=== PATIENT | female | born 1940 | race Caucasian/White ===

== ENCOUNTER 2024-05-15 13:16 | Emergency (ER) | payer MEDICARE, BC, SELFPAY ==
[2024-05-15 13:18] VITALS: BP 149/60
[2024-05-15 13:27] VITALS: BP 136/57
--- NOTE | 2024-05-15 13:52 | ED.GENMED ---
History of Present Illness
General
Chief Complaint: Facial Problem
Time Seen by Provider: 05/15/24 13:25
History of Present Illness
History of Present Illness:
84-year-old female presents the emergency department for evaluation of facial and head trauma. States she awoke today with mild blurriness of the right eye and made an appoint with her eye doctor. She went to the eye doctor where her eye exam was
normal but they noted that she had severe ecchymosis to the right forehead and maxillary face. She was then sent to the ED for further evaluation. She has no recollection of falling. She does admit to nightly alcohol use, has been drinking for
many years every night however more recently this is increased due to several life stressors. She does endorse feeling depressed as her is currently in a detention and she visits him on a daily basis. She denies SI or HI. She does not
wish to speak with [facility] or cares at this time
Past History
Past History
ED Past Medical History: HTN and Valvular disease
ED Past Surgical History: Cardiac (Aortic valve replacement), Cholecystectomy, Gynecological and Orthopedic (Knee replacement)
Social History
Tobacco: Non-smoker
Alcohol: Occasional
Drug: None
Personal:
Living: with family
Employment: Retired
Family History
Family History: Other (Noncontributory)
Review of Systems
Review of Systems
Allergies reviewed?: Yes
All Other Systems: ROS reviewed and negative except as documented in HPI and ROS
Phy Exam
Physical Exam
Physical Exam:
GEN: Well appearing, NAD, WDWN
HEENT: Marked ecchymosis and swelling of the right supraorbital forehead and maxillary face, no palpable crepitus. Normal extraocular motions in all rossi, no hyphema or subconjunctival hemorrhage; oral mucosa moist, no scleral icterus, no nasal
congestion
Cardiac: Regular rate
Lung: No respiratory distress, no tachypnea
MSK: No gross deformity or injuries
Skin: Good color, no pallor or jaundice, no rashes
Neuro: AO x3; CN II-XII grossly intact. BUE strength 5/5 in all rossi, sensation intact and symmetric. BLE strength 5/5 in all rossi, sensation intact and symmetric
Psych: Calm, cooperative
Course
Orders/Labs/Results
Orders:
Orders
05/15/24 13:[address] Facial Bones W/o Iv Contras Urgent
Comment:
Reason For Exam: fall
CT Head W/o Iv Contrast Urgent
Comment:
Reason For Exam: fall
05/15/24 13:31
Electrocardiogram (*1) Urgent
Reason for Study: Syncope
EKG- Treatment ONCE
05/15/24 14:14
Complete Blood Count/No Diff Urgent
Comprehensive Metabolic Panel Urgent
Abnormal Lab Results
05/15/24
14:14
RBC 3.52 L 10^6/uL
(4.20-5.40)
Hct 35.8 L %
(37.0-47.0)
MCV 101.7 H fL
(81.0-99.0)
MCH 34.4 H pg
(27.0-31.0)
BUN 18 H mg/dl
(7-17)
Glucose 105 H mg/dl
(70-99)
05/15/24 14:14
05/15/24 14:14
Vital Signs
Initial and Last Documented VS:
Initial Vital Signs
Temp Pulse Resp BP Pulse Ox
98.7 F 89 18 149/60 97
05/15/24 13:18 05/15/24 13:18 05/15/24 13:18 05/15/24 13:18 05/15/24 13:18
Last Documented Vital Signs
Temp Pulse Resp BP Pulse Ox
98.7 F 89 18 149/60 97
05/15/24 13:18 05/15/24 13:18 05/15/24 13:18 05/15/24 13:18 05/15/24 13:18
MDM/Problems Addressed
MDM/Problems Addressed:
Imaging unremarkable, labs reassuring. Pt offered [facility] or crisis and declined. Advised to decrease ETOH Use. Lives alone, feels safe returning
*Critical Care Note
Total Time (30-74mins, 75-104mins- exclusive of procedures): Not Applicable
Update Note
Update Note:
See scanned documentation from patient's eye visit prior to arrival
ED Attending Note
-
Portions of this chart may have been created with voice recognition software.� Occasional wrong word or��sound alike� substitutions may have occurred due to the inherent limitations of voice recognition software.
Discharge Plan
Departure
Patient Disposition: Home (Routine Discharge)
Date of Disposition: 05/15/24
Time of Disposition: 14:43
Patient with high blood pressure during this ER visit?: No
Discharge Problem:
Fall, Contusion of face
Instructions: Concussion, Adult (DC)
Prescriptions:
No Action
aspirin 81 MG tablet,delayed release (DR/EC)
81 mg PO DAILY
levothyroxine 100 MCG tablet
100 mcg PO DAILY AT 0700
benzonatate 100 MG capsule
100 mg PO TIDPRN PRN (Reason: cough)
metoprolol succinate 25 MG tablet extended release 24 hr
12.5 mg PO BID
acetaminophen 325 MG tablet
650 mg PO Q4HPRN PRN (Reason: mild pain)
cyanocobalamin (vitamin B-12) 1,000 MCG tablet
1,000 mcg PO DAILY
coenzyme A84-esdoyju E 1 CAP capsule
1 cap PO DAILY
cholecalciferol (vitamin D3) 1,000 UNITS tablet
1,000 units PO DAILY
fish,bora,flax oils-om3,6,9no1 [Hamel 3-6-9] 1,200 MG capsule
1,280 mg PO DAILY
azithromycin 250 MG tablet
250 mg PO DAILY 3 Days Qty: 3 0RF
amoxicillin-pot clavulanate 1 TABLET tablet
1 tab PO Q12 5 Days Qty: 10 0RF
guaifenesin [Mucus Relief ER] 600 MG tablet extended release 12hr
600 mg PO Q12 Qty: 14 0RF
Referrals:
Collin Mary DO [Family Provider] -
Interventions
Interventions:
*Risk Screen - Suicide Last Done: 05/15/24 13:18
*General Assessment Last Done: 05/15/24 13:18
*Neglect/Abuse Screening Last Done: 05/15/24 13:18
Discharge Date and Time
Print Language: LITHUANIAN
[2024-05-15 14:02] VITALS: BP 124/55
[2024-05-15 14:24] LABS: Hematocrit 35.8 % (37.0-47.0); Hemoglobin 12.1 g/dL (12.0-16.0); Mean Corp Hgb Conc. 33.8 g/dL (33.0-37.0); Mean Corpuscular Hgb 34.4 pg (27.0-31.0); Mean Corpuscular Volume 101.7 fL (81.0-99.0); Mean Platelet Volume 9.3 fL (7.4-10.4); Platelet Count 236 10^3/uL (130-400); Red Blood Cell Count 3.52 10^6/uL (4.20-5.40); Red Cell Dist. Width 12.6 % (11.5-14.5); White Blood Cell Count 7.6 10^3/uL (4.8-10.8)
[2024-05-15 14:37] LABS: ALT (SGPT) 22 U/L (0-35); AST (SGOT) 29 U/L (14-36); Albumin 3.8 g/dl (3.5-5.0); Alkaline Phosphatase 64 U/L (38-126); Blood Urea Nitrogen 18 mg/dl (7-17); Calcium 9.3 mg/dl (8.4-10.2); Carbon Dioxide 28 mmol/L (22-30); Chloride 103 mmol/L (98-107); Glucose 105 mg/dl (70-99); Potassium 3.8 mmol/L (3.5-5.1); Sodium 138 mmol/L (135-145); Total Protein 6.6 g/dl (6.3-8.2); eGFR > 60.00
== END 2024-05-15 15:01 | disposition home or self-care (01) ==
LOC: EMR 13:16
PROVIDERS: Physician Assistant; EMERGENCY PHYSICIAN Emergency Medicine; FAMILY PHYSICIAN Family Medicine
DX: S00.83XA Contusion of other part of head, initial encounter (principal); W19.XXXA Unspecified fall, initial encounter; R45.89 Other symptoms and signs involving emotional state; I10 Essential (primary) hypertension; Z95.2 Presence of prosthetic heart valve
CPT/HCPCS: 99284; 70450; 70486; 80053; 85027; 93005

== ENCOUNTER 2024-05-30 22:54 | Inpatient (IN) | payer MEDICARE, BC, SELFPAY ==
[2024-05-30] VITALS (9 sets, daily range): BP systolic 117–164; BP diastolic 66–109; BMI 29.0
[2024-05-30 19:51] LABS: % Basophils 1.1 % (0-2); % Eosinophils 0.4 % (0-6); % Immature Granulocytes 0.3 % (0-0.5); % Lymphocytes 24.6 % (20.5-51.1); % Monocytes 9.3 % (1.7-9.3); % Neutrophils 64.3 % (42.2-75.2); Absolute Basophils 0.1 10^3/uL (0-0.2); Absolute Lymphocytes 1.8 10^3/uL (1.2-3.4); Absolute Monocytes 0.7 10^3/uL (0.1-0.6); Absolute Neutrophils 4.7 10^3/uL (1.4-6.5); Hematocrit 32.8 % (37.0-47.0); Hemoglobin 11.4 g/dL (12.0-16.0); Mean Corp Hgb Conc. 34.8 g/dL (33.0-37.0); Mean Corpuscular Hgb 34.3 pg (27.0-31.0); Mean Corpuscular Volume 98.8 fL (81.0-99.0); Mean Platelet Volume 9.9 fL (7.4-10.4); Nucleated Red Blood Cells % 0 %; Platelet Count 248 10^3/uL (130-400); Red Blood Cell Count 3.32 10^6/uL (4.20-5.40); Red Cell Dist. Width 12.7 % (11.5-14.5); White Blood Cell Count 7.3 10^3/uL (4.8-10.8)
--- NOTE | 2024-05-30 19:53 | ED.GENMED ---
History of Present Illness
<Gayathri Aguilar PA-C - Last Filed: 05/31/24 01:08>
General
Chief Complaint: Heart Rate Problem
Source: patient
Exam Limitations: none
Time Seen by Provider: 05/30/24 19:33
Nursing documentation reviewed up to this point in time: agreed with
History of Present Illness
History of Present Illness:
84 y/o F with h/o CAD, AVR, HTN, HLD
on metoprolol 12.5 mg bid
sent by for afib
say sshe has been intermittenty having episodes of palpitations/racing HR, sob, ches tpain that feels like heaviness
the dyspnea has been for about 2.5 weeks
she has been under a great deal of stress recently; her is in NH because he has parkinsons and more recently has had progression of dementia
pt says she tries to visit him and he doesn't want her to leave so she is spending long days and feels wiped out
noticed that in the past 2 weeks when she takes her BP her HR is also eleavtaed above 100 which is unusual
the past 3-4 days she has had a heaviness in her chest whih is new
she has not had pleuritic pain, fever, cough/cold ysmptoms, nausea, vomting abdomianl pain
p has no h/o of afib
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
no AC
Past History
<Gayathri Aguilar PA-C - Last Filed: 05/31/24 01:08>
Past History
ED Past Medical History: HTN and Valvular disease
ED Past Surgical History: Cardiac (Aortic valve replacement), Cholecystectomy, Gynecological and Orthopedic (Knee replacement)
Social History
Tobacco: Non-smoker
Alcohol: Occasional
Drug: None
Personal:
Living: with family
Employment: Retired
Family History
Family History: Other (Noncontributory)
Review of Systems
<Gayathri Aguilar PA-C - Last Filed: 05/31/24 01:08>
Review of Systems
Allergies reviewed?: Yes
All Other Systems: Not applicable
Phy Exam
<Gayathri Aguilar PA-C - Last Filed: 05/31/24 01:08>
Physical Exam
Physical Exam:
GENERAL: Alert , in no apparent distress
EYE: pupils equal and reactive
NECK: Supple
ENT: o/p clr, mmm.
CARDIAC: irregularly irregular, tachycaridc
some mild edema in both legs, nonpittting
LUNGS: Clear breath sounds bilaterally, no acute respiratory distress, no wheezes/rales/rhonchi
ABDOMEN: Soft, without focal tenderness, no r/g, no cvat, normal bowel sounds
NEUROLOGICAL: Alert and oriented, no focal neuro deficits
SKIN: Warm and dry, skin intact.
MUSCULOSKELETAL: No edema, well perfused. neg alberto's sign
PSYCH: Normal and appropriate interaction.
Scores
<Gayathri Aguilar PA-C - Last Filed: 05/31/24 01:08>
[id number] Score for Afib Stroke Risk
Age in Years (65=0, 65-74=1, >/=75=2): > or = 75
Sex (Female=+1): Female
Congestive Heart Failure History (Yes=+1): No
Hypertension History (Yes=+1): Yes
Stroke/TIA/Thromboembolism History (Yes=+2): No
Vascular Disease History (Yes=+1): No
Diabetes Mellitus (Yes=+1): No
Score: 4
Anticoagulation Recommendations: Recommend anticoagulation (as validated in nonvalvular fib)
<Teresa Rebolledo MD - Last Filed: 05/30/24 21:14>
[id number] Score for Afib Stroke Risk
Score: 4
Anticoagulation Recommendations: Recommend anticoagulation (as validated in nonvalvular fib)
Course
<Gayathri Aguilar PA-C - Last Filed: 05/31/24 01:08>
Orders/Labs/Results
Orders:
Orders
05/30/24 Breakfast
Cholesterol Lowering
At Your Request: Full Participation
Does patient need a safe tray?: No
Fluid Restriction: 1000 mL/day (33 oz)
Cholesterol Lowering: Sodium, 2 Gram
05/30/24 19:32
Electrocardiogram (*1) Urgent
Reason for Study: Chest Pain
EKG- Treatment ONCE
05/30/24 19:36
Complete Blood Count/With Diff Urgent
Comprehensive Metabolic Panel Urgent
NT-proBNP Urgent
Comment: ADD ON
TSH Urgent
Comment: ADD ON
Troponin I Urgent
05/30/24 19:47
Add On- LAB Urgent
Comments:: BNP
Tests Added?: BNP
05/30/24 19:50
Metoprolol [Lopressor] 2.5 mg IV NOW STA
05/30/24 19:52
CT Chest PE Study Urgent
Comment:
Reason For Exam: sob, new onset afib
05/30/24 20:07
Add On- LAB Urgent
Tests Added?: tsh
05/30/24 20:14
COVID-19 Antigen Urgent
Source: Nasal Swab
Influenza A+B Rapid Molecular Urgent
TIGIST Source: Nasal Swab
Specimen Description:
05/30/24 20:50
Metoprolol [Lopressor] 2.5 mg IV NOW STA
05/30/24 21:35
Apixaban [Eliquis] 2.5 mg PO NOW STA
05/30/24 21:47
Furosemide [Lasix] 20 mg IV NOW STA
05/30/24 22:15
Furosemide [Lasix] 20 mg IV NOW STA
05/30/24 22:25
Admit/Transfer Patient As Directed
Co-Sign Provider:
Level of Care: Inpatient admission
Assign to:: Telemetry
Physician / Group: indu
Diagnosis: atrial fib with RVR
Reason for Telemetry: Arrhythmia
Date to Stop Telemetry: 06/02/24
Time to Stop Telemetry: 11:00
Reason for Hospitalization: atrial fib with RVR
new onset CHF
Expected length of stay greater than two midnights?: Yes
ELOS- Estimated Length of Stay in days: 3
I certify the patient meets the requirements for IP care: Yes
PRN Pain Medication Management As Directed
May give lesser potent ordered pain med per pt: Yes
preference::
Protocol:: Medication orders for pain may be administered in a
manner that supports deferring to patient preference
when the pt is:
- Requesting an ordered lesser potent pain medication.
Least to most potent pain medications are defined
as: acetaminophen < NSAID < tramadol < opioids
(morphine, oxycodone, hydromorphone).
- Requesting a lesser dose of the same medication IF
ORDERED.
- Requesting a less intrusive route of administration
if both routes are prescribed by the provider (PO <
IV).
05/30/24 22:26
Code Status As Directed
Resuscitation Status: Do not resuscitate
Reached after discussion with pt or family/Healthcare POA: Yes
DNR Bracelet Application ONCE
05/30/24 23:48
Echo 2D MMode Color/Doppler Routine
Reason for Study: heart failure
CARDIOLOGY CONSULT Routine
Consulting Provider: Manjinder Funk
Was physician already notified: No
Reason for consult: new onset atrial fib, new onset CHF
Consult Notification Routine
Specialty to Notify: Cardiology
HF DIETARY CONSULT Routine
HF EDUCATOR CONSULT Routine
Comment:
Activity As Directed
Activity Level: As Tolerated
Intake/ Output As Directed
Frequency: Per unit guidelines
Patient Education As Directed
Type: CHF folder
Comment: give on admission. Document in Interdisciplinary Education record
Sleep Apnea Assessment by RN As Directed
Comment:
Physician Instructions:
Vital Signs As Directed
Frequency: Other
Additional Instructions:: Q12 or per unit guidelines if more frequent.
Weight As Directed
Frequency: Daily
Type of Scale: Standing Scale
Comment: Daily morning weight. If unable to stand, use balanced bed scale.
Weight As Directed
Frequency: Once
Type of Scale: Standing Scale
Comment: Upon Admission. If unable to stand, use balanced bed scale.
Pulse Ox/cont/shift [RESP] Routine
Quantity: 1
Special Instructions: Daily pulse oximetry at rest. If greater than 92% at rest also obtain pulse oximetry
while ambulating as tolerated.
Ot Eval And Treat Routine
Pt Eval And Treat Routine
Activity Level: As Tolerated
05/31/24 01:30
Troponin I Q6H
Comment: at admission & every 6 hours x 2 (3 total), ECG to be done with each level
05/31/24 06:00
Cardiovascular Evaluation IN AM
Magnesium IN AM
TSH Reflex To Free T4 IN AM
05/31/24 07:00
Levothyroxine [Synthroid] 100 mcg PO DAILY AT 0700
05/31/24 07:30
Troponin I Q6H
Comment: at admission & every 6 hours x 2 (3 total), ECG to be done with each level
05/31/24 08:00
Apixaban [Eliquis] 5 mg PO BID
Cholecalciferol (Vitamin D3) [VITAMIN D3 (cholecalciferol)] 25 mcg PO DAILY
Cyanocobalamin [Vitamin B-12] 1,000 mcg PO DAILY
Furosemide [Lasix] 40 mg IV DAILY
Lisinopril [Zestril] 40 mg PO DAILY
Metoprolol Xl [Toprol Xl] 25 mg PO BID
Sertraline HCl [Zoloft] 75 mg PO DAILY
Vit C/Vit E/Lutein/Min/Minter-3 [Ocuvite Softgel] 1 cap PO BID
06/01/24 06:00
Basic Metabolic Panel IN AM
06/02/24 06:00
Basic Metabolic Panel IN AM
06/02/24 11:00
DC Protocol for Telemetry ONCE
Abnormal Lab Results
05/30/24
19:36
RBC 3.32 L 10^6/uL
(4.20-5.40)
Hgb 11.4 L g/dL
(12.0-16.0)
Hct 32.8 L %
(37.0-47.0)
MCH 34.3 H pg
(27.0-31.0)
Absolute Monos (auto) 0.7 H 10^3/uL
(0.1-0.6)
Sodium 134 L mmol/L
(135-145)
BUN 19 H mg/dl
(7-17)
AST 107 H U/L
(14-36)
ALT 122 H U/L
(0-35)
05/30/24 19:36
05/30/24 19:36
Vital Signs
Initial and Last Documented VS:
Initial Vital Signs
Temp Pulse Resp BP Pulse Ox
36.8 C 116 26 150/109 96
05/30/24 19:38 05/30/24 19:38 05/30/24 19:38 05/30/24 19:38 05/30/24 19:38
Last Documented Vital Signs
Temp Pulse Resp BP Pulse Ox
36.9 C 93 18 149/96 95
05/31/24 00:05 05/31/24 00:05 05/31/24 00:05 05/31/24 00:05 05/31/24 00:05
<Teresa Rebolledo MD - Last Filed: 05/30/24 21:14>
Orders/Labs/Results
Orders:
Orders
05/30/24 Breakfast
Cholesterol Lowering
At Your Request: Full Participation
Does patient need a safe tray?: No
Fluid Restriction: 1000 mL/day (33 oz)
Cholesterol Lowering: Sodium, 2 Gram
05/30/24 19:32
Electrocardiogram (*1) Urgent
Reason for Study: Chest Pain
EKG- Treatment ONCE
05/30/24 19:36
Complete Blood Count/With Diff Urgent
Comprehensive Metabolic Panel Urgent
NT-proBNP Urgent
Comment: ADD ON
TSH Urgent
Comment: ADD ON
Troponin I Urgent
05/30/24 19:47
Add On- LAB Urgent
Comments:: BNP
Tests Added?: BNP
05/30/24 19:50
Metoprolol [Lopressor] 2.5 mg IV NOW STA
05/30/24 19:52
CT Chest PE Study Urgent
Comment:
Reason For Exam: sob, new onset afib
05/30/24 20:07
Add On- LAB Urgent
Tests Added?: tsh
05/30/24 20:14
COVID-19 Antigen Urgent
Source: Nasal Swab
Influenza A+B Rapid Molecular Urgent
TIGIST Source: Nasal Swab
Specimen Description:
05/30/24 20:50
Metoprolol [Lopressor] 2.5 mg IV NOW STA
05/30/24 21:35
Apixaban [Eliquis] 2.5 mg PO NOW STA
05/30/24 21:47
Furosemide [Lasix] 20 mg IV NOW STA
05/30/24 22:15
Furosemide [Lasix] 20 mg IV NOW STA
05/30/24 22:25
Admit/Transfer Patient As Directed
Co-Sign Provider:
Level of Care: Inpatient admission
Assign to:: Telemetry
Physician / Group: indu
Diagnosis: atrial fib with RVR
Reason for Telemetry: Arrhythmia
Date to Stop Telemetry: 06/02/24
Time to Stop Telemetry: 11:00
Reason for Hospitalization: atrial fib with RVR
new onset CHF
Expected length of stay greater than two midnights?: Yes
ELOS- Estimated Length of Stay in days: 3
I certify the patient meets the requirements for IP care: Yes
PRN Pain Medication Management As Directed
May give lesser potent ordered pain med per pt: Yes
preference::
Protocol:: Medication orders for pain may be administered in a
manner that supports deferring to patient preference
when the pt is:
- Requesting an ordered lesser potent pain medication.
Least to most potent pain medications are defined
as: acetaminophen < NSAID < tramadol < opioids
(morphine, oxycodone, hydromorphone).
- Requesting a lesser dose of the same medication IF
ORDERED.
- Requesting a less intrusive route of administration
if both routes are prescribed by the provider (PO <
IV).
05/30/24 22:26
Code Status As Directed
Resuscitation Status: Do not resuscitate
Reached after discussion with pt or family/Healthcare POA: Yes
DNR Bracelet Application ONCE
05/30/24 23:48
Echo 2D MMode Color/Doppler Routine
Reason for Study: heart failure
CARDIOLOGY CONSULT Routine
Consulting Provider: Manjinder Funk
Was physician already notified: No
Reason for consult: new onset atrial fib, new onset CHF
Consult Notification Routine
Specialty to Notify: Cardiology
HF DIETARY CONSULT Routine
HF EDUCATOR CONSULT Routine
Comment:
Activity As Directed
Activity Level: As Tolerated
Intake/ Output As Directed
Frequency: Per unit guidelines
Patient Education As Directed
Type: CHF folder
Comment: give on admission. Document in Interdisciplinary Education record
Sleep Apnea Assessment by RN As Directed
Comment:
Physician Instructions:
Vital Signs As Directed
Frequency: Other
Additional Instructions:: Q12 or per unit guidelines if more frequent.
Weight As Directed
Frequency: Daily
Type of Scale: Standing Scale
Comment: Daily morning weight. If unable to stand, use balanced bed scale.
Weight As Directed
Frequency: Once
Type of Scale: Standing Scale
Comment: Upon Admission. If unable to stand, use balanced bed scale.
Pulse Ox/cont/shift [RESP] Routine
Quantity: 1
Special Instructions: Daily pulse oximetry at rest. If greater than 92% at rest also obtain pulse oximetry
while ambulating as tolerated.
Ot Eval And Treat Routine
Pt Eval And Treat Routine
Activity Level: As Tolerated
05/31/24 01:30
Troponin I Q6H
Comment: at admission & every 6 hours x 2 (3 total), ECG to be done with each level
05/31/24 06:00
Cardiovascular Evaluation IN AM
Magnesium IN AM
TSH Reflex To Free T4 IN AM
05/31/24 07:00
Levothyroxine [Synthroid] 100 mcg PO DAILY AT 0700
05/31/24 07:30
Troponin I Q6H
Comment: at admission & every 6 hours x 2 (3 total), ECG to be done with each level
05/31/24 08:00
Apixaban [Eliquis] 5 mg PO BID
Cholecalciferol (Vitamin D3) [VITAMIN D3 (cholecalciferol)] 25 mcg PO DAILY
Cyanocobalamin [Vitamin B-12] 1,000 mcg PO DAILY
Furosemide [Lasix] 40 mg IV DAILY
Lisinopril [Zestril] 40 mg PO DAILY
Metoprolol Xl [Toprol Xl] 25 mg PO BID
Sertraline HCl [Zoloft] 75 mg PO DAILY
Vit C/Vit E/Lutein/Min/Minter-3 [Ocuvite Softgel] 1 cap PO BID
06/01/24 06:00
Basic Metabolic Panel IN AM
06/02/24 06:00
Basic Metabolic Panel IN AM
06/02/24 11:00
DC Protocol for Telemetry ONCE
Abnormal Lab Results
05/30/24
19:36
RBC 3.32 L 10^6/uL
(4.20-5.40)
Hgb 11.4 L g/dL
(12.0-16.0)
Hct 32.8 L %
(37.0-47.0)
MCH 34.3 H pg
(27.0-31.0)
Absolute Monos (auto) 0.7 H 10^3/uL
(0.1-0.6)
Sodium 134 L mmol/L
(135-145)
BUN 19 H mg/dl
(7-17)
AST 107 H U/L
(14-36)
ALT 122 H U/L
(0-35)
05/30/24 19:36
05/30/24 19:36
Vital Signs
Initial and Last Documented VS:
Initial Vital Signs
Temp Pulse Resp BP Pulse Ox
36.8 C 116 26 150/109 96
05/30/24 19:38 05/30/24 19:38 05/30/24 19:38 05/30/24 19:38 05/30/24 19:38
Last Documented Vital Signs
Temp Pulse Resp BP Pulse Ox
36.9 C 93 18 149/96 95
05/31/24 00:05 05/31/24 00:05 05/31/24 00:05 05/31/24 00:05 05/31/24 00:05
<Gayathri Aguilar PA-C - Last Filed: 05/31/24 01:08>
MDM/Problems Addressed
Differential Diagnosis Includes:
afib with RVR, pe, pulm edema
MDM/Problems Addressed:
84 y/o F
new onset afib with RVR, mild pulm edema, no o2 requirement
no PE on ct
sxs palpitations x 2 weeks with dyspnea;
chest pressure x 3-4 days, trop 0.031
lasix, metoprolol IV
rate controlled 80s;
will requir admission
AC intiited
[id number] score is 4
<Gayathri Aguilar PA-C - Last Filed: 05/31/24 01:08>
*Critical Care Note
Total Time (30-74mins, 75-104mins- exclusive of procedures): Not Applicable
ED Attending Note
<Gayathri Aguilar PA-C - Last Filed: 05/31/24 01:08>
-
Portions of this chart may have been created with voice recognition software.� Occasional wrong word or��sound alike� substitutions may have occurred due to the inherent limitations of voice recognition software.
<Teresa Rebolledo MD - Last Filed: 05/30/24 21:14>
ED Attending Note
Patient seen and examined by attending physician: Yes
I performed the substantive portion of visit, reviewed & personally made and approve the management plan that is documented in note by myself or WALKER.: Yes
ED Attending Note:
84-year-old female who reports gradual onset of variety of symptoms for the last few months. She has been very stressed and anxious given her her 's Parkinson disease has gotten much worse recently. She describes progressive shortness of
breath with activity for the last few months. She also notes for the past few days/week her heart rate has been elevated. She attributed this to anxiety until her daughter convinced her to seek medical attention today. Patient is not
anticoagulated. She does have a history of aortic valve replacement. She does state that 2 weeks ago she was home and just noticed that she could not see out of her right eye, looked in the mirror and had a large periorbital hematoma. She did see
ophthalmology at that time, and got a CAT scan of her head and facial bones which were unremarkable. She denies preceding symptoms to this event and does not remember anything about the actual event. On exam, patient has resolving hematoma at the
right infraorbital area. Lungs are CTA. Heart irregularly irregular, slightly tachycardic. Patient with new onset A-fib, recent questionable syncopal event, progressive dyspnea on exertion. At this time she is a candidate for anticoagulation but
careful consideration going forward given her recent fall. Admission, echo, cards consult.
Discharge Plan
Departure
Patient Disposition: Admit
Date of Disposition: 05/30/24
Time of Disposition: 21:38
Admit to: Telemetry
Presentation/result/management discussed w/ accepting MD/DO: Hospitalist
Condition: Fair
Covid-19: Not Applicable
Discharge Problem:
Atrial fibrillation, new onset, Atrial fibrillation with rapid ventricular response
Interventions
Interventions:
*Risk Screen - Suicide Last Done: 05/30/24 23:49
*General Assessment Last Done: 05/30/24 20:08
*Neglect/Abuse Screening Last Done: 05/30/24 20:08
*ED- Fall Risk Assessment Last Done: 05/30/24 20:07
*ED COVID-19 Vaccine History Last Done: 05/30/24 23:49
*Nursing Disposition Last Done: 05/30/24 23:33
ED- Cardiac Assessment Last Done: 05/30/24 20:09
ED- Pulmonary Assessment Last Done: 05/30/24 20:09
Discharge Date and Time
Discharge Date/Time: 05/30/24 23:33
[2024-05-30 20:05] LABS: ALT (SGPT) 122 U/L (0-35); AST (SGOT) 107 U/L (14-36); Albumin 4.4 g/dl (3.5-5.0); Alkaline Phosphatase 122 U/L (38-126); Blood Urea Nitrogen 19 mg/dl (7-17); Calcium 9.2 mg/dl (8.4-10.2); Carbon Dioxide 25 mmol/L (22-30); Chloride 99 mmol/L (98-107); Estimated Creatinine Clearance 57 ml/min; Glucose 99 mg/dl (70-99); Potassium 3.9 mmol/L (3.5-5.1); Sodium 134 mmol/L (135-145); Total Protein 6.8 g/dl (6.3-8.2); eGFR > 60.00
[2024-05-30 20:17] LABS: NT-proBNP 6430 pg/ml; Troponin I 0.031 ng/ml
[2024-05-30] MEDS: LOPRESSOR 2.5 MG IV ×2 (20:17→21:22)
[2024-05-30 20:37] LABS: COVID-19 Antigen Negative (Negative)
[2024-05-30 20:57] LABS: TSH 1.93 uIU/ml (0.47-4.68)
--- NOTE | 2024-05-30 22:04 | HPS.HSE ---
Family Physician
-
Family Physician: Collin Mary
Chief Complaint
-
palpitation
sob
chest pain
History of Present Illness
84 y/o F with h/o CAD, AVR, HTN, HLD presented to us palpitation, chest heaviness, felt like her heart was racing since Monday. her heart rate was somewhere between 100-140. she was sob, UNDERWOOD. denied orthopnea. patient stated dizzy, lightheaded and
she had fall two weeks ago. she fell face down. denied fever, chills. she is complaining of headache. denied abdominal pain,n,v,d. denied dysuria and hematuria.
she has been under a great deal of stress recently; her is in NH because he has Parkinson and more recently has had progression of dementia. she spends time with him at [place] and been tired.
upon arrival, she was in atrial frib with RVR, chest x ray with CHF. patient received Lasix, metoprolol and eliquis in ER. admitting for further management.
Medical History
Past Medical History
Past Medical History: Reports Other
Additional Past Medical History:
HTN
hypothyroidism
squamous cell carcinoma
insomnia
HTN
HLD
aortic valve stenosis
depression
CAD
Past Surgical History: Reports Other
Additional Past Surgical History:
aortic valve replacement
right cataract extraction
cholecystectomy
hysterectomy
left TKR
CABG
Social History
Tobacco: Non-smoker
Alcohol: Daily
Drug: None
Personal:
Living: Alone
Family History
Family History: Not pertinent
Allergies / Home Medications
Allergies reflects when Allergies were last updated in [employer].
Home Medications with original date entered in [employer]
Allergy/Medication List:
Allergies
Allergy/AdvReac Type Severity Reaction Status Date / Time
No Known Allergies Allergy Verified 05/30/24 20:10
Home Medications
cholecalciferol (vitamin D3) 25 mcg (1,000 unit) tablet 1,000 units PO DAILY Supplement 07/15/21
cyanocobalamin (vitamin B-12) 1,000 mcg tablet 1,000 mcg PO DAILY Supplement 07/15/21
levothyroxine 100 mcg tablet 100 mcg PO DAILY AT 0700 Thyroid 07/15/21
metoprolol succinate 25 mg tablet,extended release 24 hr 12.5 mg PO BID Blood pressure 07/15/21
ascorbate calcium (vitamin C) 500 mg tablet 500 mg PO DAILY 05/30/24
evolocumab 140 mg/mL subcutaneous syringe (Repatha Syringe) 140 mg SC Q2W 05/30/24
hydrochlorothiazide 25 mg tablet 25 mg PO DAILY 05/30/24
lisinopril 40 mg tablet 40 mg PO DAILY 05/30/24
sertraline 50 mg tablet 75 mg PO DAILY 05/30/24
vit C 250 mg-vit E 90 mg-zinc 40 mg-copper 1 [id number]-yjxyud capsule (PreserVision AREDS-2) 1 tab PO BID 05/30/24
Review of Systems
-
Constitutional: Reports No Symptoms
EENT: Reports No Symptoms
Respiratory: Reports Trouble Breathing
Cardiac: Reports Chest Pain and Palpitations
Abdomen/GI: Reports No Symptoms
: Reports No Symptoms
Musculoskeletal: Reports No Symptoms
Skin: Reports No Symptoms
Neurological: Reports No Symptoms
Endocrine: Reports No Symptoms
Hematologic/Lymphatic: Reports No Symptoms
Psych: Reports No Symptoms
Physical Exam
Vital Signs
Vital Signs
Temp Pulse Resp BP Pulse Ox
98.2 F 112 22 155/85 94
05/30/24 19:38 05/30/24 21:22 05/30/24 21:22 05/30/24 21:22 05/30/24 21:22
Physical Exam
General: Well Developed, Well Nourished and No Apparent Distress
HEENT: NormoCephalic, Moist mucous membranes and Atraumatic
Respiratory: Clear
Cardiac: Irregular Rhythm and Tachycardia; No Murmur or Rub
GI: Soft, Non Tender, Non Distended and Normal Bowel Sounds; No Organomegaly
Rectal: Deferred by Provider
Musculoskeletal: No Clubbing, No Cyanosis and Other (b/l Le edema)
Skin: No Rash
Neuro: AO x 3 and Nonfocal/grossly intact
Psych: Calm
Laboratory Results
-
05/30/24 19:36
05/30/24 19:36
Laboratory Results
Total Bilirubin 1.0 mg/dl (0.2-1.3) 05/30/24 19:36
AST 107 U/L (14-36) H 05/30/24 19:36
ALT 122 U/L (0-35) H 05/30/24 19:36
Alkaline Phosphatase 122 U/L (38-126) 05/30/24 19:36
Troponin I 0.031 ng/ml 05/30/24 19:36
Data Reviewed
-
Diagnostic Radiology: Report Reviewed by me
Lab Data: Labs Reviewed by me
Impression/Plan
-
#new onset atrial fib with RVR
-eliquis and Lopressor in ER
-continue eliquis
-metoprolol increased to 25mg bid
#new onset CHF
-patient received a dose of Lasix in ER
-strict I &O
-daily weight
-fluid restriction
-obtain ECHO
-iv diuretics continued
-cardiology consulted
-chest CT with the impression of Examination negative for pulmonary embolism.Small right pleural effusion. Patchy groundglass opacity throughout both lungs with Choco B lines, findings highly suggestive of pulmonary edema, most likely on the basis
of congestive heart failure.Oblique band of increased density within the anterior and inferior aspect of the right upper lobe of the lung, a new finding since CT examination in 2019. Morphologic appearance suggests that this is a focal area of
scarring and/or atelectasis. Neoplasia is felt to be unlikely but not completely excluded. A follow-up CT of the chest is recommended, initial timeframe of 3 months.
#hepatic congestion
-ast 107,ALT 122
-denied abdominal pain
-trend LFTs
#Essential Hypertension
-Hold HCTZ
-lisinopril and metoprolol continued with hold parameter
#Hypothyroid
- Continue levothyroxine
#anxiety
-sertraline continued
#CAD s/p CABG
#Bioprosthetic Aortic Valve Replacement
#DVT prophylaxis: eliquis
Code status:DNR
[2024-05-30] MEDS: LASIX 20 MG IV ×2 (22:09→22:27)
[2024-05-30] MEDS: ELIQUIS 2.5 MG PO (22:18)
--- NOTE | 2024-05-30 22:19 | W.PN.UPDATE ---
Update Note
Progress Note Update
This is an addendum to the H&P written by she was 05/30/2024. Patient seen and examined independently with DIRECTOR OF DIGITAL TECHNOLOGY.
84-year-old female past medical history of hypertension, hypothyroidism, CAD, aortic valve replacement, hyperlipidemia, presenting with palpitations, shortness of breath and chest heaviness intermittently for past 2 weeks. Passed out 2 weeks ago
due to dizziness with right facial bruising. Under a lot of stress due to with Parkinson's and dementia requiring a lot of care.
Patient arrived in new onset atrial fibrillation heart rate of 117.
Labs show transaminitis. Cardiac BNP of 6400. Troponin of 0.31. COVID and influenza negative.
CT chest shows small right pleural effusion, patchy groundglass opacity throughout both lungs with curly B-lines suggestive of pulmonary edema.
Patient with new onset atrial fibrillation as well as tachycardia induced CHF exacerbation.
20 IV Lasix given in ER. 40 IV Lasix daily. Trend troponins. Check echocardiogram. Check TSH. Increase metoprolol to succinate from 12.5 mg twice daily to 25 mg twice daily. Eliquis started. Cardiology consulted.
[2024-05-31] VITALS (9 sets, daily range): BP systolic 100–157; BP diastolic 58–96; BMI 27.1
[2024-05-31 02:04] LABS: Troponin I 0.036 ng/ml
[2024-05-31] MEDS: SYNTHROID 100 MCG PO (06:10)
--- NOTE | 2024-05-31 06:28 | PTCARENOTE ---
Pt received on [facility] at 23:30 on 05/30. Pt stood and walked from stretcher to bed. Pt is AAOx3, no c/o pain, VSS. Pt placed on bed alarm d/t hx of recent falls. Pt oriented to room, call leon within reach and pt rings appropriately.
[2024-05-31] MEDS: ZOLOFT 75 MG PO (07:58)
[2024-05-31] MEDS: ELIQUIS 5 MG PO ×2 (07:59→19:50)
[2024-05-31] MEDS: VITAMIN D3 (cholecalciferol) 25 MCG PO (07:59)
[2024-05-31] MEDS: OCUVITE SOFTGEL 1 CAP PO ×2 (08:00→19:50)
[2024-05-31] MEDS: VITAMIN B-12 1000 MCG PO (08:00)
[2024-05-31 08:01] LABS: Troponin I 0.037 ng/ml
[2024-05-31] MEDS: ZESTRIL 40 MG PO (08:01)
[2024-05-31] MEDS: LASIX 40 MG IV ×2 (08:01→17:23)
[2024-05-31] MEDS: TOPROL XL 25 MG PO (08:01)
[2024-05-31 08:38] LABS: ALT (SGPT) 118 U/L (0-35); AST (SGOT) 82 U/L (14-36); Albumin 3.8 g/dl (3.5-5.0); Alkaline Phosphatase 118 U/L (38-126); Blood Urea Nitrogen 16 mg/dl (7-17); Calcium 9.1 mg/dl (8.4-10.2); Carbon Dioxide 29 mmol/L (22-30); Chloride 99 mmol/L (98-107); Direct Bilirubin 0.3 mg/dl (0.0-0.4); Estimated Creatinine Clearance 55 ml/min; Glucose 98 mg/dl (70-99); HDL Cholesterol 53 mg/dl; LDL Cholesterol, Calculated 38 mg/dl; Magnesium 1.8 mg/dl (1.6-2.3); Potassium 3.4 mmol/L (3.5-5.1); Sodium 138 mmol/L (135-145); Total Bilirubin 1.3 mg/dl (0.2-1.3); Total Cholesterol 111 mg/dl (50-199); Total Protein 6.7 g/dl (6.3-8.2); Triglyceride 104 mg/dl (10-149); Very Low Density Lipoprotein 20 mg/dl (0-30); eGFR > 60.00
[2024-05-31 08:51] LABS: TSH Reflex To Free T4 1.95 uIU/ml (0.47-4.68)
--- NOTE | 2024-05-31 09:37 | CON.CAR ---
Addendum entered and electronically signed by Charlie Vu MD 05/31/24 12:10:
84 yo female with CABG and bio-AVR in 2007, stenosis of bioprosthetic valve, HTN is admitted with SOB, palps. We are consulted for new A fib with RVR and acute HF. She feels palps, chest heaviness. Exam with tachy, irregular rhythm, II/
systolic murmur at RUSB, trace LE edema. Cr 0.7. Tele: A fib 120s.
A fib with RVR, new. Continue PO metoprolol. Start diltiazem drip. Start eliquis 5mg bid.
Acute HF, type unknown. Severe, requiring hospitalization and IV diuretic with close monitoring of labs, tele, weight. Increase lasix to 40mg IV bid. Replete K.
Stenosis of bioprosthetic valve. Check echo. We discussed topic of mdjiq-pt-kbmoa TAVR.
Original Note:
Consultation
Consultation Request
Date/Time Consultation Requested: 05/30/24 11:45p
Date/Time Consultation Performed: 05/31/24 10a
Requesting Provider: LEROY Nunez
Performing Provider: LEROY Hardy for Dr. Vu
Reason for Consultation: new onset Afib
Medical History
-
Chief Complaint: SOB, palpitations
History of Present Illness:
Mrs. Burton is an 84 yo female with bio AVR/CABG x 1 09/2007, moderate bioprosthetic aortic valve stenosis on echo 08/2022, HTN, HLD, hypothyroidism, cervical disk disease, alopecia, and GERD, who presents to the ER with complaints of SOB/UNDERWOOD for at
least 6 months, worsened over the last month. Also c/o racing heart beat/palpitations she first noticed 2 nights ago lying in bed. EKG shows new onset rapid Afib with rates in the 130s, Toprol given in the ER and rates still elevated. We are
consulted for new rapid Afib. She is a patient of Dr. César House, cardiology at [place], last seen in the office 08/2023 with c/o SOB/UNDERWOOD and exercise intolerance. Echo and Lexiscan stress test were ordered but she has not yet
completed these studies. 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 Recently she had to place him in a prison, [facility] in [place]. CT chest shows pulmonary edema (proBNP 6430),
negative for PE. She is receiving IV Lasix as well. [id number] VASC score is 5 and she was started on Eliquis.
Past Medical History
Past Medical History: Other (as above)
Past Surgical History: Cholecystectomy (1993), Gynecological (hysterectomy) and Orthopedic (left TKA 10/2015)
Social History
Tobacco: Non-Smoker
Alcohol: None
Personal:
Living: Alone ( is at [facility])
Family History
Family History: Reviewed & Not Pertinent
Allergies / Home Medications
Allergy/AdvReac Type Severity Reaction Status Date / Time
No Known Allergies Allergy Verified 05/30/24 20:10
�Medication �Instructions �Recorded �Confirmed �Type
cholecalciferol (vitamin D3) 25 1,000 units PO DAILY Supplement 07/15/21 05/30/24 History
mcg (1,000 unit) tablet
cyanocobalamin (vitamin B-12) 1,000 mcg PO DAILY Supplement 07/15/21 05/30/24 History
1,000 mcg tablet
levothyroxine 100 mcg tablet 100 mcg PO DAILY AT 0700 Thyroid 07/15/21 05/30/24 History
metoprolol succinate 25 mg 12.5 mg PO BID Blood pressure 07/15/21 05/30/24 History
tablet,extended release 24 hr
ascorbate calcium (vitamin C) 500 500 mg PO DAILY 05/30/24 05/30/24 History
mg tablet
evolocumab 140 mg/mL subcutaneous 140 mg SC Q2W 05/30/24 05/30/24 History
syringe (Repatha Syringe)
hydrochlorothiazide 25 mg tablet 25 mg PO DAILY 05/30/24 05/30/24 History
lisinopril 40 mg tablet 40 mg PO DAILY 05/30/24 05/30/24 History
sertraline 50 mg tablet 75 mg PO DAILY 05/30/24 05/30/24 History
vit C 250 mg-vit E 90 mg-zinc 40 1 tab PO BID 05/30/24 05/30/24 History
mg-copper 1 [id number]-xxcxam
capsule (PreserVision AREDS-2)
Review of Systems
-
History Source: Patient
All other systems: Negative unless noted
Physical Exam
Vital Signs
Temp Pulse Resp BP Pulse Ox
98.3 F 138 20 157/95 95
05/31/24 07:00 05/31/24 07:00 05/31/24 07:00 05/31/24 08:01 05/31/24 07:00
Lab Results
05/30/24 19:36
05/31/24 07:26
Troponin I 0.037 ng/ml H* 05/31/24 07:26
Wnp-P-Ycihnrclsxh Pept 6430 pg/ml 05/30/24 19:36
Physical Exam
General: Well Developed, No Apparent Distress and Other (alopecia)
HEENT: Normocephalic and Anicteric
Respiratory: Clear and Non Labored Respirations
Cardiac: S1/S2, Irregular Rhythm (tachycardia) and Murmur (2/6 BARBI)
Breast: Deferred by me
GI: Soft, Non Tender, Non Distended and Normal Bowel Sounds
Rectal: Deferred by Provider
Genito-urinary: Clear Urine
Musculoskeletal: No Clubbing, No Cyanosis and No Edema
Skin: Warm and Dry
Neuro: AO x 3
Hematologic/Lymphatic: No Lymphadenopathy
Psych: Calm
Impression / Plan
-
Afib - new onset, duration unknown.
- RVR rates in the 130s, given Toprol 50mg BID.
- received IV Lopressor in ER.
- will start Diltiazem drip and monitor.
- [id number] VASc score is 5, now on Eliquis 5mg BID.
- check echo.
- consider JUAN/cardioversion Monday.
Aortic stenosis - s/p bio AVR 09/2007.
- moderate bioprosthetic valve stenosis on echo 08/2022.
- check echo.
- symptomatic with new HFpEF and new Afib.
HFpEF - acute, prior EF 55-60%.
- likely due to rapid Afib.
- check echo today.
- agree with IV Lasix, monitor daily weights, I&Os.
- replete potassium and monitor.
CAD - s/p CABG x 1 in 2007.
- Persantine stress test 2015 that was negative.
- troponin trend 0.031, 0.036, 0.037... will trend to peak.
- non-ischemic myocardial injury in the setting of new acute rapid Afib and new acute HFpEF.
- denies chest pain.
- will await echo, if she has severe bioprosthetic valve stenosis then can consider starting TAVR work up.
HTN - stable on meds, monitor with IV Diltiazem drip.
Data Reviewed
-
EKG: Tracing Personally Visualized and interpreted (Afib 117, LVH with repolarization abn, iRBBB)
CT Scan: Report Reviewed by me (head: New mild periventricular small vessel ischemic disease, no acute abnormality.) and Other (chest: mild pulmonary edema, negative for PE.)
Medical Tests (Nuc Med, Echo etc): Report Reviewed by me (echo 08/2022: moderate bio AVR stenosis with hyperdynamic LV and PHTN, normal LVEF.)
Labs: Labs Reviewed by me
Old Records: Reviewed
[2024-05-31] MEDS: KCL 40 MEQ PO (10:37)
[2024-05-31] MEDS: CARDIZEM 125 IV (10:38)
--- NOTE | 2024-05-31 14:40 | W.PN.HOSP.TC ---
Today's Communication/Plan
-
cont diuresis and dilt gtt
Assessment / Plan
Assessment / Plan
#new onset atrial fib with RVR
-initiated on dilt gtt
-continue eliquis
-apprec cards
#suspected acute hfpEF
-patient received a dose of Lasix in ER
-strict I &O
-daily weight
-fluid restriction
-echo
-iv diuretics continued
-cardiology consulted
-chest CT with the impression of Examination negative for pulmonary embolism.Small right pleural effusion. Patchy groundglass opacity throughout both lungs with Choco B lines, findings highly suggestive of pulmonary edema, most likely on the basis
of congestive heart failure.Oblique band of increased density within the anterior and inferior aspect of the right upper lobe of the lung, a new finding since CT examination in 2019. Morphologic appearance suggests that this is a focal area of
scarring and/or atelectasis. Neoplasia is felt to be unlikely but not completely excluded. A follow-up CT of the chest is recommended, initial timeframe of 3 months.
#hepatic congestion
-ast 107,ALT 122
-denied abdominal pain
-trend LFTs
#Essential Hypertension
-Hold HCTZ
-lisinopril and metoprolol continued with hold parameter
#Hypothyroid
- Continue levothyroxine
#anxiety
-sertraline continued
#CAD s/p CABG
#Bioprosthetic Aortic Valve Replacement
#DVT prophylaxis: eliquis
Code status:DNR
Anticipated Discharge: 24 - 48 hours
Subjective/Interval History
-
Date of Service: May 31, 2024
pt remains in RVR
states breathing better but not at baseline
Objective Data
-
Labs:
Laboratory Results
05/31/24
07:26
Sodium 138
Potassium 3.4 L
Chloride 99
Carbon Dioxide 29
BUN 16
Creatinine 0.7
Glucose 98
Calcium 9.1
Total Bilirubin 1.3
AST 82 H
ALT 118 H
Alkaline Phosphatase 118
Vital Signs:
Vital Signs
Temp Pulse Resp BP Pulse Ox
98.2 F 106 18 104/78 90
05/31/24 10:45 05/31/24 11:15 05/31/24 10:45 05/31/24 11:15 05/31/24 10:45
I&O
05/30/24 05/31/24 06/01/24
06:59 06:59 06:59
Intake Total 120 / 120
Output Total 1375 / 1375
Balance -1255 / -1255
Review of Systems
-
History Source: Patient
All other systems: Reviewed and negative
Physical Exam
-
General: Well Developed and No Apparent Distress
HEENT: Normocephalic, Atraumatic and Moist Mucous Membranes
Respiratory: Clear to Auscultation
Cardiac: Regular Rhythm and S1/S2; Negative Murmur, Rub or Gallop
GI: Soft, Nontender, Nondistended and Normal Bowel Sounds; Negative Organomegaly
Rectal: Deferred by Provider
Musculoskeletal: No Clubbing, No Cyanosis and No Edema
Skin: Negative Rash
Neuro: Nonfocal/Grossly Intact
Data Reviewed
-
Diagnostic Radiology: Report Reviewed by me
Labs: Labs Reviewed by me
--- NOTE | 2024-05-31 16:27 | CM ---
Patient seen bedside, initial assessment completed. Patient is a 84 y/o F with h/o CAD, AVR, HTN, HLD presented to us palpitation, chest heaviness, felt like her heart was racing since Monday.
Patient reports that she lives alone now as her is now in a nursing facility. Patient is independent w/ ambulating and ADLs, no device required. Patient has grab bars, chair lift and shower chair in the home. Patient states there are bars
all throughout the house. Patient shared she engaged in cardiac rehab at . Prev know to [facility] transitional care unit acute rehab in the past, [facility].
Address, point of contact and insurance verified
PCP: Collin Mary
[facility]
Therapy eval pending. Attempted to see today but patient had elevated HR and will re-attempt another time. CM will watch for any needs
Plan: CM will cont to follow for d/c planning
[2024-05-31] MEDS: TOPROL XL 50 MG PO (19:46)
[2024-05-31] MEDS: MELATONIN 5 MG PO (20:06)
[2024-06-01] VITALS (10 sets, daily range): BP systolic 76–141; BP diastolic 43–77; BMI 25.7
[2024-06-01] MEDS: SYNTHROID 100 MCG PO (06:06)
[2024-06-01 07:22] LABS: % Eosinophils 1.2 % (0-6); % Immature Granulocytes 0.3 % (0-0.5); % Lymphocytes 20.6 % (20.5-51.1); % Monocytes 11.7 % (1.7-9.3); % Neutrophils 65.2 % (42.2-75.2); Absolute Basophils 0.1 10^3/uL (0-0.2); Absolute Eosinophils 0.1 10^3/uL (0-0.7); Absolute Lymphocytes 1.6 10^3/uL (1.2-3.4); Absolute Monocytes 0.9 10^3/uL (0.1-0.6); Hematocrit 34.3 % (37.0-47.0); Hemoglobin 11.8 g/dL (12.0-16.0); Mean Corp Hgb Conc. 34.4 g/dL (33.0-37.0); Mean Corpuscular Hgb 34.2 pg (27.0-31.0); Mean Corpuscular Volume 99.4 fL (81.0-99.0); Mean Platelet Volume 9.9 fL (7.4-10.4); Nucleated Red Blood Cells % 0 %; Platelet Count 247 10^3/uL (130-400); Red Blood Cell Count 3.45 10^6/uL (4.20-5.40); Red Cell Dist. Width 12.9 % (11.5-14.5); White Blood Cell Count 7.7 10^3/uL (4.8-10.8)
[2024-06-01 08:13] LABS: ALT (SGPT) 84 U/L (0-35); AST (SGOT) 43 U/L (14-36); Albumin 3.7 g/dl (3.5-5.0); Alkaline Phosphatase 110 U/L (38-126); Blood Urea Nitrogen 22 mg/dl (7-17); Calcium 9.1 mg/dl (8.4-10.2); Carbon Dioxide 33 mmol/L (22-30); Chloride 97 mmol/L (98-107); Estimated Creatinine Clearance 43 ml/min; Glucose 106 mg/dl (70-99); Potassium 3.3 mmol/L (3.5-5.1); Sodium 137 mmol/L (135-145); Total Protein 6.5 g/dl (6.3-8.2); eGFR > 60.00
[2024-06-01] MEDS: LASIX 40 MG IV (08:43)
[2024-06-01] MEDS: ZOLOFT 75 MG PO (08:43)
[2024-06-01] MEDS: VITAMIN D3 (cholecalciferol) 25 MCG PO (08:44)
[2024-06-01] MEDS: TOPROL XL 50 MG PO (08:44)
[2024-06-01] MEDS: ZESTRIL 40 MG PO (08:44)
[2024-06-01] MEDS: ELIQUIS 5 MG PO ×2 (08:44→19:45)
[2024-06-01] MEDS: VITAMIN B-12 1000 MCG PO (08:44)
[2024-06-01] MEDS: OCUVITE SOFTGEL 1 CAP PO ×2 (08:44→19:46)
[2024-06-01] MEDS: CARDIZEM 125 IV (09:02)
--- NOTE | 2024-06-01 11:28 | W.PN.HOSP.TC ---
Today's Communication/Plan
-
IV fluid bolus
Reduce dose of lisinopril
Assessment / Plan
Assessment / Plan
Gen-AAOx3, NAD
HEENT-NC, AT, anicteric, clear oral mm
Neck-supple
CV-reg, no M, +S1/S2
Lungs-clear B/L
Abd-soft, NT, ND
Ext-no edema
Musculoskeletal-no cyanosis, clubbing
Skin-warm and dry
Neuro-grossly non-focal
Psych-calm, cooperative
Hypotension -possibly due to combination of antihypertensives and diuresis. IV fluid bolus ordered. Lisinopril dose reduced to 20 mg daily starting tomorrow.
Hypokalemia -will replete.
new onset atrial fib with RVR -currently rate controlled on IV Cardizem 5 mg/h.
-initiated on dilt gtt
-continue eliquis
-apprec cards
suspected acute hfpEF
-patient received a dose of Lasix in ER
-strict I &O
-daily weight
-fluid restriction
-echo shows LVEF 65 to 70%, mild to moderate MR, mild MS, severe bioprosthetic aortic valve stenosis. Mild to moderate TR. Compared to August 2022 echo, bioprosthetic AVR stenosis has progressed from moderate to severe. Cardiology to address.
-iv diuretics continued
-cardiology consulted
-chest CT with the impression of Examination negative for pulmonary embolism.Small right pleural effusion. Patchy groundglass opacity throughout both lungs with Choco B lines, findings highly suggestive of pulmonary edema, most likely on the basis
of congestive heart failure.Oblique band of increased density within the anterior and inferior aspect of the right upper lobe of the lung, a new finding since CT examination in 2019. Morphologic appearance suggests that this is a focal area of
scarring and/or atelectasis. Neoplasia is felt to be unlikely but not completely excluded. A follow-up CT of the chest is recommended, initial timeframe of 3 months.
hepatic congestion
-ast 107,ALT 122
-denied abdominal pain
-trend LFTs
Essential Hypertension
-Hold HCTZ
-lisinopril and metoprolol continued with hold parameter
Hypothyroid
- Continue levothyroxine
anxiety
-sertraline continued
CAD s/p CABG
Bioprosthetic Aortic Valve Replacement
DVT prophylaxis: eliquis
Code status:DNR
Anticipated Discharge: > 48 hours
Subjective/Interval History
-
Date of Service: June 01, 2024
Patient seen and examined. Complaining of some lightheadedness. Denies shortness of breath.
Objective Data
-
Labs:
Laboratory Results
06/01/24
06:29
WBC 7.7
Hgb 11.8 L
Hct 34.3 L
Plt Count 247
Sodium 137
Potassium 3.3 L
Chloride 97 L
Carbon Dioxide 33 H
BUN 22 H
Creatinine 0.8
Glucose 106 H
Calcium 9.1
Total Bilirubin 1.0
AST 43 H
ALT 84 H
Alkaline Phosphatase 110
Vital Signs:
Vital Signs
Temp Pulse Resp BP Pulse Ox
98.0 F 81 20 128/66 96
06/01/24 07:00 06/01/24 07:00 06/01/24 07:00 06/01/24 07:00 06/01/24 08:00
I&O
05/31/24 06/01/24 06/02/24
06:59 06:59 06:59
Intake Total 120 / 120 720 / 720
Output Total 1375 / 1375 2049
Balance -1255 / -1255 -1330 / -1330
Review of Systems
-
History Source: Patient
All other systems: Reviewed and negative
[2024-06-01] MEDS: KCL 40 MEQ PO (12:09)
[2024-06-01] MEDS: NSS 500 IV (12:09)
--- NOTE | 2024-06-01 12:37 | W.PN.CD ---
Today's Communication / Plan
-
BP low
-stop diltiazem drip and lisinopril
-hold additional IV lasix, and assess for PO in AM
discussed with hospitalist and patient's daughter
Impression / Plan
-
Afib - new onset, duration unknown.
- now hypotensive on diltiazem drip: stop
-rates are better
-continue Toprol XL 50mg bid
-CHADS2-VASC = 5. Eliquis 5mg bid for OAC.
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
- severe with mean mean gradient 48 mmHg on echo 05/31
-discussed gixdd-fq-hzbpc TAVR with patient and daughter: they decline
-med mgmt of HF sxs
HFpEF - acute
- in setting of as above
-became hypotensive this AM: hold additional IV lasix, and assess for PO in AM
CAD - s/p CABG x 1 in 2007.
- Persantine stress test 2016: no ischemia
- non-ischemic myocardial injury in the setting of new acute rapid Afib and new acute HFpEF: peak 0.037
-stopped ASA, now that on eliquis
HTN - hold lisinopril due to hypotension (see above)
Physical Exam
Vital Signs/Labs
Vital Signs
Temp Pulse Resp BP Pulse Ox
97.4 F 72 20 76/48 95
06/01/24 11:00 06/01/24 11:00 06/01/24 11:00 06/01/24 11:35 06/01/24 11:00
05/31/24 06/01/24 06/02/24
06:59 06:59 06:59
Actual Weight 69.456 kg 65.828 kg
06/01/24 06:29
06/01/24 06:29
Magnesium 1.8 mg/dl (1.6-2.3) 05/31/24 07:26
Triglycerides 104 mg/dl (10-149) 05/31/24 07:26
LDL Cholesterol, Calc 38 mg/dl 05/31/24 07:26
VLDL Cholesterol, Calc 20 mg/dl (0-30) 05/31/24 07:26
HDL Cholesterol 53 mg/dl 05/31/24 07:26
TSH 1.93 uIU/ml (0.47-4.68) 05/30/24 19:36
05/30/24
19:36
Vpq-Y-Ymmtoikmvno Pept 6430
LAB Results
05/30/24 05/31/24 05/31/24
19:36 01:23 07:26
Troponin I 0.031 0.036 H* 0.037 H*
Physical Exam
Constitutional: No acute distress and Comfortable
EENT: Moist mucous membranes
Cardiovascular: Pedal edema is absent, JVD pressure is normal, Rhythm/rate is irregular and Systolic murmur present
Respiratory: Respiratory effort normal and Lungs clear to auscul.
Neuro/Psych: AO x 3
Data Reviewed
-
Date of Service: June 01, 2024
EKG: Other (Tele: A fib 70s)
Labs: Labs Reviewed by me
--- NOTE | 2024-06-01 12:52 | PTCARENOTE ---
Pt blood pressure 82/44 at 1100, reports feeling dizzy while laying down. Manual BP 76/48. MD Montes De Oca notified, 500cc NSS bolus ordered and administered. Cardiology made aware, orders to discontinue cardizem gtt placed. Repeat manual BP at 1230
98/54, pt reports feeling slightly improved. Plan of care ongoing.
[2024-06-01] MEDS: KCL 20 MEQ PO (19:46)
[2024-06-01] MEDS: TOPROL XL PO (20:22)
[2024-06-01] MEDS: NSS 250 IV (20:23)
[2024-06-01] MEDS: ProAmatine 5 MG PO (20:24)
[2024-06-01] MEDS: MELATONIN 5 MG PO (21:28)
[2024-06-02] VITALS (10 sets, daily range): BP systolic 99–115; BP diastolic 60–79; PULSE 67; O2SAT 93–94; BMI 26.2
[2024-06-02] MEDS: TOPROL XL 12.5 MG PO (04:18)
[2024-06-02] MEDS: SYNTHROID 100 MCG PO (06:04)
[2024-06-02 08:20] LABS: Blood Urea Nitrogen 27 mg/dl (7-17); Calcium 9.2 mg/dl (8.4-10.2); Carbon Dioxide 29 mmol/L (22-30); Chloride 103 mmol/L (98-107); Estimated Creatinine Clearance 34 ml/min; Glucose 94 mg/dl (70-99); Magnesium 1.9 mg/dl (1.6-2.3); Sodium 137 mmol/L (135-145); eGFR 55.21
[2024-06-02] MEDS: VITAMIN D3 (cholecalciferol) 25 MCG PO (08:50)
[2024-06-02] MEDS: OCUVITE SOFTGEL 1 CAP PO ×2 (08:50→20:35)
[2024-06-02] MEDS: KCL 20 MEQ PO ×2 (08:51→20:35)
[2024-06-02] MEDS: VITAMIN B-12 1000 MCG PO (08:51)
[2024-06-02] MEDS: TOPROL XL 50 MG PO ×2 (08:51→12:30)
[2024-06-02] MEDS: ZOLOFT 75 MG PO (08:52)
[2024-06-02] MEDS: ELIQUIS 5 MG PO ×2 (08:53→20:35)
--- NOTE | 2024-06-02 10:01 | W.PN.HOSP.TC ---
Today's Communication/Plan
-
Continue current care
Assessment / Plan
Assessment / Plan
Gen-AAOx3, NAD
HEENT-NC, AT, anicteric, clear oral mm
Neck-supple
CV-irregular, tachycardic, no M, +S1/S2
Lungs-clear B/L
Abd-soft, NT, ND
Ext-no edema
Musculoskeletal-no cyanosis, clubbing
Skin-warm and dry
Neuro-grossly non-focal
Psych-calm, cooperative
Hypotension -resolved. IV Lasix and IV Cardizem discontinued. Lisinopril stopped.
Hypokalemia -resolved.
new onset atrial fib with RVR -off Cardizem drip. Toprol-XL dose increased, await response.
-continue eliquis
-apprec cards
suspected acute hfpEF -improving. IV Lasix on hold for hypotension. Can change to oral today if okay with cardiology.
-strict I &O
-daily weight
-fluid restriction
-echo shows LVEF 65 to 70%, mild to moderate MR, mild MS, severe bioprosthetic aortic valve stenosis. Mild to moderate TR. Compared to August 2022 echo, bioprosthetic AVR stenosis has progressed from moderate to severe. Cardiology to address.
-iv diuretics continued
-cardiology consulted
-chest CT with the impression of Examination negative for pulmonary embolism.Small right pleural effusion. Patchy groundglass opacity throughout both lungs with Choco B lines, findings highly suggestive of pulmonary edema, most likely on the basis
of congestive heart failure.Oblique band of increased density within the anterior and inferior aspect of the right upper lobe of the lung, a new finding since CT examination in 2019. Morphologic appearance suggests that this is a focal area of
scarring and/or atelectasis. Neoplasia is felt to be unlikely but not completely excluded. A follow-up CT of the chest is recommended, initial timeframe of 3 months.
hepatic congestion -due to congestive heart failure. Transaminases trending down.
Essential Hypertension -hypotension resolved.
-Hold HCTZ, presentation with hyponatremia, resolved.
Continue Toprol-XL.
Hypothyroid
- Continue levothyroxine
anxiety
-sertraline continued
CAD s/p CABG
Bioprosthetic Aortic Valve Replacement -now with stenosis of valve. Patient and family declined further intervention and want medical management.
DVT prophylaxis: eliquis
Code status:DNR
Anticipated Discharge: Within 24 hours
Subjective/Interval History
-
Date of Service: June 02, 2024
Patient seen and examined. Denies shortness of breath. Feels like her heart rate is more noticeable.
Objective Data
-
Labs:
Laboratory Results
06/02/24
06:23
Sodium 137
Potassium 4.0
Chloride 103
Carbon Dioxide 29
BUN 27 H
Creatinine 1.0
Glucose 94
Calcium 9.2
Vital Signs:
Vital Signs
Temp Pulse Resp BP Pulse Ox
98.2 F 109 16 115/67 98
06/02/24 07:35 06/02/24 07:35 06/02/24 07:35 06/02/24 07:35 06/02/24 07:35
I&O
06/01/24 06/02/24 06/03/24
06:59 06:59 06:59
Intake Total 720 / 720 910 / 910
Output Total 2049
Balance -1330 / -1330
Review of Systems
-
History Source: Patient
All other systems: Reviewed and negative
[2024-06-02] MEDS: LASIX 40 MG PO ×2 (11:13→17:07)
--- NOTE | 2024-06-02 11:30 | W.PN.CD ---
Today's Communication / Plan
-
increase Toprol XL to 100mg bid
transition to lasix 40mg PO bid
Impression / Plan
-
Afib - new onset, duration unknown.
- increase Toprol XL to 100mg bid
-CHADS2-VASC = 5. Eliquis 5mg bid for OAC.
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
- severe with mean mean gradient 48 mmHg on echo 05/31
-discussed [id number] TAVR with patient and daughter: they decline
-med mgmt of HF sxs
HFpEF - acute, improved s/p IV lasix
- in setting of as above
-transition to lasix 40mg PO bid
CAD - s/p CABG x 1 in 2007.
- Persantine stress test 2016: no ischemia
- non-ischemic myocardial injury in the setting of new acute rapid Afib and new acute HFpEF: peak 0.037
-stopped ASA, now that on eliquis
HTN - stopped lisinopril to allow room for Toprol XL titration
Physical Exam
Vital Signs/Labs
Vital Signs
Temp Pulse Resp BP Pulse Ox
98.2 F 109 16 115/67 98
06/02/24 07:35 06/02/24 07:35 06/02/24 07:35 06/02/24 07:35 06/02/24 07:35
06/01/24 06/02/24 06/03/24
06:59 06:59 06:59
Actual Weight 65.828 kg 67.132 kg
06/01/24 06:29
06/02/24 06:23
Magnesium 1.9 mg/dl (1.6-2.3) 06/02/24 06:23
Triglycerides 104 mg/dl (10-149) 05/31/24 07:26
LDL Cholesterol, Calc 38 mg/dl 05/31/24 07:26
VLDL Cholesterol, Calc 20 mg/dl (0-30) 05/31/24 07:26
HDL Cholesterol 53 mg/dl 05/31/24 07:26
TSH 1.93 uIU/ml (0.47-4.68) 05/30/24 19:36
05/30/24
19:36
Kat-W-Gomqsrwndiw Pept 6430
LAB Results
05/30/24 05/31/24 05/31/24
19:36 01:23 07:26
Troponin I 0.031 0.036 H* 0.037 H*
Physical Exam
Constitutional: No acute distress and Comfortable
EENT: Moist mucous membranes
Cardiovascular: Rhythm/rate is irregular, Pedal edema present, JVD present and Systolic murmur present
Respiratory: Respiratory effort normal
Neuro/Psych: AO x 3
Data Reviewed
-
Date of Service: June 02, 2024
EKG: Other (A fib 110s)
Labs: Labs Reviewed by me
[2024-06-02] MEDS: MELATONIN 5 MG PO (21:54)
[2024-06-02] MEDS: TOPROL XL PO (22:16)
[2024-06-02] MEDS: TOPROL XL 25 MG PO (22:22)
[2024-06-03 00:23] VITALS: BP 110/70
[2024-06-03] MEDS: LOPRESSOR 50 MG PO (00:34)
[2024-06-03 03:30] VITALS: BP 128/83
[2024-06-03] MEDS: SYNTHROID 100 MCG PO (05:22)
[2024-06-03 06:00] VITALS: BMI 26.6
[2024-06-03 07:52] VITALS: BP 109/62
[2024-06-03] MEDS: LASIX 40 MG PO (07:53)
[2024-06-03] MEDS: OCUVITE SOFTGEL 1 CAP PO (07:54)
[2024-06-03] MEDS: ZOLOFT 75 MG PO (07:54)
[2024-06-03] MEDS: VITAMIN D3 (cholecalciferol) 25 MCG PO (07:54)
[2024-06-03] MEDS: ELIQUIS 5 MG PO (07:55)
[2024-06-03] MEDS: KCL 20 MEQ PO (07:55)
[2024-06-03] MEDS: TOPROL XL 100 MG PO (07:55)
[2024-06-03] MEDS: VITAMIN B-12 1000 MCG PO (07:55)
[2024-06-03 08:39] LABS: % Basophils 1.1 % (0-2); % Eosinophils 1.6 % (0-6); % Immature Granulocytes 0.2 % (0-0.5); % Lymphocytes 27.9 % (20.5-51.1); % Neutrophils 55.2 % (42.2-75.2); Absolute Basophils 0.1 10^3/uL (0-0.2); Absolute Eosinophils 0.1 10^3/uL (0-0.7); Absolute Lymphocytes 1.6 10^3/uL (1.2-3.4); Absolute Monocytes 0.8 10^3/uL (0.1-0.6); Absolute Neutrophils 3.2 10^3/uL (1.4-6.5); Hematocrit 33.2 % (37.0-47.0); Hemoglobin 11.4 g/dL (12.0-16.0); Mean Corp Hgb Conc. 34.3 g/dL (33.0-37.0); Mean Corpuscular Hgb 34.7 pg (27.0-31.0); Mean Corpuscular Volume 100.9 fL (81.0-99.0); Mean Platelet Volume 9.9 fL (7.4-10.4); Nucleated Red Blood Cells % 0 %; Platelet Count 217 10^3/uL (130-400); Red Blood Cell Count 3.29 10^6/uL (4.20-5.40); White Blood Cell Count 5.7 10^3/uL (4.8-10.8)
[2024-06-03 09:12] LABS: Blood Urea Nitrogen 24 mg/dl (7-17); Calcium 9.2 mg/dl (8.4-10.2); Chloride 100 mmol/L (98-107); Estimated Creatinine Clearance 42 ml/min; Potassium 4.2 mmol/L (3.5-5.1); Sodium 136 mmol/L (135-145); eGFR > 60.00
[2024-06-03 09:14] LABS: Carbon Dioxide 29 mmol/L (22-30); Glucose 93 mg/dl (70-99)
--- NOTE | 2024-06-03 09:19 | W.PN.HOSP.TC ---
Today's Communication/Plan
-
Oral diuretics. Adjustment of medications. Discharge planning
Assessment / Plan
Assessment / Plan
Physical exam:
General: Well Developed, Well Nourished and No Apparent Distress
HEENT: Normocephalic, Atraumatic and Moist Mucous Membranes
Respiratory: Clear to Auscultation; Negative Wheezes, Rales or Rhonchi
Cardiac: Irregular rate and rhythm and S1/S2, systolic murmur present
GI: Soft, Nontender and Nondistended
Musculoskeletal: No Clubbing, No Cyanosis and No Edema
Neuro: Awake, Alert and Oriented
Psych: Calm
A/P:
New onset A-fib:
Continue Toprol-XL 100 mg twice a day
Eliquis 5 mg twice a day
Discontinue Cardizem
Plan to assess for cardioversion as outpatient
Cardiology cleared her for discharge today. Patient can go either later today or in a.m. as soon as top case assembler arrange for discharge disposition
Hypotension:
Discontinue Cardizem today
The following medications have been discontinued prior: Lisinopril and hydrochlorothiazide
Acute HFpEF:
Continue oral Lasix 40 mg twice a day
Continue beta-blockers
Bioprosthetic AVR with stenosis/mild to moderate MR/mild MS/mild to moderate TR:
Status post bio AVR 2007
Discussions about [id number]-[id number] TAVR by cardiology with patient and family but declined.
CAD:
Continue Eliquis
No antiplatelets per cardiology
Continue beta-blockers
Hypothyroidism:
Continue thyroid place
DVT prophylaxis:
Eliquis
CODE STATUS:
DNR
Anticipated Discharge: Today
Subjective/Interval History
-
Date of Service: June 03, 2024
Patient denies shortness of breath. Blood pressure on the low side. No chest pain. Afebrile
Objective Data
-
Labs:
Laboratory Results
06/03/24
07:37
WBC 5.7
Hgb 11.4 L
Hct 33.2 L
Plt Count 217
Sodium 136
Potassium 4.2
Chloride 100
Carbon Dioxide 29
BUN 24 H
Creatinine 0.9
Glucose 93
Calcium 9.2
Vital Signs:
Vital Signs
Temp Pulse Resp BP Pulse Ox
98.4 F 77 18 109/62 96
06/03/24 07:52 06/03/24 07:52 06/03/24 07:52 06/03/24 07:52 06/03/24 07:52
I&O
06/02/24 06/03/24 06/04/24
06:59 06:59 06:59
Intake Total 910 / 910 480 / 480
Balance 910 / 910 480 / 480
--- NOTE | 2024-06-03 10:09 | W.PN.CD ---
Today's Communication / Plan
-
continue Toprol XL 100mg bid, diltiazem 120mg daily, eliquis 5mg bid, lasix 40mg bid, Kcl 20 mEq bid
ASA, lisinopril, HCTZ were stopped
BMP in one week
we will arrange for follow up with us
please call us with additional questions
Impression / Plan
-
Afib - new onset, duration unknown.
- home regimen will be Toprol XL 100mg bid, and diltiazem 120mg daily
-CHADS2-VASC = 5. Eliquis 5mg bid for OAC.
-to assess for DCCV as outpatient after 4 weeks OAC (started 05/31)
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
- severe with mean mean gradient 48 mmHg on echo 05/31, EF 65-70%
-discussed tbjdy-nu-lhoci TAVR with patient and daughter: they decline
-med mgmt of HF sxs
HFpEF - acute, improved s/p IV lasix
- in setting of as above
-continue lasix 40mg PO bid, Kcl 20 mEq bid
CAD - s/p CABG x 1 in 2007.
- Persantine stress test 2016: no ischemia
- non-ischemic myocardial injury in the setting of new acute rapid Afib and new acute HFpEF: peak 0.037
-stopped ASA, now that on eliquis
HTN - stopped lisinopril to allow room for Toprol XL titration
Mild/mod MR
Mild MS
Mild/moderate TR
Physical Exam
Vital Signs/Labs
Vital Signs
Temp Pulse Resp BP Pulse Ox
98.4 F 77 18 109/62 96
06/03/24 07:52 06/03/24 07:52 06/03/24 07:52 06/03/24 07:52 06/03/24 07:52
06/02/24 06/03/24 06/04/24
06:59 06:59 06:59
Actual Weight 67.132 kg 68.152 kg
06/03/24 07:37
06/03/24 07:37
Magnesium 1.9 mg/dl (1.6-2.3) 06/02/24 06:23
Triglycerides 104 mg/dl (10-149) 05/31/24 07:26
LDL Cholesterol, Calc 38 mg/dl 05/31/24 07:26
VLDL Cholesterol, Calc 20 mg/dl (0-30) 05/31/24 07:26
HDL Cholesterol 53 mg/dl 05/31/24 07:26
TSH 1.93 uIU/ml (0.47-4.68) 05/30/24 19:36
05/30/24
19:36
Nhn-C-Ekybzanfhjn Pept 6430
Physical Exam
Constitutional: No acute distress and Comfortable
EENT: Moist mucous membranes
Cardiovascular: Pedal edema is absent, JVD pressure is normal, Rhythm/rate is irregular and Systolic murmur present
Respiratory: Respiratory effort normal and Lungs clear to auscul.
Neuro/Psych: AO x 3
Data Reviewed
-
Date of Service: June 03, 2024
EKG: Other (Tele: A FIB avg HR 105)
Labs: Labs Reviewed by me
[2024-06-03 11:08] VITALS: BP 95/45
[2024-06-03 15:15] VITALS: BP 112/67
[2024-06-03] MEDS: LASIX PO (15:20)
--- NOTE | 2024-06-03 15:21 | CM ---
Per nurse, hospitalist is planning to d/c patient today. Therapy rec home PT, discussed w/ patient bedside. Patient agreeable to [facility] as her utilized services in the past. Per patient, her daughter and son-in-law will transport her home.
IMM verbally reviewed, patient given copy, copy placed on chart
[facility] referral placed in [facility] for review
Plan: Home w/ [facility]
--- NOTE | 2024-06-03 15:40 | W.DCSUMMARY ---
Discharge Summary
Discharge Data
Date of Admission: 05/30/24
Date of Discharge: 06/03/24
-
Pending Results: No
Hospital Course
Patient 84 years old female with history of CAD, bioprosthetic aortic valve replacement back in 2007, subsequent stenosis of bioprosthetic valve, hypertension, came into the hospital shortness of breath and found to be in heart failure and A-fib,
new onset. Cardiology consulted. She was started on Cardizem drip and IV diuresis. She was initiated on Eliquis. Subsequently Cardizem drip was converted to oral Cardizem and oral metoprolol succinate. She became hypotensive and lisinopril,
hydrochlorothiazide, and eventually oral Cardizem were all discontinued. Her IV diuresis was switched to oral. Her weight was 74 kg and it went down to 68 kg upon discharge. Echocardiogram showed EF of 65 to 70% mild to moderate mitral
regurgitation, mild mitral stenosis, severe bioprosthetic aortic valve stenosis, peak mean gradients 70/48 mmHg, mild aortic regurgitation, mild to moderate tricuspid regurgitation, normal PASP and noticed progression of stenosis of bioprosthetic
AVR and MR and TR from prior echocardiogram. Cardiology discussed the possibility of undiw-oq-bmmtn TAVR intervention but patient and family declined so recommended continue medical management. Aspirin discontinued in favor of Eliquis. Patient did
well rest of hospital stay. There are plans for possible cardioversion if needed as outpatient after 4 weeks of full anticoagulation. She participated with PT and OT and recommended home health. manager of applications development consulted for home health
arrangements. Cardiology cleared her for discharge today. She will be discharged in stable condition today.
Discharge duration: 35 minutes
Discharge Plan
-
Patient Disposition: Home with Home Care
Discharge Diagnosis/Procedures: New onset atrial fibrillation. Acute diastolic congestive heart failure. Hypotension.
Diet: Low Cholesterol
Activity: As tolerated
Blood Work: Please PCP to order CBC, BMP within 1 week
Referrals:
Kelly Davis CRNP [Specified Professional Personl] - 06/19/24 1:40 pm
Collin Mary DO [Family Provider] - in less than 1 week
Prescriptions:
New
furosemide 40 mg Tablet
40 mg PO BID AT 0800,1600 30 Days Qty: 60 0RF
metoprolol succinate 100 mg Tablet Extended Release 24 Hr
100 mg PO BID 30 Days Qty: 60 0RF
potassium chloride 20 mEq Tablet,Er Particles/Crystals
20 meq PO BID 30 Days Qty: 60 0RF
Eliquis 5 mg Tablet
5 mg PO BID 30 Days Qty: 60 0RF
Continued
levothyroxine 100 MCG tablet
100 mcg PO DAILY AT 0700
cyanocobalamin (vitamin B-12) 1,000 MCG tablet
1,000 mcg PO DAILY
cholecalciferol (vitamin D3) 1,000 UNITS tablet
1,000 units PO DAILY
ascorbate calcium (vitamin C) 500 mg Tablet
500 mg PO DAILY
sertraline 50 mg Tablet
75 mg PO DAILY
PreserVision AREDS-2 250-90-40-1 mg Capsule
1 tab PO BID
Repatha Syringe 140 mg/mL Syringe
140 mg SC Q2W
Discontinued
metoprolol succinate 25 MG tablet extended release 24 hr
12.5 mg PO BID
hydrochlorothiazide 25 mg Tablet
25 mg PO DAILY
lisinopril 40 mg Tablet
40 mg PO DAILY
Discharge Orders:
Discharge Patient (As Directed); Ordered 06/03/24
Ordered By: Raymundo Mejia
Discharge Date and Time
Discharge Date/Time: 06/03/24 16:25
Print Language: BHUTANESE
== END 2024-06-03 16:25 | disposition home health service (06) | DRG 308 ==
LOC: 4 WEST ACU 22:54
PROVIDERS: Internal Medicine; Physician Assistant; Registered Nurse; ADMITTING PHYSICIAN Hospitalist; ATTENDING PHYSICIAN Hospitalist; EMERGENCY PHYSICIAN Emergency Medicine; FAMILY PHYSICIAN Family Medicine; OTHER PHYSICIAN Internal Medicine
DX: I48.91 Unspecified atrial fibrillation (principal); I50.31 Acute diastolic (congestive) heart failure; T82.857A Stenosis of other cardiac prosthetic devices, implants and grafts, initial encounter; I25.10 Atherosclerotic heart disease of native coronary artery without angina pectoris; Z66 Do not resuscitate; K21.9 Gastro-esophageal reflux disease without esophagitis; E03.9 Hypothyroidism, unspecified; E78.5 Hyperlipidemia, unspecified; F32.A Depression, unspecified; G47.00 Insomnia, unspecified; I10 Essential (primary) hypertension; K76.1 Chronic passive congestion of liver; F41.9 Anxiety disorder, unspecified; I95.2 Hypotension due to drugs; T50.2X5A Adverse effect of carbonic-anhydrase inhibitors, benzothiadiazides and other diuretics, initial encounter; E87.6 Hypokalemia; Y83.1 Surgical operation with implant of artificial internal device as the cause of abnormal reaction of the patient, or of later complication, without mention of misadventure at the time of the procedure; Z79.890 Hormone replacement therapy; Z79.899 Other long term (current) drug therapy; Z96.652 Presence of left artificial knee joint; Z95.3 Presence of xenogenic heart valve; Z95.1 Presence of aortocoronary bypass graft; Z79.01 Long term (current) use of anticoagulants; Z11.52 Encounter for screening for COVID-19
CPT/HCPCS: 71275; 80048; 80053; 80061; 82248; 83735; 83880; 84443; 84484; 85025; 87502; 87811; 93005; 93306; 96374; 96375; 96376; 97162; 97166; 99285; Q9967

== ENCOUNTER 2024-06-09 17:52 | Inpatient (IN) | payer MEDICARE, BC, SELFPAY ==
[2024-06-09] VITALS (10 sets, daily range): BP systolic 115–144; BP diastolic 68–101; BMI 26.6; BMI 26.3
[2024-06-09 14:05] LABS: % Basophils 0.9 % (0-2); % Eosinophils 0.3 % (0-6); % Immature Granulocytes 0.3 % (0-0.5); % Lymphocytes 26.3 % (20.5-51.1); % Monocytes 9.4 % (1.7-9.3); % Neutrophils 62.8 % (42.2-75.2); Absolute Basophils 0.1 10^3/uL (0-0.2); Absolute Lymphocytes 1.7 10^3/uL (1.2-3.4); Absolute Monocytes 0.6 10^3/uL (0.1-0.6); Absolute Neutrophils 4.1 10^3/uL (1.4-6.5); Hematocrit 36.4 % (37.0-47.0); Hemoglobin 12.3 g/dL (12.0-16.0); Mean Corp Hgb Conc. 33.8 g/dL (33.0-37.0); Mean Corpuscular Hgb 33.7 pg (27.0-31.0); Mean Corpuscular Volume 99.7 fL (81.0-99.0); Mean Platelet Volume 9.5 fL (7.4-10.4); Nucleated Red Blood Cells % 0 %; Platelet Count 231 10^3/uL (130-400); Red Blood Cell Count 3.65 10^6/uL (4.20-5.40); Red Cell Dist. Width 12.6 % (11.5-14.5); White Blood Cell Count 6.6 10^3/uL (4.8-10.8)
[2024-06-09 14:27] LABS: ALT (SGPT) 57 U/L (0-35); AST (SGOT) 30 U/L (14-36); Albumin 4.3 g/dl (3.5-5.0); Alkaline Phosphatase 97 U/L (38-126); Blood Urea Nitrogen 23 mg/dl (7-17); Calcium 9.2 mg/dl (8.4-10.2); Carbon Dioxide 29 mmol/L (22-30); Chloride 106 mmol/L (98-107); Estimated Creatinine Clearance 43 ml/min; Glucose 144 mg/dl (70-99); Potassium 3.5 mmol/L (3.5-5.1); Sodium 144 mmol/L (135-145); Total Bilirubin 0.7 mg/dl (0.2-1.3); eGFR > 60.00
[2024-06-09 14:31] LABS: Troponin I 0.016 ng/ml
--- NOTE | 2024-06-09 14:37 | EDRN ---
Dr. Mclean currently at the [facility] bedside
--- NOTE | 2024-06-09 14:59 | ED.GENMED ---
History of Present Illness
General
Chief Complaint: Heart Rate Problem
Source: patient and family (daughter)
Exam Limitations: none
Time Seen by Provider: 06/09/24 14:30
Nursing documentation reviewed up to this point in time: agreed with
History of Present Illness
History of Present Illness:
The patient is a pleasant 84-year-old female who was recently diagnosed about 10 days ago with new onset atrial fibrillation. Patient was started on Eliquis and was scheduled to have an outpatient cardioversion in the upcoming weeks. Patient
reports that she is unable to wait that long because she has had increasing shortness of breath and does not feel well. She denies chest pain but states that if she tries to do simple daily activities which she normally is able to do, she is unable
to do so and cannot breathe. Patient denies leg pain and leg swelling. She denies fever and cough.
Past History
Past History
ED Past Medical History: Arrthythmia, HTN and Valvular disease
ED Past Surgical History: Cardiac (Aortic valve replacement), Cholecystectomy, Gynecological and Orthopedic (Knee replacement)
Social History
Tobacco: Non-smoker
Alcohol: Occasional
Drug: None
Personal:
Living: with family
Employment: Retired
Family History
Family History: Other (Noncontributory)
Review of Systems
Review of Systems
Allergies reviewed?: Yes
All Other Systems: ROS reviewed and negative except as documented in HPI and ROS
Constitutional: Reports fatigue
EENT: Reports no symptoms
Respiratory: Reports trouble breathing
Cardiac: Reports palpitations
ABD/GI: Reports no symptoms
: Reports no symptoms
Musculoskeletal: Reports no symptoms
Skin: Reports no symptoms
Neurological: Reports no symptoms
Endocrine: Reports no symptoms
Hematologic/Lymphatic: Reports no symptoms
Psychiatric: Reports no symptoms
Phy Exam
Physical Exam
Physical Exam:
Physical Exam
General: no apparent distress, not acutely ill
Neck: supple. no meningeal signs. normal psoterior pharynx
Heart: Irregular, tachycardic
Lungs: Mild wheeze. Questionable crackles bilaterally. Able to speak in full sentences
Abdomen: normal bowel sounds. not tender. no CVAT
Neuro: alert and oriented. no focal neurological deficits
Skin: no rash
Psychiatric: well kept. interactive and cooperative
Extremities: no edema. no calf tenderness. negative homans. good distal pulses
Course
Orders/Labs/Results
Orders:
Orders
06/09/24 13:54
Electrocardiogram (*1) Urgent
Reason for Study: Palpitations
CXR2 [CR Chest - 2 Views ] Urgent
Comment:
Reason For Exam: shortness of breath
06/09/24 13:55
EKG- Treatment ONCE
06/09/24 13:59
Complete Blood Count/With Diff Urgent
Comprehensive Metabolic Panel Urgent
NT-proBNP Urgent
Comment: PROBNP ADDED ON BY FLOOR 2:50PM 06-09-24
Troponin I Urgent
06/09/24 14:50
Add On- LAB Urgent
Tests Added?: pro-BNP
06/09/24 15:30
Furosemide [Lasix] 40 mg IV NOW STA
Abnormal Lab Results
06/09/24
13:59
RBC 3.65 L 10^6/uL
(4.20-5.40)
Hct 36.4 L %
(37.0-47.0)
MCV 99.7 H fL
(81.0-99.0)
MCH 33.7 H pg
(27.0-31.0)
Monocytes % 9.4 H %
(1.7-9.3)
BUN 23 H mg/dl
(7-17)
Glucose 144 H mg/dl
(70-99)
ALT 57 H U/L
(0-35)
06/09/24 13:59
06/09/24 13:59
Vital Signs
Initial and Last Documented VS:
Initial Vital Signs
Pulse Resp
115 23
06/09/24 13:57 06/09/24 13:57
Last Documented Vital Signs
Temp Pulse Resp BP Pulse Ox
97.6 F 114 24 116/79 97
06/09/24 14:08 06/09/24 15:45 06/09/24 15:45 06/09/24 15:00 06/09/24 15:45
MDM/Problems Addressed
Differential Diagnosis Includes:
Atrial fibrillation with RVR, A-fib with CHF, symptomatic A-fib
MDM/Problems Addressed:
Patient presents with acute shortness of breath
Chronic conditions affecting care: Arrhythmia
Acute Exacerbation and/or Progression of Chronic Illness:
Patient may have acute tachycardia from rapid A-fib
Acute Exacerbation and/or Progression of Chronic Illness: Arrhythmia
*Radiology
Radiology exam reviewed: preliminary read by ED provider (Chest x-ray reviewed by me. Pulmonary edema) and radiology read reviewed
*Pulse Oximetry
Patient hypoxic: no
*EKG
Interpreted by ED Provider?: Yes
Interpretation: abnormal
Comparison EKG: no changes
Rate: tachycardiac
Rhythm: a-fib
[place]: left axis deviation
Interval: normal interval
QRS Pattern: left vent hypertrophy
Ischemia: non-specific ST changes
*Blockers Skiver Interpretation
Rate: tachycardiac
Interpretation: abnormal
Rhythm: a-fib
*Critical Care Note
Total Time (30-74mins, 75-104mins- exclusive of procedures): Not Applicable
Data Reviewed
Review of Other/Old Records Reveals: Discharge Summary (Discharge summary reviewed from 06/03/2024 when patient was admitted for new onset A-fib, started on Eliquis and expected to have outpatient cardioversion in upcoming weeks)
Source: patient and family
Patient Management
Discussion with other providers: Hospitalist and Other (Case discussed with Dr. Blas Thurston who feels that patient's symptoms and shortness of breath are more related to her failing aortic valve than the A-fib. At this time, we will not do an
emergent cardioversion)
Escalation/DeEscalation of care consider admission/obs:
Patient will be admitted for diuresis for possible CHF and Case will be discussed further with admitting team in regards to need for valve replacement
ED Attending Note
-
Portions of this chart may have been created with voice recognition software.� Occasional wrong word or��sound alike� substitutions may have occurred due to the inherent limitations of voice recognition software.
Discharge Plan
Departure
Patient Disposition: Admit
Date of Disposition: 06/09/24
Time of Disposition: 15:30
Admit to: Telemetry
Presentation/result/management discussed w/ accepting MD/DO: Hospitalist
Patient with high blood pressure during this ER visit?: Yes
Condition: Good
Covid-19: Not Applicable
Discharge Problem:
Atrial fibrillation with rapid ventricular response, Acute CHF
Prescriptions:
No Action
levothyroxine 100 MCG tablet
100 mcg PO DAILY
cyanocobalamin (vitamin B-12) 1,000 MCG tablet
1,000 mcg PO DAILY
cholecalciferol (vitamin D3) 1,000 UNITS tablet
1,000 units PO DAILY
ascorbate calcium (vitamin C) 500 mg Tablet
500 mg PO DAILY
sertraline 50 mg Tablet
75 mg PO DAILY
PreserVision AREDS-2 250-90-40-1 mg Capsule
1 tab PO BID
Repatha Syringe 140 mg/mL Syringe
140 mg SC Q2W
metoprolol succinate 100 mg Tablet Extended Release 24 Hr
100 mg PO BID 30 Days Qty: 60 0RF
potassium chloride 20 mEq Tablet,Er Particles/Crystals
20 meq PO BID 30 Days Qty: 60 0RF
Eliquis 5 mg Tablet
5 mg PO BID 30 Days Qty: 60 0RF
furosemide 40 mg tablet
40 mg PO BID
acetaminophen [Tylenol Arthritis] 650 mg Tablet Extended Release
1,300 mg PO [id number] PRN (Reason: mild pain)
Referrals:
Collin Mary DO [Family Provider] -
Interventions
Interventions:
*Risk Screen - Suicide Last Done: 06/09/24 14:08
*General Assessment Last Done: 06/09/24 14:08
*Neglect/Abuse Screening Last Done: 06/09/24 14:08
*ED- Fall Risk Assessment Last Done: 06/09/24 14:08
*ED COVID-19 Vaccine History Last Done: 06/09/24 14:08
ED- Cardiac Assessment Last Done: 06/09/24 14:08
ED- Pulmonary Assessment Last Done: 06/09/24 14:08
Discharge Date and Time
Print Language: KHMER
[2024-06-09 15:34] LABS: NT-proBNP 6030 pg/ml
--- NOTE | 2024-06-09 16:45 | HPS.HSE ---
Family Physician
-
Family Physician: Collin Mary
Chief Complaint
-
elevated heart rate
History of Present Illness
Patient is a 84-year-old female with past medical history significant for essential hypertension, hyperlipidemia, hypothyroidism, HFpEF, atrial fibrillation, aortic valve stenosis, depression and CAD who presented to [facility] ED for
evaluation of elevated heart rate. Patient states that symptoms have been consistent since discharge on 06/03/2024, this weekend her HR was 130-140s and not coming down like it was previously. She reports that home health nurse and her daughter felt
it was important for her to come for evaluation. A call to Dr. Vu yesterday he had informed her she would be ok to wait at home until her upcoming scheduled appointment. Patient notes added stress with recently needing to place in nursing
home as she can no longer care for him and that the symptoms have kept her from being able to sit with him several hours a day.
Medical History
Past Medical History
Past Medical History: Reports Other
Additional Past Medical History:
essential hypertension
hyperlipidemia
hypothyroidism
HFpEF
atrial fibrillation
aortic valve stenosis
depression
CAD
Hx squamous cell carcinoma
Past Surgical History: Reports Other
Additional Past Surgical History:
aortic valve replacement
right cataract extraction
cholecystectomy
hysterectomy
left TKR
CABG
Social History
Tobacco: Non-smoker
Alcohol: Daily
Drug: None
Personal:
Living: Alone
Family History
Family History: Not pertinent
Allergies / Home Medications
Allergies reflects when Allergies were last updated in [facility].
Home Medications with original date entered in [facility]
Allergy/Medication List:
Allergies
Allergy/AdvReac Type Severity Reaction Status Date / Time
No Known Allergies Allergy Verified 05/30/24 20:10
Home Medications
cholecalciferol (vitamin D3) 25 mcg (1,000 unit) tablet 1,000 units PO DAILY Supplement 07/15/21
cyanocobalamin (vitamin B-12) 1,000 mcg tablet 1,000 mcg PO DAILY Supplement 07/15/21
levothyroxine 100 mcg tablet 100 mcg PO DAILY Thyroid 07/15/21
ascorbate calcium (vitamin C) 500 mg tablet 500 mg PO DAILY Supplement 05/30/24
evolocumab 140 mg/mL subcutaneous syringe (Repatha Syringe) 140 mg SC Q2W High Cholesterol 05/30/24
sertraline 50 mg tablet 75 mg PO DAILY Depression 05/30/24
vit C 250 mg-vit E 90 mg-zinc 40 mg-copper 1 [id number] capsule (PreserVision AREDS-2) 1 tab PO BID Supplement 05/30/24
apixaban 5 mg tablet (Eliquis) 5 mg PO BID 30 days #60 tabs 06/03/24
metoprolol succinate 100 mg tablet,extended release 24 hr 100 mg PO BID 30 days #60 tabs 06/03/24
potassium chloride 20 mEq tablet,extended release(part/cryst) 20 meq PO BID 30 days #60 tabs 06/03/24
acetaminophen 650 mg tablet,extended release 1,300 mg PO [id number] PRN mild pain 06/09/24
furosemide 40 mg tablet 40 mg PO BID 06/09/24
Review of Systems
-
History Source: Patient
Respiratory: Reports Trouble Breathing (exertional shortness of breath )
Cardiac: Reports Palpitations (elevated heart rate )
Physical Exam
Vital Signs
Vital Signs
Temp Pulse Resp BP Pulse Ox
97.6 F 114 24 116/79 97
06/09/24 14:08 06/09/24 15:45 06/09/24 15:45 06/09/24 15:00 06/09/24 15:45
Physical Exam
General: Well Developed, Well Nourished and No Apparent Distress
HEENT: NormoCephalic, Moist mucous membranes and Atraumatic
Respiratory: Clear and Non Labored Respirations
Cardiac: Irregular Rhythm and Tachycardia
Breast: Deferred by me
GI: Soft, Non Tender, Non Distended and Normal Bowel Sounds
Rectal: Deferred by Provider
Genito-urinary: Deferred by me
Musculoskeletal: No Clubbing, No Cyanosis and No Edema
Skin: IV/Catheter Site
Neuro: Awake, Alert, AO x 3 and Nonfocal/grossly intact
Psych: Intact Judgment/Insight, Anxious and Depressed
Laboratory Results
-
06/09/24 13:59
06/09/24 13:59
Laboratory Results
Total Bilirubin 0.7 mg/dl (0.2-1.3) 06/09/24 13:59
AST 30 U/L (14-36) 06/09/24 13:59
ALT 57 U/L (0-35) H 06/09/24 13:59
Alkaline Phosphatase 97 U/L (38-126) 06/09/24 13:59
Troponin I 0.016 ng/ml 06/09/24 13:59
Data Reviewed
-
Diagnostic Radiology: Report Reviewed by me (CXR: New right perihilar opacification concerning for developing pneumonia versus atelectasis. Clinical and laboratory correlation recommended. Mild cardiomegaly. New)
Medical Tests (Nuc Med, Echo, EKG etc): Report Reviewed by me (EKG: ATRIAL FIBRILLATION WITH RAPID VENTRICULAR RESPONSE LEFT VENTRICULAR HYPERTROPHY WITH QRS WIDENING AND REPOLARIZATION ABNORMALITY ( R in aVL , Juanito product , Romhilt-Chirinos ))
Lab Data: Labs Reviewed by me (pro-BNP 6030)
Impression/Plan
-
IMPRESSION/PLAN:
#aortic valve stenosis
s/p valve replacement
recent hospitalization valve in valve TAVR discussed and declined
Patient with limiting dyspnea at home now considering procedure
- Admit to telemetry
- Consult cardiology
#HFpEF
68kg (appears to be at dry weight)
pro-BNP 6030
CXR: New right perihilar opacification concerning for developing pneumonia versus atelectasis. Clinical and laboratory correlation recommended.
Mild cardiomegaly. New
- Lasix 40mg IV BID
- daily weights
- I & Os
- check procal
- incentive spirometer
- continue potassium chloride
#atrial fibrillation
EKG: ATRIAL FIBRILLATION WITH RAPID VENTRICULAR RESPONSE
LEFT VENTRICULAR HYPERTROPHY WITH QRS WIDENING AND REPOLARIZATION ABNORMALITY
( R in aVL , Juanito product , Romhilt-Chirinos )
- continue Eliquis
- increase metoprolol to 150mg BID
#essential hypertension
- continue furosemide and metoprolol
#hypothyroidism
- continue levothyroxine
- check TSH
#depression
- continue sertraline
#CAD
#hyperlipidemia
#Hx squamous cell carcinoma
Code status: DNR
DVT Prophylaxis: Eliquis
--- NOTE | 2024-06-09 17:06 | W.PN.UPDATE ---
Update Note
Progress Note Update
I saw and examined the patient.
The CUSTOMER SERVICE SECURITY OFFICER or PA's note was reviewed and I agree with the note.
Comment:
84-year-old female with past medical history of aortic valve replacement, cholecystectomy, knee replacement, recent diagnosis of atrial fibrillation 10 days ago now presents for shortness of breath.� Patient was discharged for atrial fibrillation
approximately 10 days ago, and now presenting with continued shortness of breath.� Continued to feel short of breath after discharge, and was not able to take it anymore. Patient unable to perform daily activities as respiratory symptoms are the
limiting factor.� EF 65 to 70% on echo 9 days ago, mild to moderate mitral regurg, mild mitral stenosis and severe bioprosthetic aortic valve stenosis.� Valve in valve TAVR was discussed with patient and daughter and they declined at that time.�
Respiratory rate up to 38, pulse to 126, 96% on room air, afebrile.� proBNP 6030, approximately similar to 10 days ago.� Imaging with new right perihilar opacification concerning for developing pneumonia versus atelectasis.
Plan�received 40 mg IV Lasix in the ED.� More than likely symptoms are related to severe stenosis of the bioprosthetic aortic valve.� Can give 40mg IV Lasix BID for now to optimize cardiopulmonary status. Increase Toprol to 150mg BID.� Follow-up
procalcitonin, low likelihood of pneumonia.� Can provide incentive spirometer, Acapella.� Can hold off antibiotics at this time unless spikes temperature or becomes hemodynamically unstable.� Continue Eliquis.� Cardiology consulted.� Per notes-
family, patient declined TAVR valve in valve workup in the past; After discussion today, she is more amenable for the procedure.
[2024-06-09 17:22] LABS: Procalcitonin < 0.05 ng/ml (0.0-0.25)
[2024-06-09] MEDS: LOPRESSOR 150 MG PO (17:43)
[2024-06-09] MEDS: LASIX 40 MG IV (17:44)
[2024-06-09] MEDS: KCL 20 MEQ PO (20:17)
[2024-06-09] MEDS: ELIQUIS 5 MG PO (20:17)
[2024-06-09] MEDS: MELATONIN 5 MG PO (23:58)
[2024-06-10] VITALS (7 sets, daily range): BP systolic 108–128; BP diastolic 66–95; BMI 26.1
[2024-06-10] MEDS: SYNTHROID 100 MCG PO (05:45)
[2024-06-10 07:06] LABS: Blood Urea Nitrogen 21 mg/dl (7-17); Calcium 9.2 mg/dl (8.4-10.2); Carbon Dioxide 31 mmol/L (22-30); Chloride 103 mmol/L (98-107); Estimated Creatinine Clearance 38 ml/min; Glucose 112 mg/dl (70-99); Sodium 140 mmol/L (135-145); eGFR > 60.00
[2024-06-10 07:09] LABS: Procalcitonin < 0.05 ng/ml (0.0-0.25)
[2024-06-10 07:27] LABS: TSH Reflex To Free T4 1.62 uIU/ml (0.47-4.68)
[2024-06-10] MEDS: OCUVITE SOFTGEL 1 CAP PO ×2 (08:31→19:27)
[2024-06-10] MEDS: ELIQUIS 5 MG PO (08:31)
[2024-06-10] MEDS: KCL 20 MEQ PO ×2 (08:31→19:27)
[2024-06-10] MEDS: LASIX 40 MG IV ×2 (08:32→16:02)
[2024-06-10] MEDS: ZOLOFT 75 MG PO (08:32)
[2024-06-10] MEDS: TOPROL XL 150 MG PO ×2 (08:32→19:35)
--- NOTE | 2024-06-10 09:01 | CON.CAR ---
Addendum entered and electronically signed by Charlie Vu MD 06/10/24 11:22:
84 yo female with severe stenosis of bio-AVR, new A fib, now persisting, chronic HFPEF. Initially declined eval for fyjuy-rv-[id number] TAVR eval. But now re-admitted with acute HF, and A fib with RVR. She reports SOB, palps. Exam with tachy,
irregular rhythm, III/ systolic murmur at RUSB, trace LE edema. Cr 0.9. Tele: A fib 110s.
Discussed plan with interventional cards. Will plan for L/RHC tomorrorw, and start TAVR eval. Hold eliquis; start heparin drip (for Afib).
A fib with RVR. Symptomatic. Discussed with EP. Start amiodarone load. Will plan for JUAN/DCCV Mon. AC is now heparin drip, with eliquis held for cath.
Original Note:
Consultation
Consultation Request
Date/Time Consultation Requested: 06/09/242001
Date/Time Consultation Performed: 06/10/24 0900
Requesting Provider: Luz HARPER
Performing Provider: Nicole HARPER for Dr. Vu
Reason for Consultation: aortic stenosis, AFIB
Medical History
-
Chief Complaint: Elevated HR
History of Present Illness:
84 y/o female with hx AVR/CABG x 1 09/2007, now with severe stenosis of bio AVR, AFIB (recent diagnosis) on Eliquis, HFpEF, hypertension, HLD, hypothyroidism, and GERD who was recently hospitalized and diuresed for acute HFpEF and new AFIB was noted
and started on Eliquis and rate control meds. She never felt better after recent d/c and continued to feel wiped out, UNDERWOOD, and palpitations. She is back and seen to be in AFIB with RVR. She had previously declined valve intervention, but is now
reconsidering. She is in no distress at the time of my assessment.
Past Medical History
Past Medical History: CAD, CHF, GERD, HTN, Hypercholesterolemia, Hypothyroidism and Valvular Disease
Social History
Tobacco: Non-Smoker
Alcohol: None
Personal: ( at [facility])
Family History
Family History: Reviewed & Not Pertinent
Allergies / Home Medications
Allergy/AdvReac Type Severity Reaction Status Date / Time
No Known Allergies Allergy Verified 05/30/24 20:10
�Medication �Instructions �Recorded �Confirmed �Type
cholecalciferol (vitamin D3) 25 1,000 units PO DAILY Supplement 07/15/21 06/09/24 History
mcg (1,000 unit) tablet
cyanocobalamin (vitamin B-12) 1,000 mcg PO DAILY Supplement 07/15/21 06/09/24 History
1,000 mcg tablet
levothyroxine 100 mcg tablet 100 mcg PO DAILY Thyroid 07/15/21 06/09/24 History
ascorbate calcium (vitamin C) 500 500 mg PO DAILY Supplement 05/30/24 06/09/24 History
mg tablet
evolocumab 140 mg/mL subcutaneous 140 mg SC Q2W High Cholesterol 05/30/24 06/09/24 History
syringe (Repatha Syringe)
sertraline 50 mg tablet 75 mg PO DAILY Depression 05/30/24 06/09/24 History
vit C 250 mg-vit E 90 mg-zinc 40 1 tab PO BID Supplement 05/30/24 06/09/24 History
mg-copper 1 pa-tanoex-hdzbit
capsule (PreserVision AREDS-2)
apixaban 5 mg tablet (Eliquis) 5 mg PO BID 30 days #60 tabs 06/03/24 06/09/24 Rx
metoprolol succinate 100 mg 100 mg PO BID 30 days #60 tabs 06/03/24 06/09/24 Rx
tablet,extended release 24 hr
potassium chloride 20 mEq 20 meq PO BID 30 days #60 tabs 06/03/24 06/09/24 Rx
tablet,extended release(part/cryst)
acetaminophen 650 mg 1,300 mg PO [id number] PRN mild pain 06/09/24 06/09/24 History
tablet,extended release
furosemide 40 mg tablet 40 mg PO BID Fluid 06/09/24 06/09/24 History
Retention/Swelling
Review of Systems
-
History Source: Patient
All other systems: Negative unless noted
Constitutional: Other (fatigue, SOB)
Cardiac: Palpitations
Physical Exam
Vital Signs
Temp Pulse Resp BP Pulse Ox
97.3 F 95 18 114/68 94
06/10/24 07:20 06/10/24 08:32 06/10/24 07:20 06/10/24 08:32 06/10/24 07:20
Lab Results
06/09/24 13:59
06/10/24 06:17
Troponin I 0.016 ng/ml 06/09/24 13:59
Pre-L-Nkvyoiasgte Pept 6030 pg/ml 06/09/24 13:59
Physical Exam
General: Well Developed, Well Nourished and No Apparent Distress
HEENT: Normocephalic and Anicteric
Respiratory: Clear and Non Labored Respirations
Cardiac: Irregular Rhythm, Murmur (III/ systolic) and Peripheral Edema (mild BLE edema)
Skin: Warm and Dry
Neuro: AO x 3
Psych: Calm
Impression / Plan
-
Afib - persistent
-amiodarone drip initiated- this requires intensive monitoring. Remains on metoprolol. Follow telemetry.
-continue Eliquis for OAC
-JUAN and CV in AM- discussed with patient - agreeable, but now maybe reconsidering the valve intervention so this could change plan. Will discuss with Dr. Vu.
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
-severe with mean gradient 48 mmHg on echo 05/31, EF 65-70%
-last admit, [id number]-[id number] TAVR declined and plan was for med management of CHF symptoms. She is reconsidering this now, which could change our plan, so will discuss overall plan as above.
HFpEF, acute on chronic:
-can continue IV diuresis, which requires intensive monitoring. However, I don't think she will need much more. She has minimal BLE edema and lungs are clear. Weight stable from previous admit. Likely transition to PO soon.
CAD - s/p CABG x 1 in 2007:
-stable
-on Eliquis and Repatha
HTN:
-monitor with medicine adjustments
Data Reviewed
-
EKG: Tracing Personally Visualized and interpreted (AFIB with RVR 108 BPM)
Radiology: Report Reviewed by me (CXR: New right perihilar opacification concerning for developing pneumonia versus atelectasis. Mild cardiomegaly. )
Medical Tests (Nuc Med, Echo etc): Report Reviewed by me (Echo 05/31/24: EF 65-70%. Mild/moderate mitral regurgitation. Mild mitral stenosis. Severe bioprosthetic aortic valve stenosis. Peak/mean gradients are 70/48 mmHg. Mild aortic regurgitation.
Mild/moderate tricuspid regurgitation. Normal PASP.)
Labs: Labs Reviewed by me
[2024-06-10] MEDS: CORDARONE IV (09:24)
--- NOTE | 2024-06-10 09:24 | VNURNOTE ---
Chart reviewed.� Patient is current with [facility] nursing.� Will continue to follow hospital course and DC plans.
[2024-06-10] MEDS: CORDARONE 518 MG IV (09:39)
--- NOTE | 2024-06-10 10:21 | PTCARENOTE ---
Pt is on Amio drip. tolerating well/ last pressure 94/60, HR 73, MAP 71, made MD aware. No chest pain, no SOB, no dizziness at this time
[2024-06-10 11:36] LABS: Hematocrit 36.1 % (37.0-47.0); Hemoglobin 12.1 g/dL (12.0-16.0); Mean Corp Hgb Conc. 33.5 g/dL (33.0-37.0); Mean Corpuscular Hgb 33.1 pg (27.0-31.0); Mean Corpuscular Volume 98.6 fL (81.0-99.0); Mean Platelet Volume 9.7 fL (7.4-10.4); Platelet Count 217 10^3/uL (130-400); Red Blood Cell Count 3.66 10^6/uL (4.20-5.40); Red Cell Dist. Width 12.7 % (11.5-14.5); White Blood Cell Count 7.3 10^3/uL (4.8-10.8)
[2024-06-10 11:49] LABS: APTT 43.3 Sec (23.4-35.0)
--- NOTE | 2024-06-10 15:44 | W.PN.HOSP.TC ---
Today's Communication/Plan
-
As per cardio, L/RHC tomorrow and potential JUAN with DCCV on Monday 06/12
Assessment / Plan
Assessment / Plan
#aortic valve stenosis
s/p valve replacement
recent hospitalization valve in valve TAVR discussed and declined
Patient with limiting dyspnea at home now considering procedure
- Admit to telemetry
- Consulted cardiology
#HFpEF
68kg (appears to be at dry weight)
pro-BNP 6030
CXR: New right perihilar opacification concerning for developing pneumonia versus atelectasis. Clinical and laboratory correlation recommended.
Mild cardiomegaly. New
- Lasix 40mg IV BID
- daily weights
- I & Os
- check procal
- incentive spirometer
- continue potassium chloride
#atrial fibrillation
EKG: ATRIAL FIBRILLATION WITH RAPID VENTRICULAR RESPONSE
LEFT VENTRICULAR HYPERTROPHY WITH QRS WIDENING AND REPOLARIZATION ABNORMALITY
( R in aVL , Juanito product , Romhilt-Chirinos )
- increase metoprolol to 150mg BID
Cardiology started pt on Amiodarone 400 mg po bid
#essential hypertension
- continue furosemide and metoprolol
#hypothyroidism
- continue levothyroxine
- TSH 1.62
#depression
- continue sertraline
#CAD
#hyperlipidemia
#Hx squamous cell carcinoma
Code status: DNR
DVT Prophylaxis: Eliquis has been stopped by cardio and Heparin infusion to be resumed
Anticipated Discharge: > 48 hours
Subjective/Interval History
-
Date of Service: June 10, 2024
Awake, alert. Conversant
Objective Data
-
Labs:
Laboratory Results
06/10/24 06/10/24
06:17 11:26
WBC 7.3
Hgb 12.1
Hct 36.1 L
Plt Count 217
APTT 43.3 H
Sodium 140
Potassium 4.0
Chloride 103
Carbon Dioxide 31 H
BUN 21 H
Creatinine 0.9
Glucose 112 H
Calcium 9.2
Vital Signs:
Vital Signs
Temp Pulse Resp BP Pulse Ox
98.0 F 66 16 128/70 95
06/10/24 11:05 06/10/24 11:05 06/10/24 11:05 06/10/24 11:05 06/10/24 11:05
I&O
06/09/24 06/10/24 06/11/24
06:59 06:59 06:59
Intake Total 0 / 0
Balance 0 / 0
Review of Systems
-
History Source: Patient and Coordinated Provider
Constitutional: Denies Fever
EENT: Reports No Symptoms Reported
Respiratory: Reports No Symptoms; Denies Trouble Breathing
Cardiac: Denies Chest Pain
Abdomen/GI: Reports No Symptoms
Neuro: Reports No Symptoms
Physical Exam
-
General: Well Developed, Well Nourished and No Apparent Distress
HEENT: Atraumatic and Moist Mucous Membranes
Respiratory: Clear to Auscultation; Negative Wheezes, Rales or Rhonchi
Cardiac: S1/S2, Irregular Rhythm and Murmur (3/6 m)
GI: Soft, Nontender and Nondistended
Musculoskeletal: No Clubbing, No Cyanosis and No Edema
Neuro: Awake, Alert and Oriented
Psych: Calm
--- NOTE | 2024-06-10 17:26 | CM ---
Alert awake oriented patient who lives alone in a 2 story home with 3 steps to enter and bed bathroom on first floor. She is independent in driving and in all activities of daily living.Offered VN she requested [facility] .
No adaptive devices
VN/SNF
Pharmacy [facility]
PCP Dr Mary
PLAN Home with [facility]
[2024-06-10] MEDS: PACERONE 400 MG PO (19:35)
[2024-06-10] MEDS: HEPARIN 25000 UNITS/250 ML IV (19:51)
[2024-06-10] MEDS: MELATONIN 5 MG PO (23:15)
[2024-06-11] VITALS (12 sets, daily range): BP systolic 85–136; BP diastolic 44–86; BMI 26.1
[2024-06-11 02:31] LABS: APTT 91.7 Sec (23.4-35.0)
[2024-06-11] MEDS: SYNTHROID 100 MCG PO (03:24)
[2024-06-11] MEDS: PACERONE 400 MG PO ×2 (08:11→20:41)
[2024-06-11] MEDS: OCUVITE SOFTGEL 1 CAP PO ×2 (08:11→20:41)
[2024-06-11] MEDS: LASIX 40 MG IV ×2 (08:11→16:28)
[2024-06-11] MEDS: TOPROL XL 150 MG PO (08:11)
[2024-06-11] MEDS: ZOLOFT 75 MG PO (08:12)
[2024-06-11] MEDS: KCL 20 MEQ PO ×2 (08:12→20:40)
[2024-06-11] MEDS: LOW STRENGTH ASPIRIN 324 MG PO (08:21)
[2024-06-11 08:29] LABS: APTT 128.6 Sec (23.4-35.0)
[2024-06-11 09:07] LABS: Blood Urea Nitrogen 28 mg/dl (7-17); Calcium 9.4 mg/dl (8.4-10.2); Carbon Dioxide 32 mmol/L (22-30); Chloride 101 mmol/L (98-107); Estimated Creatinine Clearance 38 ml/min; Glucose 99 mg/dl (70-99); Potassium 3.6 mmol/L (3.5-5.1); Sodium 140 mmol/L (135-145); eGFR > 60.00
--- NOTE | 2024-06-11 09:49 | PTCARENOTE ---
Pt taken to clinical laboratory aides teacher via transport personnel on her hospital bed. Hep gtt with pt and her chart.
[2024-06-11 12:45] LABS: ACT-LR - POC 313 Seconds (116-155)
--- NOTE | 2024-06-11 13:24 | PTCARENOTE ---
Pt arrived back to the floor. She is a+o and in no distress. R band in place, no oozing and syringe with pt.
--- NOTE | 2024-06-11 15:33 | ITS.CL.PN ---
Transfer Table Operator Helper - Procedure Note
Procedure
Procedure Note:
CARDIAC CATHETERIZATION REPORT
Date of Procedure: 06/11/2024
Referring: Dr. Charlie Vu MD, PhD
Indication: severe bioprosthetic aortic stenosis
PROCEDURE(S)
1. right heart catheterization
2. left heart catheterization
3. coronary angiography
4. bypass graft angiography
5. iFR diagonal
6. iFR circumflex
ACCESS
1. 6F left radial artery (closure: radial band)
2. 5F right antecubital vein (closure: manual hemostasis)
CATHETERS
1. 5F [place]
2. 6F ENA
3. 6F JL4
4. 6F JR4
5. 6F JL4 guide
MODERATE SEDATION: 45 minutes of moderate sedation was utilized. An independent medical sales was present to assist with and help manage the patient's level of consciousness and physiologic status.
HEMODYNAMIC DATA
LV 175/10 (EDP 18) mmHg
AO 120/62 (mean 86) mmHg
RA 10 mmHg
RV 40/4 (EDP 8) mmHg
PA 42/24 (mean 30) mmHg
PCWP 23 mmHg
SaO2 94.9%
SvO2 46.6%
Hb 12.3 g/dL
CO/CI 2.63/1.55 L/min/m2
SVR 2312 dsc*-5
PVR 2.66 Wood units
Mean gradient: 55 mmHg, valve area 0.36 mm2 by [place] (SVI 26.3 mL)
CORONARY ANGIOGRAPHY
Dominance: left
LM: large with a focal 50% distal stenosis that was further assessed by iFR.
LAD: large vessel totally occluded after a large first diagonal and septal branch with the mid to distal vessel filled via the patent TOMLIN.
LCx: large dominant vessel giving rise to a large OM1, several LPL branches and the LPDA. There is a focal moderate ostial stenosis not well characterized on angiography that was further assessed by iFR.
RCA: small and totally occluded proximally. There is a marginal branch supplied via L-R collaterals from the distal LAD.
BYPASS GRAFT ANGIOGRAPHY:
TOMLIN-LAD: the TOMLIN is taken as a pedicle and forms an anastomosis with the mid-LAD.
iFR of diagonal artery
An Omni wire was flushed and zeroed outside the body and then advanced to the proximal left main. The wire introducer was removed and the catheter flushed with saline, after which pressure of the wire and guide were normalized. The wire was advanced
to the first diagonal branch and iFR recorded at 0.95. iFR pullback was performed noting a focal pattern at the distal left main. On return to the proximal left main, iFR appropriately normalized to ~1.0, confirming lack of wire drift.
iFR of left circumflex artery
An Omni wire was flushed and zeroed outside the body and then advanced to the proximal left main. The wire introducer was removed and the catheter flushed with saline, after which pressure of the wire and guide were normalized. The wire was advanced
to the proximal circumflex artery and iFR recorded at 0.95. iFR pullback was performed noting a focal pattern at the distal left main. On return to the proximal left main, iFR appropriately normalized to ~1.0, confirming lack of wire drift.
RADIATION: dose 1345 mGy; DAP 96 Gy*cm2; fluoroscopy time 26.4 min
CONCLUSIONS
1. Coronary artery disease status post single-vessel CABG (TOMLIN-LAD) in a left dominant system as described. There is a patent TOMLIN-LAD, iFR negative distal left main and ostial circumflex disease, and occluded nondominant RCA.
2. Moderately elevated biventricular filling pressures, mild pulmonary hypertension, and severely reduced cardiac output with elevated SVR.
3. Severe bioprosthetic aortic stenosis.
4. Low left coronary artery takeoff with effaced sinuses, posing significant risk for coronary obstruction with valve in valve TAVR.
RECOMMENDATIONS
1. Continue medical therapy for HFpEF and valvular heart disease
2. Workup for valve in valve TAVR, with CT C/A/P next.
Copy to: Dr. César House MD (in service educator); Dr. Collin Mary DO (PCP)
Signed: Jey Mliler MD, PhD
--- NOTE | 2024-06-11 15:38 | CONSULT.STRU ---
Addendum entered and electronically signed by Anson Quiñonez MD 06/12/24 14:47:
I saw and examined the patient.
The FISHER OYSTER's note was reviewed and I agree with the note.
Comment:
I met with Mrs. Burton and reviewed her pathology. We discussed TAVR in SAVR and risks associated with this procedure. She is pending a formal TAVR CT scan, there is concern for potential coronary obstruction, so PCI and stenting is likely in this
situation. She understands the risk and wishes to proceed. We discussed code status and she is ok with Shocks and CPR should it be necessary. She understands that I will be unable to perform an emergency sternotomy given her prior open heart surgery
and advanced age - she is ok with this. Consent was obtained and placed in the chart.
Original Note:
Consultation
-
Date/Time Consultation Requested: 06/11/2024
Date/Time Consultation Performed: 06/11/2024
Requesting Provider: Dr. Jey Miller
Performing Provider: LEROY Castano
Reason for Consultation: Bioprosthetic AVR stenosis/CHF
Patient History
Physicians
Family Physician: Collin Mary
Outpatient Diabetes Trainer: César House
Primary Diabetes Trainer: César House
History of Present Illness
Patient is a very pleasant 84 y/o female with hx AVR/CABG x - 09/2007 (Dr. Carroll at [facility]), now with severe stenosis of bio AVR, AFIB (recent diagnosis) on Eliquis, HFpEF, hypertension, HLD, hypothyroidism. She was recently hospitalized and diuresed
for acute HFpEF and new AFIB was noted. She was started on Eliquis and rate control meds. She never really felt better after recent d/c and continued to feel wiped out, UNDERWOOD, and palpitations. She is back and seen to be in AFIB with RVR. She had
previously declined valve intervention, but is now reconsidering. She is in no distress at the time of my assessment and states she feels well. She states her UNDERWOOD has been progressive over the last 6 months. She denies orthopnea, PND, chest pain or
edema. She did have a syncopal episode about two weeks ago but no other episodes since. 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 The family is currently working on placement for him in a senior living care facility.
Reviewed the pathophysiology of aortic stenosis with the patient and her son in law. Explained the treatment options of SAVR and TAVR. Explained the TAVR evaluation process including follow up BMP, CT TAVR scan, CT surgery consult and Heart Team
discussion. Provided with script for BMP next week, script and appointment for CT TAVR, Consult appointment with Dr. Quiñonez and a copy of the TAVR education booklet with contact information. Allowed for and answered questions. Explained that the dates
are all tentative and will confirm with her prior to discharge. Current plan is for JUAN cardioversion tomorrow and will re-evaluate the plan with cardiology for timing.
Past Medical History
Past Medical History: Atrial Fib (Eliquis), CAD, CHF, Covid-19 (02/2023), UNDERWOOD (increased over past 6 months), Hypothyroidism, Psychiatric (anxiety/depression), Valvular Disease (Aortic stenosis, mild AI, mild/moderate TR) and Other (alopecia
universalis, seasonal allergies, OA of knees, Insomnia, Macular degeneration of left eye)
Past Surgical History
Past Surgical History: CABG (X1- Dr. Carroll 09/2007), Cholecystectomy, Hysterectomy (w/ BSO), Orthopedic (left TKR), Valve (Dr. Carroll- 09/2007) and Other (right cataract surgery)
Dental History
[facility]- regular dental care
Family History
Mother: at Age (95)
Father: at Age (80)
Social History
Alcohol: Occasional
Drug: None
Tobacco: Non-Smoker
Personal:
Living: With Spouse ( with Parkinsons and Dementia, family currently working on placement for him.)
Employment: Retired
Allergies
Allergy/AdvReac Type Severity Reaction Status Date / Time
No Known Allergies Allergy Verified 05/30/24 20:10
Home Medications
�Medication �Instructions �Recorded �Confirmed �Type
cholecalciferol (vitamin D3) 25 1,000 units PO DAILY Supplement 07/15/21 06/09/24 History
mcg (1,000 unit) tablet
cyanocobalamin (vitamin B-12) 1,000 mcg PO DAILY Supplement 07/15/21 06/09/24 History
1,000 mcg tablet
levothyroxine 100 mcg tablet 100 mcg PO DAILY Thyroid 07/15/21 06/09/24 History
ascorbate calcium (vitamin C) 500 500 mg PO DAILY Supplement 05/30/24 06/09/24 History
mg tablet
evolocumab 140 mg/mL subcutaneous 140 mg SC Q2W High Cholesterol 05/30/24 06/09/24 History
syringe (Repatha Syringe)
sertraline 50 mg tablet 75 mg PO DAILY Depression 05/30/24 06/09/24 History
vit C 250 mg-vit E 90 mg-zinc 40 1 tab PO BID Supplement 05/30/24 06/09/24 History
mg-copper 1 [id number]
capsule (PreserVision AREDS-2)
apixaban 5 mg tablet (Eliquis) 5 mg PO BID 30 days #60 tabs 06/03/24 06/09/24 Rx
metoprolol succinate 100 mg 100 mg PO BID 30 days #60 tabs 06/03/24 06/09/24 Rx
tablet,extended release 24 hr
potassium chloride 20 mEq 20 meq PO BID 30 days #60 tabs 06/03/24 06/09/24 Rx
tablet,extended release(part/cryst)
acetaminophen 650 mg 1,300 mg PO [id number] PRN mild pain 06/09/24 06/09/24 History
tablet,extended release
furosemide 40 mg tablet 40 mg PO BID Fluid 06/09/24 06/09/24 History
Retention/Swelling
STS%
STS %: 12.3
Review of Systems
-
History Source: Patient
General: Reports Fever and Sleep Disturbance (insomnia)
HEENT: Reports No Symptoms
Respiratory: Reports UNDERWOOD; Denies Asthma or PND
Cardiac: Reports CAD (prior CABG x1 2007) and Palpitations (a-fib); Denies Chest Pain, Nausea, Vomiting or Edema
Abdomen/GI: Reports No Symptoms; Denies Abdominal Pain, Reflux, Nausea, Vomiting or Diarrhea
: Reports No Symptoms; Denies Dysuria
Musculoskeletal: Reports No Symptoms
Skin: Reports No Symptoms
Neurological: Reports Headaches (chronic sinus CROOK) and Syncope (once about 2 weeks ago); Denies Weakness, Numbness or Seizures
Vascular: Reports No Symptoms
Physical Exam
Vital Signs
Temp 97.9 F 06/11/24 15:00
Temp route: Oral 06/11/24 15:00
Pulse 72 06/11/24 15:00
Rhythm: Atrial fibrillation 06/11/24 08:20
Resp Rate 18 06/11/24 15:00
Blood pressure 104/82 06/11/24 15:00
Blood pressure extremity used: Left upper arm 06/11/24 15:00
Position: Lying 06/11/24 15:00
MAP (cuff-Ziggy Monitor) 73 06/11/24 10:06
MAP 115 06/09/24 17:00
SaO2 94 06/11/24 15:00
Nasal Cannula flow liters per minute 94 06/11/24 15:00
Oxygen Mode of Delivery Room air 06/11/24 15:00
Acceptable pain level during hospitalization? 5 06/09/24 14:08
Can the patient verbally communicate their pain? Yes 06/11/24 10:02
Pain scale ratin 06/09/24 14:08
Actual Weight 66.877 kg 06/11/24 06:00
Body Mass Index (BMI) 26.1 06/11/24 06:00
Labs
06/10/24 11:26
06/11/24 07:57
APTT 128.6 Sec (23.4-35.0) H 06/11/24 07:57
Troponin I 0.016 ng/ml 06/09/24 13:59
Ttb-J-Ydlfxfqnsmp Pept 6030 pg/ml 06/09/24 13:59
Diagnostic Studies
05/31/2024 Echocardiogram:
CONCLUSIONS
Normal biventricular size and systolic function without regional wall motion
abnormality. Estimated LVEF 65-70%.
Mild/moderate mitral regurgitation. Mild mitral stenosis.
Severe bioprosthetic aortic valve stenosis. Peak/mean gradients are 70/48 mmHg.
Mild aortic regurgitation.
Mild/moderate tricuspid regurgitation. Normal PASP.
Compared to 08/18/22: stenosis of bio-prosthetic AVR has progressed from moderate
to severe. MR and TR have progressed from mild to mild/moderate.
Indications:
heart failure
Rhythm: Atrial fibrillation
Portable Study: No
Technical Quality: Fair
Contrast: None
BP: 109 / 78
PROCEDURE
A complete Transthoracic Echocardiogram was performed utilizing two-dimensional
evaluation with color flow and spectral Doppler analysis.
FINDINGS
Left Ventricle
Normal left ventricular chamber size. Mild concentric left ventricular
hypertrophy. Normal left ventricular systolic function. Left ventricular
ejection fraction is 65-70%. Normal regional wall motion. Diastolic function
indeterminate.
Right Ventricle
Normal right ventricular size and function.
Left Atrium
Severely dilated left atrium.
Right Atrium
The right atrium is of normal size as is the IVC.
Mitral Valve
Thickened mitral valve leaflets with severe mitral annular calcification.
Peak/mean gradients across the valve are 12/4 mmHg. Mild mitral stenosis.
Mild/moderate mitral regurgitation.
Aortic Valve
Bioprosthetic aortic valve replacement. Severe bioprosthetic aortic valve
stenosis. Peak/mean gradients are 70/48 mmHg. Mild aortic regurgitation.
Tricuspid Valve
Structurally normal tricuspid valve. Mild/moderate tricuspid regurgitation.
Estimated pulmonary artery pressure of 35 mmHg, assuming a right atrial
pressure of 3 mmHg. Normal PASP.
Pulmonic Valve
Structurally normal pulmonic valve. Mild pulmonic regurgitation.
Pericardium\\Pleura
Normal pericardium without evidence of effusion.
Aorta
The aortic root is of normal size.
Other Finding
The IVC is of normal size and demonstrates normal respiratory variation.
Interatrial septum is intact with no evidence of shunting by color flow
Doppler.
06/11/2024 Cardiac Cath:
HEMODYNAMIC DATA
LV 175/10 (EDP 18) mmHg
AO 120/62 (mean 86) mmHg
RA 10 mmHg
RV 40/4 (EDP 8) mmHg
PA 42/24 (mean 30) mmHg
PCWP 23 mmHg
SaO2 94.9%
SvO2 46.6%
Hb 12.3 g/dL
CO/CI 2.63/1.55 L/min/m2
SVR 2312 dsc*-5
PVR 2.66 Wood units
Mean gradient: 55 mmHg, valve area 0.36 mm2 by Gorlin (SVI 26.3 mL)
CORONARY ANGIOGRAPHY
Dominance: left
LM: large with a focal 50% distal stenosis that was further assessed by iFR.
LAD: large vessel totally occluded after a large first diagonal and septal branch with the mid to distal vessel filled via the patent TOMLIN.
LCx: large dominant vessel giving rise to a large OM1, several LPL branches and the LPDA. There is a focal moderate ostial stenosis not well characterized on angiography that was further assessed by iFR.
RCA: small and totally occluded proximally. There is a marginal branch supplied via L-R collaterals from the distal LAD.
BYPASS GRAFT ANGIOGRAPHY:
TOMLIN-LAD: the TOMLIN is taken as a pedicle and forms an anastomosis with the mid-LAD.
iFR of diagonal artery
An Omni wire was flushed and zeroed outside the body and then advanced to the proximal left main. The wire introducer was removed and the catheter flushed with saline, after which pressure of the wire and guide were normalized. The wire was advanced
to the first diagonal branch and iFR recorded at 0.95. iFR pullback was performed noting a focal pattern at the distal left main. On return to the proximal left main, iFR appropriately normalized to ~1.0, confirming lack of wire drift.
iFR of left circumflex artery
An Omni wire was flushed and zeroed outside the body and then advanced to the proximal left main. The wire introducer was removed and the catheter flushed with saline, after which pressure of the wire and guide were normalized. The wire was advanced
to the proximal circumflex artery and iFR recorded at 0.95. iFR pullback was performed noting a focal pattern at the distal left main. On return to the proximal left main, iFR appropriately normalized to ~1.0, confirming lack of wire drift.
RADIATION: dose 1345 mGy; DAP 96 Gy*cm2; fluoroscopy time 26.4 min
CONCLUSIONS
1. Coronary artery disease status post single-vessel CABG (TOMLIN-LAD) in a left dominant system as described. There is a patent TOMLIN-LAD, iFR negative distal left main and ostial circumflex disease, and occluded nondominant RCA.
2. Moderately elevated biventricular filling pressures, mild pulmonary hypertension, and severely reduced cardiac output with elevated SVR.
3. Severe bioprosthetic aortic stenosis.
4. Low left coronary artery takeoff with effaced sinuses, posing significant risk for coronary obstruction with valve in valve TAVR.
RECOMMENDATIONS
1. Continue medical therapy for HFpEF and valvular heart disease
2. Workup for valve in valve TAVR, with CT C/A/P next.
Exam
General: Well Developed, Well Nourished, No Apparent Distress and Comfortable
HEENT: Normocephalic, PERRLA and EOMI
Neck: Trachea Midline
Respiratory: Clear; Negative Wheezes, Crackles or Rhonchi
Cardiac: S1/S2, Irregular Rhythm and Murmur (Grade II/ BARBI)
GI: Soft, Non Tender, Non Distended and Normal Bowel Sounds
Rectal: Deferred by Provider
Skin: Warm and Dry
Neuro: AO x 3 and Nonfocal/Grossly Intact
Extremities: Negative Lower Level Edema
Lymph: No Lymphadenopathy
Psych: Calm
Assessment / Plan
-
Procedure Type:�Isolated AVR
Perioperative Outcome Estimate %
Operative Mortality 12.3%
Morbidity & Mortality 24.1%
Stroke 8.04%
Renal Failure 5.82%
Reoperation 4.84%
Prolonged Ventilation 17.8%
Deep Sternal Wound Infection 0.131%
Long Hospital Stay (>14 days) 10.9%
Short Hospital Stay (<6 days)* 10.9%
Severe Bioprosthetic Aortic stenosis:
����������� Continue evaluation for aortic stenosis
����������� [facility]
����������� CT TAVR scan
����������� CT surgery consult with Dr. Quiñonez�
����������� Dental Clearance ([facility])
����������� Heart team discussion at [facility]
CAD - s/p CABG x 1 in 2007:
stable
Cardiac cath today with patent TOMLIN-LAD
Afib - persistent
Remains on metoprolol. Follow telemetry.
continue Eliquis for OAC
JUAN and CV in AM- discussed with patient and confirmed with Dr. Miller
Data Reviewed
-
EKG: Report Reviewed by me and Discussed with Physician
Assistant Executive Housekeeper: Report Reviewed by me, Discussed with Physician, Discussed with Patient and Discussed with Family
Echo: Report Reviewed by me, Discussed with Physician, Discussed with Patient and Discussed with Family
Labs: Labs Reviewed by me, Discussed with Patient and Discussed with Family
Old Records: Reviewed (previous admission notes)
Total Time Spent with Patient (in minutes): 35
--- NOTE | 2024-06-11 15:38 | W.PN.HOSP.TC ---
Today's Communication/Plan
-
cardioversion tomorrow
Assessment / Plan
Assessment / Plan
#aortic valve stenosis
s/p valve replacement
recent hospitalization valve in valve TAVR discussed and declined
Patient with limiting dyspnea at home now considering procedure
- Admit to telemetry
- Consulted cardiology, input appreciated. Underwent heart cath today, plan is to be re started on Eliquis at 8PM, with JUAN and cardioversion tomorrow
#HFpEF
68kg (appears to be at dry weight)
pro-BNP 6030
CXR: New right perihilar opacification concerning for developing pneumonia versus atelectasis. Clinical and laboratory correlation recommended.
Mild cardiomegaly. New
- Lasix 40mg IV BID
- daily weights
- I & Os
- procal <0.05
- incentive spirometer
- continue potassium chloride
#atrial fibrillation
EKG: ATRIAL FIBRILLATION WITH RAPID VENTRICULAR RESPONSE
LEFT VENTRICULAR HYPERTROPHY WITH QRS WIDENING AND REPOLARIZATION ABNORMALITY
( R in aVL , [place] product , Romhilt-Chirinos )
- increase metoprolol to 150mg BID
Cardiology started pt on Amiodarone 400 mg po bid
#essential hypertension
- continue furosemide and metoprolol
#hypothyroidism
- continue levothyroxine
- TSH 1.62
#depression
- continue sertraline
#CAD
#hyperlipidemia
#Hx squamous cell carcinoma
reviewed with pt, son in law and dgt
Code status: DNR
DVT Prophylaxis: I am told the Eliquis is to be resumed by cardio
Anticipated Discharge: > 48 hours
Subjective/Interval History
-
Date of Service: June 11, 2024
Awake, alert
Objective Data
-
Labs:
Laboratory Results
06/11/24 06/11/24
07:57 14:55
APTT 128.6 H Pending
Sodium 140
Potassium 3.6
Chloride 101
Carbon Dioxide 32 H
BUN 28 H
Creatinine 0.9
Glucose 99
Calcium 9.4
Vital Signs:
Vital Signs
Temp Pulse Resp BP Pulse Ox
97.9 F 72 18 104/82 94
06/11/24 15:00 06/11/24 15:00 06/11/24 15:00 06/11/24 15:00 06/11/24 15:00
I&O
06/10/24 06/11/24 06/12/24
06:59 06:59 06:59
Intake Total 0 / 0 870 / 870
Output Total 1800 / 1800
Balance 0 / 0 -930 / -930
Review of Systems
-
History Source: Patient, Family (son in law, Олег in room and dgt on speaker phone) and Coordinated Provider
Constitutional: Denies Fever
EENT: Reports No Symptoms Reported
Respiratory: Reports No Symptoms; Denies Trouble Breathing
Cardiac: Denies Chest Pain
Abdomen/GI: Reports No Symptoms
Neuro: Reports No Symptoms
Physical Exam
-
General: Well Developed, Well Nourished and No Apparent Distress
HEENT: Atraumatic and Moist Mucous Membranes
Respiratory: Clear to Auscultation; Negative Wheezes, Rales or Rhonchi
Cardiac: S1/S2, Irregular Rhythm and Murmur (3/6 m)
GI: Soft, Nontender and Nondistended
Musculoskeletal: No Clubbing, No Cyanosis and No Edema
Neuro: Awake, Alert and Oriented
Psych: Calm
--- NOTE | 2024-06-11 16:25 | CM ---
Pt for cardioversion tomorrow.
Requested PT eval order form .
Pt had requested [facility] Referral made by liaison .
PLAN will depend on PT evals
--- NOTE | 2024-06-11 17:47 | W.PN.CD ---
Today's Communication / Plan
-
cath today with non-obstructive CAD, severe bioprosthetic valve stenosis, needs valve replacement
JUAN/CV tomorrow, NPO@MN
filling pressure not too high, will transition to PO diuresis
Impression / Plan
-
Afib - persistent
-amiodarone drip initiated- this requires intensive monitoring. Remains on metoprolol. Follow telemetry.
-continue Eliquis for OAC
-JUAN and CV in AM- discussed with patient - agreeable, NPO@MN
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
-severe with mean gradient 48 mmHg on echo 05/31, EF 65-70%
-cath with MG 53
-non-obstructive CAD
-low coronary height and small sinus will comlicate valve in valve TAVR, will aim to discharge patient and get outpatient CT TAVR followed by heart team discussion to determine optimal plan
-discussed with patient's family, TAVR BULLET CHARGING MACHINE OPERATOR team
HFpEF, acute on chronic:
-low cardiac index, currently in Afib
-filling pressures not too high on cath today, will transition to PO diuresis
CAD - s/p CABG x 1 in 2007:
-stable, cath with moderate distal LM disease and ostial LCx disease that was iFR negative
-on Eliquis and Repatha
-no need for ASA given disease is chronic and stable
HTN:
-monitor with medicine adjustments
Physical Exam
Vital Signs/Labs
Vital Signs
Temp Pulse Resp BP Pulse Ox
36.4 C 65 16 122/50 95
06/11/24 17:00 06/11/24 17:00 06/11/24 17:00 06/11/24 17:00 06/11/24 17:00
06/10/24 06/11/24 06/12/24
06:59 06:59 06:59
Actual Weight 66.763 kg 66.877 kg
06/10/24 11:26
06/11/24 07:57
APTT 128.6 Sec (23.4-35.0) H 06/11/24 07:57
06/09/24
13:59
Zoe-Y-Gevibujhuvr Pept 6030
LAB Results
06/09/24
13:59
Troponin I 0.016
Physical Exam
Constitutional: No acute distress
Cardiovascular: Rhythm/rate is irregular
Respiratory: Respiratory effort normal
Neuro/Psych: AO x 3
Data Reviewed
-
Date of Service: June 11, 2024
Medical Decision Making: Reviewed Test Results
EKG: Tracing Personally Visualized and interpreted and Report Reviewed by me
Echo: Tracing Personally Visualized and interpreted and Report Reviewed by me
X-Ray/CT/US/MRI/NUC/PET: Image Personally Visualized and interpreted and Report Reviewed by me
Labs: Labs Reviewed by me
[2024-06-11] MEDS: ELIQUIS 5 MG PO (20:45)
[2024-06-11] MEDS: TOPROL XL PO (21:03)
[2024-06-12] VITALS (9 sets, daily range): BP systolic 99–136; BP diastolic 52–88; BMI 26.3
[2024-06-12] MEDS: SYNTHROID PO (05:06)
[2024-06-12] MEDS: TOPROL XL PO (08:19)
[2024-06-12] MEDS: KCL PO (08:19)
[2024-06-12] MEDS: OCUVITE SOFTGEL PO (08:19)
[2024-06-12] MEDS: LASIX PO (08:19)
[2024-06-12] MEDS: PACERONE PO (08:19)
[2024-06-12] MEDS: ELIQUIS PO (08:19)
[2024-06-12] MEDS: ZOLOFT PO (08:19)
[2024-06-12 08:53] LABS: Blood Urea Nitrogen 27 mg/dl (7-17); Calcium 9.4 mg/dl (8.4-10.2); Carbon Dioxide 31 mmol/L (22-30); Chloride 102 mmol/L (98-107); Estimated Creatinine Clearance 38 ml/min; Glucose 104 mg/dl (70-99); Potassium 3.7 mmol/L (3.5-5.1); Sodium 142 mmol/L (135-145); eGFR > 60.00
[2024-06-12] MEDS: ELIQUIS 5 MG PO ×2 (09:04→20:15)
--- NOTE | 2024-06-12 09:28 | PTCARENOTE ---
Pt left floor for JUAN/CV. Pt stable and did get her eliquis per Cardiac services.
--- NOTE | 2024-06-12 11:02 | W.PN.CD ---
Today's Communication / Plan
-
-JUAN this a.m. with a left atrial appendage thrombus; therefore, cardioversion not performed.
-Will discontinue amiodarone and placed on Cardizem CD 120 mg daily instead.
-Continue Eliquis.
-radiation monitor overnight to trend heart rate and see if any further adjustments need to be made prior to discharge.
-Continue Lasix 40 mg PO BID.
Impression / Plan
-
Afib - persistent
-JUAN this a.m. with a left atrial appendage thrombus; therefore, cardioversion not performed.
-Will discontinue amiodarone and placed on Cardizem CD 120 mg daily instead.
-Continue Eliquis.
-radiation monitor overnight to trend heart rate and see if any further adjustments need to be made prior to discharge.
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
-severe with mean gradient 48 mmHg on echo 05/31, EF 65-70%
-cath with MG 53
-non-obstructive CAD
-low coronary height and small sinus will comlicate valve in valve TAVR, will aim to discharge patient and get outpatient CT TAVR followed by heart team discussion to determine optimal plan
-Case was discussed with patient's family, TAVR FLOATMAN team.
-Valvular management as outpatient.
HFpEF, acute on chronic:
-low cardiac index, currently in Afib
-Filling pressures not too high on cath; transitioned to PO diuresis.
-Continue Lasix 40 mg PO BID.
CAD - s/p CABG x 1 in 2007:
-stable, cath with moderate distal LM disease and ostial LCx disease that was iFR negative
-on Eliquis and Repatha
-no need for ASA given disease is chronic and stable
HTN:
-Continue to monitor with medicine adjustments.
Physical Exam
Vital Signs/Labs
Vital Signs
Temp Pulse Resp BP Pulse Ox
98.6 F 80 18 124/56 99
06/12/24 08:16 06/12/24 08:16 06/12/24 08:16 06/12/24 08:16 06/12/24 08:16
06/11/24 06/12/24 06/13/24
06:59 06:59 06:59
Actual Weight 66.877 kg 67.245 kg
06/10/24 11:26
06/12/24 07:16
APTT Cancelled 06/11/24 14:55
06/09/24
13:59
Syl-U-Tmlejxrvgkm Pept 6030
LAB Results
06/09/24
13:59
Troponin I 0.016
Physical Exam
Constitutional: No acute distress and Comfortable
EENT: Anicteric
Cardiovascular: Pedal edema is absent, Rhythm/rate is irregular, Systolic murmur present (05/16) and S1S2 is normal
Respiratory: Respiratory effort normal and Other (Scant bibasilar rhonchi)
GI: Soft
Neuro/Psych: AO x 3
Other: Skin (Warm, dry, intact)
Data Reviewed
-
Date of Service: June 12, 2024
EKG: Tracing Personally Visualized and interpreted (Telemetry: A-fib)
Echo: Report Reviewed by me (JUAN: Left atrial appendage thrombus)
Medical Tests (PFT, Pathology etc): Discussed with Physician (Primary Hospitalist), Discussed with Nurse and Discussed with Patient
Labs: Labs Reviewed by me
[2024-06-12] MEDS: CARDIZEM CD 120 MG PO (11:49)
--- NOTE | 2024-06-12 14:23 | VNURNOTE ---
Admitting Representative met with patient to discuss [facility] nurse/therapy, visits, schedule and homebound status. Patient is agreeable and understands that visits at home will be 2-3 x per week to assess and teach medical management.
[facility] contact information provided. Patient is aware that [facility] will contact them for start of care after discharge from .
[facility] referral completed in Care Port.
[2024-06-12] MEDS: LASIX 40 MG PO (15:56)
--- NOTE | 2024-06-12 16:52 | W.PN.HOSP.TC ---
Today's Communication/Plan
-
due to atrial thrombus, will hold on planned cardioversion
Assessment / Plan
Assessment / Plan
#aortic valve stenosis
s/p valve replacement
recent hospitalization valve in valve TAVR discussed and declined
Patient with limiting dyspnea at home now considering procedure
- Admit to telemetry
- Consulted cardiology, input appreciated. Underwent heart cath 06/11, was re started on Eliquis at 8PM on 06/11, underwent JUAN demonstrated left atrial appendage thrombus, therefore was not cardioverted
#HFpEF
68kg (appears to be at dry weight)
pro-BNP 6030
CXR: New right perihilar opacification concerning for developing pneumonia versus atelectasis. Clinical and laboratory correlation recommended.
Mild cardiomegaly. New
- Lasix 40mg IV BID
- daily weights
- I & Os
- procal <0.05
- incentive spirometer
- continue potassium chloride
#atrial fibrillation
EKG: ATRIAL FIBRILLATION WITH RAPID VENTRICULAR RESPONSE
LEFT VENTRICULAR HYPERTROPHY WITH QRS WIDENING AND REPOLARIZATION ABNORMALITY
( R in aVL , Anderson product , Romhilt-Chirinos )
- increase metoprolol to 150mg BID
Cardiology started pt on Amiodarone 400 mg po bid
#essential hypertension
- continue furosemide and metoprolol
#hypothyroidism
- continue levothyroxine
- TSH 1.62
#depression
- continue sertraline
#CAD
#hyperlipidemia
#Hx squamous cell carcinoma
reviewed with pt, son in law and dgt
Code status: DNR
DVT Prophylaxis: Eliquis
Will need to review with cardio plans moving forward
Anticipated Discharge: 24 - 48 hours
Subjective/Interval History
-
Date of Service: June 12, 2024
Awake, alert
Objective Data
-
Labs:
Laboratory Results
06/12/24
07:16
Sodium 142
Potassium 3.7
Chloride 102
Carbon Dioxide 31 H
BUN 27 H
Creatinine 0.9
Glucose 104 H
Calcium 9.4
Vital Signs:
Vital Signs
Temp Pulse Resp BP Pulse Ox
98.4 F 85 18 116/79 98
06/12/24 15:50 06/12/24 15:56 06/12/24 15:50 06/12/24 15:56 06/12/24 15:50
I&O
06/11/24 06/12/24 06/13/24
06:59 06:59 06:59
Intake Total 870 / 870
Output Total 1800 / 1800
Balance -930 / -930
Review of Systems
-
History Source: Patient and Coordinated Provider
Constitutional: Denies Fever
EENT: Reports No Symptoms Reported
Respiratory: Reports No Symptoms; Denies Trouble Breathing
Cardiac: Denies Chest Pain
Abdomen/GI: Reports No Symptoms
Neuro: Reports No Symptoms
Physical Exam
-
General: Well Developed, Well Nourished and No Apparent Distress
HEENT: Atraumatic and Moist Mucous Membranes
Respiratory: Clear to Auscultation; Negative Wheezes, Rales or Rhonchi
Cardiac: S1/S2, Irregular Rhythm and Murmur (3/6 m)
GI: Soft, Nontender and Nondistended
Musculoskeletal: No Clubbing, No Cyanosis and No Edema
Neuro: Awake, Alert and Oriented
Psych: Calm
[2024-06-12] MEDS: OCUVITE SOFTGEL 1 CAP PO (20:15)
[2024-06-12] MEDS: KCL 20 MEQ PO (20:15)
[2024-06-12] MEDS: TOPROL XL 150 MG PO (20:15)
[2024-06-13 03:19] VITALS: BP 128/54
[2024-06-13] MEDS: SYNTHROID 100 MCG PO (05:10)
[2024-06-13 06:00] VITALS: BMI 25.7
[2024-06-13 07:16] VITALS: BP 136/47
--- NOTE | 2024-06-13 08:39 | W.PN.CD ---
Today's Communication / Plan
-
stable for discharge with outpatient TAVR workup, CT scan planned 06/18
Impression / Plan
-
Afib - persistent
-JUAN 06/12 with ALFREDO thrombus so no CV, only on apix for 1 week so not a failure
-amiodarone discontinued and placed on Cardizem CD 120 mg daily instead, rate control acceptable with mean HR 80s
-Continue Eliquis.
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
-severe with mean gradient 48 mmHg on echo 05/31, EF 65-70%
-cath with MG 53
-non-obstructive CAD
-low coronary height and small sinus will complicate valve in valve TAVR, will aim to discharge patient and get outpatient CT TAVR followed by heart team discussion to determine optimal plan (CT planned 06/18)
-Case was discussed with patient's family, TAVR NUT GRINDER team, Dr. Anson Quiñonez
HFpEF, acute on chronic:
-low cardiac index, currently in Afib
-Filling pressures not too high on cath; transitioned to PO diuresis.
-Continue Lasix 40 mg PO BID.
CAD - s/p CABG x 1 in 2007:
-stable, cath with moderate distal LM disease and ostial LCx disease that was iFR negative
-on Eliquis and Repatha
-no need for ASA given disease is chronic and stable
HTN:
-Continue to monitor with medicine adjustments.
Physical Exam
Vital Signs/Labs
Vital Signs
Temp Pulse Resp BP Pulse Ox
36.9 C 67 18 136/47 99
06/13/24 07:16 06/13/24 07:16 06/13/24 07:16 06/13/24 07:16 06/13/24 07:16
06/12/24 06/13/24 06/14/24
06:59 06:59 06:59
Actual Weight 67.245 kg 65.816 kg
06/10/24 11:26
06/12/24 07:16
APTT Cancelled 06/11/24 14:55
06/09/24
13:59
Shj-R-Lcpisalywos Pept 6030
Physical Exam
Constitutional: No acute distress
Cardiovascular: Systolic murmur present
Respiratory: Respiratory effort normal
Neuro/Psych: AO x 3
Data Reviewed
-
Date of Service: June 13, 2024
Medical Decision Making: External Notes
EKG: Tracing Personally Visualized and interpreted and Report Reviewed by me
Echo: Tracing Personally Visualized and interpreted and Report Reviewed by me
X-Ray/CT/US/MRI/NUC/PET: Image Personally Visualized and interpreted and Report Reviewed by me
Labs: Labs Reviewed by me
[2024-06-13] MEDS: CARDIZEM CD 120 MG PO (08:47)
[2024-06-13] MEDS: OCUVITE SOFTGEL 1 CAP PO (08:47)
[2024-06-13] MEDS: TOPROL XL 150 MG PO (08:47)
[2024-06-13] MEDS: ELIQUIS 5 MG PO (08:48)
[2024-06-13] MEDS: ZOLOFT 75 MG PO (08:48)
[2024-06-13] MEDS: LASIX 40 MG PO (08:48)
[2024-06-13] MEDS: KCL 20 MEQ PO (08:48)
[2024-06-13] MEDS: FLUSH (NSS) 1 FLUSH IV (08:49)
[2024-06-13 11:35] VITALS: BP 105/45
--- NOTE | 2024-06-13 12:23 | W.PN.HOSP.TC ---
Today's Communication/Plan
-
dc to home
Assessment / Plan
Assessment / Plan
#aortic valve stenosis
s/p valve replacement
recent hospitalization valve in valve TAVR discussed and declined
Patient with limiting dyspnea at home now considering procedure
- Consulted cardiology, input appreciated. Underwent heart cath 06/11, was re started on Eliquis at 8PM on 06/11, underwent JUAN demonstrated left atrial appendage thrombus, therefore was not cardioverted
Reviewed with Dr. Crow Miller, pt is cleared for dc with close outpt follow up
#HFpEF
68kg (appears to be at dry weight)
pro-BNP 6030
CXR: New right perihilar opacification concerning for developing pneumonia versus atelectasis. Clinical and laboratory correlation recommended.
Mild cardiomegaly. New
- Lasix 40mg IV BID
- daily weights
- I & Os
- procal <0.05
- incentive spirometer
- continue potassium chloride
#atrial fibrillation
EKG: ATRIAL FIBRILLATION WITH RAPID VENTRICULAR RESPONSE
LEFT VENTRICULAR HYPERTROPHY WITH QRS WIDENING AND REPOLARIZATION ABNORMALITY
( R in aVL , Juanito product , Romhilt-Chirinos )
- increase metoprolol to 150mg BID
Cardiology started pt on Amiodarone 400 mg po bid which has since been discontinued due to Atrial clot, now on Cardizem
#essential hypertension
- continue furosemide and metoprolol
#hypothyroidism
- continue levothyroxine
- TSH 1.62
#depression
- continue sertraline
#CAD
#hyperlipidemia
#Hx squamous cell carcinoma
reviewed with pt, son in law and dgt
Code status: DNR
DVT Prophylaxis: Eliquis
dc to home
see dictated note
More than 30 minutes spent in discharge including
Final examination of the patient
Summarizing hospital stay
Instructions for continuing care to all relevant caregivers
Preparation of discharge records, prescriptions, and referral forms
Total time spent (in minutes): 45
Anticipated Discharge: Today
Subjective/Interval History
-
Date of Service: June 13, 2024
Generally feels well, walking around room with no chest pain or sob
Objective Data
-
Vital Signs:
Vital Signs
Temp Pulse Resp BP Pulse Ox
98.1 F 65 18 105/45 100
06/13/24 11:35 06/13/24 11:35 06/13/24 11:35 06/13/24 11:35 06/13/24 11:35
Review of Systems
-
History Source: Patient and Coordinated Provider
Constitutional: Denies Fever
EENT: Reports No Symptoms Reported
Respiratory: Reports No Symptoms; Denies Trouble Breathing
Cardiac: Denies Chest Pain
Abdomen/GI: Reports No Symptoms
Neuro: Reports No Symptoms
Physical Exam
-
General: Well Developed, Well Nourished and No Apparent Distress
HEENT: Atraumatic and Moist Mucous Membranes
Respiratory: Clear to Auscultation; Negative Wheezes, Rales or Rhonchi
Cardiac: S1/S2, Irregular Rhythm and Murmur (3/6 m)
GI: Soft, Nontender and Nondistended
Musculoskeletal: No Clubbing, No Cyanosis and No Edema
Neuro: Awake, Alert and Oriented
Psych: Calm
--- NOTE | 2024-06-13 13:26 | W.DS.TRANS ---
DC Summary - Bulk Folder
-
Discharge Instructions:
Sleep Apnea Risk Low
Discharge Diagnosis/Procedures Atrial Fibrillation, Aortic Stenosis
Diet Low Sodium
Activity No strenuous activity
Driving Restrictions Not until seen by your Dr
Bathing Restrictions None
Others Tests A CT scan has been scheduled for you at
[facility] on 06/18/2024 at 12:15pm.
Please do not eat or drink anything for 3 hours
prior. Arrive to the main lobby 15 minutes prior
to your appointment time to register. Please
bring a complete list of your medications with
you.
Other Services VN
Instructions: *CBC Heart Failure Instructions
Stand-Alone Forms:
Changes to Home Medications: Yes
Discharge Medications:
DC Medications w/original date entered in [email or web address]
cholecalciferol (vitamin D3) 25 mcg (1,000 unit) tablet 1,000 units PO DAILY Supplement 07/15/21
cyanocobalamin (vitamin B-12) 1,000 mcg tablet 1,000 mcg PO DAILY Supplement 07/15/21
levothyroxine 100 mcg tablet 100 mcg PO DAILY Thyroid 07/15/21
ascorbate calcium (vitamin C) 500 mg tablet 500 mg PO DAILY Supplement 05/30/24
evolocumab 140 mg/mL subcutaneous syringe (Repatha Syringe) 140 mg SC Q2W High Cholesterol 05/30/24
sertraline 50 mg tablet 75 mg PO DAILY Depression 05/30/24
vit C 250 mg-vit E 90 mg-zinc 40 mg-copper 1 op-tfmhpn-lycyli capsule (PreserVision AREDS-2) 1 tab PO BID Supplement 05/30/24
apixaban 5 mg tablet (Eliquis) 5 mg PO BID 30 days #60 tabs 06/03/24
potassium chloride 20 mEq tablet,extended release(part/cryst) 20 meq PO BID 30 days #60 tabs 06/03/24
acetaminophen 650 mg tablet,extended release 1,300 mg PO [id number] PRN mild pain 06/09/24
furosemide 40 mg tablet 40 mg PO BID Fluid Retention/Swelling 06/09/24
diltiazem HCl 120 mg capsule,extended release 24 hr 120 mg PO DAILY #30 caps 06/13/24
metoprolol succinate 50 mg tablet,extended release 24 hr 150 mg (3 x 50 mg) PO BID #90 tabs 06/13/24
Home Medication Changes
start Diltiazem CD
increase Toprol XL to 150 mg bid
Pending Results: No
--- NOTE | 2024-06-13 13:28 | CM ---
Patient is stable for d/c today. Current w/[facility].
Met w/ patient bedside, agreeable to d/c. Daughter will transport home
IMM verbally reviewed, patient given copy, copy placed in chart
Wilma/[facility] liaison informed of patient's d/c today
Plan: Home w/ [facility]
--- NOTE | 2024-06-14 09:15 | W.HF.CON ---
Heart Failure
- LV Function
Left ventricular function study result: LV Ejection fraction >/= 50%
Ejection Fraction Percentage: 60-65
- ARNI
Patient already on ARNI: No
Heart Failure ARNI Not Indicated: LV Ejection Fraction >/= 40%
- ACEI/ARB
Patient already on ACEI/ARB: No
Heart Failure ACEI/ARB Not Indicated: LV Ejection Fraction > 40%
- Beta Alex
Patient already on Evidence Based Beta Alex: Yes
- Mineralocorticord Receptor Antagonist
Patient already on MRA: No
Heart Failure MRA Not Indicated: LV Ejection Fraction > 40%
- SGLT-2 Inhibitor
Patient already on SGLT-2 Inhibitor: No
Heart Failure SGLT-2 Inhibitor Not Indicated: LV Ejection Fraction >40%
- Afib Anticoagulation
Patient already on Anticoagulation for Afib: Yes
- NYHA CHF Classification
NYHA CHF Classification Level: Class III - Symptoms w/ min exertion, interferes w/ nml daily activity
- ACC/AHA Stage
ACC/AHA Stage: Stage C: Symptomatic Heart Failure
== END 2024-06-13 15:32 | disposition home health service (06) | DRG 286 ==
LOC: 4 EAST ACU 17:52
PROVIDERS: Emergency Medicine; Internal Medicine; Nurse Practitioner Family; Student in an Organized Health Care Education/Training Program; ADMITTING PHYSICIAN Internal Medicine; ATTENDING PHYSICIAN Internal Medicine; EMERGENCY PHYSICIAN Emergency Medicine; FAMILY PHYSICIAN Family Medicine; OTHER PHYSICIAN Internal Medicine
PROC: B2121ZZ Fluoroscopy of Single Coronary Artery Bypass Graft using Low Osmolar Contrast (ICD-10-PCS; 2024-06-11)
PROC: 4A033BC Measurement of Arterial Pressure, Coronary, Percutaneous Approach (ICD-10-PCS; 2024-06-11)
PROC: 4A023N8 Measurement of Cardiac Sampling and Pressure, Bilateral, Percutaneous Approach (ICD-10-PCS; 2024-06-11)
PROC: B2111ZZ Fluoroscopy of Multiple Coronary Arteries using Low Osmolar Contrast (ICD-10-PCS; 2024-06-11)
PROC: B24BZZ4 Ultrasonography of Heart with Aorta, Transesophageal (ICD-10-PCS; 2024-06-12)
DX: I35.0 Nonrheumatic aortic (valve) stenosis (principal); I50.33 Acute on chronic diastolic (congestive) heart failure; T82.857A Stenosis of other cardiac prosthetic devices, implants and grafts, initial encounter; I48.20 Chronic atrial fibrillation, unspecified; Y83.1 Surgical operation with implant of artificial internal device as the cause of abnormal reaction of the patient, or of later complication, without mention of misadventure at the time of the procedure; I11.0 Hypertensive heart disease with heart failure; E03.9 Hypothyroidism, unspecified; F32.A Depression, unspecified; I25.10 Atherosclerotic heart disease of native coronary artery without angina pectoris; E78.00 Pure hypercholesterolemia, unspecified; I27.20 Pulmonary hypertension, unspecified; I51.3 Intracardiac thrombosis, not elsewhere classified
CPT/HCPCS: 71046; 80048; 80053; 83880; 84145; 84443; 84484; 85025; 85027; 85347; 85730; 93005; 93312; 93320; 93325; 93461; 93799; 99152; 99153; 99285; Q9967

== ENCOUNTER → 2024-06-18 12:00 | Outpatient (REF) | payer MEDICARE, BC, SELFPAY | LOC: RAD 12:00 | PROVIDERS: ATTENDING PHYSICIAN Nurse Practitioner Adult Health; FAMILY PHYSICIAN Family Medicine | DX: Z95.2 Presence of prosthetic heart valve (principal); I35.0 Nonrheumatic aortic (valve) stenosis | CPT/HCPCS: 74174; 75572; Q9967 ==

== ENCOUNTER → 2024-06-21 13:29 | Outpatient (REF) | payer MEDICARE, BC, SELFPAY ==
[2024-06-21 13:48] LABS: % Basophils 1.5 % (0-2); % Eosinophils 1.7 % (0-6); % Immature Granulocytes 0.2 % (0-0.5); % Lymphocytes 36.7 % (20.5-51.1); % Neutrophils 48.9 % (42.2-75.2); Absolute Basophils 0.1 10^3/uL (0-0.2); Absolute Eosinophils 0.1 10^3/uL (0-0.7); Absolute Lymphocytes 1.9 10^3/uL (1.2-3.4); Absolute Monocytes 0.6 10^3/uL (0.1-0.6); Absolute Neutrophils 2.6 10^3/uL (1.4-6.5); Hematocrit 35.9 % (37.0-47.0); Hemoglobin 12.2 g/dL (12.0-16.0); Mean Corpuscular Hgb 34.4 pg (27.0-31.0); Mean Corpuscular Volume 101.1 fL (81.0-99.0); Mean Platelet Volume 11.5 fL (7.4-10.4); Nucleated Red Blood Cells % 0 %; Platelet Count 183 10^3/uL (130-400); Red Blood Cell Count 3.55 10^6/uL (4.20-5.40); Red Cell Dist. Width 12.7 % (11.5-14.5); White Blood Cell Count 5.3 10^3/uL (4.8-10.8)
[2024-06-21 14:25] LABS: ALT (SGPT) 75 U/L (0-35); AST (SGOT) 53 U/L (14-36); Albumin 3.8 g/dl (3.5-5.0); Alkaline Phosphatase 95 U/L (38-126); Blood Urea Nitrogen 22 mg/dl (7-17); Calcium 9.5 mg/dl (8.4-10.2); Carbon Dioxide 30 mmol/L (22-30); Chloride 103 mmol/L (98-107); Glucose 159 mg/dl (70-99); Potassium 4.4 mmol/L (3.5-5.1); Sodium 139 mmol/L (135-145); Total Bilirubin 0.6 mg/dl (0.2-1.3); Total Protein 6.5 g/dl (6.3-8.2); eGFR 55.21
== END ==
LOC: OLAB 13:29
PROVIDERS: ATTENDING PHYSICIAN Internal Medicine; FAMILY PHYSICIAN Family Medicine
DX: I11.0 Hypertensive heart disease with heart failure (principal)
CPT/HCPCS: 36415; 80053; 85025

== ENCOUNTER 2024-07-23 01:48 | Inpatient (IN) | payer MEDICARE, BC, SELFPAY ==
[2024-07-16 12:30] VITALS: BMI 26.9
[2024-07-16 13:10] LABS: Urine Albumin 1+ (Neg - Trace); Urine Bilirubin Negative (Negative); Urine Character Clear (Clear); Urine Color Yellow; Urine Glucose Negative (Negative); Urine Ketone Negative (Negative); Urine Leukocyte Negative (Negative); Urine Nitrite Negative (Negative); Urine Occult Blood Negative (Negative); Urine Urobilinogen Negative (Neg - 1+)
[2024-07-16 13:16] LABS: % Basophils 1.3 % (0-2); % Eosinophils 0.9 % (0-6); % Immature Granulocytes 0.4 % (0-0.5); % Lymphocytes 22.1 % (20.5-51.1); % Monocytes 10.3 % (1.7-9.3); Absolute Basophils 0.1 10^3/uL (0-0.2); Absolute Eosinophils 0.1 10^3/uL (0-0.7); Absolute Lymphocytes 1.2 10^3/uL (1.2-3.4); Absolute Monocytes 0.6 10^3/uL (0.1-0.6); Absolute Neutrophils 3.5 10^3/uL (1.4-6.5); Hematocrit 38.1 % (37.0-47.0); Mean Corp Hgb Conc. 34.1 g/dL (33.0-37.0); Mean Corpuscular Hgb 34.1 pg (27.0-31.0); Nucleated Red Blood Cells % 0 %; Platelet Count 180 10^3/uL (130-400); Red Blood Cell Count 3.81 10^6/uL (4.20-5.40); Red Cell Dist. Width 14.2 % (11.5-14.5); White Blood Cell Count 5.3 10^3/uL (4.8-10.8)
[2024-07-16 13:20] LABS: INR 1.79
[2024-07-16 13:21] LABS: APTT 50.3 Sec (23.4-35.0)
[2024-07-16 14:00] LABS: ALT (SGPT) 53 U/L (0-35); AST (SGOT) 43 U/L (14-36); Albumin 4.3 g/dl (3.5-5.0); Alkaline Phosphatase 204 U/L (38-126); Blood Urea Nitrogen 24 mg/dl (7-17); Calcium 9.1 mg/dl (8.4-10.2); Carbon Dioxide 28 mmol/L (22-30); Chloride 100 mmol/L (98-107); Direct Bilirubin 0.5 mg/dl (0.0-0.4); Estimated Creatinine Clearance 43 ml/min; Glucose 113 mg/dl (70-99); Potassium 3.5 mmol/L (3.5-5.1); Sodium 140 mmol/L (135-145); Total Bilirubin 1.7 mg/dl (0.2-1.3); Total Protein 7.1 g/dl (6.3-8.2); eGFR > 60.00
[2024-07-16 14:06] LABS: NT-proBNP 7690 pg/ml
[2024-07-16 14:21] LABS: Urine Amorphous Seen
[2024-07-16 14:23] LABS: Urine Red Blood Cell 0-2 /HPF (0-2); Urine White Cell 0-2 /HPF (0-5)
--- NOTE | 2024-07-16 16:10 | CM ---
spoke to pa and daughter in PAT's, we discussed preop TAVR teaching. she is prev indep, lives alone in a 2 story home with 3 steps to enter. she denies any dme's. her reciently went to LTC at [facility] and is on comfort care with
[facility]. she has the TAVR educ book, soap and instructions. she is agreeable to a f/u visit from the ct transitional care nurses after dc. pt will need PT/OT prior to dc to eval functional status, she is very deconditioned. cm role explained and
all questions answered.
[2024-07-17 08:55] LABS: Glycohemoglobin (HgbA1c) 5.9 % (4.0-5.6)
[2024-07-22 17:09] VITALS: BP 124/92
[2024-07-22 17:41] LABS: % Basophils 0.9 % (0-2); % Eosinophils 1.2 % (0-6); % Immature Granulocytes 0.3 % (0-0.5); % Lymphocytes 21.5 % (20.5-51.1); % Monocytes 9.3 % (1.7-9.3); % Neutrophils 66.8 % (42.2-75.2); Absolute Basophils 0.1 10^3/uL (0-0.2); Absolute Eosinophils 0.1 10^3/uL (0-0.7); Absolute Lymphocytes 1.4 10^3/uL (1.2-3.4); Absolute Monocytes 0.6 10^3/uL (0.1-0.6); Absolute Neutrophils 4.3 10^3/uL (1.4-6.5); Hematocrit 36.8 % (37.0-47.0); Hemoglobin 12.5 g/dL (12.0-16.0); Mean Corpuscular Hgb 33.8 pg (27.0-31.0); Mean Corpuscular Volume 99.5 fL (81.0-99.0); Mean Platelet Volume 10.1 fL (7.4-10.4); Nucleated Red Blood Cells % 0 %; Platelet Count 174 10^3/uL (130-400); Red Cell Dist. Width 14.1 % (11.5-14.5); White Blood Cell Count 6.5 10^3/uL (4.8-10.8)
[2024-07-22 17:46] LABS: ALT (SGPT) 37 U/L (0-35); AST (SGOT) 41 U/L (14-36); Albumin 3.7 g/dl (3.5-5.0); Alkaline Phosphatase 163 U/L (38-126); Blood Urea Nitrogen 18 mg/dl (7-17); Carbon Dioxide 30 mmol/L (22-30); Chloride 104 mmol/L (98-107); Glucose 108 mg/dl (70-99); Potassium 3.4 mmol/L (3.5-5.1); Sodium 140 mmol/L (135-145); Total Bilirubin 1.3 mg/dl (0.2-1.3); Total Protein 6.6 g/dl (6.3-8.2); eGFR > 60.00
[2024-07-22 17:48] LABS: NT-proBNP 10000 pg/ml; Troponin I 0.016 ng/ml
[2024-07-22 20:41] VITALS: BP 126/82
[2024-07-22 22:23] VITALS: BP 142/75
[2024-07-22 22:55] LABS: Troponin I 0.017 ng/ml
[2024-07-22 23:00] VITALS: BP 132/81
--- NOTE | 2024-07-22 23:08 | ED.GENMED ---
History of Present Illness
General
Chief Complaint: Breathing Problem
Source: patient
Time Seen by Provider: 07/22/24 22:05
History of Present Illness
History of Present Illness:
84-year-old female presents complaining of shortness of breath, fatigue. Patient states she just feels so weak that she cannot really do anything throughout the day. Patient has a history of heart failure and aortic stenosis. She is actually
scheduled for a TAVR are in the morning. Patient denies any fever. She has a chronic cough which has not changed in years. Patient denies any chest pain. She has been holding her Eliquis since Monday morning. Patient has had some adjustments
of her metoprolol recently. She had been on 150 mg twice a day that was decreased by her primary care doctor in June. 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
Past History
Past History
ED Past Medical History: Arrthythmia, HTN and Valvular disease
ED Past Surgical History: Cardiac (Aortic valve replacement), Cholecystectomy, Gynecological and Orthopedic (Knee replacement)
Social History
Tobacco: Non-smoker
Alcohol: Occasional
Drug: None
Personal:
Living: with family
Employment: Retired
Family History
Family History: Other (Noncontributory)
Phy Exam
Physical Exam
Physical Exam:
General: Awake, Alert, Oriented X3. Appears stated age, chronically ill
Vitals: Afebrile, borderline hypoxic with her pulse ox averaging 93
Head: Atraumatic
Eyes: Pupils equal, EOMI
Throat: Airway intact, no exudates
Neck: Trachea midline
Lungs: Crackles bilaterally
Heart: irregular rate, 3/6 systolic ejection murmur
Abd: Soft, Nontender, No pulsatile mass
Neuro: Nonfocal
Skin: Warm, dry, no rash
Extremities: pulses equal b/l, trace edema
Scores
Heart Failure Risk
Heart Failure Risk Score: Yes
History of Stroke or TIA: No
History of intubation for respiratory distress: No
Heart rate on ED arrival >/= 110: Yes
SaO2 <90% on arrival on room air: No
HR >/=110 during 3min walk test (or too ill to perform test): Yes
ECG has acute ischemic changes: No
Urea >/=12mmol/L (BUN 33.6mg/dL): No
Serum CO2>/=35mmol/L: No
Troponin I or T elevated to IA Level (0.4mg/dL): No
NT-proBNP >/=5,000ng/L (5,000pg/ml): Yes
HF Risk Score: 3
Admission Status: HIGH RISK 15.9% Consider SNF treatment or admission to hospital
Course
Orders/Labs/Results
Orders:
Orders
07/22/24 17:12
Electrocardiogram (*1) Urgent
Reason for Study: Shortness of Breath
Chest [CR Chest - 2 Views ] Urgent
Comment:
Reason For Exam: SOB
07/22/24 17:15
Complete Blood Count/With Diff Urgent
Comprehensive Metabolic Panel Urgent
NT-proBNP Urgent
Troponin I Urgent
07/22/24 21:35
ECG [Electrocardiogram (*1)] Urgent
Reason for Study: Chest Pain
07/22/24 22:20
Troponin I Urgent
07/22/24 23:08
Furosemide [Lasix] 40 mg IV NOW STA
Potassium Chloride 10% Elixir [KCl Elixir] 40 meq PO NOW STA
07/22/24 23:28
Procalcitonin Urgent
If negative, will antibiotics be d/c'd or not started: Yes
Does the patient have renal or hepatic impairment?: No
Any recent (w/in 48 hrs) physiologic stress (CPR, rhabdo): No
07/23/24 01:39
Admit/Transfer Patient As Directed
Co-Sign Provider:
Level of Care: Inpatient admission
Assign to:: Telemetry
Physician / Group: Janelle
Diagnosis: CHF exacerbation, complication
Reason for Telemetry: Subacute Heart Failure
Date to Stop Telemetry: 07/25/24
Time to Stop Telemetry: 11:00
Reason for Hospitalization: subacute heart failure
Expected length of stay greater than two midnights?: Yes
ELOS- Estimated Length of Stay in days: 2
I certify the patient meets the requirements for IP care: Yes
PRN Pain Medication Management As Directed
May give lesser potent ordered pain med per pt: Yes
preference::
Protocol:: Medication orders for pain may be administered in a
manner that supports deferring to patient preference
when the pt is:
- Requesting an ordered lesser potent pain medication.
Least to most potent pain medications are defined
as: acetaminophen < NSAID < tramadol < opioids
(morphine, oxycodone, hydromorphone).
- Requesting a lesser dose of the same medication IF
ORDERED.
- Requesting a less intrusive route of administration
if both routes are prescribed by the provider (PO <
IV).
07/23/24 01:41
Code Status As Directed
Resuscitation Status: Do not resuscitate
Reached after discussion with pt or family/Healthcare POA: Yes
DNR Bracelet Application ONCE
07/23/24 01:51
Acetaminophen [Tylenol] 650 mg PO Q6HPRN PRN
07/23/24 01:51
CARDIOLOGY CONSULT Routine
Consulting Provider: Blas Thurston
Was physician already notified: Yes
HF DIETARY CONSULT Routine
HF EDUCATOR CONSULT Routine
Comment:
VTE Contraindication Routine
VTE Mechanical Device Contraindication: Medical Contraindication
Pharmocologic Contraindication: Medical Contraindication
Activity As Directed
Activity Level: With Assistance
Intake/ Output As Directed
Frequency: Per unit guidelines
Patient Education As Directed
Type: CHF folder
Comment: give on admission. Document in Interdisciplinary Education record
Sleep Apnea Assessment by RN As Directed
Comment:
Physician Instructions:
Vital Signs As Directed
Frequency: Other
Additional Instructions:: Q12 or per unit guidelines if more frequent.
Weight As Directed
Frequency: Daily
Type of Scale: Standing Scale
Comment: Daily morning weight. If unable to stand, use balanced bed scale.
Weight As Directed
Frequency: Once
Type of Scale: Standing Scale
Comment: Upon Admission. If unable to stand, use balanced bed scale.
Pulse Ox/cont/shift [RESP] Routine
Quantity: 1
Special Instructions: Daily pulse oximetry at rest. If greater than 92% at rest also obtain pulse oximetry
while ambulating as tolerated.
07/23/24 05:14
Basic Metabolic Panel IN AM
Magnesium IN AM
07/23/24 Breakfast
NPO
Allow oral meds: Yes
Allow clear liquids: Sips of Clears
Levothyroxine [Synthroid] 100 mcg PO DAILY @ 0600
07/23/24 08:00
Apixaban [Eliquis] 5 mg PO BID
Diltiazem Extended Release [Cardizem Cd] 120 mg PO DAILY
Furosemide [Lasix] 40 mg IV BID AT 0800,1600
Metoprolol Xl [Toprol Xl] 150 mg PO BID
Sertraline HCl [Zoloft] 75 mg PO DAILY
07/24/24 06:00
Basic Metabolic Panel IN AM
07/25/24 06:00
Basic Metabolic Panel IN AM
07/25/24 11:00
DC Protocol for Telemetry ONCE
Abnormal Lab Results
07/22/24
17:15
RBC 3.70 L 10^6/uL
(4.20-5.40)
Hct 36.8 L %
(37.0-47.0)
MCV 99.5 H fL
(81.0-99.0)
MCH 33.8 H pg
(27.0-31.0)
Potassium 3.4 L mmol/L
(3.5-5.1)
BUN 18 H mg/dl
(7-17)
Glucose 108 H mg/dl
(70-99)
AST 41 H U/L
(14-36)
ALT 37 H U/L
(0-35)
Alkaline Phosphatase 163 H U/L
(38-126)
07/22/24 17:15
07/22/24 17:15
Vital Signs
Initial and Last Documented VS:
Initial Vital Signs
Temp Pulse Resp BP Pulse Ox
98.8 F 88 18 124/92 96
07/22/24 17:09 07/22/24 17:09 07/22/24 17:09 07/22/24 17:09 07/22/24 17:09
Last Documented Vital Signs
Temp Pulse Resp BP Pulse Ox
97.9 F 129 24 143/88 92
07/23/24 03:51 07/23/24 06:00 07/23/24 06:00 07/23/24 06:00 07/23/24 03:51
MDM/Problems Addressed
Differential Diagnosis Includes:
chf, anemia, progression of aortic stenosis, pneumonia
MDM/Problems Addressed:
Patient presents with generalized weakness and shortness of breath. Her labs show that her BNP is elevated even compared to a recent measurement earlier in July. Chest x-ray appears to have some increase cephalization to my estimation. Radiology
questioned early right-sided infiltrate however the patient has no signs or symptoms of pneumonia. Her white count is normal. A procalcitonin was ordered and this is normal further reducing the likelihood of an infectious process. Overall I think
her symptoms are related to her severe aortic stenosis and perhaps a little bit of fluid overload. IV Lasix given. Will admit the patient now and hopefully she can still have her TAVR that she scheduled for.
*Radiology
Radiology exam reviewed: preliminary read by ED provider (Pulmonary edema)
*Pulse Oximetry
Patient hypoxic: no
*EKG
Interpreted by ED Provider?: Yes
Interpretation: abnormal
Heart Rate: 100
Rate: tachycardiac
Rhythm: atrial flutter
[place]: normal axis
Interval: long QT
QRS Pattern: normal QRS
Ischemia: non-specific ST changes
*2 Year Olds Preschool Teacher Interpretation
Rate: tachycardiac
Interpretation: abnormal
Heart Rate: 100
Rhythm: atrial flutter
*Critical Care Note
Total Time (30-74mins, 75-104mins- exclusive of procedures): Not Applicable
ED Attending Note
-
Portions of this chart may have been created with voice recognition software.� Occasional wrong word or��sound alike� substitutions may have occurred due to the inherent limitations of voice recognition software.
Discharge Plan
Departure
Patient Disposition: Admit
Date of Disposition: 07/23/24
Time of Disposition: 00:32
Admit to: Med/Surg
Presentation/result/management discussed w/ accepting MD/DO: Hospitalist
Condition: Fair
Discharge Problem:
Acute CHF, Aortic stenosis
Interventions
Interventions:
*Risk Screen - Suicide Last Done: 07/22/24 17:09
*General Assessment Last Done: 07/22/24 17:09
*Neglect/Abuse Screening Last Done: 07/22/24 17:09
ED- Cardiac Assessment Last Done: 07/22/24 22:30
ED- Pulmonary Assessment Last Done: 07/22/24 22:30
[2024-07-22] MEDS: LASIX 40 MG IV (23:30)
[2024-07-22] MEDS: KCL ELIXIR 40 MEQ PO (23:30)
[2024-07-23] VITALS (23 sets, daily range): BP systolic 95–143; BP diastolic 59–101; BMI 26.8
[2024-07-23 00:18] LABS: Procalcitonin < 0.05 ng/ml (0.0-0.25)
--- NOTE | 2024-07-23 01:29 | HPS.HSE ---
Family Physician
-
Family Physician: Collin Mary
Chief Complaint
-
Dyspnea
History of Present Illness
This is a 84-year-old with past medical history significant for atrial fibrillation, severe aortic stenosis pending TAVR heart failure with preserved ejection fraction, hypertension, hypothyroid, CAD status post stenting 1 month ago who presents to
the emergency department with progressive dyspnea on exertion.
Patient was admitted with shortness of breath and CHF exacerbation about a month ago. At the time she was found to have severe aortic stenosis and uncontrolled atrial fibrillation. She ultimately was controlled with Cardizem. She had a JUAN which
showed clot in the left atrial appendage and patient was not cardioverted. She was really had significant aortic stenosis at that time with plan to perform a TAVR after discharge. Patient was diuresed and felt well enough to go home.
She is scheduled for TAVR on July 23 according to her. She states over the last 5 days she has been having severe dyspnea on exertion. She is now unable to perform any activity of daily living. She says the dyspnea is associated with severe
weakness and sometimes a pressure sensation with activity. She denied any chest pain. She denied feeling dizzy or lightheaded. She does note intermittent palpitations. She denies any changes in her lower extremities and denies any acute weight
gain.
She denies cough fevers or chills.
In the emergency department she was afebrile, blood pressure was 130/80 with a pulse rate of 90-1 15, she is satting 96% on room air. ECG shows atrial flutter with variable conduction ranging from a rate of 96-[address] or T wave
changes. Troponin was 0.017. BNP was increased to 10,000. Pro-Brian was negative. Chest x-ray shows trace right pleural effusion with some Narinder hilar opacity on the right side which could be pneumonia but most likely pulmonary edema.
CBC was unremarkable. Electrolytes BUN/creatinine were stable.
Medical History
Past Medical History
Past Medical History: Reports Other
Additional Past Medical History:
essential hypertension
hyperlipidemia
hypothyroidism
HFpEF
atrial fibrillation
aortic valve stenosis
depression
CAD
Hx squamous cell carcinoma
Past Surgical History: Reports Other
Additional Past Surgical History:
aortic valve replacement
right cataract extraction
cholecystectomy
hysterectomy
left TKR
CABG
Social History
Tobacco: Non-smoker
Alcohol: Daily
Drug: None
Personal:
Living: Alone
Family History
Family History: Not pertinent
Allergies / Home Medications
Allergies reflects when Allergies were last updated in [employer].
Home Medications with original date entered in [employer]
Allergy/Medication List:
Allergies
Allergy/AdvReac Type Severity Reaction Status Date / Time
No Known Allergies Allergy Verified 05/30/24 20:10
Home Medications
cholecalciferol (vitamin D3) 25 mcg (1,000 unit) tablet 1,000 units PO DAILY Supplement 07/15/21
cyanocobalamin (vitamin B-12) 1,000 mcg tablet 1,000 mcg PO DAILY Supplement 07/15/21
levothyroxine 100 mcg tablet 100 mcg PO DAILY Thyroid 07/15/21
ascorbate calcium (vitamin C) 500 mg tablet 500 mg PO DAILY Supplement 05/30/24
evolocumab 140 mg/mL subcutaneous syringe (Repatha Syringe) 140 mg SC Q2W High Cholesterol 05/30/24
sertraline 50 mg tablet 75 mg PO DAILY Depression 05/30/24
vit C 250 mg-vit E 90 mg-zinc 40 mg-copper 1 hv-htykoq-pxazeh capsule (PreserVision AREDS-2) 1 tab PO BID Supplement 05/30/24
apixaban 5 mg tablet (Eliquis) 5 mg PO BID 30 days #60 tabs 06/03/24
metoprolol succinate 100 mg tablet,extended release 24 hr 100 mg PO BID 30 days #60 tabs 06/03/24
potassium chloride 20 mEq tablet,extended release(part/cryst) 20 meq PO BID 30 days #60 tabs 06/03/24
acetaminophen 650 mg tablet,extended release 1,300 mg PO [id number] PRN mild pain 06/09/24
furosemide 40 mg tablet 40 mg PO BID 06/09/24
Review of Systems
-
History Source: Patient
Constitutional: Reports No Symptoms
EENT: Reports No Symptoms
Respiratory: Reports Trouble Breathing
Cardiac: Reports No Symptoms
Abdomen/GI: Reports No Symptoms
: Reports No Symptoms
Musculoskeletal: Reports No Symptoms
Skin: Reports No Symptoms
Neurological: Reports No Symptoms
Endocrine: Reports No Symptoms
Hematologic/Lymphatic: Reports No Symptoms
Psych: Reports No Symptoms
Physical Exam
Vital Signs
Vital Signs
Temp Pulse Resp BP Pulse Ox
98.8 F 115 28 132/81 96
07/22/24 17:09 07/22/24 23:45 07/22/24 23:45 07/22/24 23:00 07/22/24 23:15
Physical Exam
General: Appears in Distress
HEENT: NormoCephalic, Anicteric, Moist mucous membranes and Atraumatic
Respiratory: Clear
Cardiac: S1/S2, Irregular Rhythm and Peripheral Edema
Breast: Deferred by me
GI: Soft, Non Tender, Non Distended and Normal Bowel Sounds
Rectal: Deferred by Provider
Genito-urinary: Deferred by me
Musculoskeletal: No Clubbing, No Cyanosis, Edema, Left Lower Extremity (trace) and Edema, Right Lower Extremity (trace)
Skin: Warm
Neuro: AO x 3 and Nonfocal/grossly intact
Hematologic/Lymphatic: No Lymphadenopathy
Psych: Calm
Laboratory Results
-
07/22/24 17:15
07/22/24 17:15
Laboratory Results
Total Bilirubin 1.3 mg/dl (0.2-1.3) 07/22/24 17:15
AST 41 U/L (14-36) H 07/22/24 17:15
ALT 37 U/L (0-35) H 07/22/24 17:15
Alkaline Phosphatase 163 U/L (38-126) H 07/22/24 17:15
Troponin I 0.017 ng/ml 07/22/24 22:20
Data Reviewed
-
Diagnostic Radiology: Image Personally Visualized and interpreted and Report Reviewed by me
Ultrasound: Report Reviewed by me
Medical Tests (Nuc Med, Echo, EKG etc): Image Personally Visualized and interpreted
Lab Data: Labs Reviewed by me
Old Records: Reviewed
Impression/Plan
-
IMPRESSION:
Patient with history of subaortic stenosis, CHF with preserved EF, atrial fibrillation who presents to the emergency department with worsening dyspnea on exertion over the last few days. She has no acute weight gain however she has mild pulmonary
edema on x-ray with increasing BNP. She is unable to perform any activities of daily living due to fatigue and exertional dyspnea. She is unable to visit spouse was recently transferred to intermediate again due to the symptoms. She is pending a
TAVR which she states was scheduled for today july 23. After receiving extra dose of Lasix in the emergency department patient did feel improved and felt like some of the heaviness was lifted.
PLAN:
#1 CHF exacerbation� likely progressive CHF in the setting of severe aortic stenosis, no acute event. Chest x-ray possible pneumonia however patient has no cough fevers chills and Pro-Brian is negative.
- Admit to telemetry
- Continue Lasix 40 mg IV every 12 for now
- N.p.o. as patient may go for TAVR, it was scheduled for 5:30 AM per patient
- Dr. Thurston alerted, Dr Miller to eval in the morning to see if patient can go for procedure
#2 atrial fibrillation�permanent atrial fibrillation at this time with rates in the 90s to 110s
- Continue anticoagulation with apixaban
� Continue diltiazem 120 mg p.o. daily
- May need IV diltiazem for acute rate control
-Keep K greater than 4 to
- Continue metoprolol succinate 150 mg p.o. twice daily
#3 hypothyroid
- Continue levothyroxine
DVT prophylaxis�on apixaban
CODE STATUS�DO NOT RESUSCITATE
[2024-07-23] MEDS: TYLENOL 650 MG PO ×2 (03:45→22:42)
[2024-07-23] MEDS: SYNTHROID 100 MCG PO (05:16)
[2024-07-23 05:51] LABS: ALT (SGPT) 31 U/L (0-35); AST (SGOT) 31 U/L (14-36); Albumin 3.4 g/dl (3.5-5.0); Alkaline Phosphatase 152 U/L (38-126); Blood Urea Nitrogen 18 mg/dl (7-17); Calcium 8.8 mg/dl (8.4-10.2); Carbon Dioxide 29 mmol/L (22-30); Chloride 106 mmol/L (98-107); Direct Bilirubin 0.4 mg/dl (0.0-0.4); Glucose 122 mg/dl (70-99); Potassium 3.7 mmol/L (3.5-5.1); Sodium 140 mmol/L (135-145); Total Bilirubin 1.4 mg/dl (0.2-1.3); Total Protein 6.1 g/dl (6.3-8.2); eGFR > 60.00
--- NOTE | 2024-07-23 07:37 | EDRN ---
Addendum entered by Gerda Mccallum RN 07/23/24 08:21:
to add to previous note, this RN did notify the director of labor and delivery that the pt was not wiped with CHG wipes this AM
Original Note:
the director of labor and delivery called this RN and this RN gave verbal report to Bianca URIARTE, last date and times of food and liquid are documented in pre procedure check list, the pt stated that she did not take her shower with CHG soap as directed per the pt, new gown
placed, pants and under wear removed by the pt, VS WNL, will take the pt to director of labor and delivery
--- NOTE | 2024-07-23 08:16 | VNURNOTE ---
Chart reviewed. Patient is current with [facility] nursing. Will continue to follow hospital course and DC plans.
[2024-07-23 09:32] LABS: ACT-LR - POC 285 Seconds (116-155)
[2024-07-23 09:44] LABS: ACT-LR - POC 295 Seconds (116-155)
[2024-07-23 09:55] LABS: ACT-LR - POC 319 Seconds (116-155)
[2024-07-23 10:25] LABS: ACT-LR - POC 334 Seconds (116-155)
[2024-07-23 10:51] LABS: ACT-LR - POC 256 Seconds (116-155)
[2024-07-23 11:02] LABS: ACT-LR - POC 353 Seconds (116-155)
[2024-07-23 11:25] LABS: ACT-LR - POC 363 Seconds (116-155)
[2024-07-23 11:56] LABS: ACT-LR - POC 322 Seconds (116-155)
--- NOTE | 2024-07-23 12:08 | CM ---
Reviewed chart. Mrs. Burton is in the operating room today. Prior to admission she resides alone in a two story home with three steps to enter. Prior to admission she was independent with ambulation and adls. She does not have any DME in the
home. Will need to see her functional status after the TAVR to see if she will have any skilled care needs. Medical work-up in progress. The discharge plan is to return home with a home visit by the Transitional Care Nurse verses SNF/Rehab. if
indicated when medically stable.
[2024-07-23 12:17] LABS: ACT-LR - POC 297 Seconds (116-155)
[2024-07-23 12:25] LABS: B.E. - POC 3.2 mmol/L; Glucose - POC 139 mg/dl (70-99); HCO3 - POC 27 mmol/L (21-28); Hematocrit - POC 31 % PCV (37-47); Hemodilution- POC Yes; Hemoglobin Calculated - POC 10.7; Ionized Calcium - POC 1.07 mmol/L (1.15-1.33); Lactate - POC 0.81 mmol/L (0.36-0.75); O2 Saturation %Calculated-POC 99.8 % (94-98); PCO2 - POC 39 mmHg (35-48); PO2 - POC 233 mmHg (83-108); Sodium - POC 144 mmol/L (136-145); Specimen Type - POC Arterial; pH - POC 7.46 (7.35-7.45)
--- NOTE | 2024-07-23 12:28 | W.CVOR.SURPR ---
CVOR Surgeon Immed Pre Op
-
I have examined this patient prior to performance of the scheduled procedure.
The patient's condition is unchanged from the time of the dictated/written History and
Physical and the patient is able to undergo the scheduled procedure.
--- NOTE | 2024-07-23 12:29 | W.IMMPOSTOP ---
Surgical Immed Post Op Note
-
[id number]
STRUCTURAL HEART PROCEDURE NOTE:
Preoperative Dx:
Severe bioprosthetic aortic valve stenosis (P/M: 70/48, Electrician Telephone: 4.22) - prior Riley 3000TFX 21mm AVR 2007)
Qbfk-kl-rjpdvqbx mitral regurgitation w/ severe MAC
Fcya-xf-abmkqgsk tricuspid regurgitation w/ PASP 35mmHg
Heart failure (xcldg-ki-ycesqpb) with preserved EF (pt. w/ ED presentation w/ CHF exacerbation immediately preoperatively)
Chronic atrial fibrillation
CAD s/p CABG x 1
HTN/HLD
Hypothyroidism
Depression/anxiety
GERD
OA b/l knees s/p L TKR
L eye macular degeneration
Vit D deficiency
Alopecia universalis
Postoperative Dx:
Same
Procedures:
1) L CFV access w/ U/S and fluoroscopic guidance, seldinger technique, 6Fr long femoral sheath placement
2) L STAFF SUBMARINE WARFARE OFFICER access w/ tactile, U/S, and fluoroscopic guidance, seldinger technique, 6Fr long femoral sheath placement
3) Placement of temporary pacing wire via L CFV access w/ threshold testing
4) R STAFF SUBMARINE WARFARE OFFICER access w/ tactile, U/S, and fluoroscopic guidance, seldinger technique, limited angiography via micropuncture sheath, 8Fr dilator placement
5) Perclose placement x 2 into R STAFF SUBMARINE WARFARE OFFICER, 8Fr sheath placement
6) R RA access w/ tactile, U/S, and fluoroscopic guidance, 6Fr sheath placement
7) Serial dilation of R STAFF SUBMARINE WARFARE OFFICER w/ placement of 18Fr GORE DrySeal sheath (systemic heparinization)
8) Placement of [place] CEP device via R RA access w/ filters placed in innominant and LCC arteries
9) Wire purchase across stenotic AV via L STAFF SUBMARINE WARFARE OFFICER access (AL-1, soft-tip straight wire) w/ subsequent placement of LVOT snare
10) Pre-TAVR BASILICA procedure for leaflet modification of existing AVR
11) Wire purchase across stenotic AV via R STAFF SUBMARINE WARFARE OFFICER obtained prior to completion of BASILICA procedure
12) Placement of 23mm MEDTRONIC EVOLUT FX+ [id number] TAVR valve via R STAFF SUBMARINE WARFARE OFFICER access
13) Completion JUAN assessment (initial gradient 6-8mmHg, trace PVL)
14) Completion aortography
15) Post-TAVR BAV w/ 20mm TRUE balloon w/ good visual expansion of valve inflow
16) Completion JUAN assessment (gradient 4-6mmHg, no PVL) & completion aortography
17) Removal of valve delivery system; subsequent removal of 18Fr GORE DrySeal sheath w/ R STAFF SUBMARINE WARFARE OFFICER mgmt w/ perclose sutures x 2; manual pressure
18) Completion R ileofemoral angiography
19) Removal of temporary pacing wire
20) Removal of L STAFF SUBMARINE WARFARE OFFICER 6Fr sheath w/ mgmt w/ 6Fr angioseal; manual pressure
21) Removal of L CFV 6Fr sheath w/ mgmt w/ manual pressure
22) Removal of R RA 6Fr sheath w/ mgmt w/ radial band placement (protamine)
Auto Cleaner:
Dr. Jey Miller
Dr. Kaylah Thakur
Cardiac Surgeon:
Dr. Kd Lozano
Anesthesia:
Dr. Erick Bautitsa; GET w/ JUAN
Cath Data:
Start: 0858hrs, Deploy: 1157hrs, End: 1223hrs
FT: 71.4min, mGy: 2946, DAP: 220; Contrast: 80mL
Post-JUAN: mean gradient 4mmHg, no PVL/AI
Complications:
None
Implants:
Medtronic EVOLUT FX+, 23mm; SN [id number]
Perclose x 2 to R STAFF SUBMARINE WARFARE OFFICER
6Fr angioseal x 1 to L STAFF SUBMARINE WARFARE OFFICER
Condition:
Stable/guarded to recovery
[2024-07-23] MEDS: ANCEF 10 IV (13:29)
[2024-07-23] MEDS: TOPROL XL PO (13:30)
[2024-07-23 13:31] LABS: B.E. 1.3 mmol/L; HCO3 26.6 mmol/L (21-28); O2 Saturation % 99.2 % (94-98); PCO2 44 mmHg (32-35); PO2 150 mmHg (83-108); pH 7.39 (7.35-7.45)
--- NOTE | 2024-07-23 13:40 | PTCARENOTE ---
pt received from OR @~1310, drowsy, oriented, SNYDER. follows commands. Afib on the monitor, HR 70-100s. irregular apical pulse. SBP 120-140s. palpable radial pulses, Doppler DP pulses. pt on 8L SM, 97-99% POX. pt abdomen s/n, denies n/v. [place] in
place, clear yellow urine. R groin c/d/i/. L mohitin monie, MOBILE HEALTH VEHICLE OPERATOR aware, area marked. R radial TR band in place. PIV x2. L radial Julissa flushed, zeroed, and calibrated. EKG performed. lab work drawn. see worklist for VS, I&O, and assessment.
[2024-07-23 13:53] LABS: Blood Urea Nitrogen 15 mg/dl (7-17); Calcium 8.2 mg/dl (8.4-10.2); Carbon Dioxide 26 mmol/L (22-30); Chloride 110 mmol/L (98-107); Estimated Creatinine Clearance 55 ml/min; Glucose 130 mg/dl (70-99); Potassium 3.6 mmol/L (3.5-5.1); Sodium 140 mmol/L (135-145); eGFR > 60.00
[2024-07-23] MEDS: ANCEF IV (14:25)
[2024-07-23] MEDS: KCL ELIXIR 40 MEQ PO (14:51)
[2024-07-23] MEDS: ZOLOFT 75 MG PO (14:51)
[2024-07-23] MEDS: ANCEF 5 IV (14:51)
[2024-07-23] MEDS: CARDIZEM CD 120 MG PO (15:20)
--- NOTE | 2024-07-23 15:26 | PTCARENOTE ---
pt VSS, L groin oozy despite sandbag application, ARCHITECTURAL MANAGER Saundra aware. ARCHITECTURAL MANAGER at bedside, manual pressure held, dressing changed. sand bag reapplied.
--- NOTE | 2024-07-23 19:44 | ITS.CL.PN ---
Completions Manager - Procedure Note
Procedure
Procedure Note:
TRANSCATHETER AORTIC VALVE REPLACEMENT REPORT
Date of Procedure: 07/23/2024
Referring: Dr. César House MD (movie critic)
Indication: severe symptomatic bioprosthetic aortic valve stenosis with high risk for coronary obstruction
Operators: Jey Miller MD, PhD (interventional cardiology); Kd Lozano MD (CT surgery); Kaylah Meehan MD (interventional cardiology)
Anesthesia: general anesthesia and JUAN support provided by anesthesia staff
PROCEDURE: transfemoral lzhns-ap-ninmg TAVR with [place] cerebral embolic protection and BASILICA leaflet modification followed by placement of an Evolut Fx+ 23 mm valve
ACCESS:
1. 6F left femoral vein (closure: manual hemostasis) - Ultrasound was utilized for vascular access. The vessel was visualized under ultrasound and noted to be patent. An image of the vessel was stored permanently in the patient's medical record.
Under direct ultrasound guidance, vascular access was obtained using a modified Seldinger technique and a [ ] [place] sheath was placed.
2. 6F left common femoral artery (closure: Angioseal) - Ultrasound was utilized for vascular access. The vessel was visualized under ultrasound and noted to be patent. An image of the vessel was stored permanently in the patient's medical record.
Under direct ultrasound guidance, vascular access was obtained using a modified Seldinger technique and a [ ] [place] sheath was placed.
3. 6F right common femoral artery (closure: Perclose x2) - Ultrasound was utilized for vascular access. The vessel was visualized under ultrasound and noted to be patent. An image of the vessel was stored permanently in the patient's medical record.
Under direct ultrasound guidance, vascular access was obtained using a modified Seldinger technique and a [ ] [place] sheath was placed.
4. 6F right radial artery (closure: radial band) - Ultrasound was utilized for vascular access. The vessel was visualized under ultrasound and noted to be patent. An image of the vessel was stored permanently in the patient's medical record. Under
direct ultrasound guidance, vascular access was obtained using a modified Seldinger technique and a 6 [place] sheath was placed.
PROCEDURE NARRATIVE:
The patient was prepped and draped in standard sterile fashion and intubated by anesthesia. A JUAN probe was placed by anesthesia for procedural guidance during the case (please see their separate JUAN report). 6F left femoral vein, 6F left common
femoral artery, and 6F right radial artery access were obtained with ultrasound guidance. A temporary venous pacing wire was advanced via the left femoral vein to the right ventricle under fluoroscopic guidance with appropriate capture verified.
Fluoroscopy was used to determine the left cusp isolation and left cusp en face angles.
8F right common femoral artery access was obtained with ultrasound guidance with verification of appropriate arteriotomy location via hand injection angiography. The arteriotomy was preclosed with two Perclose sutures followed by replacement of the
8F sheath. Using an AL1 catheter, a Lunderquist wire was placed in the descending thoracic aorta. A 12F dilator was advanced over the Lunderquist wire followed by placement of a 18F [place] sheath. Heparin 6000 units was given. Via the right radial
artery access site, a [place] embolic protection device was advanced and deployed in the aortic arch.
Via the 6F left common femoral artery, an AL1 and straight wire were used to cross the valve. The AL1 was exchanged for a Pigtail, which was used to deposit a V18 wire with ventricular curve in the LV apex. A 6F MPA catheter was then advanced over
the V18 wire and left in the proximal ascending aorta. Adjacent to the V18 wire, the 20 cm [place] snare was advanced and deposited in the LVOT.
Attention was then turned to leaflet crossing. Several iterations of catheters were advanced via the right femoral artery [place] sheath and positioned at the base of the left cusp leaflet. Appropriate positioning was confirmed each time in both the
left cusp isolation and left cusp en face views. We were unsuccessful in obtaining appropriate positioning with an 8F AL2, 8F AL3, or 125 cm 5F JR4 within an 8F EBU4. A 125 cm 5F MPA within the EBU4 was felt to be the ideal shape, but was not
available. Thus, the proximal end of the 5F 125 cm JR4 catheter was cut off, creating a MPA shape. This modified JR4 diagnostic catheter within the EBU4 provided ideal positioning at the base of the leaflet in both orthogonal projections.
A 300 cm Astato XS 20 wire was loaded on a Piggyback microcatheter. The back 1 cm of the Astato was denuded on one side and attached via a hemostat with plastic tip covers to a Bovie pencil. The Piggyback and Astato were advanced and positioned at
the tip of the modified JR4 catheter with only 1 mm of the Astato exposed. The positioning of the system was again confirmed to be centered at the base of the leaflet in both views. Under brief electrocautery at 50W pure cut, The Astato was advanced
forward under fluoroscopy and observed to puncture the base of the leaflet and travel through the waiting [place] snare in the LVOT. JUAN confirmed wire position at the base of the leaflet. The wire was then snared and pulled into the MPA catheter
which was withdrawn to the ascending aorta. The V18 wire was removed. The modified 5F JR4 was walked out and removed. Both guide catheters were then copiously back bled and irrigated.
The Piggyback was walked out over the wire until completely outside the guide with 5 cm wire exposed. A 5 mm segment of exposed wire was denuded on one side with scalpel and folded over the back of the Scalpel blade creating a flying V with the
denuded portion of the wire on the inside of the V. The Piggyback was then locked 1 mm from the tip of the V. With one lathe scalper operator pulling the snared wire from the left groin and the other lathe scalper operator advancing the wire and Piggyback from the right groin,
the flying V was advanced until positioned at the base of the leaflet with the wire externalized from the snare. To accomplish this, the tuohy on the EBU catheter was briefly removed from the guide to feed the V portion of the wire through. The
externalized portion of the wire kinked by the snare was cut off with wire cutters. At this point the Evolut valve was checked under fluoroscopy to confirm appropriate loading. Via the [place] sheath adjacent to the EBU guide, the valve was crossed
with an AL1 and straight wire exchanged for an angled pigtail to provide immediate LV access after leaflet laceration.
The catheters on both sides were advanced until abutting the flying V. Both tuohy were locked. Two 0.014 torque devices were used to lock the Astato to the MPA guide. A 0.035 torque device was used to lock the Piggyback to the EBU guide and a 0.014
torque device used to lock the Astato to the Piggy back. The catheters were pulled back until snug along the lesser curvature of the aorta. Two 60 cc syringes filled with D5 were attached to the guides. With one lathe scalper operator pulling back on both guides
simultaneously and another lathe scalper operator infusing D5 water through the guides, electrocautery was applied at 70W pure cut for several seconds until the catheters were noted to just to the descending aorta indicating that the leaflet had been lacerated.
JUAN demonstrated wide open AI at the left cusp leaflet. Diastolic blood pressure was noted to drop but the patient remained hemodynamically stable. The torque devices were removed from the MPA guide and the thouy unlocked, after which the MPA, EBU,
Piggyback, and Astato were all removed. A second piggy back was advanced via the now free LFA access to provide angiography during TAVR.
We proceeded with TAVR in the normal fashion. The existing Pigtail via the GORE sheath was used to deposit a Lunderquist wire in the LV apex. The valve was advanced to the descending aorta in [place] projection and adjusted to bring the hat mender to
outer curve. The valve was then advanced over the aortic arch and into the left ventricle. In an ASKEW view, the valve was slowly deployed to the point of flowering. The patient was paced to adequately lower pulse pressure as the valve was deployed
through the rumble strips to 80%. Fluoroscopy demonstrated implant depth of 3 mm. Fluoroscopy performed in an [place] projection demonstrated implant depth of 3 mm. The decision was made to proceed with full deployment. The Lunderquist wire was
partially withdrawn to lift the nose cone of the valve delivery device. In the [place] view, the delivery handle was slowly rotated until both paddles were released from the superior aspect of the valve. The delivery device was withdrawn to the
descending aorta and re-assembled. The patient was resuscitated by anesthesia with recovery of adequate blood pressure. Telemetry demonstrated Afib with new widening of the QRS but no heart block or bradycardia. Aortography demonstrated good valve
positioning, adequate coronary filling, and trace aortic valve insufficiency. There was no evidence of ischemic ECG changes. Echocardiography confirmed trace aortic insufficiency. Mean valve gradient was 8 mmHg. The valve appeared somewhat
angiographically underexposed. The decision was made to proceed with BAV. The valve deployment system was removed. BAV was performed with a 20 mm True balloon under rapid pacing. Angiography was repeated and demonstrated no AI and improved valve
expansion with normal coronary filling. TTE confirmed no AI and mean gradient 5 mmHg.
The [place] was recaptured and removed. The [place] sheath was removed and hemostasis achieved with Perclose x2. Protamine 30 mg was given. Aortoiliac angiography demonstrated no evidence of iliofemoral dissection/perforation and good runoff below the
common femoral artery bilaterally. The pacemaker and the pigtail catheter were removed. The left femoral artery sheath was removed using a 6F Angioseal. The left femoral venous sheath was removed with manual pressure. The radial artery site was
closed with TR band. The patient was extubated uneventfully by anesthesia and noted to follow commands and move all four extremities. She was taken to the CVICU in stable condition and family updated.
CONCLUSIONS
1. successful transfemoral mtbtb-xj-eijuc TAVR with [place] cerebral embolic protection and BASILICA leaflet modification followed by placement of an Evolut Fx+ 23 mm valve via right transfemoral approach
2. acute on chronic systolic heart failure (patient had unplanned admission the day prior to TAVR for acute decompensated heart failure treated with if IV diuretics)
Copy to: Dr. César House MD (movie critic); Dr. Collin Mary DO (PCP)
Signed: Jey Miller MD, PhD
[2024-07-23] MEDS: TOPROL XL 150 MG PO (19:49)
--- NOTE | 2024-07-23 20:30 | PTCARENOTE ---
[facility] pt is s/p TAVR with Dr. Lozano. pt is AAox4, moves all extremities appropriately, denies pain. Afib on monitor, VSS. heart sounds audible, radial pulses palpable, DP pulses present with doppler. lungs clear, diminished at
b/l bases, spo2 97% on 3LNC. +BS x4 quadrants, abdomen soft non tender. pt voiding clear yellow urine via wooten catheter. left femoral arterial site oozing. CVPA held manual pressure and then place sand bag on site at 2029, will removed sandbag at
2229. pt will remain on bed rest. all other surgical sites maintained, dressings clean, dry, and intact. left radial A-line and PIVs all maintained, leveled, and zeroed. call leon within reach. will continue to monitor.
--- NOTE | 2024-07-23 22:30 | PTCARENOTE ---
Sand bag removed at 2230. left groin dressing clean, dry, and intact. HOB raised ok'd by CVPA. will continue to monitor.
[2024-07-23] MEDS: MELATONIN 5 MG PO (22:41)
[2024-07-24] VITALS (39 sets, daily range): BP systolic 78–145; BP diastolic 46–96; BMI 27.2
--- NOTE | 2024-07-24 | PTCARENOTE ---
pt resting comfortably. Having difficulty sleeping, melatonin given earlier, see MAR. surgical site dressings clean, dry, and intact. will continue to monitor.
--- NOTE | 2024-07-24 04:18 | W.PN.CT ---
Addendum entered and electronically signed by LEROY Hampton 07/24/24 15:38:
CDI QUERY RESPONSE
Anemia, due to acute blood loss and hemodilution
Original Note:
Today's Communication / Plan
-
Plan:
-No major issues overnight. Hemodynamically and neurologically intact
-Extubated in catheterization laboratory technician
-No drips
-Groins C/D/I without significant hematoma, no ecchymosis. Lleft groin oozing initially but currently intact following manual pressure and sandbag. Monitor
-H/H 9.9/29.7 this AM, down from 12.5/36.8 yesterday. Monitor
-Will resume Eliquis, no ASA
-Will repeat echo
-Cont. current meds (Toprol XL, Cardizem Cd - may need to reduce dose following surgery; Levothyroxine, Repatha, Lasix, Zoloft)
-D/C'd A-line this AM @ 0550
-Will d/c wooten catheter @ 0600
-Encourage use of IS
-OOB into chair/Ambulate
-Home in 1-2 days
Assessment / Plan
-
Assessment:
-S/P Pre-TAVR BASILICA procedure for leaflet modification of existing AVR/Wire purchase across stenotic AV via R SKIN INSTALLER obtained prior to completion of BASILICA procedure/ R TF TAVR (23mm MEDTRONIC EVOLUT FX+ [id number]), by Dr. Lozano/Angela,
07/23/24, pod#1
-Severe bioprosthetic aortic valve stenosis (P/M: 70/48, Video Library Assistant: 4.22 prior Riley 3000TFX 21mm AVR 2007 @ [facility])
-Moderate AI
-Neuy-ec-iqwzbkvu mitral regurgitation w/ severe MAC
-Ghbq-gs-lhliixxr tricuspid regurgitation w/ PASP 35mmHg
-Mid ascending aorta is dilated measuring 3.6 cm at the level of the RPA
-Moderate calcified sessile atheroma seen in the descending aorta and distal arch
-Heart failure (ygloz-ni-rksjqol) with preserved EF (pt. w/ ED presentation w/ CHF exacerbation immediately preoperatively)
-LVEF 55% per intraop JUAN
-Chronic atrial fibrillation (on Eliquis @ home)
-CAD s/p CABG x 1 @ 2007
-HTN
-HLD (on Repatha)
-Hypothyroidism
-Depression/anxiety
-GERD.
-OA b/l knees s/p L TKR
-L eye macular degeneration
-Vit D deficiency
-Alopecia universalis
-S/p L TKR
Discussed patient care with: Cardiology, Nursing, Respiratory Therapy, Pharmacy and Care Team
Subjective
Procedure
R TF TAVR (23mm MEDTRONIC EVOLUT FX+ [id number]), by Dr. Lozano/Angela, 07/23/24, pod#1
-
Date of Service: July 24, 2024
Pt c/o mild incisional pain, otherwise feels well
Objective Data
-
PT 21.0 Sec (11.4-14.6) H 07/16/24 12:41
INR 1.79 07/16/24 12:41
APTT 50.3 Sec (23.4-35.0) H 07/16/24 12:41
Vital Signs
Vital Signs
Temp Pulse Resp BP Pulse Ox
99.3 F 110 23 121/74 97
07/24/24 00:00 07/24/24 00:15 07/24/24 00:15 07/24/24 00:00 07/24/24 00:15
CT Intake/Output/Weight
07/23/24 07/23/24 07/24/24
06:59 18:59 06:59
Output Total 435 / 605 170 / 605
Balance -435 / -605 -170 / -605
SaO2: 95 (RA)
Physical Exam
-
General: Awake, Oriented and AOx3
Cardiovascular: Irregular rate & rhythm, No Murmurs and No Rub
Respiratory: Decreased Breath Sounds (at bases, otherwise clear)
Incision: Clean, Dry, Intact and Dressing Intact
Extremities: Other (+trace edema)
Data Reviewed
-
Lab Results: Results Reviewed
Medications: Active Meds Reviewed
Chest X-Ray: Report Reviewed and Image Reviewed
ECG: Report Reviewed and Image Reviewed
[2024-07-24 05:34] LABS: Blood Urea Nitrogen 13 mg/dl (7-17); Calcium 8.7 mg/dl (8.4-10.2); Carbon Dioxide 27 mmol/L (22-30); Chloride 111 mmol/L (98-107); Estimated Creatinine Clearance 55 ml/min; Glucose 127 mg/dl (70-99); Hematocrit 29.7 % (37.0-47.0); Hemoglobin 9.9 g/dL (12.0-16.0); Mean Corp Hgb Conc. 33.3 g/dL (33.0-37.0); Mean Corpuscular Hgb 33.7 pg (27.0-31.0); Mean Platelet Volume 10.4 fL (7.4-10.4); Platelet Count 139 10^3/uL (130-400); Potassium 4.3 mmol/L (3.5-5.1); Red Blood Cell Count 2.94 10^6/uL (4.20-5.40); Red Cell Dist. Width 14.2 % (11.5-14.5); Sodium 140 mmol/L (135-145); White Blood Cell Count 13.5 10^3/uL (4.8-10.8); eGFR > 60.00
[2024-07-24] MEDS: TYLENOL 650 MG PO ×2 (06:12→22:16)
[2024-07-24] MEDS: SYNTHROID 100 MCG PO (06:13)
--- NOTE | 2024-07-24 07:08 | W.PN.ANS.POP ---
Anesthesia Post Operative
- Anesthesia Post Op Note
Vital Signs Stable-See Nursing Note: Yes
Airway Patent: Yes
Adequate Pain Control: Yes
Change in Mental Status: No
Current Postoperative Nausea & Vomiting: No
Anesthesia Complications: No
General Anesthetic Recall: No
Unplanned Admission: No
Post Op Hydration Adequate: Yes
--- NOTE | 2024-07-24 08:00 | PTCARENOTE ---
pt received from previous RN, oriented, OOB in chair. A-flutter on the monitor, HR 90-120s. SBP 120-130s. palpable radial pulses, Doppler pedal pulses, L weaker than R. MINT WAFER DEPOSITOR aware. +Doppler PT pulses. pt attempted on RA, POX 88-91%, pt placed on 2LNC,
96% POX. lungs diminished. IS encouraged. pt abdomen s/n, denies n/v. diet tolerated well. DTV post Rebolledo removal. R wrist c/d/i, ecchymotic. R groin c/d/i. L groin c/d/i, ecchymotic. PIV x2. see worklist for VS, I&O, and assessment.
[2024-07-24] MEDS: KCL 20 MEQ PO (08:24)
[2024-07-24] MEDS: TOPROL XL 150 MG PO (08:24)
[2024-07-24] MEDS: CARDIZEM CD 120 MG PO (08:24)
[2024-07-24] MEDS: LASIX 40 MG PO (08:24)
[2024-07-24] MEDS: ZOLOFT 75 MG PO (08:25)
--- NOTE | 2024-07-24 09:24 | W.PN.CD ---
Today's Communication / Plan
-
Agree with transitioning to PO furosemide. BMP in one week.
CBC in one week to monitor anemia.
Start dapagliflozin 10 mg daily. Case management consult.
D/C diltiazem.
Load with digoxin.
Impression / Plan
-
Impression/Plan: 84 y/o female with persistent atrial fibrillation and known ALFREDO thrombus, HTN, CAD and severe s/p CABG + SAVR (2007), now with severe bioprosthetic valve stenosis/moderate insufficiency leading to recurrent exacerbations of
HFpEF, admitted for HF, now s/p bioprosthetic valve leaflet electrosurgical modification and John TAVR.
#Severe bioprosthetic valve stenosis/moderate insufficiency
-Chronic, progressive.
-Initially referred for John TAVR, but found to be a poor initial candidate due to low left dominant coronary height, low VTC (< 4 mm), low VTSTJ (< 2.5).
-She is not a surgical candidate.
-After extensive planning, she underwent electrosurgical bioprosthetic valve leaflet modification (BASILICA) and John TAVR (#23 Medtronic Evolut TAVR), post dilated with a #20 TRUE balloon.
-Echocardiogram shows preserved systolic function, TAVR gradient = 10 mmHg.
-Access sites are C/D/I.
-Notable Hbg drop, stable on recheck.
-Antithrombotic therapy with apixaban (known AF).
-Furosemide converted to PO daily. BMP in one week.
-Hbg dropped to 9.7 (stable from 9.9 post procedure), likely periprocedural blood loss. CBC in one week.
#HFpEF
-Acute on chronic.
-Weight = 69.7 kg <-- 68.49 kg. Dry weight appears to be around 65.8 kg.
-LVEF = 65-70%.
-GDMT
-Beta beata = Metoprolol succinate 150 mg BID.
-ACEI/ARB/ARNi = N/A.
-MRA = N/A.
-SGLT2i = Start dapagliflozin 10 mg daily. Case management consult.
-ICD/CERTIFIED PROFESSIONAL ERGONOMIST-D = N/A.
-Diuretic = Furosemide 40 mg IV, converted to 40 mg PO daily this morning.
-Avoid further volume infusions. D/C diltiazem. Load with digoxin.
#CAD
-Chronic, stable.
-S/P CABG (TOMLIN to LAD).
-OMT.
-Evolocumab. Goal LDL < 55.
#Atrial fibrillation
-Persistent.
-Rate control with metoprolol, diltiazem 120 mg daily.
-CHADS2-Vasc = 6 (CHF, HTN, Age x2, Vascular Disease, Female).
-Therapeutic anticoagulation with apixaban.
#Dispo
-CVICU status.
-Full code.
-Discharge planning.
Subjective/Interval History:
Successful BASILICA and John TAVR (#23 Medtronic CoreValve Evolut FX+ in a #21 Riley MAGNA SAVR) yesterday.
Weight increased 1.3 kg this morning.
TTE this morning shows preserved systolic function, mean TAVR gradient of 10 mmHg, mild pHTN (PASP = 45-50 mmHg).
Hbg fell from 12.5 to 9.9, stable at 9.7.
She has been requiring some volume and remains on supplemental oxygen.
DATA:
TAVR/BASILICA, 07/23/2024:
PROCEDURES:
1. L CFV access w/ U/S and fluoroscopic guidance, seldinger
technique, 6Fr long femoral sheath placement
2. L RN DIGESTIVE access w/ tactile, U/S, and fluoroscopic guidance,
seldinger technique, 6Fr long femoral sheath placement
3. Placement of temporary pacing wire via L CFV access w/ threshold
testing
4. R RN DIGESTIVE access w/ tactile, U/S, and fluoroscopic guidance,
seldinger technique, limited angiography via micropuncture sheath,
8Fr dilator placement
5. Perclose placement x 2 into R RN DIGESTIVE, 8Fr sheath placement
6. R RA access w/ tactile, U/S, and fluoroscopic guidance, 6Fr
sheath placement
7. Serial dilation of R RN DIGESTIVE w/ placement of 18Fr GORE DrySeal
sheath (systemic heparinization)
8. Placement of [place] CEP device via R RA access w/ filters
placed in innominant and LCC arteries
9. Wire purchase across stenotic AV via L RN DIGESTIVE access (AL-1,
soft-tip straight wire) w/ subsequent placement of LVOT snare
10. Pre-TAVR BASILICA procedure for leaflet modification of
existing AVR
11. Wire purchase across stenotic AV via R RN DIGESTIVE obtained prior to
completion of BASILICA procedure
12. Placement of 23mm MEDTRONIC EVOLUT FX+ [id number] TAVR
valve via R RN DIGESTIVE access
13. Completion JUAN assessment (initial gradient 6-8mmHg, trace PVL)
14. Completion aortography
15. Post-TAVR BAV w/ 20mm TRUE balloon w/ good visual expansion of
valve inflow
16. Completion JUAN assessment (gradient 4-6mmHg, no PVL) 
completion aortography
17. Removal of valve delivery system; subsequent removal of 18Fr
GORE DrySeal sheath w/ R RN DIGESTIVE mgmt w/ perclose sutures x 2; manual
pressure
18. Completion R ileofemoral angiography
19. Removal of temporary pacing wire
20. Removal of L RN DIGESTIVE 6Fr sheath w/ mgmt w/ 6Fr angioseal; manual
pressure
21. Removal of L CFV 6Fr sheath w/ mgmt w/ manual pressure
22. Removal of R RA 6Fr sheath w/ mgmt w/ radial band placement
(protamine)
Intraprocedural JUAN, 07/23/2024:
CONCLUSIONS
Overall LVEF is approximately 55% with no RWMA.
Moderate concentric left ventricular hypertrophy.
Severe tricuspid regurgitation.
Estimated pulmonary artery systolic pressure of 30-35 mmHg.
Severely dilated left atrium.
Severely dilated right atrium.
Severe aortic stenosis.
Moderate aortic insufficiency.
HO calculates to 0.9 cm2 by continuity equation.
Moderate mitral regurgitation.
Severe mitral annular calcification.
MV leaflets are calcified with restricted motion in both leaflets.
Mild mitral stenosis.
Max MV gradient measures 9 mmHg, mean is 4 mmHg.
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
Moderate calcified sessile atheroma seen in the descending aorta and distal
arch.
POST OPERATIVE FINDINGS
The patient underwent splitting of the LCC of a bioprosthetic valve, and TF-
TAVR placement under GA. Postop rhythm remains a. fib. Postop RV and LV
function are normal. Overall LVEF is approximately 55-60% with no new RWMA.
The TAVR is well seated within the sewing ring of the bioprosthetic AVR. No
significant AI or perivalvular leaks noted. Max AV gradient before post
placement balloon dilation was 10 mmHg, mean was 6 mmHg. After post placement
balloon dilation the max AV gradient measured 7 mmHg, mean was 4 mmHg. No AI
or perivalvular leaks noted. Moderate central MR was largely unchanged from
the preop level. Moderate to severe TR. PV appears normal. Aortic scan is
unchanged. No pericardial effusions noted.
Physical Exam
Vital Signs/Labs
Vital Signs
Temp Pulse Resp BP Pulse Ox
36.9 C 82 18 123/92 91
07/24/24 07:42 07/24/24 09:00 07/24/24 07:42 07/24/24 08:24 07/24/24 07:42
07/22/24 07/23/24 07/24/24
11:59 11:59 11:59
Actual Weight 68.492 kg 69.7 kg
05/14/25 05:00
PT 21.0 Sec (11.4-14.6) H 07/16/24 12:41
INR 1.79 07/16/24 12:41
APTT 50.3 Sec (23.4-35.0) H 07/16/24 12:41
Magnesium 2.0 mg/dl (1.6-2.3) 07/24/24 05:00
07/16/24 07/22/24
12:41 17:15
Ebt-F-Qvwcdnspihp Pept [id number]
LAB Results
07/22/24 07/22/24
17:15 22:20
Troponin I 0.016 0.017
Physical Exam
Constitutional: No acute distress and Comfortable
EENT: Anicteric and Moist mucous membranes
Cardiovascular: Pedal edema is absent, JVD pressure is normal, Rhythm/rate is irregular, S1S2 is normal and Murmur/rub/gallop absent
Respiratory: Respiratory effort normal, Lungs clear to auscul., Wheeze Absent, Crackles Absent and Rhonchi Absent
GI: Soft, Distention absent, Flat, Non tender and Normal bowel sounds
Neuro/Psych: AO x 3
Other: Cath Site (Bilateral femoral and right radial access sites are C/D/I.)
Data Reviewed
-
Date of Service: July 24, 2024
Medical Decision Making: Reviewed Test Results, Independent Historian Assessment and Test Interpretation
EKG: Tracing Personally Visualized and interpreted and Report Reviewed by me
Echo: Tracing Personally Visualized and interpreted and Report Reviewed by me
X-Ray/CT/US/MRI/NUC/PET: Image Personally Visualized and interpreted and Report Reviewed by me
Medical Tests (PFT, Pathology etc): Image Personally Visualized and interpreted and Report Reviewed by me
Labs: Labs Reviewed by me
Old Records: Reviewed
--- NOTE | 2024-07-24 10:05 | CM ---
Addendum entered by Tracy Matt 07/24/24 15:43:
Called back to Mrs. Burton room because she wanted to let me know she changed her mind about the Farxiga and does not want to take Farxiga.
Addendum entered by Tracy Matt 07/24/24 15:09:
Reviewed Chart. Receive consult to check out the co-pay for Farxiga 10 mg po daily. Telephone callto [facility], ([phone]) to check on co-pay. Her co-pay would be $30.00 a month or $50.00 for 90 day supply. Reviewed co-pay with Mrs. Burton and
she is agreeable to the co-pay. Placed the one month free coupon in her red discharge folder.
Original Note:
Reviewed chart. Met with Mrs. Burton to review discharge plans. She states she is feeling better. She states prior to admission she resides alone in a two story home with three steps to enter. She states she has a full flight of steps to get too
bedroom/full bathroom. She states she has stair glide to get to the second floor. She states prior to admission she is independent with ambulation and adls. She states she has walkers, rollator, wheelchair, bedside commode and a device to help you
get off the floor. She states the DME was for her spouse who is currently at [facility]. Will need to see her current functional level to see if she will have any skilled care needs. She states she has three daughters , she has
one daughter who resides in [facility] who is supportive. We reviewed a home visit by the Transitional Care Nurse. She is agreeable to a home visit. Medical work-up in progress. The discharge plan is to return hoe with daughter support
and a home visit by the Transitional Care Nurse verses SNF/Rehab. if indicated when medically stable.
[2024-07-24 10:23] LABS: Hemoglobin 9.7 g/dL (12.0-16.0); Mean Corp Hgb Conc. 32.3 g/dL (33.0-37.0); Mean Corpuscular Hgb 33.6 pg (27.0-31.0); Mean Corpuscular Volume 103.8 fL (81.0-99.0); Mean Platelet Volume 10.6 fL (7.4-10.4); Platelet Count 152 10^3/uL (130-400); Red Blood Cell Count 2.89 10^6/uL (4.20-5.40); Red Cell Dist. Width 14.3 % (11.5-14.5); White Blood Cell Count 12.5 10^3/uL (4.8-10.8)
[2024-07-24 10:33] LABS: Blood Urea Nitrogen 15 mg/dl (7-17); Calcium 8.9 mg/dl (8.4-10.2); Carbon Dioxide 30 mmol/L (22-30); Chloride 106 mmol/L (98-107); Estimated Creatinine Clearance 48 ml/min; Glucose 151 mg/dl (70-99); Potassium 4.2 mmol/L (3.5-5.1); Sodium 141 mmol/L (135-145); eGFR > 60.00
--- NOTE | 2024-07-24 10:57 | PTCARENOTE ---
pt placed back to bed for ECHO, completed. pt voided small amount of urine, bloody, FISHING ROD ASSEMBLER aware. attempted to bladder scan post void, 0ml.
pt OOB in chair, attempted to work w/ CR, SBP 70s, denies lightheadedness and dizziness, FISHING ROD ASSEMBLER aware. labs drawn, FISHING ROD ASSEMBLER aware of results.
[2024-07-24] MEDS: LR 250 IV (12:43)
--- NOTE | 2024-07-24 12:45 | PTCARENOTE ---
pt VS completed, WEIGHTS AND MEASURES INSPECTOR aware of BPs and UO. pt c/o lightheadedness, placed back to bed. LR bolus given as ordered.
--- NOTE | 2024-07-24 15:05 | PN.CDI ---
CDI
- -
CDI:
Physician Documentation Request
Admit Date: 07/23/24 01:[address] Surgery,
Please review the following and provide your response in the progress notes.
Clinical Indicators:
- Patient admit for severe aortic stenosis and acute on chronic HFpEF
- 07/23 TAVR
Laboratory Tests
07/22/24 07/24/24 07/24/24
17:15 05:00 10:09
Hgb 12.5 9.9 L D 9.7 L
Please clarify the appropriate diagnosis that supports the above lab abnormalities and additional evaluation, monitoring and/or treatment rendered:
Anemia, due to acute blood loss and hemodilution
Anemia due to hemodilution only
Clinically insignificant abnormal lab values
Other (please specify)
Use of terms such as suspected, likely, concern for, or probable (associated with a specific diagnosis that is being evaluated, monitored, or treated as if it exists) are acceptable and can be coded in the inpatient setting, when documented at the
time of discharge.
Thank you,
Lissy Capellan RN
CDI Specialist
Please use your independent medical judgment in providing your response.
[2024-07-24] MEDS: REFRESH EYE DROPS (PF) 1 DROPS OPHTH (15:43)
--- NOTE | 2024-07-24 16:11 | PTCARENOTE ---
Addendum entered by Mary Calvo RN 07/24/24 17:28:
able to get L DP by Doppler, faint. MANAGER BILINGUAL aware. pt OOB to chair for dinner.
Original Note:
pt VSS, resting in bed. b/l groins unchanged. 1LNC, 98% POX. + R DP via Doppler, unable to find L DP via Doppler, MANAGER BILINGUAL Saundra at bedside and aware. +L PT via Doppler. pt denies any changes to sensation in feet, no changes in temperature. pt voiding
in BSC. pt c/o dry eye, PRN Refresh eye drops given. daughter at bedside.
--- NOTE | 2024-07-24 20:00 | PTCARENOTE ---
Assumed care of patient at 1900. Patient found resting oob in chair at time of assessment. Patient is AOx4, follows commands appropriately, moves all extremities. Patient reports anxiety at times. Lung sounds are diminished in the bases, saO2 96% on
2L, IS 750. Heart sounds are audible but irregular, patient is predominantly aflutter with afib some PVCs noted on the monitor. Patient has normal palpable radial pulses, and dorsalis pedis pulses are present with doppler. No edema noted. Patient
has active BS in all four quadrants. Patient is voiding yellow blood tinged urine with blood clots present. L AC PIV removed d/t dislodged catheter. R AC PIV available. There is a R radial puncture with 4x4 dressing that is CDI. R groin puncture
with 4x4 dressing that is CDI. And L groin puncture with 4x4 dressing that is CDI ecchymotic around site. Toprol Xl placed on hold for tonight patient given 25 mg metoprolol instead. Call leon within reach.
[2024-07-24] MEDS: TOPROL XL 25 MG PO (20:28)
[2024-07-24] MEDS: ATIVAN 0.5 MG PO (20:28)
[2024-07-24] MEDS: ELIQUIS 5 MG PO (20:29)
[2024-07-24] MEDS: LANOXIN 500 MCG IV (20:53)
[2024-07-25] VITALS (12 sets, daily range): BP systolic 92–147; BP diastolic 44–80; PULSE 72; O2SAT 90–95; BMI 27.6
--- NOTE | 2024-07-25 | PTCARENOTE ---
Patient reassessed. Remains in AFlutter on the monitor. Financial Foundations Associate ordered digoxin loading cardizem has been dc'd. HR more controlled 70s-100s. Tylenol given for pain.
[2024-07-25] MEDS: REFRESH EYE DROPS (PF) 1 DROPS OPHTH ×2 (02:38→08:56)
[2024-07-25] MEDS: LANOXIN 250 MCG IV ×2 (02:38→08:47)
[2024-07-25 03:15] LABS: Hematocrit 27.5 % (37.0-47.0); Hemoglobin 9.1 g/dL (12.0-16.0); Mean Corp Hgb Conc. 33.1 g/dL (33.0-37.0); Mean Corpuscular Hgb 34.2 pg (27.0-31.0); Mean Corpuscular Volume 103.4 fL (81.0-99.0); Mean Platelet Volume 10.3 fL (7.4-10.4); Platelet Count 149 10^3/uL (130-400); Red Blood Cell Count 2.66 10^6/uL (4.20-5.40); Red Cell Dist. Width 14.5 % (11.5-14.5); White Blood Cell Count 7.4 10^3/uL (4.8-10.8)
[2024-07-25 03:35] LABS: Blood Urea Nitrogen 16 mg/dl (7-17); Calcium 8.5 mg/dl (8.4-10.2); Carbon Dioxide 29 mmol/L (22-30); Chloride 106 mmol/L (98-107); Estimated Creatinine Clearance 55 ml/min; Glucose 104 mg/dl (70-99); Magnesium 1.9 mg/dl (1.6-2.3); Potassium 4.2 mmol/L (3.5-5.1); Sodium 137 mmol/L (135-145); eGFR > 60.00
--- NOTE | 2024-07-25 06:14 | W.PN.CT ---
Today's Communication / Plan
-
-pod #2
-no significant issues overnight
-chronic a-fib 70s-110s overnight- Cardizem was stopped by Dr. Gonsalves d/t hypotension and started on Digoxin. I decreased Toprol from 150 bid to 50 bid for hypotension. SBP is better overnight 110s
-hematuria with blood clots yesterday after Rebolledo was dcd - improved, yellow urine overnight with few small clots
-Eliquis restarted 07/24 pm
-groins are stable b/l
-continue Lasix, follow weight
-wean off O2 as tolerated- pOx 97% on 1L
-current meds (Eliquis, Toprol 50 bid, Digoxin, Lasix 40 po qd, KCL 20 qd, Farxiga)
-Rhythm monitor in the room
-encourage IS, OOB
Assessment / Plan
-
Assessment:
-S/P Pre-TAVR BASILICA procedure for leaflet modification of existing AVR/Wire purchase across stenotic AV via R PRECIPITATE WASHER obtained prior to completion of BASILICA procedure/ R TF TAVR (23mm MEDTRONIC EVOLUT FX+ [id number]); Post-TAVR BAV w/20 mm TRUE
balloon w/ good visual expansion of valve inflow, by Dr. Lozano/Angela, 07/23/24, pod#2
-Post-JUAN: mean gradient 4mmHg, no PVL/AI
-Severe bioprosthetic aortic valve stenosis (P/M: 70/48, Sewing Machinist: 4.22 prior Riley 3000TFX 21mm AVR 2007 @ [facility])
-Moderate AI
-Khqr-uh-yhlmngjm mitral regurgitation w/ severe MAC
-Eqsq-dx-rwqofhrz tricuspid regurgitation w/ PASP 35mmHg
-Mid ascending aorta is dilated measuring 3.6 cm at the level of the RPA
-Moderate calcified sessile atheroma seen in the descending aorta and distal arch
-Heart failure (btvhs-sy-tglnxgu) with preserved EF (pt. w/ ED presentation w/ CHF exacerbation immediately preoperatively)
-LVEF 55% per intraop JUAN
-Chronic atrial fibrillation (on Eliquis @ home)
-CAD s/p CABG x 1 @ 2007
-HTN
-HLD (on Repatha)
-Hypothyroidism
-Depression/anxiety
-GERD.
-OA b/l knees s/p L TKR
-L eye macular degeneration
-Vit D deficiency
-Alopecia universalis
-S/p L TKR
-07/24/24 Echo (post TAVR):
Hyperdynamic left ventricular systolic function.
TAVR is well seated, no AR, mean gradient 10 mmHg.
The mitral valve was not fully evaluated.
Moderate to severe tricuspid regurgitation.Estimated pulmonary artery pressure of 45-50 mmHg assuming a right atrial pressure of 8 mmHg.
No pericardial effusion.
Compared to prior study the patient has undergone TAVR.
-Postop anemia, due to acute blood loss and hemodilution
-Acute postop hematuria - resolved
Discussed patient care with: Nursing and Care Team
Subjective
Procedure
R TF TAVR (23mm MEDTRONIC EVOLUT FX+ [id number]), by Dr. Lozano/Angela, 07/23/24, pod#1
-
Date of Service: July 24, 2024
Objective Data
-
Lab Results
07/24/24 10:09
07/24/24 10:09
PT 21.0 Sec (11.4-14.6) H 07/16/24 12:41
INR 1.79 07/16/24 12:41
APTT 50.3 Sec (23.4-35.0) H 07/16/24 12:41
Vital Signs
Vital Signs
Temp Pulse Resp BP Pulse Ox
98.0 F 99 20 113/87 97
07/24/24 20:00 07/24/24 21:30 07/24/24 20:00 07/24/24 21:00 07/24/24 21:30
CT Intake/Output/Weight
07/24/24 07/24/24 07/25/24
06:59 18:59 06:59
Intake Total 930 / 930
Output Total 220 / 655 800 / 875 75 / 875
Balance -220 / -655 130 / 55 -75 / 55
SaO2: 97
Physical Exam
-
General: Awake and AOx3
Cardiovascular: Irregular rate & rhythm, No Murmurs and No Rub
Respiratory: Rales (R base. No wheeze b/l) and Decreased Breath Sounds
Incision: Other (groin dressings are cdi; incisions are soft, nontender, no hematoma b/l)
Extremities: Edema +2 (varicose veins with chronic venostasis b/l)
Abdomen: soft, nontender, nondistended, + bowel sounds
Data Reviewed
-
Lab Results: Results Reviewed
Medications: Active Meds Reviewed
Chest X-Ray: Report Reviewed and Image Reviewed
ECG: Report Reviewed and Image Reviewed
--- NOTE | 2024-07-25 08:40 | W.PN.CD ---
Today's Communication / Plan
-
ambulate
CXR
discharge planning
Impression / Plan
-
Impression/Plan: 84 y/o female with persistent atrial fibrillation and known ALFREDO thrombus, HTN, CAD and severe s/p CABG + SAVR (2007), now with severe bioprosthetic valve stenosis/moderate insufficiency leading to recurrent exacerbations of
HFpEF, admitted for HF, now s/p bioprosthetic valve leaflet electrosurgical modification and John TAVR.
#Severe bioprosthetic valve stenosis/moderate insufficiency
-Chronic, progressive.
-Initially referred for John TAVR, but found to be a poor initial candidate due to low left dominant coronary height, low VTC (< 4 mm), low VTSTJ (< 2.5).
-She is not a surgical candidate.
-After extensive planning, she underwent electrosurgical bioprosthetic valve leaflet modification (BASILICA) and John TAVR (#23 Medtronic Evolut TAVR), post dilated with a #20 TRUE balloon.
-Echocardiogram shows hyperdynamic systolic function, TAVR gradient = 10 mmHg.
-Access sites are C/D/I.
-Notable Hbg drop, stable on recheck, anticipated in setting of blood loss during BASILICA, CBC in 1 week
-Antithrombotic therapy with apixaban (known AFL).
-Furosemide converted to PO daily. BMP in one week.
-TTE in 1 month
#HFpEF
-Acute on chronic.
-Weight = 69.7 kg <-- 68.49 kg. Dry weight appears to be around 65.8 kg.
-LVEF = 65-70%.
-GDMT
-Beta beata = Metoprolol succinate 50 BID
-ACEI/ARB/ARNi = N/A.
-MRA = N/A.
-SGLT2i = Start dapagliflozin 10 mg daily. Case management consult.
-ICD/BUILDINGS AND GROUNDS SUPERVISOR-D = N/A.
-Diuretic = Furosemide 20 PO daily, may eventually no longer need lasix with AVR and dapa on board, trend weight as outpatient
#CAD
-Chronic, stable.
-S/P CABG (TOMLIN to LAD).
-OMT.
-Evolocumab. Goal LDL < 55.
#Atrial fibrillation
-Persistent. Prior aborted cardioversion due to ALFREDO thrombus, no thrombus on TAVR JUAN but will defer CV to outpatient given brief interruption in AC pre/post procedure
-Rate control with metoprolol, digoxen
-CHADS2-Vasc = 6 (CHF, HTN, Age x2, Vascular Disease, Female).
-Therapeutic anticoagulation with apixaban.
#Dispo
-CVICU status.
-Full code.
-Discharge planning.
Subjective/Interval History:
O2 weaned off this AM
Feeling well
DATA:
TAVR/BASILICA, 07/23/2024:
PROCEDURES:
1. L CFV access w/ U/S and fluoroscopic guidance, seldinger
technique, 6Fr long femoral sheath placement
2. L VIBRATORY PILE DRIVER access w/ tactile, U/S, and fluoroscopic guidance,
seldinger technique, 6Fr long femoral sheath placement
3. Placement of temporary pacing wire via L CFV access w/ threshold
testing
4. R VIBRATORY PILE DRIVER access w/ tactile, U/S, and fluoroscopic guidance,
seldinger technique, limited angiography via micropuncture sheath,
8Fr dilator placement
5. Perclose placement x 2 into R VIBRATORY PILE DRIVER, 8Fr sheath placement
6. R RA access w/ tactile, U/S, and fluoroscopic guidance, 6Fr
sheath placement
7. Serial dilation of R VIBRATORY PILE DRIVER w/ placement of 18Fr GORE DrySeal
sheath (systemic heparinization)
8. Placement of [place] CEP device via R RA access w/ filters
placed in innominant and LCC arteries
9. Wire purchase across stenotic AV via L VIBRATORY PILE DRIVER access (AL-1,
soft-tip straight wire) w/ subsequent placement of LVOT snare
10. Pre-TAVR BASILICA procedure for leaflet modification of
existing AVR
11. Wire purchase across stenotic AV via R VIBRATORY PILE DRIVER obtained prior to
completion of BASILICA procedure
12. Placement of 23mm MEDTRONIC EVOLUT FX+ [id number] TAVR
valve via R VIBRATORY PILE DRIVER access
13. Completion JUAN assessment (initial gradient 6-8mmHg, trace PVL)
14. Completion aortography
15. Post-TAVR BAV w/ 20mm TRUE balloon w/ good visual expansion of
valve inflow
16. Completion JUAN assessment (gradient 4-6mmHg, no PVL) 
completion aortography
17. Removal of valve delivery system; subsequent removal of 18Fr
GORE DrySeal sheath w/ R VIBRATORY PILE DRIVER mgmt w/ perclose sutures x 2; manual
pressure
18. Completion R ileofemoral angiography
19. Removal of temporary pacing wire
20. Removal of L VIBRATORY PILE DRIVER 6Fr sheath w/ mgmt w/ 6Fr angioseal; manual
pressure
21. Removal of L CFV 6Fr sheath w/ mgmt w/ manual pressure
22. Removal of R RA 6Fr sheath w/ mgmt w/ radial band placement
(protamine)
Intraprocedural JUAN, 07/23/2024:
CONCLUSIONS
Overall LVEF is approximately 55% with no RWMA.
Moderate concentric left ventricular hypertrophy.
Severe tricuspid regurgitation.
Estimated pulmonary artery systolic pressure of 30-35 mmHg.
Severely dilated left atrium.
Severely dilated right atrium.
Severe aortic stenosis.
Moderate aortic insufficiency.
HO calculates to 0.9 cm2 by continuity equation.
Moderate mitral regurgitation.
Severe mitral annular calcification.
MV leaflets are calcified with restricted motion in both leaflets.
Mild mitral stenosis.
Max MV gradient measures 9 mmHg, mean is 4 mmHg.
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
Moderate calcified sessile atheroma seen in the descending aorta and distal
arch.
POST OPERATIVE FINDINGS
The patient underwent splitting of the LCC of a bioprosthetic valve, and TF-
TAVR placement under GA. Postop rhythm remains a. fib. Postop RV and LV
function are normal. Overall LVEF is approximately 55-60% with no new RWMA.
The TAVR is well seated within the sewing ring of the bioprosthetic AVR. No
significant AI or perivalvular leaks noted. Max AV gradient before post
placement balloon dilation was 10 mmHg, mean was 6 mmHg. After post placement
balloon dilation the max AV gradient measured 7 mmHg, mean was 4 mmHg. No AI
or perivalvular leaks noted. Moderate central MR was largely unchanged from
the preop level. Moderate to severe TR. PV appears normal. Aortic scan is
unchanged. No pericardial effusions noted.
Physical Exam
Vital Signs/Labs
Vital Signs
Temp Pulse Resp BP Pulse Ox
36.7 C 66 20 126/64 95
07/25/24 03:00 07/25/24 04:30 07/25/24 03:00 07/25/24 04:00 07/25/24 04:30
07/24/24 07/25/24 07/26/24
06:59 06:59 06:59
Actual Weight 69.7 kg 70.7 kg
07/25/24 02:52
07/25/24 02:52
PT 21.0 Sec (11.4-14.6) H 07/16/24 12:41
INR 1.79 07/16/24 12:41
APTT 50.3 Sec (23.4-35.0) H 07/16/24 12:41
Magnesium 1.9 mg/dl (1.6-2.3) 07/25/24 02:52
07/16/24 07/22/24
12:41 17:15
Qlo-N-Dtexpahlyqx Pept [id number]
LAB Results
07/22/24 07/22/24
17:15 22:20
Troponin I 0.016 0.017
Physical Exam
Constitutional: No acute distress
Cardiovascular: Rhythm/rate is irregular
Respiratory: Respiratory effort normal
Neuro/Psych: AO x 3
Data Reviewed
-
Date of Service: July 25, 2024
Medical Decision Making: Reviewed Test Results
EKG: Tracing Personally Visualized and interpreted
Echo: Tracing Personally Visualized and interpreted
X-Ray/CT/US/MRI/NUC/PET: Image Personally Visualized and interpreted
Labs: Labs Reviewed by me
[2024-07-25] MEDS: KCL 20 MEQ PO ×2 (08:47→11:06)
[2024-07-25] MEDS: LASIX 40 MG PO (08:47)
[2024-07-25] MEDS: ELIQUIS 5 MG PO (08:47)
[2024-07-25] MEDS: ZOLOFT 75 MG PO (08:47)
[2024-07-25] MEDS: TOPROL XL 50 MG PO (08:47)
--- NOTE | 2024-07-25 09:51 | PTCARENOTE ---
assumed care of pt from previous shift shirley URIARTE on tele w HR 70-80, VSS, + peripheral pulses, +1 edema to bilateral lower extremities. Lungs diminished, pox 91-92% on RA. +bs, denies nausea, voids spontaneously, + hematuria. PIV flushes easily.
Post procedure sites stable. Plan of care reviewed w the pt and questions encouraged.
--- NOTE | 2024-07-25 10:45 | W.DCSUMMARY ---
Discharge Summary
Discharge Data
Date of Admission: 07/23/24
Date of Discharge: 07/25/24
-
Pending Results: No
Hospital Course
Primary care physician: Collin Nice MD
Outpatient alodize machine helper: César House MD
Inpatient consultants: [facility]
Procedures:
1. Transfemoral Transcatheter Aortic Valve Replacement (23 mm MDT Evolut Fx+) with bioprosthetic valve leaflet electrosurgical modification (BASILLICA)
Primary Diagnosis:
1. Severe bioprosthetic aortic valve stenosis with moderate insufficiency
Secondary Diagnoses:
1. HFpEF
2. CAD
3. Atrial Fibrillation
4. HLD
5. Hypothyroidism
6. Anxiety
7. Osteoporosis
8. Left Atrial Appendage Thrombus
HPI: 84-year old female with PMH of persistent AF and known ALFREDO thrombus, HTN, CAD and severe s/p CAB/SAVR (2007) who was found to have severe bioprosthetic aortic valve stenosis/moderate insufficiency with recurrent exacerbations of HFpEF who
presented to ED and was admitted for HF. Patient underwent TF John TAVR with bioprosthetic valve leaflet electrosurgical modification.
Hospital course:
Patient was admitted on 07/22/24 via ED for complaints of SOB and fatigue. She was admitted for exacerbation of HFpEF and was found to have severe bioprosthetic aortic valve stenosis/moderate insufficiency. Patient underwent TF TAVR (23 mm MDT
Evolut Fx+) with BASILICA on 07/23/24. 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 B/L groin sites remained stable and R radial access was stable s/p TR band removal. Patient was sent to IVU for remainder of their recovery.
On 07/23/24, POD #1, patient had arterial line and indwelling urinary catheter removed. Post operative Hgb remained stable at 9.7-9.9. Pt endured hematuria s/p indwelling catheter removal with resolved, no post-void residual present. Patient was
hypotensive which resolved after receiving single 250 mL IVF bolus. Troprol XL was decreased to 50 mg daily. Cardizem was discontinued and patient was initiated on Digoxin. Farxiga was recommended for GDMT and declined by patient. Eliquis was
resumed post-operatively. Repeat TTE showed peak/meal gradient of 17/10 without PVL. On 07/25/24, POD #2, patient was tolerating diet and increased activity. She remained 3 kg above dry weight (65.8 kg pre-op) and was diuresed with IV Lasix. She was
deemed stable for discharge. Instructed to resume previous home regiment of Lasix 40 mg BID for 7-days then transition to Lasix 40 mg daily. Patient was referred for outpatient follow-up for JUAN with cardioversion on 09/03/24 at [facility],
as noted within discharge instructions. Repeat BMP & CBC ordered for 1-week post-operative with results sent to [facility] office. Plan for TTE in 30-days post-TAVR with follow-up appointment as scheduled.
Home medication changes:
- Cardizem discontinued.
- Digoxin initiated
- Toprol XL decreased to 50 mg BID.
- Lasix 40 mg BID x 7 days, then Lasix 40 mg daily.
- Farxiga ordered as inpatient, declined by patient for outpatient Rx.
Discharge Plan
-
Patient Disposition: Home (Routine Discharge)
Discharge Diagnosis/Procedures: TAVR 07/23
Condition: Good
Diet: Low Cholesterol and Low Sodium
Activity: No strenuous activity
Driving Restrictions: No driving for 2 weeks
Bathing Restrictions: OK to Shower
Blood Work: Obtain CBC and BMP in 1-week and send to [facility] Office
Others Tests: 30 day follow up Echocardiogram: 08/27/2024 at 1:20pm in Dr. House's office.
JUAN and Cardioversion: 09/03/2024 [address] [facility]. Dr. Miller office will review instructions with you after you are discharged.
Other Services: Cardiac Rehab
Wound Care: Please do not apply lotions, creams or powders to groin areas. Monitor for increased pain, redness, swelling or drainage. Notify your doctor if any occur.
Specialty Instructions: Weigh Daily- Call MD for wt gain/loss 3 lbs overnight/5 lbs in 1 week
Instructions: *PCP/Other [facility] Heart Failure Instructions
Referrals:
CT Transitional Care Nurse [Outside] - in one to two days
(
The Cardiothoracic Transitional Care Nurse will call you to set up a visit in 1-2 days.)
[facility] [Outside] - 08/28/24 1:00 pm
(Cardiac Rehab Orientation appointment and� First Exercise appointment is on 08/28/24 at 1 PM
The Cardiac Rehab gym is located on the first floor of the [facility].)
Nora Jasmine CRNP [Specified Professional Personl] - 08/30/24 11:00 am
Collin Mary DO [Family Provider] - in four to six weeks (Please make an appointment in four to six weeks. )
Additional Discharge Medication Instructions: Please continue to take Lasix 40 mg twice a day for 7-days. Then decrease your Lasix to 40 mg daily in the morning. Please follow-up with you [facility] regarding further dosing.
Prescriptions:
New
digoxin 125 mcg (0.125 mg) Tablet
125 mcg PO NOON 30 Days Qty: 30 1RF
metoprolol succinate 50 mg Tablet Extended Release 24 Hr
50 mg PO BID Qty: 0 0RF
Continued
levothyroxine 100 MCG tablet
100 mcg PO DAILY
cyanocobalamin (vitamin B-12) 1,000 MCG tablet
1,000 mcg PO DAILY
cholecalciferol (vitamin D3) 1,000 UNITS tablet
1,000 units PO DAILY
ascorbate calcium (vitamin C) 500 mg Tablet
500 mg PO DAILY
sertraline 50 mg Tablet
75 mg PO DAILY
PreserVision AREDS-2 250-90-40-1 mg Capsule
1 tab PO BID
Repatha Syringe 140 mg/mL Syringe
140 mg SC Q2W
furosemide 40 mg tablet
40 mg PO BID
acetaminophen 650 mg Tablet Extended Release
1,300 mg PO [id number] PRN (Reason: mild pain)
lorazepam 0.5 mg Tablet
0.5 mg PO HS PRN (Reason: sleep)
Eliquis 5 mg Tablet
5 mg PO BID 30 Days Qty: 60 0RF
potassium chloride 20 mEq Tablet,Er Particles/Crystals
20 meq PO DAILY
Discontinued
metoprolol succinate 50 mg Tablet Extended Release 24 Hr
150 mg PO BID Qty: 90 0RF
diltiazem HCl 120 mg Capsule,Extended Release 24hr
120 mg PO DAILY Qty: 30 3RF
Discharge Orders:
Discharge Patient (As Directed); Ordered 07/25/24
Ordered By: Lima Martinez
Care Plan Goals
Care Plan Goals:
Problem: Readiness for enhanced knowledge related to diagnosis and treatment plan
Goal: Understand your diagnosis and treatment plan needs, including medications if applicable.
Instructions: Know your diagnosis, underlying causes and treatment plan options, including medications if applicable. Consult with your health care team to learn about your diagnosis and treatment plan, including medications if applicable.
Discharge Date and Time
Print Language: PASHTO
--- NOTE | 2024-07-25 10:53 | CM ---
Reviewed chart. Met with Mrs. Burton to review discharge plans. She states she is feeling better and maybe able to go home soon. We reviewed a home visit by the Transitional Care Nurse. She is agreeable to a home visit. She was current with
[facility]. Prior to admission she resides alone on a two story home with three steps to enter. She has a full flight of steps to get to bedroom/full bathroom. She has a stair glide to get to the second floor. Prior to admission she
was independent with ambulation and adls. She has walkers, rollator, wheelchair, bedside commode and a device to get a person off the floor. The DME was there for her spouse who is currently in [facility]. She states she
ambulated today. Ambulated 100 feet today. Medical work-up in progress. The discharge plan is to return home with a home visit by the Transitional Care Nurse when medically stable.
[2024-07-25] MEDS: LASIX 20 MG IV (11:06)
[2024-07-25] MEDS: LANOXIN 125 MCG PO (12:24)
--- NOTE | 2024-07-25 12:38 | VNURNOTE ---
[facility] resumption referral placed in [facility]. [facility] Intake aware of DC today. Per LORRAINE Chappell's notes, pt will be seen once at home by Transitional Care RN. POC noted on resumption referral.
--- NOTE | 2024-07-25 13:01 | PTCARENOTE ---
VSS, aflutter maintained on tele. Pt without complaint.
--- NOTE | 2024-07-25 16:00 | PTCARENOTE ---
IV line and tele monitor d/c'ed. Discharge instructions, medication list and follow up appointments reviewed w the pt and her daughter. Questions encouraged,
--- NOTE | 2024-07-25 16:40 | PTCARENOTE ---
Spoke with patient and daughter over the telephone, they will apply rhythm star monitor and call back the CV ICU if they have difficulty.
--- NOTE | 2024-07-26 11:48 | W.HF.CON ---
Heart Failure
- LV Function
Left ventricular function study result: LV Ejection fraction >/= 50%
Ejection Fraction Percentage: 65-70
- ARNI
Patient already on ARNI: No
Heart Failure ARNI Not Indicated: LV Ejection Fraction >/= 40%
- ACEI/ARB
Patient already on ACEI/ARB: No
Heart Failure ACEI/ARB Not Indicated: LV Ejection Fraction > 40%
- Beta Alex
Patient already on Evidence Based Beta Alex: Yes
- Mineralocorticord Receptor Antagonist
Patient already on MRA: No
Heart Failure MRA Not Indicated: LV Ejection Fraction > 40%
- SGLT-2 Inhibitor
Patient already on SGLT-2 Inhibitor: No
Heart Failure SGLT-2 Inhibitor Not Indicated: LV Ejection Fraction >40%
- Afib Anticoagulation
Patient already on Anticoagulation for Afib: Yes
- NYHA CHF Classification
NYHA CHF Classification Level: Class III - Symptoms w/ min exertion, interferes w/ nml daily activity
- ACC/AHA Stage
ACC/AHA Stage: Stage C: Symptomatic Heart Failure
== END 2024-07-25 16:00 | disposition home or self-care (01) | DRG 266 ==
LOC: CVICU 01:48
PROVIDERS: Anesthesiology; Emergency Medicine; Nurse Practitioner; Student in an Organized Health Care Education/Training Program; Thoracic Surgery (Cardiothoracic Vascular Surgery); ADMITTING PHYSICIAN Internal Medicine; ATTENDING PHYSICIAN Thoracic Surgery (Cardiothoracic Vascular Surgery); CONSULT PHYSICIAN Internal Medicine Cardiovascular Disease; EMERGENCY PHYSICIAN Emergency Medicine; FAMILY PHYSICIAN Family Medicine
PROC: 02RF38Z Replacement of Aortic Valve with Zooplastic Tissue, Percutaneous Approach (ICD-10-PCS; 2024-07-23)
PROC: X2A5312 Cerebral Embolic Filtration, Dual Filter in Innominate Artery and Left Common Carotid Artery, Percutaneous Approach, New Technology Group 2 (ICD-10-PCS; 2024-07-23)
PROC: B24BZZ4 Ultrasonography of Heart with Aorta, Transesophageal (ICD-10-PCS; 2024-07-23)
DX: T82.857A Stenosis of other cardiac prosthetic devices, implants and grafts, initial encounter (principal); Z00.6 Encounter for examination for normal comparison and control in clinical research program; I50.43 Acute on chronic combined systolic (congestive) and diastolic (congestive) heart failure; I48.21 Permanent atrial fibrillation; I48.92 Unspecified atrial flutter; D62 Acute posthemorrhagic anemia; Z66 Do not resuscitate; I11.0 Hypertensive heart disease with heart failure; I25.10 Atherosclerotic heart disease of native coronary artery without angina pectoris; E03.9 Hypothyroidism, unspecified; E78.5 Hyperlipidemia, unspecified; F32.A Depression, unspecified; Y83.1 Surgical operation with implant of artificial internal device as the cause of abnormal reaction of the patient, or of later complication, without mention of misadventure at the time of the procedure; R31.9 Hematuria, unspecified; I35.0 Nonrheumatic aortic (valve) stenosis; I34.0 Nonrheumatic mitral (valve) insufficiency; I36.1 Nonrheumatic tricuspid (valve) insufficiency; K21.9 Gastro-esophageal reflux disease without esophagitis; H35.30 Unspecified macular degeneration; E55.9 Vitamin D deficiency, unspecified; F41.9 Anxiety disorder, unspecified; M81.0 Age-related osteoporosis without current pathological fracture; I51.3 Intracardiac thrombosis, not elsewhere classified; L65.9 Nonscarring hair loss, unspecified; Z79.01 Long term (current) use of anticoagulants; Z79.899 Other long term (current) drug therapy; Z95.1 Presence of aortocoronary bypass graft; Z95.5 Presence of coronary angioplasty implant and graft
CPT/HCPCS: 93308; 33361; 36415; 71045; 71046; 80048; 80053; 80076; 81003; 81015; 82248; 82805; 83036; 83735; 83880; 84145; 84484; 85025; 85027; 85347; 85610; 85730; 86850; 86900; 86901; 86920; 87070; 93005; 93312; 93320; 93321; 93325; 93799; C1760; C1769; C1887; C1894; J1160; Q9967

== ENCOUNTER 2024-08-09 18:26 | Inpatient (IN) | payer MEDICARE, BC, SELFPAY ==
[2024-08-08] VITALS (19 sets, daily range): BP systolic 124–181; BP diastolic 61–118; BMI 27.5; BMI 26.3
[2024-08-08 14:53] LABS: % Basophils 1.6 % (0-2); % Eosinophils 3.1 % (0-6); % Immature Granulocytes 0.4 % (0-0.5); % Lymphocytes 18.2 % (20.5-51.1); % Monocytes 9.7 % (1.7-9.3); Absolute Basophils 0.1 10^3/uL (0-0.2); Absolute Eosinophils 0.3 10^3/uL (0-0.7); Absolute Lymphocytes 1.5 10^3/uL (1.2-3.4); Absolute Monocytes 0.8 10^3/uL (0.1-0.6); Absolute Neutrophils 5.4 10^3/uL (1.4-6.5); Hematocrit 31.1 % (37.0-47.0); Hemoglobin 10.7 g/dL (12.0-16.0); Mean Corp Hgb Conc. 34.4 g/dL (33.0-37.0); Mean Corpuscular Hgb 34.6 pg (27.0-31.0); Mean Corpuscular Volume 100.6 fL (81.0-99.0); Mean Platelet Volume 9.1 fL (7.4-10.4); Nucleated Red Blood Cells % 0 %; Platelet Count 306 10^3/uL (130-400); Red Blood Cell Count 3.09 10^6/uL (4.20-5.40); Red Cell Dist. Width 14.8 % (11.5-14.5); White Blood Cell Count 8.1 10^3/uL (4.8-10.8)
[2024-08-08 15:13] LABS: ALT (SGPT) 22 U/L (0-35); AST (SGOT) 28 U/L (14-36); Albumin 4.1 g/dl (3.5-5.0); Alkaline Phosphatase 145 U/L (38-126); Blood Urea Nitrogen 13 mg/dl (7-17); Calcium 8.8 mg/dl (8.4-10.2); Carbon Dioxide 32 mmol/L (22-30); Chloride 105 mmol/L (98-107); Glucose 100 mg/dl (70-99); Potassium 3.6 mmol/L (3.5-5.1); Sodium 142 mmol/L (135-145); Total Bilirubin 1.2 mg/dl (0.2-1.3); Total Protein 7.3 g/dl (6.3-8.2); eGFR > 60.00
[2024-08-08 15:23] LABS: Troponin I 0.021 ng/ml
--- NOTE | 2024-08-08 16:18 | ED.GENMED ---
History of Present Illness
General
Chief Complaint: Chest Pain
Time Seen by Provider: 08/08/24 16:08
History of Present Illness
History of Present Illness:
TIME OF INITIAL ENCOUNTER: 4:10 PM
HPI: The patient had TAVR with Dr. Esteban 2 weeks ago. Since that time she has been having rather severe back pain. She came in by ambulance after a visiting nurse evaluation. The pain is not necessarily positional in nature. She states that it
goes down both shoulder blades. She cannot find a comfortable position. She is on Eliquis with history of A-fib. Incidentally, was placed on hospice yesterday.
EXAM:
GENERAL: Well appearing but appears in moderate distress related to pain in the back
HEENT: Moist oral mucosa
CARDIOVASCULAR: No murmurs, normal heart rate, irregular rhythm, No chest wall tenderness
PULMONARY: No respiratory distress, breath sounds are clear and equal
ABDOMEN: Soft with no peritoneal signs, no tenderness
NEUROLOGIC: Excellent strength all extremities, no coordination deficits
PSYCHIATRIC: Appropriate mental status, normal insight and judgement
BACK: There is some moderate tenderness to palpation right greater than left periscapular musculature
EXTREMITIES: Nontender, no edema, moves all extremities equally
SKIN: No rash, no lesions
NUMBER AND COMPLEXITY OF PROBLEMS ADDRESSED AT THE ENCOUNTER
� Chronic conditions affecting care: TAVR 2024, A-fib, CHF, CAD
� Acute Exacerbation and/or Progression of Chronic Illness: Is an acute problem
� Differential Diagnosis includes: Musculoskeletal back pain, dissection, pericardial effusion
AMOUNT AND/OR COMPLEXITY OF DATA TO BE REVIEWED AND ANALYZED
� I performed an independent evaluation of and my interpretation is:
EKG: Suspect atrial flutter with variable block ventricular rate of 85
CT: CT imaging personally reviewed, right pleural effusion greater than left noted, no PE nor dissection
X-rays:
Laboratory Studies: Troponin 0.021, white count normal, hemoglobin 10.7 which is higher than prior, chemistries relatively unremarkable
Other:
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
� Clinical information was obtained by an independent historian: I also spoke to Dr. Luna who provided additional history. Dr. Luna states that the patient had a very complex TAVR requiring BASILICA.
� Prescriptions/Medications Considered but not given:
� Further testing considered but not performed:
RISK OF COMPLICATIONS AND/OR MORBIDITY OR MORTALITY OF PATIENT MANAGEMENT
� Social determinants of health affecting care: Lives at home
� Discussion with other providers: Discussed case with Dr. Funk he will see the patient in the ED and she is notifying Dr. Gonsalves.
� Escalation of care including admission/observation vs risk of discharge considered: The patient appeared uncomfortable on arrival. She was given Dilaudid. She was seen by Dr. Gonsalves in the Emergency Department who recommends
admission to hospitalist service with further pain control. He is also arranging for an echo. He also initially talked about using nicardipine in case this is a dissection however CT read by radiologist shows no dissection. BPs did drop from 180
to 150 after pain control.
ANY OTHER UPDATES:
6 PM: Overall patient feels significantly improved after analgesia given.
Past History
Past History
ED Past Medical History: Arrthythmia, HTN and Valvular disease
ED Past Surgical History: Cardiac (Aortic valve replacement), Cholecystectomy, Gynecological and Orthopedic (Knee replacement)
Social History
Tobacco: Non-smoker
Alcohol: Occasional
Drug: None
Personal:
Living: with family
Employment: Retired
Family History
Family History: Other (Noncontributory)
Phy Exam
Physical Exam
Physical Exam:
See HPI
Scores
Heart Score for Chest Pain Patients
STEMI patient?: Not applicable
Course
Orders/Labs/Results
Orders:
Orders
08/08/24 14:31
Electrocardiogram (*1) Urgent
Reason for Study: Chest Pain
EKG- Treatment ONCE
08/08/24 14:46
Complete Blood Count/With Diff Urgent
Comprehensive Metabolic Panel Urgent
Troponin I Urgent
08/08/24 16:16
CT Chest/abd/pelvis Angio W/wo Urgent
Comment:
Reason For Exam: severe back pain after TAVR
HYDROmorphone [Dilaudid] 0.5 mg IV NOW STA
Ondansetron Injectable [Zofran] 4 mg IV NOW STA
08/08/24 17:27
Morphine Sulfate 1 mg IV [id number] PRN
08/08/24 17:30
Nicardipine 40 mg/200 ml [Cardene] 40 mg in 200 ml IV PER PROTOCOL
Initial dose in mg/hr, then titrate:: 2.5
Titrate to keep:: SBP 120 - 140 mmHg
Titrate by mg/hr:: 2.5 mg/hr
Frequency of titrations (minutes):: 5-15 minutes
Maximum dose in mg/hr:: 15
Begin to taper infusion when:: Remained at goal for 2hrs
Taper by mg/hr:: 2.5 mg/hr
Frequency of taper (minutes) if patient maintains goal:: every 15-30 minutes
Taper to off?: Yes
If infusion off & no longer maintaining goal:: Contact Provider
08/08/24 18:28
Admit/Transfer Patient As Directed
Co-Sign Provider:
Level of Care: Observation services
Assign to:: Telemetry
Physician / Group: Delores Sevilla
Diagnosis: intactable back pain
Reason for Telemetry: Arrhythmia
Date to Stop Telemetry: 08/11/24
Time to Stop Telemetry: 11:00
PRN Pain Medication Management As Directed
May give lesser potent ordered pain med per pt: Yes
preference::
Protocol:: Medication orders for pain may be administered in a
manner that supports deferring to patient preference
when the pt is:
- Requesting an ordered lesser potent pain medication.
Least to most potent pain medications are defined
as: acetaminophen < NSAID < tramadol < opioids
(morphine, oxycodone, hydromorphone).
- Requesting a lesser dose of the same medication IF
ORDERED.
- Requesting a less intrusive route of administration
if both routes are prescribed by the provider (PO <
IV).
08/08/24 18:30
Code Status As Directed
Resuscitation Status: Do not resuscitate
Reached after discussion with pt or family/Healthcare POA: Yes
Decision communicated with: patient
DNR Bracelet Application ONCE
08/09/24 06:00
Echo 2D MMode Color/Doppler Routine
Reason for Study: Back pain, recent John TAVR.
08/11/24 11:00
DC Protocol for Telemetry ONCE
Abnormal Lab Results
08/08/24
14:46
RBC 3.09 L 10^6/uL
(4.20-5.40)
Hgb 10.7 L g/dL
(12.0-16.0)
Hct 31.1 L %
(37.0-47.0)
MCV 100.6 H fL
(81.0-99.0)
MCH 34.6 H pg
(27.0-31.0)
RDW 14.8 H %
(11.5-14.5)
Absolute Monos (auto) 0.8 H 10^3/uL
(0.1-0.6)
Lymphocytes % 18.2 L %
(20.5-51.1)
Monocytes % 9.7 H %
(1.7-9.3)
Carbon Dioxide 32 H mmol/L
(22-30)
Glucose 100 H mg/dl
(70-99)
Alkaline Phosphatase 145 H U/L
(38-126)
08/08/24 14:46
08/08/24 14:46
Vital Signs
Initial and Last Documented VS:
Initial Vital Signs
Temp Pulse Resp BP Pulse Ox
36.7 C 98 16 153/78 98
08/08/24 14:29 08/08/24 14:29 08/08/24 14:29 08/08/24 14:29 08/08/24 14:29
Last Documented Vital Signs
Temp Pulse Resp BP Pulse Ox
36.7 C 75 18 130/77 96
08/08/24 14:29 08/08/24 18:45 08/08/24 18:45 08/08/24 18:45 08/08/24 18:45
*Critical Care Note
Total Time (30-74mins, 75-104mins- exclusive of procedures): Not Applicable
ED Attending Note
-
Portions of this chart may have been created with voice recognition software.� Occasional wrong word or��sound alike� substitutions may have occurred due to the inherent limitations of voice recognition software.
Discharge Plan
Departure
Patient Disposition: Admit
Date of Disposition: 08/08/24
Time of Disposition: 17:42
Presentation/result/management discussed w/ accepting MD/DO: Hospitalist
Discharge Problem:
Intractable back pain
Prescriptions:
No Action
levothyroxine 100 MCG tablet
100 mcg PO DAILY
cyanocobalamin (vitamin B-12) 1,000 MCG tablet
1,000 mcg PO DAILY
cholecalciferol (vitamin D3) 1,000 UNITS tablet
1,000 units PO DAILY
ascorbate calcium (vitamin C) 500 mg Tablet
500 mg PO DAILY
sertraline 50 mg Tablet
75 mg PO DAILY
PreserVision AREDS-2 250-90-40-1 mg Capsule
1 tab PO BID
furosemide 40 mg tablet
40 mg PO DAILY
acetaminophen 650 mg Tablet Extended Release
1,300 mg PO [id number] PRN (Reason: mild pain)
lorazepam 0.5 mg Tablet
0.5 mg PO DAILY@1600
Eliquis 5 mg Tablet
5 mg PO BID 30 Days Qty: 60 0RF
potassium chloride 20 mEq Tablet,Er Particles/Crystals
20 meq PO DAILY
digoxin 125 mcg (0.125 mg) Tablet
125 mcg PO NOON 30 Days Qty: 30 1RF
polyethylene glycol 3350 [Miralax] 17 gram Powder In Packet
8.5 g PO DAILY
ibuprofen [Advil] 200 mg Tablet
200 mg PO DAILYPRN PRN (Reason: MILD PAIN)
metoprolol succinate 50 mg tablet extended release 24 hr
100 mg PO BID
Referrals:
Collin Mary DO [Family Provider, Family Practice]
Interventions
Interventions:
*Risk Screen - Suicide Last Done: 08/08/24 14:29
*Neglect/Abuse Screening Last Done: 08/08/24 14:29
ED- Cardiac Assessment Last Done: 08/08/24 14:58
Discharge Date and Time
Print Language: ARMENIAN
[2024-08-08] MEDS: DILAUDID 0.5 MG IV (16:29)
[2024-08-08] MEDS: ZOFRAN 4 MG IV (16:29)
--- NOTE | 2024-08-08 16:36 | CON.CAR ---
Addendum entered and electronically signed by Mynor Gonsalves DO 08/08/24 17:30:
Correction - nicardipine 2.5 mg/hour.
Original Note:
Consultation
Consultation Request
Date/Time Consultation Requested: 08/08/2024; 16:16
Date/Time Consultation Performed: 08/08/2024; 16:36
Requesting Provider: Berlin Talley D.O.
Performing Provider: Mynor Gonsalves D.O.
Reason for Consultation: Back pain, recent John TAVR.
Medical History
-
Chief Complaint: Back pain.
History of Present Illness:
84 y/o female with persistent atrial fibrillation and known ALFREDO thrombus, HTN, CAD and severe s/p CABG + SAVR (2007) with severe bioprosthetic valve stenosis/moderate insufficiency leading to recurrent exacerbations of HFpEF s/p bioprosthetic
valve leaflet electrosurgical modification and John TAVR (#23 Medtronic CoreValve, 07/23/2024) presenting with severe back pain. On 08/03/2024 the patient reported high blood pressure readings. Notably, the patient's diltiazem and lisinopril were
discontinued at the time of discharge from TAVR due to relative hypotension. Amlodipine 2.5 mg daily was started.
The patient's back pain has been present since for several days, starting soon after discharge from her TAVR. It is not positional or pleuritic. She describes at as a stabbing sensation and 9/10 in severity. It begins in the center of her back
and radiates to her bilateral elbows. It is episodic and intermittent. She received hydromorphone 0.5 mg IV with some relief. She denies any associated neurologic symptoms. She admits to some nausea but denies abdominal pain.
Separately, the patient underwent a Rhythmed[employer] monitor as an outpatient, which demonstrated two runs of VT lasting 11 seconds and 24 seconds. Note from [facility] reports that the patient was experiencing the back pain at the time.
Past Medical History
Past Medical History: Arrhythmias (Atrial fibrillation, known ALFREDO thrombus), CAD (TOMLIN to LAD), CHF (HFpEF), HTN, Hypercholesterolemia and Valvular Disease (Severe )
Past Surgical History: Cardiac (CABG (TOMLIN to LAD); SAVR (#21 Riley MAGNA); BASILLICA assisted John TAVR (#23 Medtronic CoreValve Evolut FX+))
Social History
Tobacco: Non-Smoker
Alcohol: None
Drug: None
Personal: ( placed on hospice on 08/07/2024.)
Living: With Family
Employment: Retired
Family History
Family History: Reviewed & Not Pertinent
Allergies / Home Medications
Allergy/AdvReac Type Severity Reaction Status Date / Time
pollen extracts Allergy seasonal Verified 08/08/24 14:31
allergies
�Medication �Instructions �Recorded �Confirmed �Type
cholecalciferol (vitamin D3) 25 1,000 units PO DAILY Supplement 07/15/21 07/23/24 History
mcg (1,000 unit) tablet
cyanocobalamin (vitamin B-12) 1,000 mcg PO DAILY Supplement 07/15/21 07/23/24 History
1,000 mcg tablet
levothyroxine 100 mcg tablet 100 mcg PO DAILY Thyroid 07/15/21 07/23/24 History
ascorbate calcium (vitamin C) 500 500 mg PO DAILY Supplement 05/30/24 07/23/24 History
mg tablet
evolocumab 140 mg/mL subcutaneous 140 mg SC Q2W High Cholesterol 05/30/24 07/23/24 History
syringe (Repatha Syringe)
sertraline 50 mg tablet 75 mg PO DAILY Depression 05/30/24 07/23/24 History
vit C 250 mg-vit E 90 mg-zinc 40 1 tab PO BID Supplement 05/30/24 07/23/24 History
mg-copper 1 [id number]
capsule (PreserVision AREDS-2)
acetaminophen 650 mg 1,300 mg PO [id number] PRN mild pain 06/09/24 07/23/24 History
tablet,extended release
furosemide 40 mg tablet 40 mg PO BID Fluid 06/09/24 07/23/24 History
Retention/Swelling
lorazepam 0.5 mg tablet 0.5 mg PO HS PRN sleep 07/15/24 07/23/24 History
apixaban 5 mg tablet (Eliquis) 5 mg PO BID Blood clot 07/23/24 07/15/24 Rx
prevention/tx 30 days #60 tabs
potassium chloride 20 mEq 20 meq PO DAILY Electrolyte 07/23/24 07/23/24 History
tablet,extended release(part/cryst) Repletion
digoxin 125 mcg (0.125 mg) tablet 125 mcg PO NOON 30 days #30 tabs 07/25/24 Rx
metoprolol succinate 50 mg 50 mg PO BID Arrhythmia #0 tabs 07/25/24 Rx
tablet,extended release 24 hr
Review of Systems
-
History Source: Patient and Other (Medical record.)
Constitutional: No Symptoms
EENT: No Symptoms
Respiratory: No Symptoms
Cardiac: No Symptoms
Abdomen/GI: Nausea
: No Symptoms
Musculoskeletal: Other (Back pain.)
Skin: No Symptoms
Neurological: No Symptoms
Endocrine: No Symptoms
Hematologic/Lymphatic: No Symptoms
Physical Exam
Vital Signs
Temp Pulse Resp BP Pulse Ox
36.7 C 95 18 167/69 95
08/08/24 14:29 08/08/24 15:15 08/08/24 15:15 08/08/24 15:00 08/08/24 15:18
Lab Results
08/08/24 14:46
08/08/24 14:46
Troponin I 0.021 ng/ml 08/08/24 14:46
Physical Exam
General: Well Developed, Well Nourished and Pain
HEENT: Normocephalic, Anicteric, Moist Mucous Membranes and Atraumatic
Respiratory: Clear and Non Labored Respirations
Cardiac: S1/S2 and Regular Rhythm
Breast: Deferred by me
GI: Soft, Non Tender, Non Distended and Normal Bowel Sounds
Rectal: Deferred by Provider
Musculoskeletal: No Clubbing, No Cyanosis and No Edema
Skin: Warm and Dry
Neuro: AO x 3
Hematologic/Lymphatic: No Lymphadenopathy
Psych: Calm
Impression / Plan
-
Impression/Plan: 84 y/o female with persistent atrial fibrillation and known ALFREDO thrombus, HTN, CAD and severe s/p CABG + SAVR (2007), now with severe bioprosthetic valve stenosis/moderate insufficiency leading to recurrent exacerbations of
HFpEF, admitted for HF, now s/p bioprosthetic valve leaflet electrosurgical modification and John TAVR.
#Back pain
-Acute.
-DDx includes MSK vs. dissection vs. PE (less likely, on therapeutic anticoagulation) vs. atypical cardiac/coronary (moderate risk for obstruction after BASILICA + John TAVR).
-Troponin negative.
-CTA Chest/Abdomen/Pelvis.
-Pain control. Morphine 1 mg q15 min until pain controlled.
-BP control. Start nicardipine gtt at 2.5 mg/min and titrate to keep SBP < 140 mmHg.
-Update echocardiogram.
-Trend troponin.
#Severe bioprosthetic valve stenosis/moderate insufficiency
-Chronic, stable.
-S/P electrosurgical bioprosthetic valve leaflet modification (BASILICA) and John TAVR (#23 Medtronic Evolut TAVR), post dilated with a #20 TRUE balloon, 07/23/2024.
-Post procedure TAVR gradient = 10 mmHg.
-Antithrombotic therapy with apixaban (known AF).
#HFpEF
-Chronic, stable
-Weight = 70.7 kg <-- 69.7 kg.
-LVEF = 65-70%.
-GDMT
-Beta beata = Metoprolol succinate 150 mg BID.
-ACEI/ARB/ARNi = N/A.
-MRA = N/A.
-SGLT2i = Start dapagliflozin 10 mg daily. Case management consult.
-ICD/BURNER TECHNICIAN-D = N/A.
-Diuretic = Furosemide 40 mg BID.
#CAD
-Chronic, stable.
-S/P CABG (TOMLIN to LAD).
-OMT.
-Evolocumab. Goal LDL < 55.
#Atrial fibrillation
-Persistent.
-Rate control with metoprolol, digoxin.
-CHADS2-Vasc = 6 (CHF, HTN, Age x2, Vascular Disease, Female).
-Therapeutic anticoagulation with apixaban.
#Dispo
-Admit to internal medicine/hospitalist.
-May require ICU care for BP management.
Data Reviewed
-
EKG: Tracing Personally Visualized and interpreted and Report Reviewed by me
Medical Tests (Nuc Med, Echo etc): Image Personally Visualized and interpreted and Report Reviewed by me
Labs: Labs Reviewed by me and Discussed with Physician
Old Records: Reviewed
[2024-08-08] MEDS: MORPHINE SULFATE 1 MG IV ×6 (17:41→19:17)
--- NOTE | 2024-08-08 17:45 | HPS.HSE ---
Family Physician
-
Family Physician: Collin Mary
Chief Complaint
-
severe back pain
History of Present Illness
Patient is a 84-year-old female with past medical history significant for essential hypertension, hyperlipidemia, hypothyroidism, HFpEF, atrial fibrillation, aortic valve stenosis, depression, CAD and Hx squamous cell carcinoma who presented to [facility]
ED for evaluation of intermittent severe back pain that would radiate to bilateral elbows. She reports pain is sharp and has been intermittent since procedure on 07/23/2024 of [facility]. She also reports increased stress at home trying to get her
transferred from [facility] to [facility] that happened yesterday and was admitted to hospice. Patient reports associated increased exertional shortness of breath and significant constipation. Denies fevers, cough,
chest pain, nausea, vomiting, diarrhea or urinary symptoms.
Medical History
Past Medical History
Past Medical History: Reports Other
Additional Past Medical History:
essential hypertension
hyperlipidemia
hypothyroidism
HFpEF
atrial fibrillation
aortic valve stenosis
bioprosthetic valve stenosis/moderate insufficiency
depression/anxiety
CAD
Hx squamous cell carcinoma
Past Surgical History: Reports Other
Additional Past Surgical History:
aortic valve replacement
right cataract extraction
cholecystectomy
hysterectomy
left TKR
CABG
bioprosthetic valve leaflet electrosurgical modification and John TAVR (#23 Medtronic CoreValve, 07/23/2024)
Social History
Tobacco: Non-smoker
Alcohol: Daily
Drug: None
Personal:
Living: Alone
Family History
Family History: Not pertinent
Allergies / Home Medications
Allergies reflects when Allergies were last updated in [employer].
Home Medications with original date entered in [employer]
Allergy/Medication List:
Allergies
Allergy/AdvReac Type Severity Reaction Status Date / Time
pollen extracts Allergy seasonal Verified 08/08/24 14:31
allergies
Home Medications
cholecalciferol (vitamin D3) 25 mcg (1,000 unit) tablet 1,000 units PO DAILY Supplement 07/15/21
cyanocobalamin (vitamin B-12) 1,000 mcg tablet 1,000 mcg PO DAILY Supplement 07/15/21
levothyroxine 100 mcg tablet 100 mcg PO DAILY Thyroid 07/15/21
ascorbate calcium (vitamin C) 500 mg tablet 500 mg PO DAILY Supplement 05/30/24
sertraline 50 mg tablet 75 mg PO DAILY Depression 05/30/24
vit C 250 mg-vit E 90 mg-zinc 40 mg-copper 1 [id number] capsule (PreserVision AREDS-2) 1 tab PO BID Supplement 05/30/24
acetaminophen 650 mg tablet,extended release 1,300 mg PO [id number] PRN mild pain 06/09/24
furosemide 40 mg tablet 40 mg PO BID Fluid Retention/Swelling 06/09/24
lorazepam 0.5 mg tablet 0.5 mg PO HS PRN sleep 07/15/24
apixaban 5 mg tablet (Eliquis) 5 mg PO BID Blood clot prevention/tx 30 days #60 tabs 07/23/24
potassium chloride 20 mEq tablet,extended release(part/cryst) 20 meq PO DAILY Electrolyte Repletion 07/23/24
digoxin 125 mcg (0.125 mg) tablet 125 mcg PO NOON 30 days #30 tabs 07/25/24
ibuprofen 200 mg tablet (Advil) 200 mg PO DAILYPRN PRN MILD PAIN 08/08/24
metoprolol succinate 50 mg tablet,extended release 24 hr 100 mg PO BID Arrhythmia 08/08/24
polyethylene glycol 3350 17 gram oral powder packet (Miralax) 8.5 g PO DAILY 08/08/24
Review of Systems
-
History Source: Patient
Constitutional: Reports Chills
Respiratory: Reports Trouble Breathing (increased exertional shortness of breath)
Cardiac: Reports Other (severe upper back pain with radiation to bilateral elbows)
Musculoskeletal: Reports Other (severe upper back pain with radiation to bilateral elbows)
Physical Exam
Vital Signs
Vital Signs
Temp Pulse Resp BP Pulse Ox
98.0 F 78 24 153/89 97
08/08/24 14:29 08/08/24 17:30 08/08/24 17:30 08/08/24 17:37 08/08/24 17:30
Physical Exam
General: Well Developed, Well Nourished, No Apparent Distress, Conversant and Obese
HEENT: NormoCephalic, Moist mucous membranes and Atraumatic
Respiratory: Clear and Non Labored Respirations
Cardiac: S1/S2, Regular Rhythm and Murmur
GI: Soft, Non Tender, Non Distended and Normal Bowel Sounds; No Organomegaly
Rectal: Deferred by Provider
Genito-urinary: Deferred by me
Musculoskeletal: No Clubbing, No Cyanosis and No Edema
Skin: Warm, Dry and IV/Catheter Site
Neuro: Awake, Alert, AO x 3 and Nonfocal/grossly intact
Hematologic/Lymphatic: No Lymphadenopathy
Psych: Calm and Intact Judgment/Insight
Laboratory Results
-
08/08/24 14:46
08/08/24 14:46
Laboratory Results
Total Bilirubin 1.2 mg/dl (0.2-1.3) 08/08/24 14:46
AST 28 U/L (14-36) 08/08/24 14:46
ALT 22 U/L (0-35) 08/08/24 14:46
Alkaline Phosphatase 145 U/L (38-126) H 08/08/24 14:46
Troponin I 0.021 ng/ml 08/08/24 14:46
Data Reviewed
-
CT Scan: Report Reviewed by me (Chest/Abd/Pel CTA: No CTA evidence for a dissection, aneurysm, or intramural hematoma of the thoracic aorta or abdominal aorta. TAVR prosthesis is in place. Small bilateral pleural effusions. Bilateral diffuse hazy
groundglass and reticulonodular nodule pulmonary parenchymal opacities. Findings orellana)
Lab Data: Labs Reviewed by me (hgb 10.7, hct 31.1)
Impression/Plan
-
IMPRESSION/PLAN:
#back pain 2/2 atypical ACS vs. musculoskeletal vs. dissection vs. PE
Chest/Abdomen/Pelvis CTA: No CTA evidence for a dissection, aneurysm, or intramural hematoma of the thoracic aorta or abdominal aorta. TAVR prosthesis is in place.
Small bilateral pleural effusions.
Bilateral diffuse hazy groundglass and reticulonodular nodule pulmonary parenchymal opacities. Findings suspicious for pulmonary edema, although possibly superimposed
bronchiolitis and/or aspiration pneumonitis.
Other chronic findings, as detailed above.
EKG: ATRIAL FLUTTER WITH VARIABLE A-V BLOCK
INCOMPLETE LEFT BUNDLE BLOCK
LEFT VENTRICULAR HYPERTROPHY WITH REPOLARIZATION ABNORMALITY ( R in aVL, Juanito product, Romhilt-Chirinos )
- Admit to telemetry
- Consult Cardiology
- pain control Morphine 1mg q15 min until pain free
- ECHO
- trend troponin
#HFpEF
ECHO (07/24/2024): Limited echo after [id number] TAVR yesterday.
Hyperdynamic left ventricular systolic function.
TAVR is well seated, no AR, mean gradient 10 mmHg.
The mitral valve was not fully evaluated.
Moderate to severe tricuspid regurgitation.
Estimated pulmonary artery pressure of 45-50 mmHg assuming a right atrial pressure of 8 mmHg.
No pericardial effusion.
Compared to prior study the patient has undergone TAVR.
- daily weights
- I & Os
- continue furosemide
- ECHO in AM
#essential hypertension
- continue furosemide
#hypothyroidism
- continue levothyroxine
#atrial fibrillation
EKG: ATRIAL FLUTTER WITH VARIABLE A-V BLOCK
INCOMPLETE LEFT BUNDLE BLOCK
LEFT VENTRICULAR HYPERTROPHY WITH REPOLARIZATION ABNORMALITY ( R in aVL, Gunlock product, Romhilt-Chirinos )
- continue Eliquis, digoxin and metoprolol
#depression/anxiety
- continue sertraline and lorazepam
#aortic valve stenosis
#hyperlipidemia
#bioprosthetic valve stenosis/moderate insufficiency
#CAD
#Hx squamous cell carcinoma
Code status: DNR
DVT prophylaxis: Eliquis
--- NOTE | 2024-08-08 18:38 | W.PN.UPDATE ---
Update Note
Progress Note Update
This is an addendum to H&P written by Yamileth Stoner on 08/08/2024.� Patient seen and examined independently with [employer].
84-year-old female past medical history of severe aortic stenosis with moderate insufficiency status post CABG/SAVR in 2007 and status post recent TAVR and [place] on 07/23,, left atrial appendage thrombus, HFpEF, CAD status post CABG, persistent
atrial fibrillation, hyperlipidemia, hypothyroidism, anxiety, osteoporosis, presenting with back pain.
Blood pressure 150s to 180s systolic.� Labs unremarkable.� Troponin negative.� EKG shows atrial flutter with incomplete left bundle bairon rate, LVH.�
CTA of chest abdomen and pelvis shows no evidence of dissection, aneurysm or intramural hematoma thoracic or abdominal aorta.� There are small bilateral pleural effusions.� There is bilateral diffuse hazy groundglass and reticular nodular nodule
pulmonary parenchymal opacities which is suspicious for pulm edema although superimposed bronchiolitis and or aspiration pneumonia possible.
Back pain could be musculoskeletal versus atypical coronary related.� Patient also with hypertensive urgency secondary to pain.�
Trend troponins.� As needed morphine for pain.� Dissection and pulmonary embolism ruled out.� Nicardipine drip for hypertension if needed. Check echo. Cardiology following.
--- NOTE | 2024-08-08 20:14 | PTCARENOTE ---
Patient arrived from ED via stretcher. Patient stand by assist, on 3LNC. Patient AAOx3, able to make needs known.
[2024-08-08] MEDS: ELIQUIS 5 MG PO (20:48)
[2024-08-08] MEDS: TOPROL XL 100 MG PO (20:48)
[2024-08-08 20:57] LABS: Troponin I 0.029 ng/ml
[2024-08-09] VITALS (7 sets, daily range): BP systolic 101–138; BP diastolic 41–77; PULSE 79; O2SAT 94; BMI 26.1
[2024-08-09 02:30] LABS: Troponin I 0.023 ng/ml
[2024-08-09] MEDS: SYNTHROID 100 MCG PO (05:07)
[2024-08-09] MEDS: MORPHINE SULFATE 1 MG IV ×4 (05:11→16:20)
--- NOTE | 2024-08-09 08:18 | VNURNOTE ---
Chart reviewed. Patient is current with [facility] nursing, PT. Will continue to follow hospital course and DC plans.
[2024-08-09 08:39] LABS: Troponin I 0.027 ng/ml
--- NOTE | 2024-08-09 08:46 | W.PN.HOSP.TC ---
Today's Communication/Plan
-
see a/p
Assessment / Plan
Assessment / Plan
Physical Exam
General: mild moderate distress due to back pain, appears relatively comfortable at rest
HEENT: NormoCephalic, Moist mucous membranes and Atraumatic
Respiratory: Clear and Non Labored Respirations
Cardiac: S1/S2, Regular Rhythm and Murmur
GI: Soft, Non Tender, Non Distended and Normal Bowel Sounds; No Organomegaly
Musculoskeletal: No Clubbing, No Cyanosis and No Edema, upper back paraspinal tenderness, tenderness back of neck
Neuro: AOx3 conversant coherent
Psych: Depressed regarding her transitioning to hospice, denies SI/HI, declines psych eval
84F CABG/SAVR 2007 TAVR [place] Thrombus HFpEF afib Hypothyroidism HTN HLD here for intractable back pain unclear etiology.
#Sever upper Back pain w/ radiation to b/l arms, unclear etiology suspect musculoskeletal
Chest/Abdomen/Pelvis CTA appreciated:
No CTA evidence for a dissection, aneurysm, or intramural hematoma of the thoracic aorta or abdominal aorta. TAVR prosthesis is in place. Small bilateral pleural effusions. Bilateral diffuse hazy groundglass and reticulonodular nodule pulmonary
parenchymal opacities. Findings suspicious for pulmonary edema, although possibly superimposed bronchiolitis and/or aspiration pneumonitis.
-Monitor on Tele
- pain control prn Morphine, scheduled Tylenol Q4HWA, lidocaine patches, Bengay-like cream
- ECHO results appreciated
-neg troponin x 4
-Consult Cardiology appreciated pain unlikely cardiac related
-Thoracic Lumbar X-ray appreciated severe degenerative disc disease, no acute fx noted
#Acute Hypoxia
wean O2 supplementation as tolerated
#HFpEF
- daily weights
- I & Os
- continue furosemide
#essential hypertension
- continue furosemide
#hypothyroidism
- continue levothyroxine
#atrial fibrillation/flutter
- continue Eliquis, digoxin and metoprolol
#depression/anxiety
- continue sertraline and lorazepam
#aortic valve stenosis
#hyperlipidemia
#bioprosthetic valve stenosis/moderate insufficiency
#CAD
#Hx squamous cell carcinoma
PT/OT appreciated home health
Code status: DNR
DVT prophylaxis: Eliquis
I spent a total of 50 minutes with the patient or on the floor. More than 50% of this time involved counseling and coordination of care.
Anticipated Discharge: 24 - 48 hours
Subjective/Interval History
-
Date of Service: August 09, 2024
Upper back pain persists with associate tenderness/radiation to elbows bilateral. Patient also requiring oxygen.
Objective Data
-
Labs:
Laboratory Results
08/09/24
07:47
Sodium Pending
Potassium Pending
Chloride Pending
Carbon Dioxide Pending
BUN Pending
Creatinine Pending
Glucose Pending
Calcium Pending
Total Bilirubin Pending
AST Pending
ALT Pending
Alkaline Phosphatase Pending
Vital Signs:
Vital Signs
Temp Pulse Resp BP Pulse Ox
98.6 F 78 18 132/77 97
08/09/24 07:25 08/09/24 07:25 08/09/24 07:25 08/09/24 07:25 08/09/24 07:25
I&O
08/08/24 08/09/24 08/10/24
06:59 06:59 06:59
Intake Total 480 / 480
Balance 480 / 480
[2024-08-09] MEDS: KCL 20 MEQ PO (08:59)
[2024-08-09] MEDS: LASIX 40 MG PO (08:59)
[2024-08-09] MEDS: MIRALAX PO ×2 (09:00→09:05)
[2024-08-09] MEDS: ELIQUIS 5 MG PO ×2 (09:00→19:13)
[2024-08-09] MEDS: VITAMIN B-12 1000 MCG PO (09:00)
[2024-08-09] MEDS: OCUVITE SOFTGEL 1 CAP PO ×2 (09:00→19:13)
[2024-08-09] MEDS: ZOLOFT 75 MG PO (09:00)
[2024-08-09] MEDS: VITAMIN C 500 MG PO (09:00)
[2024-08-09] MEDS: TOPROL XL 100 MG PO (09:00)
[2024-08-09] MEDS: VITAMIN D3 (cholecalciferol) 25 MCG PO (09:00)
[2024-08-09 09:02] LABS: ALT (SGPT) 21 U/L (0-35); AST (SGOT) 28 U/L (14-36); Albumin 3.6 g/dl (3.5-5.0); Alkaline Phosphatase 137 U/L (38-126); Blood Urea Nitrogen 11 mg/dl (7-17); Calcium 8.6 mg/dl (8.4-10.2); Carbon Dioxide 30 mmol/L (22-30); Chloride 105 mmol/L (98-107); Estimated Creatinine Clearance 57 ml/min; Glucose 112 mg/dl (70-99); Potassium 4.3 mmol/L (3.5-5.1); Sodium 139 mmol/L (135-145); Total Bilirubin 1.3 mg/dl (0.2-1.3); Total Protein 6.6 g/dl (6.3-8.2); eGFR > 60.00
--- NOTE | 2024-08-09 12:48 | CM ---
Alert awake oriented patient that lives alone.Her is at [facility] on hospice. She lives in a 2 try home with 3 steps to enter and stair glide to bed/bathroom..She is independent in driving and in all activities of daily living.Offered VN
she requested resumption with [facility].[place] Observation letter given explained.Pt signed [place] copy on chart.
[facility] hx / No SNF history
Pharmacy [facility] [place]
PCP DR Mary
PLAN Home Declined VN
[2024-08-09] MEDS: LANOXIN 125 MCG PO (12:49)
[2024-08-09] MEDS: NEURONTIN 100 MG PO ×3 (12:54→21:00)
--- NOTE | 2024-08-09 12:54 | CM ---
Alert awake oriented patient that lives alone.Her is at [facility] on hospice. She lives in a 2 try home with 3 steps to enter and stair glide to bed/bathroom.She is independent in driving and in all activities of daily living.Offered VN she
requested resumption with [facility].[place] Observation letter given explained.Pt signed [place] copy on chart.
[facility] hx / No SNF history
Pharmacy [facility] [place]
PCP DR Mary
PLAN Home with [facility]
[2024-08-09] MEDS: LIDOCAINE 4% PATCH 2 PATCH TOPICAL (12:55)
[2024-08-09] MEDS: BenGay-Like TOPICAL ×3 (13:57→21:00)
[2024-08-09] MEDS: TYLENOL 650 MG PO ×2 (16:22→19:13)
[2024-08-09] MEDS: ATIVAN 0.5 MG PO (16:22)
--- NOTE | 2024-08-09 17:06 | W.PN.CD ---
Today's Communication / Plan
-
safe for discharge from CV perspective on current meds
outpatient [facility]/CV
Impression / Plan
-
Impression/Plan: 84 y/o female with persistent atrial fibrillation and known ALFREDO thrombus, HTN, CAD and severe s/p CABG + SAVR (2007), now with severe bioprosthetic valve stenosis/moderate insufficiency leading to recurrent exacerbations of
HFpEF, admitted for HF, now s/p bioprosthetic valve leaflet electrosurgical modification and John TAVR.
#Back pain - concerning for atypical presentation of angina given recent TAVR with risk of post-procedure coronary obstruction and associated shortness of breath. Fortunately, there is no evidence of testing of coronary ischemia or heart failure, or
valve dysfunction. Pain likely musculoskeletal. Recommend continued pain management per primary with avoidance of NSAIDS if possible given anticoagulant use.
# HTN urgency - likely secondary to pain. Now normotensive with pain control and
#Severe bioprosthetic valve stenosis/moderate insufficiency s/p TAVR - cont. eliquis, valve gradients are normal
#HFpEF - chronic, stable. cont. lasix. consider SGLT2i as outpatient
# Hypoxia - lungs clear, no evidence of acute CHF, wean O2
#CAD - chronic, cont. home meds
#Atrial fibrillation - rate control imported with pain management on metop/dig, cont. apix, plan for outpatient [facility]/CV
#Dispo - from a CV perspective, patient stable for discharge, pain management is currently limiting factor
Physical Exam
Vital Signs/Labs
Vital Signs
Temp Pulse Resp BP Pulse Ox
37.4 C 80 18 113/58 95
08/09/24 15:13 08/09/24 15:13 08/09/24 15:13 08/09/24 15:13 08/09/24 15:13
08/08/24 08/09/24 08/10/24
06:59 06:59 06:59
Actual Weight 66.769 kg
08/08/24 14:46
08/09/24 07:47
LAB Results
08/08/24 08/08/24 08/09/24
14:46 20:25 01:54
Troponin I 0.021 0.029 D 0.023
08/09/24
07:47
Troponin I 0.027
Physical Exam
Constitutional: No acute distress
Cardiovascular: Rhythm & rate is regular
Respiratory: Respiratory effort normal
Neuro/Psych: AO x 3
Data Reviewed
-
Date of Service: August 09, 2024
Medical Decision Making: Reviewed Test Results
EKG: Tracing Personally Visualized and interpreted
Echo: Tracing Personally Visualized and interpreted
X-Ray/CT/US/MRI/NUC/PET: Image Personally Visualized and interpreted
Labs: Labs Reviewed by me
[2024-08-09] MEDS: TOPROL XL PO (19:14)
[2024-08-09] MEDS: TYLENOL PO (23:02)
[2024-08-10] VITALS (7 sets, daily range): BP systolic 104–149; BP diastolic 58–71; PULSE 67; O2SAT 92; BMI 26.0
[2024-08-10] MEDS: MORPHINE SULFATE 1 MG IV (00:46)
[2024-08-10] MEDS: TYLENOL PO ×3 (03:36→21:40)
[2024-08-10] MEDS: SYNTHROID 100 MCG PO (05:10)
--- NOTE | 2024-08-10 07:14 | W.PN.HOSP.TC ---
Today's Communication/Plan
-
wean O2 as tolerated
Pulm eval
Check MRI thoracic cervical spine
Assessment / Plan
Assessment / Plan
Physical Exam
General: mild moderate distress due to back pain, appears relatively comfortable at rest
HEENT: NormoCephalic, Moist mucous membranes and Atraumatic
Respiratory: Clear and Non Labored Respirations
Cardiac: S1/S2, Regular Rhythm and Murmur
GI: Soft, Non Tender, Non Distended and Normal Bowel Sounds; No Organomegaly
Musculoskeletal: No Clubbing, No Cyanosis and No Edema, upper back paraspinal tenderness, tenderness back of neck
Neuro: AOx3 conversant coherent
Psych: Calm
84F CABG/SAVR 2007 TAVR [place] Thrombus HFpEF afib Hypothyroidism HTN HLD here for intractable back pain unclear etiology.
#Sever upper Back pain w/ radiation to b/l arms, unclear etiology suspect musculoskeletal
Chest/Abdomen/Pelvis CTA appreciated:
No CTA evidence for a dissection, aneurysm, or intramural hematoma of the thoracic aorta or abdominal aorta. TAVR prosthesis is in place. Small bilateral pleural effusions. Bilateral diffuse hazy groundglass and reticulonodular nodule pulmonary
parenchymal opacities. Findings suspicious for pulmonary edema, although possibly superimposed bronchiolitis and/or aspiration pneumonitis.
-Monitor on Tele
- pain control prn Tramadol Morphine, scheduled Tylenol Q4HWA, lidocaine patches, Bengay-like cream
- ECHO results appreciated
-neg troponin x 4
-Consult Cardiology appreciated pain unlikely cardiac related
-Thoracic Lumbar X-ray appreciated severe degenerative disc disease, no acute fx noted
-Checking MRI spine thoracic lumbar
#Acute Hypoxia
wean O2 supplementation as tolerated
08/09/24 Home oxygen assessment appreciated 1.5L need with ambulation
Pulm eval requested
#Possible acute on chronic HFpEF
- daily weights
- I & Os
- continue furosemide switched from PO 40 mg daily to IV 40 mg BID
#essential hypertension
- continue furosemide as above
#hypothyroidism
- continue levothyroxine
#atrial fibrillation/flutter
- continue Eliquis, digoxin and metoprolol
#depression/anxiety
- continue sertraline and lorazepam
#aortic valve stenosis
#hyperlipidemia
#bioprosthetic valve stenosis/moderate insufficiency
#CAD
#Hx squamous cell carcinoma
PT/OT appreciated home health
Code status: DNR
DVT prophylaxis: Eliquis
Discussed with patient and patient's daughter Kianna at bedside
I spent a total of 45 minutes with the patient or on the floor. More than 50% of this time involved counseling and coordination of care.
Anticipated Discharge: 24 - 48 hours
Subjective/Interval History
-
Date of Service: August 10, 2024
no acute distress resting comfortably in bed. Reports improvemement in pain control. Weaned off oxygen supplementation on room air.
Objective Data
-
Labs:
Laboratory Results
08/10/24
06:00
WBC Pending
Hgb Pending
Hct Pending
Plt Count Pending
Sodium Pending
Potassium Pending
Chloride Pending
Carbon Dioxide Pending
BUN Pending
Creatinine Pending
Glucose Pending
Calcium Pending
Vital Signs:
Vital Signs
Temp Pulse Resp BP Pulse Ox
98.0 F 63 16 131/58 94
08/10/24 03:36 08/10/24 03:36 08/10/24 03:36 08/10/24 03:36 08/10/24 03:36
I&O
08/09/24 08/10/24 08/11/24
06:59 06:59 06:59
Intake Total 480 / 480 940 / 940
Balance 480 / 480 940 / 940
[2024-08-10 08:50] LABS: Hematocrit 28.2 % (37.0-47.0); Hemoglobin 9.4 g/dL (12.0-16.0); Mean Corp Hgb Conc. 33.3 g/dL (33.0-37.0); Mean Corpuscular Hgb 34.1 pg (27.0-31.0); Mean Corpuscular Volume 102.2 fL (81.0-99.0); Mean Platelet Volume 9.6 fL (7.4-10.4); Platelet Count 256 10^3/uL (130-400); Red Blood Cell Count 2.76 10^6/uL (4.20-5.40); Red Cell Dist. Width 14.9 % (11.5-14.5); White Blood Cell Count 5.7 10^3/uL (4.8-10.8)
[2024-08-10] MEDS: BenGay-Like TOPICAL ×2 (08:53→17:14)
[2024-08-10] MEDS: ULTRAM 25 MG PO ×2 (08:54→17:23)
[2024-08-10] MEDS: VITAMIN D3 (cholecalciferol) 25 MCG PO (08:55)
[2024-08-10] MEDS: TYLENOL 650 MG PO ×3 (08:55→21:49)
[2024-08-10] MEDS: VITAMIN C 500 MG PO (08:56)
[2024-08-10] MEDS: OCUVITE SOFTGEL 1 CAP PO ×2 (08:56→19:49)
[2024-08-10] MEDS: ZOLOFT 75 MG PO (08:56)
[2024-08-10] MEDS: TOPROL XL 100 MG PO (08:56)
[2024-08-10] MEDS: LASIX 40 MG PO (08:56)
[2024-08-10] MEDS: VITAMIN B-12 1000 MCG PO (08:56)
[2024-08-10] MEDS: KCL 20 MEQ PO (08:57)
[2024-08-10] MEDS: NEURONTIN 100 MG PO ×3 (08:57→22:00)
[2024-08-10] MEDS: LIDOCAINE 4% PATCH TOPICAL (08:57)
[2024-08-10] MEDS: MIRALAX PO (08:57)
[2024-08-10] MEDS: ELIQUIS 5 MG PO ×2 (08:57→19:49)
[2024-08-10 09:37] LABS: Blood Urea Nitrogen 12 mg/dl (7-17); Calcium 8.7 mg/dl (8.4-10.2); Carbon Dioxide 28 mmol/L (22-30); Chloride 104 mmol/L (98-107); Glucose 95 mg/dl (70-99); Magnesium 2.1 mg/dl (1.6-2.3); Phosphorus 4.2 mg/dl (2.5-4.5); Potassium 3.8 mmol/L (3.5-5.1); Sodium 140 mmol/L (135-145)
[2024-08-10 09:46] LABS: Estimated Creatinine Clearance 57 ml/min; eGFR > 60.00
[2024-08-10] MEDS: LANOXIN 125 MCG PO (13:05)
[2024-08-10] MEDS: BenGay-Like 1 APPLIC TOPICAL ×2 (13:06→21:57)
[2024-08-10] MEDS: ATIVAN 0.5 MG PO (17:13)
--- NOTE | 2024-08-10 18:14 | CON.PUL ---
Consultation
Consultation Request
Date/Time Consultation Requested: 08/10/2024 - 1205
Date/Time Consultation Performed: 08/10/2024 - 1433
Requesting Provider: Dr. Johnson
Performing Provider: Dr. Comer
Reason for Consultation: Hypoxia
Medical History
-
Chief Complaint: Back pain/shoulder pain with SOB
History of Present Illness:
84-year-old female non-smoker with a past medical history of depression, anxiety, hypothyroidism, history of severe bioprosthetic aortic valve stenosis s/p [id number] TAVR (07/23/2024), hypertension, hyperlipidemia, GERD, valvular heart disease,
chronic HFpEF, and persistent A-fib on Eliquis who presented with severe back pain with radiation to the elbows. She says that the symptoms started the day after her TAVR procedure earlier this month. Also under a lot of stress regarding her
who is now in hospice. She endorses exertional shortness of breath with constipation as well. No cough or chest pain. She was initially afebrile with heart rate 98, BP 153/78, initially saturating 98% on room air and respiratory rate 16.
Labs significant for Hb 10.7, absolute eosinophil count 300, and troponin negative at 0.021. CTA chest/abdomen/pelvis showed no evidence of aortic dissection, aneurysm or intramural hematoma, and there was bilateral diffuse hazy groundglass and
reticulonodular pulmonary parenchymal opacities with small bilateral pleural effusions. Patient was given morphine in the ER + Zofran. Also given Dilaudid. She was admitted to the hospitalist service and has required between 1-2 L/min nasal
cannula. Pulmonary service now consulted for additional management/recommendations.
When I saw the patient, she was resting in bed in no acute distress. She has a chronic cough with mild phlegm production which is green with specks of red. She is able to take a deep breath although she endorses shortness of breath with exertion.
She is currently on 1.5 L/min nasal cannula and does not use oxygen at home. She is a non-smoker.
PMHx: Alopecia universalis, hypertension, right eye cataract, hypothyroidism, aortic valve replacement c/b severe bioprosthetic valve stenosis s/p valve�in�valve TAVR (07/23/2024), hyperlipidemia, seasonal allergies, CAD s/p CABG x 1 (2007),
depression/anxiety, knee OA, history of shingles (2003), left eye macular degeneration, vitamin D deficiency, colon polyps, insomnia, history of COVID-19 (02/2023), A-fib on Eliquis
PSHx: Cholecystectomy, ABY/BSO, left TKA, right cataract surgery, CABG, aortic valve prosthesis, cardioversion, TAVR (07/23/2024)
Past Medical History
Past Medical History: Other (Above as per HPI)
Past Surgical History: Other (Above as per HPI)
Social History
Tobacco: Non-smoker
Alcohol: Occasional
Drug: None
Personal:
Living: With Family
Family History
Family History: Cancer (Father: Prostate cancer), Diabetes (Father) and Other (Father + sister: Stroke; mother: CHF)
Allergies / Home Medications
Allergies
Allergy/AdvReac Type Severity Reaction Status Date / Time
pollen extracts Allergy seasonal Verified 08/08/24 14:31
allergies
Home Medications
�Medication �Instructions �Recorded �Confirmed �Last Taken �Type
cholecalciferol (vitamin D3) 25 1,000 units PO DAILY Supplement 07/15/21 08/08/24 08/08/24 History
mcg (1,000 unit) tablet
cyanocobalamin (vitamin B-12) 1,000 mcg PO DAILY Supplement 07/15/21 08/08/24 08/08/24 History
1,000 mcg tablet
levothyroxine 100 mcg tablet 100 mcg PO DAILY Thyroid 07/15/21 08/08/24 08/08/24 History
ascorbate calcium (vitamin C) 500 500 mg PO DAILY Supplement 05/30/24 08/08/24 08/08/24 History
mg tablet
sertraline 50 mg tablet 75 mg PO DAILY Depression 05/30/24 08/08/24 08/08/24 History
vit C 250 mg-vit E 90 mg-zinc 40 1 tab PO BID Supplement 05/30/24 08/08/24 08/08/24 History
mg-copper 1 [id number]
capsule (PreserVision AREDS-2)
acetaminophen 650 mg 1,300 mg PO [id number] PRN mild pain 06/09/24 08/08/24 08/06/24 History
tablet,extended release
furosemide 40 mg tablet 40 mg PO DAILY Fluid 06/09/24 08/08/24 08/08/24 History
Retention/Swelling
lorazepam 0.5 mg tablet 0.5 mg PO DAILY@1600 Mental 07/15/24 08/08/24 08/07/24 History
Health/Anxiety
apixaban 5 mg tablet (Eliquis) 5 mg PO BID Blood clot 07/23/24 08/08/24 08/08/24 Rx
prevention/tx 30 days #60 tabs
potassium chloride 20 mEq 20 meq PO DAILY Electrolyte 07/23/24 08/08/24 08/08/24 History
tablet,extended release(part/cryst) Repletion
digoxin 125 mcg (0.125 mg) tablet 125 mcg PO NOON 30 days #30 tabs 07/25/24 08/08/24 08/07/24 Rx
ibuprofen 200 mg tablet (Advil) 200 mg PO DAILYPRN PRN MILD PAIN 08/08/24 08/08/24 08/08/24 History
metoprolol succinate 50 mg 100 mg PO BID Arrhythmia 08/08/24 08/08/24 08/08/24 History
tablet,extended release 24 hr
polyethylene glycol 3350 17 gram 8.5 g PO DAILY Constipation 08/08/24 08/08/24 08/08/24 History
oral powder packet (Miralax)
Review of Systems
-
History Source: Patient
All other systems: Negative unless noted
Vitals / Labs / Diagnostic Testing
Vital Signs
Temp Pulse Resp BP Pulse Ox
98.0 F 66 16 146/66 97
08/10/24 23:04 08/10/24 23:04 08/10/24 23:04 08/10/24 23:04 08/10/24 23:04
Diagnostic Testing:
Physical Exam
-
HEENT: Normocephalic and Anicteric
Cardiovascular: Irregular Rhythm (Irregularly irregular), Murmur (BARBI heard across precordium) and Peripheral Edema (negative)
Respiratory: Wheeze (negative), Rales ([place] in posterior right midlung region), Rhonchi (negative) and Non-Labored Respirations
GI: Soft, Non Distended, Non Tender and Normal Bowel Sounds
Neurology: AO x 3 and Tremors (negative)
Skin: Warm and Dry
General: Respiratory Distress (negative), Comfortable, Fever (negative) and Chills (negative)
Assessment
-
Assessment: 84-year-old female non-smoker with a past medical history of depression, anxiety, hypothyroidism, history of severe bioprosthetic aortic valve stenosis s/p [id number] TAVR (07/23/2024), hypertension, hyperlipidemia, GERD, valvular
heart disease, chronic HFpEF, and persistent A-fib on Eliquis who presented with severe back pain with radiation to the elbows. She says that the symptoms started the day after her TAVR procedure earlier this month. Also under a lot of stress
regarding her who is now in hospice. She endorses exertional shortness of breath with constipation as well. No cough or chest pain. She was initially afebrile with heart rate 98, BP 153/78, initially saturating 98% on room air and
respiratory rate 16. Labs significant for Hb 10.7, absolute eosinophil count 300, and troponin negative at 0.021. CTA chest/abdomen/pelvis showed no evidence of aortic dissection, aneurysm or intramural hematoma, and there was bilateral diffuse
hazy groundglass and reticulonodular pulmonary parenchymal opacities with small bilateral pleural effusions. Patient was given morphine in the ER + Zofran. Also given Dilaudid. She was admitted to the hospitalist service and has required between
1-2 L/min nasal cannula. Pulmonary service now consulted for additional management/recommendations.
Chronic conditions [employer]: Alopecia universalis, hypertension, right eye cataract, hypothyroidism, aortic valve replacement c/b severe bioprosthetic valve stenosis s/p valve�in�valve TAVR (07/23/2024), hyperlipidemia, seasonal allergies, CAD s/p CABG x
1 (2007), depression/anxiety, knee OA, history of shingles (2003), left eye macular degeneration, vitamin D deficiency, colon polyps, insomnia, history of COVID-19 (02/2023), A-fib on Eliquis
Impression:
#Acute hypoxic respiratory failure likely due to acute decompensated heart failure +/- small airway disease
#Anemia
#Aortic valve replacement c/b severe bioprosthetic valve stenosis s/p valve�in�valve TAVR (07/23/2024
#Severe back pain with radiation to elbows bilaterally
#Hyperlipidemia
#CAD s/p CABG x 1 (2007)
#Insomnia
#History of COVID-19 (02/2023)
#A-fib on Eliquis
Plan:
- I compared the patient's most recent CTA chest on 08/08/[address] TAVR on 06/18/2024, and she now has bilateral pleural effusions, albeit small, and perihilar bilateral groundglass opacities that were present previously although it appears more
prominent now
- She also has regions of bronchial wall thickening with areas of subpleural opacities which could be due to small airways disease
- Check proBNP; would diurese and assess for improvement in her respiratory status and oxygen requirements
- I will check a bedside spirometry to assess for an obstructive lung defect although I do not see evidence of emphysema on her CT chest imaging & she is a non-smoker, however she could have reactive airway disease/small airways disease especially
given the bronchial wall thickening and subpleural opacities seen on CT chest imaging
- If spirometry is suggestive of small airways disease/RAD then I will start her on LABA/ICS
- In the meantime, will add prn DuoNebs and would diurese her more aggressively at least for 1-2 days to make her net negative and see if she has improvement in O2 requirements and dyspnea
- Patient is awaiting MRI C+ T-spine to further evaluate for musculoskeletal/neurological causes of her shoulder with radiating upper extremity pain
- Maintain SpO2 >90-94% with supplemental O2 and wean down as tolerated
- Would check an ambulatory pulse oximetry prior to discharge
- Incentive spirometer encouraged q1hr while awake
- PT/OT
- Replete electrolytes with K>4, Mg>2
- Trend H/H and transfuse if needed to keep Hb>7g/dL; keep plt>20k, unless there is concern for bleeding then keep plt>50k
- Maintain euglycemia with goal BG >100 and <180
- DVT ppx: Eliquis
Code status: DNR/DNI
Pulmonary service will continue to follow along. I will also arrange for outpatient pulmonary office follow-up for full PFTs and continued symptom monitoring/management.
Data:
CTA Chest/Abd/Pelvis w/wo 08/08/2024:
No CTA evidence for a dissection, aneurysm, or intramural hematoma of the thoracic aorta or abdominal aorta. TAVR prosthesis is in place.
Small bilateral pleural effusions.
Bilateral diffuse hazy groundglass and reticulonodular nodule pulmonary parenchymal opacities. Findings suspicious for pulmonary edema, although possibly superimposed bronchiolitis and/or aspiration pneumonitis.
Total time spent today was 58 minutes for this encounter. Time includes reviewing laboratory test/imaging results, reviewing pertinent medical records, obtaining and reviewing medical history, performing an appropriate exam, ordering medications,
tests and procedures. Time also includes documentation of this encounter, coordinating patient care and communicating with other healthcare professionals. Total time does not include separately billed tests performed on this date of service.
Patient was seen and evaluated on 08/10/2024
[2024-08-10] MEDS: TOPROL XL 50 MG PO (22:28)
[2024-08-10] MEDS: TOPROL XL PO (22:28)
--- NOTE | 2024-08-10 22:30 | PTCARENOTE ---
Per MAY pts toprol 100 mg held 08/10 1999 dose, on tele review pts HR noted to be dropping to 40s at times after medication was held. Pts HR 70s throughout begining of shift. House [employer] aware. Order for 50 mg Toprol XL to be given.
[2024-08-11] VITALS (7 sets, daily range): BP systolic 105–157; BP diastolic 52–91; PULSE 68; O2SAT 97; BMI 26.2
[2024-08-11] MEDS: TYLENOL PO ×3 (01:08→23:21)
[2024-08-11] MEDS: TYLENOL 650 MG PO ×4 (03:44→21:03)
[2024-08-11] MEDS: SYNTHROID 100 MCG PO (05:18)
[2024-08-11] MEDS: ULTRAM 25 MG PO ×3 (05:25→22:13)
--- NOTE | 2024-08-11 07:00 | W.PN.HOSP.TC ---
Today's Communication/Plan
-
wean O2 supplementation as tolerated
repeat Home oxygen assessment in AM
IV Lasix BID
Pain control
Follow up bedside spirometry results
Possible discharge tomorrow Home with home services
Assessment / Plan
Assessment / Plan
Physical Exam
General: mild moderate distress due to back pain, appears relatively comfortable at rest
HEENT: NormoCephalic, Moist mucous membranes and Atraumatic
Respiratory: Clear and Non Labored Respirations
Cardiac: S1/S2, Regular Rhythm and Murmur
GI: Soft, Non Tender, Non Distended and Normal Bowel Sounds; No Organomegaly
Musculoskeletal: No Clubbing, No Cyanosis and No Edema, upper back paraspinal tenderness, tenderness back of neck
Neuro: AOx3 conversant coherent
Psych: Calm
84F CABG/SAVR 2007 TAVR [place] Thrombus HFpEF afib Hypothyroidism HTN HLD here for intractable back pain unclear etiology.
#Sever upper Back pain w/ radiation to b/l arms, unclear etiology suspect musculoskeletal
Chest/Abdomen/Pelvis CTA appreciated:
No CTA evidence for a dissection, aneurysm, or intramural hematoma of the thoracic aorta or abdominal aorta. TAVR prosthesis is in place. Small bilateral pleural effusions. Bilateral diffuse hazy groundglass and reticulonodular nodule pulmonary
parenchymal opacities. Findings suspicious for pulmonary edema, although possibly superimposed bronchiolitis and/or aspiration pneumonitis.
-Monitor on Tele
- pain control prn Tramadol Morphine, scheduled Tylenol Q4HWA, lidocaine patches, Bengay-like cream
- ECHO results appreciated
-neg troponin x 4
-Consult Cardiology appreciated pain unlikely cardiac related
-Thoracic Lumbar X-ray appreciated severe degenerative disc disease, no acute fx noted
-MRI spine thoracic lumbar results reviewed no acute fractures noted, severe degenerative disc disease, disc herniations w mild spinal cord compressions
-Outpt Orthopedic [facility] follow up recommended
#Acute Hypoxia
wean O2 supplementation as tolerated
08/09/24 Home oxygen assessment appreciated 1.5L need with ambulation
Pulmarisol edwards appreciated possible reactive airway disease awaiting bedside spirometry results
#Possible acute on chronic HFpEF
- daily weights
- I & Os
- continue furosemide switched from PO 40 mg daily to IV 40 mg BID
#essential hypertension
- continue furosemide as above
#hypothyroidism
- continue levothyroxine
#atrial fibrillation/flutter
- continue Eliquis, digoxin and metoprolol
#depression/anxiety
- continue sertraline and lorazepam
#aortic valve stenosis
#hyperlipidemia
#bioprosthetic valve stenosis/moderate insufficiency
#CAD
#Hx squamous cell carcinoma
PT/OT appreciated home health
Code status: DNR
DVT prophylaxis: Eliquis
Discussed with patient and patient's daughter Kianna at bedside
I spent a total of 45 minutes with the patient or on the floor. More than 50% of this time involved counseling and coordination of care.
Anticipated Discharge: 24 - 48 hours
Subjective/Interval History
-
Date of Service: August 11, 2024
No acute distress, ambulating without issues or need for assist device. Back pain persists but tolerable with current pain regimen. Remains oxygen dependent.
Objective Data
-
Labs:
Laboratory Results
08/11/24
06:00
WBC Pending
Hgb Pending
Hct Pending
Plt Count Pending
Sodium Pending
Potassium Pending
Chloride Pending
Carbon Dioxide Pending
BUN Pending
Creatinine Pending
Glucose Pending
Calcium Pending
Vital Signs:
Vital Signs
Temp Pulse Resp BP Pulse Ox
98.2 F 62 18 140/67 98
08/11/24 03:44 08/11/24 03:44 08/11/24 03:44 08/11/24 03:44 08/11/24 03:44
I&O
08/10/24 08/11/24 08/12/24
06:59 06:59 06:59
Intake Total 940 / 940 720 / 720
Balance 940 / 940 720 / 720
[2024-08-11 07:58] LABS: Hematocrit 28.6 % (37.0-47.0); Hemoglobin 9.3 g/dL (12.0-16.0); Mean Corp Hgb Conc. 32.5 g/dL (33.0-37.0); Mean Corpuscular Hgb 33.9 pg (27.0-31.0); Mean Corpuscular Volume 104.4 fL (81.0-99.0); Mean Platelet Volume 9.5 fL (7.4-10.4); Platelet Count 255 10^3/uL (130-400); Red Blood Cell Count 2.74 10^6/uL (4.20-5.40); Red Cell Dist. Width 14.6 % (11.5-14.5); White Blood Cell Count 6.3 10^3/uL (4.8-10.8)
[2024-08-11 08:18] LABS: Blood Urea Nitrogen 13 mg/dl (7-17); Calcium 8.8 mg/dl (8.4-10.2); Carbon Dioxide 29 mmol/L (22-30); Chloride 106 mmol/L (98-107); Estimated Creatinine Clearance 57 ml/min; Glucose 93 mg/dl (70-99); Magnesium 2.1 mg/dl (1.6-2.3); Potassium 3.9 mmol/L (3.5-5.1); Sodium 139 mmol/L (135-145); eGFR > 60.00
[2024-08-11] MEDS: BenGay-Like 1 APPLIC TOPICAL ×4 (10:13→22:11)
[2024-08-11] MEDS: VITAMIN D3 (cholecalciferol) 25 MCG PO (10:14)
[2024-08-11] MEDS: VITAMIN C 500 MG PO (10:14)
[2024-08-11] MEDS: OCUVITE SOFTGEL 1 CAP PO ×2 (10:14→21:03)
[2024-08-11] MEDS: NEURONTIN 100 MG PO ×3 (10:14→22:10)
[2024-08-11] MEDS: ELIQUIS 5 MG PO ×2 (10:14→21:02)
[2024-08-11] MEDS: KCL 20 MEQ PO (10:14)
[2024-08-11] MEDS: VITAMIN B-12 1000 MCG PO (10:14)
[2024-08-11] MEDS: LIDOCAINE 4% PATCH TOPICAL (10:15)
[2024-08-11] MEDS: MIRALAX 8.5 GRAMS PO (10:15)
[2024-08-11] MEDS: TOPROL XL 50 MG PO ×2 (10:15→21:03)
[2024-08-11] MEDS: LASIX 40 MG IV ×2 (10:16→16:30)
[2024-08-11] MEDS: ZOLOFT 75 MG PO (10:17)
--- NOTE | 2024-08-11 10:25 | PTCARENOTE ---
Pt off unit for MRI, 0800 meds given upon pt's return. Holter monitor removed in MRI, delivered to cardiac services.
[2024-08-11] MEDS: VENTOLIN NEBULES 2.5 MG INH (10:46)
[2024-08-11] MEDS: LANOXIN 125 MCG PO (11:28)
[2024-08-11 12:19] LABS: Iron 41 ug/dl (37-170)
[2024-08-11 13:26] LABS: Folate > 20.0 ng/ml (2.76-20); Vitamin B12 945 pg/ml (239-931)
[2024-08-11 14:22] LABS: Percent Saturation 10 % (20-50); Total Iron Binding Capacity 385 ug/dl (265-497)
[2024-08-11] MEDS: ATIVAN 0.5 MG PO (16:30)
--- NOTE | 2024-08-11 16:41 | W.PN.PUL3 ---
Today's Communication / Plan
-
Follow-up spirometry - -> If spirometry is suggestive of small airways disease/RAD then I will start her on LABA/ICS (absolute eosinophil count: 300)
MRI C/T-spine shows multiple areas of severe degenerative spondylosis with areas of cord compression involving C4/5, which could be contributing to her SOB due to its impact on the phrenic nerve
PT/OT
Aggressive diuresis x 1-2 days while trending BMP with daily weight and strict I/O (unclear what her dry weight is)
prn DuoNebs
Pain control
Outpatient pulmonary office follow-up will be arranged for full PFTs and symptom monitoring/management
Pulmonary service will continue to follow along
Assessment
-
Assessment: 84-year-old female non-smoker with a past medical history of depression, anxiety, hypothyroidism, history of severe bioprosthetic aortic valve stenosis s/p [id number] TAVR (07/23/2024), hypertension, hyperlipidemia, GERD, valvular
heart disease, chronic HFpEF, and persistent A-fib on Eliquis who presented with severe back pain with radiation to the elbows. She says that the symptoms started the day after her TAVR procedure earlier this month. Also under a lot of stress
regarding her who is now in hospice. She endorses exertional shortness of breath with constipation as well. No cough or chest pain. She was initially afebrile with heart rate 98, BP 153/78, initially saturating 98% on room air and
respiratory rate 16. Labs significant for Hb 10.7, absolute eosinophil count 300, and troponin negative at 0.021. CTA chest/abdomen/pelvis showed no evidence of aortic dissection, aneurysm or intramural hematoma, and there was bilateral diffuse
hazy groundglass and reticulonodular pulmonary parenchymal opacities with small bilateral pleural effusions. Patient was given morphine in the ER + Zofran. Also given Dilaudid. She was admitted to the hospitalist service and has required between
1-2 L/min nasal cannula. Pulmonary service now consulted for additional management/recommendations.
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
1 (2007), depression/anxiety, knee OA, history of shingles (2003), left eye macular degeneration, vitamin D deficiency, colon polyps, insomnia, history of COVID-19 (02/2023), A-fib on Eliquis
Impression:
#Acute hypoxic respiratory failure likely due to acute decompensated heart failure +/- small airway disease
#Anemia
#Aortic valve replacement c/b severe bioprosthetic valve stenosis s/p valve�in�valve TAVR (07/23/2024)
#Severe back pain with radiation to elbows bilaterally
#Hyperlipidemia
#CAD s/p CABG x 1 (2007)
#Insomnia
#History of COVID-19 (02/2023)
#A-fib on Eliquis
Plan:
- I compared the patient's most recent CTA chest on 08/08/[address] TAVR on 06/18/2024, and she now has bilateral pleural effusions, albeit small, and perihilar bilateral groundglass opacities that were present previously although it appears more
prominent now
- She also has regions of bronchial wall thickening with areas of subpleural opacities which could be due to small airways disease
- Check proBNP; would diurese and assess for improvement in her respiratory status and oxygen requirements --> now on lasix 40mg IV BID
- I will check a bedside spirometry to assess for an obstructive lung defect although I do not see evidence of emphysema on her CT chest imaging & she is a non-smoker, however she could have reactive airway disease/small airways disease especially
given the bronchial wall thickening and subpleural opacities seen on CT chest imaging
- Spirometry performed today (08/11), awaiting report so that it can be interpreted
- If spirometry is suggestive of small airways disease/RAD then I will start her on LABA/ICS
- In the meantime, continue prn DuoNebs and would diurese her more aggressively at least for 1-2 days to make her net negative and see if she has improvement in O2 requirements and dyspnea
- Patient underwent MRI C+ T-spine to further evaluate for musculoskeletal/neurological causes of her shoulder with radiating upper extremity pain
- Imaging showed severe discogenic degenerative disease at C5-6 with areas of mild spinal cord compression at C4/5, and severe right neural foraminal narrowing at C4/5
- These specific nerves (C3, C4, C6) innervate the diaphragm hence any compression onto the nerves from severe arthritis will also negatively impact her breathing
- Maintain SpO2 >90-94% with supplemental O2 and wean down as tolerated
- Would check an ambulatory pulse oximetry prior to discharge
- Incentive spirometer encouraged q1hr while awake
- PT/OT
- Replete electrolytes with K>4, Mg>2
- Trend H/H and transfuse if needed to keep Hb>7g/dL; keep plt>20k, unless there is concern for bleeding then keep plt>50k
- Maintain euglycemia with goal BG >100 and <180
- DVT ppx: Eliquis
Code status: DNR/DNI
Pulmonary service will continue to follow along. I will also arrange for outpatient pulmonary office follow-up for full PFTs and continued symptom monitoring/management.
Data:
CTA Chest/Abd/Pelvis w/wo 08/08/2024:
No CTA evidence for a dissection, aneurysm, or intramural hematoma of the thoracic aorta or abdominal aorta. TAVR prosthesis is in place.
Small bilateral pleural effusions.
Bilateral diffuse hazy groundglass and reticulonodular nodule pulmonary parenchymal opacities. Findings suspicious for pulmonary edema, although possibly superimposed bronchiolitis and/or aspiration pneumonitis.
Total time spent today was 38 minutes for this encounter. Time includes reviewing laboratory test/imaging results, reviewing pertinent medical records, obtaining and reviewing medical history, performing an appropriate exam, ordering medications,
tests and procedures. Time also includes documentation of this encounter, coordinating patient care and communicating with other healthcare professionals. Total time does not include separately billed tests performed on this date of service.
Subjective Data
-
Date of Service:
Date of Service: August 11, 2024
Chief Complaint: Pulmonary Follow Up
Subjective:
Patient seen earlier this afternoon (late note entry). Currently resting in bed in no acute distress. On 2 L/min nasal cannula. Main complaint is back discomfort. Her cough is at baseline. She performed spirometry today.
Review of Systems
General: Other (Negative unless mentioned above)
Objective Data
Data Reviewed
Vital Signs / I&O / Oxygen:
Vital Signs
Temp Pulse Resp BP Pulse Ox
97.9 F 66 16 157/91 99
08/11/24 07:15 08/11/24 07:15 08/11/24 07:15 08/11/24 07:15 08/11/24 07:15
Intake and Output
08/10/24 08/11/24 08/12/24
06:59 06:59 06:59
Intake Total 940 / 940 720 / 720
Balance 940 / 940 720 / 720
SaO2 99
Nasal Cannula flow liters per 2
minute
Physical Exam
General: Respiratory Distress (negative), Comfortable, Chills (negative) and Sweats (negative)
HEENT: Normocephalic and Anicteric
Cardiovascular: S1-S2, Murmur (BARBI heard across precordium) and Peripheral Edema (+1 lower extremity edema bilaterally)
Respiratory: Wheeze (negative), Crackles (Bilaterally, heard best in posterior lung rossi), Rhonchi (negative) and Non-Labored Respirations
GI: Soft, Non Distended, Non Tender and Normal Bowel Sounds
Neurology: AO x 3 and Tremors (negative)
Skin: Warm, Dry, Cyanosis (negative) and Jaundice (negative)
Labs/Micro/Reports
Lab Data
08/11/24 07:01
08/11/24 07:01
[2024-08-11 17:50] LABS: Ferritin 48.9 ng/ml (11.1-264.0)
[2024-08-11 18:47] LABS: TSH Reflex To Free T4 1.22 uIU/ml (0.47-4.68)
[2024-08-11] MEDS: BenGay-Like TOPICAL (21:05)
[2024-08-12] VITALS (7 sets, daily range): BP systolic 102–142; BP diastolic 40–72; O2SAT 94; BMI 25.6
[2024-08-12] MEDS: TYLENOL PO (05:21)
[2024-08-12] MEDS: SYNTHROID 100 MCG PO (05:33)
[2024-08-12 08:00] LABS: Hematocrit 30.2 % (37.0-47.0); Hemoglobin 9.9 g/dL (12.0-16.0); Mean Corp Hgb Conc. 32.8 g/dL (33.0-37.0); Mean Corpuscular Hgb 33.7 pg (27.0-31.0); Mean Corpuscular Volume 102.7 fL (81.0-99.0); Mean Platelet Volume 9.1 fL (7.4-10.4); Platelet Count 263 10^3/uL (130-400); Red Blood Cell Count 2.94 10^6/uL (4.20-5.40); Red Cell Dist. Width 14.6 % (11.5-14.5); White Blood Cell Count 6.2 10^3/uL (4.8-10.8)
[2024-08-12 08:24] LABS: NT-proBNP 3440 pg/ml
[2024-08-12] MEDS: VITAMIN C 500 MG PO (08:31)
[2024-08-12] MEDS: TOPROL XL 50 MG PO ×2 (08:31→20:08)
[2024-08-12] MEDS: VITAMIN B-12 1000 MCG PO (08:31)
[2024-08-12] MEDS: TYLENOL 650 MG PO ×5 (08:31→23:10)
[2024-08-12] MEDS: ELIQUIS 5 MG PO ×2 (08:31→20:07)
[2024-08-12] MEDS: FEOSOL 325 MG PO (08:32)
[2024-08-12] MEDS: OCUVITE SOFTGEL 1 CAP PO ×2 (08:32→20:08)
[2024-08-12] MEDS: VITAMIN D3 (cholecalciferol) 25 MCG PO (08:32)
[2024-08-12] MEDS: ZOLOFT 75 MG PO (08:33)
[2024-08-12] MEDS: NEURONTIN 100 MG PO ×3 (08:33→21:58)
[2024-08-12] MEDS: BenGay-Like 1 APPLIC TOPICAL ×4 (08:34→21:58)
[2024-08-12] MEDS: KCL 20 MEQ PO (08:34)
[2024-08-12] MEDS: MIRALAX PO (08:34)
[2024-08-12] MEDS: LIDOCAINE 4% PATCH 2 PATCH TOPICAL (08:34)
[2024-08-12 08:48] LABS: Blood Urea Nitrogen 16 mg/dl (7-17); Calcium 8.9 mg/dl (8.4-10.2); Carbon Dioxide 34 mmol/L (22-30); Chloride 103 mmol/L (98-107); Estimated Creatinine Clearance 49 ml/min; Glucose 102 mg/dl (70-99); Phosphorus 3.9 mg/dl (2.5-4.5); Potassium 3.9 mmol/L (3.5-5.1); Sodium 141 mmol/L (135-145); eGFR > 60.00
[2024-08-12] MEDS: LASIX 40 MG IV (08:49)
--- NOTE | 2024-08-12 08:49 | W.PN.HOSP.TC ---
Today's Communication/Plan
-
Discharge tomorrow
Assessment / Plan
Assessment / Plan
84F CABG/SAVR 2007 TAVR [place] Thrombus HFpEF afib Hypothyroidism HTN HLD here for intractable back pain unclear etiology.
#Sever upper Back pain w/ radiation to b/l arms, unclear etiology suspect musculoskeletal
Chest/Abdomen/Pelvis CTA appreciated:
No CTA evidence for a dissection, aneurysm, or intramural hematoma of the thoracic aorta or abdominal aorta. TAVR prosthesis is in place. Small bilateral pleural effusions. Bilateral diffuse hazy groundglass and reticulonodular nodule pulmonary
parenchymal opacities. Findings suspicious for pulmonary edema, although possibly superimposed bronchiolitis and/or aspiration pneumonitis.
-Pain currently controlled with scheduled Tylenol Q4HWA, lidocaine patches, Bengay-like cream
-Appreciate cardiology input, pain is not cardiac in origin
-Thoracic Lumbar X-ray appreciated severe degenerative disc disease, no acute fx noted
-MRI spine thoracic lumbar results reviewed no acute fractures noted, severe degenerative disc disease, disc herniations w mild spinal cord compressions
-Outpt Orthopedic admission specialist follow up recommended
-PT rec home PT
-Plan for discharge home with home PT tomorrow
#Acute hypoxic respiratory insufficiency
Suspect secondary to atelectasis and poor inspiratory effort from severe upper back pain
Appreciate pulmonology input
Resolved, currently on room air as of 08/12/2024
Home oxygen evaluation performed, she does not need oxygen with activity
#Possible acute on chronic HFpEF
Currently on IV Lasix, will change back to oral
#essential hypertension
- continue furosemide as above
#hypothyroidism
- continue levothyroxine
#atrial fibrillation/flutter
- continue Eliquis, digoxin and metoprolol
#depression/anxiety
- continue sertraline and lorazepam
#aortic valve stenosis
#hyperlipidemia
#bioprosthetic valve stenosis/moderate insufficiency
#CAD
#Hx squamous cell carcinoma
PT/OT appreciated home health
Code status: DNR
DVT prophylaxis: Eliquis
Total time spent to see the patient on the floor, examine the patient, review data and lab results, discuss treatment plan with patient, nursing staff around 38 minutes.
Physical Exam
General: mild moderate distress due to back pain, appears relatively comfortable at rest
HEENT: NormoCephalic, Moist mucous membranes and Atraumatic
Respiratory: Clear and Non Labored Respirations
Cardiac: S1/S2, Regular Rhythm and Murmur
GI: Soft, Non Tender, Non Distended and Normal Bowel Sounds; No Organomegaly
Musculoskeletal: No Clubbing, No Cyanosis and No Edema, upper back paraspinal tenderness, tenderness back of neck
Neuro: AOx3 conversant coherent
Psych: Calm
Anticipated Discharge: Within 24 hours
Subjective/Interval History
-
Date of Service: August 12, 2024
Patient reports her upper back pain is controlled with lidocaine patches and Bengay. Denies shortness of breath. No fever, no vomiting.
Objective Data
-
Labs:
Laboratory Results
08/12/24
07:40
WBC 6.2
Hgb 9.9 L
Hct 30.2 L
Plt Count 263
Sodium 141
Potassium 3.9
Chloride 103
Carbon Dioxide 34 H
BUN 16
Creatinine 0.7
Glucose 102 H
Calcium 8.9
Vital Signs:
Vital Signs
Temp Pulse Resp BP Pulse Ox
98.1 F 69 20 137/72 99
08/12/24 07:30 08/12/24 08:31 08/12/24 07:30 08/12/24 08:31 08/12/24 07:30
I&O
08/11/24 08/12/24 08/13/24
06:59 06:59 06:59
Intake Total 720 / 720 960 / 960
Balance 720 / 720 960 / 960
[2024-08-12] MEDS: LANOXIN 125 MCG PO (12:43)
--- NOTE | 2024-08-12 14:19 | W.PN.PUL3 ---
Today's Communication / Plan
-
Oxygen has been weaned off
Continue diuresis at your discretion
Outpatient pulmonary follow-up
Recommend repeating CT chest in about 6 to 8 weeks to document complete resolution of mosaic perfusion
Full pulmonary function testing in the outpatient setting
Chronic coughing possibly due to related to postnasal drip will be addressed in the outpatient setting
Sign off
Assessment
-
Assessment: 84-year-old female non-smoker with a past medical history of depression, anxiety, hypothyroidism, history of severe bioprosthetic aortic valve stenosis s/p [id number] TAVR (07/23/2024), hypertension, hyperlipidemia, GERD, valvular
heart disease, chronic HFpEF, and persistent A-fib on Eliquis who presented with severe back pain with radiation to the elbows. She says that the symptoms started the day after her TAVR procedure earlier this month. Also under a lot of stress
regarding her who is now in hospice. She endorses exertional shortness of breath with constipation as well. No cough or chest pain. She was initially afebrile with heart rate 98, BP 153/78, initially saturating 98% on room air and
respiratory rate 16. Labs significant for Hb 10.7, absolute eosinophil count 300, and troponin negative at 0.021. CTA chest/abdomen/pelvis showed no evidence of aortic dissection, aneurysm or intramural hematoma, and there was bilateral diffuse
hazy groundglass and reticulonodular pulmonary parenchymal opacities with small bilateral pleural effusions. Patient was given morphine in the ER + Zofran. Also given Dilaudid. She was admitted to the hospitalist service and has required between
1-2 L/min nasal cannula. Pulmonary service now consulted for additional management/recommendations.
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
1 (2007), depression/anxiety, knee OA, history of shingles (2003), left eye macular degeneration, vitamin D deficiency, colon polyps, insomnia, history of COVID-19 (02/2023), A-fib on Eliquis
Impression:
#Acute hypoxic respiratory failure likely due to acute decompensated heart failure +/- small airway disease
#Anemia
#Aortic valve replacement c/b severe bioprosthetic valve stenosis s/p valve�in�valve TAVR (07/23/2024)
#Severe back pain with radiation to elbows bilaterally
#Hyperlipidemia
#CAD s/p CABG x 1 (2007)
#Insomnia
#History of COVID-19 (02/2023)
#A-fib on Eliquis
Plan:
- I compared the patient's most recent CTA chest on 08/08/[address] TAVR on 06/18/2024, and she now has bilateral pleural effusions, albeit small, and perihilar bilateral groundglass opacities that were present previously although it appears more
prominent now
- She also has regions of bronchial wall thickening with areas of subpleural opacities which could be due to small airways disease
- proBNP 3440; continue diurese and assess for improvement in her respiratory status and oxygen requirements --> now on lasix 40mg IV BID
She is clinically better after diuresis-lung exam clear 08/12/2024.
Oxygen supplementation has been weaned off
She appears comfortable
Her main complaint is her back pain since admission.
- doubt small airways disease as she clinically improved after diuresis. Suspect mosaic perfusion on CAT scan is more related to heart failure/pulmonary hypertension.
CT of the chest will need to be repeated in the future in the next 6 to 8 weeks. Hold on inhaled therapy
- Patient underwent MRI C+ T-spine to further evaluate for musculoskeletal/neurological causes of her shoulder with radiating upper extremity pain
- Imaging showed severe discogenic degenerative disease at C5-6 with areas of mild spinal cord compression at C4/5, and severe right neural foraminal narrowing at C4/5
- These specific nerves (C3, C4, C6) innervate the diaphragm hence any compression onto the nerves from severe arthritis will also negatively impact her breathing
- Oxygen has been weaned off
Incentive spirometry encouraged
-
Back pain management per primary team
-
- DVT ppx: Eliquis
Code status: DNR/DNI
No additional recommendation from the pulmonary perspective.
Sign off
I will also arrange for outpatient pulmonary office follow-up for full PFTs and continued symptom monitoring/management.
Data:
CTA Chest/Abd/Pelvis w/wo 08/08/2024:
No CTA evidence for a dissection, aneurysm, or intramural hematoma of the thoracic aorta or abdominal aorta. TAVR prosthesis is in place.
Small bilateral pleural effusions.
Bilateral diffuse hazy groundglass and reticulonodular nodule pulmonary parenchymal opacities. Findings suspicious for pulmonary edema, although possibly superimposed bronchiolitis and/or aspiration pneumonitis.
Subjective Data
-
Date of Service:
Date of Service: August 12, 2024
Chief Complaint: Pulmonary Follow Up (Hypoxemic respiratory failure.)
Subjective:
From the pulmonary perspective feels better
Denies any increased cough and phlegm production
She has chronic cough due to postnasal drip
Main complaint is back pain which has been since admission
Review of Systems
Cardiopulmonary: Dyspnea (n), Dyspnea on Exertion and Cough (chronic)
GI: Abdominal Pain (n) and Nausea (n)
Neuro: Headache (n)
Objective Data
Data Reviewed
Vital Signs / I&O / Oxygen:
Vital Signs
Temp Pulse Resp BP Pulse Ox
97.7 F 76 18 102/40 99
08/12/24 11:23 08/12/24 12:43 08/12/24 11:23 08/12/24 11:23 08/12/24 11:30
Intake and Output
08/11/24 08/12/24 08/13/24
06:59 06:59 06:59
Intake Total 720 / 720 960 / 960
Balance 720 / 720 960 / 960
SaO2 99
Nasal Cannula flow liters per 2
minute
Physical Exam
General: Respiratory Distress (negative), Comfortable, Chills (negative) and Sweats (negative)
HEENT: Normocephalic and Anicteric
Cardiovascular: S1-S2, Murmur (BARBI heard across precordium) and Peripheral Edema (+1 lower extremity edema bilaterally)
Respiratory: Wheeze (negative), Crackles (Bilaterally, heard best in posterior lung rossi), Rhonchi (negative) and Non-Labored Respirations
GI: Soft, Non Distended, Non Tender and Normal Bowel Sounds
Neurology: AO x 3 and Tremors (negative)
Skin: Warm, Dry, Cyanosis (negative) and Jaundice (negative)
Labs/Micro/Reports
Lab Data
08/12/24 07:40
08/12/24 07:40
[2024-08-12] MEDS: ATIVAN 0.5 MG PO (16:14)
[2024-08-12] MEDS: MELATONIN 5 MG PO (23:11)
[2024-08-13 03:37] VITALS: BP 147/59
[2024-08-13] MEDS: TYLENOL PO (04:44)
[2024-08-13] MEDS: SYNTHROID 100 MCG PO (05:36)
[2024-08-13 06:00] VITALS: BMI 25.6
[2024-08-13 07:35] VITALS: BP 145/79
[2024-08-13] MEDS: VITAMIN B-12 1000 MCG PO (07:42)
[2024-08-13] MEDS: ZOLOFT 75 MG PO (07:43)
[2024-08-13] MEDS: VITAMIN C 500 MG PO (07:43)
[2024-08-13] MEDS: TYLENOL 650 MG PO ×2 (07:43→11:32)
[2024-08-13] MEDS: FEOSOL 325 MG PO (07:43)
[2024-08-13] MEDS: KCL 20 MEQ PO (07:43)
[2024-08-13] MEDS: OCUVITE SOFTGEL 1 CAP PO (07:43)
[2024-08-13] MEDS: NEURONTIN 100 MG PO (07:43)
[2024-08-13] MEDS: LIDOCAINE 4% PATCH 2 PATCH TOPICAL (07:44)
[2024-08-13] MEDS: ELIQUIS 5 MG PO (07:44)
[2024-08-13] MEDS: TOPROL XL 50 MG PO (07:44)
[2024-08-13] MEDS: VITAMIN D3 (cholecalciferol) 25 MCG PO (07:44)
[2024-08-13] MEDS: BenGay-Like 1 APPLIC TOPICAL (07:45)
[2024-08-13] MEDS: MIRALAX PO (07:45)
--- NOTE | 2024-08-13 08:20 | PN.CDI ---
CDI
- -
CDI:
Physician Documentation Request
Admit Date: 08/09/24 18:26
Dear Doctor Do,
Please review the following and provide your response in the progress notes.
Clinical Indicators:
- 08/12 PN 'atrial fibrillation/flutter'
- 08/08-08/09 EKG 'ATRIAL FLUTTER WITH VARIABLE A-V BLOCK'
- Atrial rate [id number]
If possible, please provide further specificity regarding atrial flutter, such as:
Typical Atrial Flutter - Type I: Classic or common atrial flutter, Rate is 240-340 beats/min. Usually responds to atrial pacing.
Atypical Atrial Flutter - Type II: Less common and more unstable. Rate is 340-440 beats/min. Less responsive to atrial pacing.
Other - please specify
Use of terms such as suspected, likely, concern for, or probable (associated with a specific diagnosis that is being evaluated, monitored, or treated as if it exists) are acceptable and can be coded in the inpatient setting, when documented at the
time of discharge.
Thank you,
Lissy Capellan RN
CDI Specialist
Please use your independent medical judgment in providing your response.
[2024-08-13 09:06] LABS: Blood Urea Nitrogen 17 mg/dl (7-17); Calcium 9.2 mg/dl (8.4-10.2); Carbon Dioxide 29 mmol/L (22-30); Chloride 103 mmol/L (98-107); Estimated Creatinine Clearance 57 ml/min; Glucose 94 mg/dl (70-99); Potassium 3.6 mmol/L (3.5-5.1); Sodium 140 mmol/L (135-145); eGFR > 60.00
--- NOTE | 2024-08-13 09:27 | W.PN.HOSP.TC ---
Today's Communication/Plan
-
Discharge today
Assessment / Plan
Assessment / Plan
84F CABG/SAVR 2007 TAVR [place] Thrombus HFpEF afib Hypothyroidism HTN HLD here for intractable back pain unclear etiology.
#Sever upper Back pain w/ radiation to b/l arms, unclear etiology suspect musculoskeletal
Chest/Abdomen/Pelvis CTA appreciated:
No CTA evidence for a dissection, aneurysm, or intramural hematoma of the thoracic aorta or abdominal aorta. TAVR prosthesis is in place. Small bilateral pleural effusions. Bilateral diffuse hazy groundglass and reticulonodular nodule pulmonary
parenchymal opacities. Findings suspicious for pulmonary edema, although possibly superimposed bronchiolitis and/or aspiration pneumonitis.
-Pain currently controlled with scheduled Tylenol Q4HWA, lidocaine patches, Bengay-like cream
-Appreciate cardiology input, pain is not cardiac in origin
-Thoracic Lumbar X-ray appreciated severe degenerative disc disease, no acute fx noted
-MRI spine thoracic lumbar results reviewed no acute fractures noted, severe degenerative disc disease, disc herniations w mild spinal cord compressions
-Outpt Orthopedic email specialist follow up recommended
-PT rec home PT
-Medically stable for discharge today
#Acute hypoxic respiratory insufficiency
Suspect secondary to atelectasis and poor inspiratory effort from severe upper back pain
Appreciate pulmonology input
Resolved, currently on room air as of 08/12/2024
Home oxygen evaluation performed, she does not need oxygen with activity
Follow-up with pulmonology in the office
#Possible acute on chronic HFpEF
Resolved on IV Lasix, continue home Lasix 40 mg p.o. daily
#essential hypertension
- continue furosemide as above
#hypothyroidism
- continue levothyroxine
# Persistent atrial fibrillation/typical atrial flutter
- continue Eliquis, digoxin and metoprolol
#depression/anxiety
- continue sertraline and lorazepam
#aortic valve stenosis
#hyperlipidemia
#bioprosthetic valve stenosis/moderate insufficiency
#CAD
#Hx squamous cell carcinoma
PT/OT appreciated home health
Code status: DNR
DVT prophylaxis: Eliquis
Physical Exam
General: mild moderate distress due to back pain, appears relatively comfortable at rest
HEENT: NormoCephalic, Moist mucous membranes and Atraumatic
Respiratory: Clear and Non Labored Respirations
Cardiac: S1/S2, Regular Rhythm and Murmur
GI: Soft, Non Tender, Non Distended and Normal Bowel Sounds; No Organomegaly
Musculoskeletal: No Clubbing, No Cyanosis and No Edema, upper back paraspinal tenderness, tenderness back of neck
Neuro: AOx3 conversant coherent
Psych: Calm
Anticipated Discharge: Today
Subjective/Interval History
-
Date of Service: August 13, 2024
Patient reports that her back pain is controlled with lidocaine patches and Bengay. She is witnessed walking around, getting ready and dressed in the bathroom. No chest pain, no shortness of breath. No fever, no vomiting.
Objective Data
-
Labs:
Laboratory Results
08/13/24
06:06
Sodium 140
Potassium 3.6
Chloride 103
Carbon Dioxide 29
BUN 17
Creatinine 0.6
Glucose 94
Calcium 9.2
Vital Signs:
Vital Signs
Temp Pulse Resp BP Pulse Ox
98.3 F 69 18 145/79 94
08/13/24 07:35 08/13/24 07:44 08/13/24 07:35 08/13/24 07:44 08/13/24 07:35
I&O
08/12/24 08/13/24 08/14/24
06:59 06:59 06:59
Intake Total 960 / 960 480 / 480
Balance 960 / 960 480 / 480
[2024-08-13 11:05] VITALS: BP 110/54
--- NOTE | 2024-08-13 11:28 | W.DCSUMMARY ---
Discharge Summary
Discharge Data
Date of Admission: 08/09/24
Date of Discharge: 08/13/24
-
Pending Results: No
Hospital Course
Discharge diagnosis:
Severe musculoskeletal upper back pain
Acute hypoxic respiratory insufficiency
Possible acute on chronic heart failure with a preserved ejection fraction
Essential hypertension
Hypothyroidism
Persistent atrial fibrillation/typical atrial flutter with no left atrial appendage thrombus
Severe aortic stenosis status post coronary artery bypass graft surgery plus aortic valve replacement with recent surgery on 07/23/2024
Consults: Cardiology, pulmonology
Chest/Abd CTA:
No CTA evidence for a dissection, aneurysm, or intramural hematoma of the thoracic aorta or abdominal aorta. TAVR prosthesis is in place.
Small bilateral pleural effusions.
Bilateral diffuse hazy groundglass and reticulonodular nodule pulmonary parenchymal opacities. Findings suspicious for pulmonary edema, although possibly superimposed bronchiolitis and/or aspiration pneumonitis.
Chest XR:
1. Mild bilateral perihilar ground-glass opacity which combined with moderate bilateral lung hyperinflation suggests obstructive small airways disease with multifocal air trapping and subsegmental atelectasis. Mild alveolar pulmonary edema is an
alternative diagnostic possibility.
2. Mild cardiomegaly.
3. Recent [id number] TAVR.
4. Severe calcification in the mitral annulus.
Cervical spine MRI:
1. Severe discogenic degenerative disease at C5/C6.
2. Moderate discogenic degenerative disease at C4/C5 and C6/C7.
3. Severe right-sided facet joint arthrosis at C4/C5 and C5/C6.
4. Osseous fusion across the right C3/C4 and T1/T2 facet joints.
5. Mild spinal cord compression at C4/C5, C5/C6, and C6/C7.
6. Severe right neural foraminal narrowing at C4/C5.
7. Mild anterolistheses of C3 on C4, C4 on C5, and C7 on T1.
8. Mild cervical kyphosis.
Thoracic spine MRI:
1. Mild multilevel thoracic discogenic degenerative disease.
2. Small multilevel thoracic disc herniations causing mild multilevel spinal cord compression.
3. Small to moderate-sized right pleural effusion.
4. Moderate cardiomegaly.
5. Moderate lower paratracheal lymphadenopathy.
Hospital course:
84-year-old female with a past medical history of persistent atrial fibrillation, known ALFREDO thrombus, HTN, CAD and severe s/p CABG + SAVR (2007) with severe bioprosthetic valve stenosis/moderate insufficiency leading to recurrent exacerbations of
HFpEF s/p bioprosthetic valve leaflet electrosurgical modification and John TAVR (07/23/2024) who was admitted with severe intractable upper back pain with radiation to the arms. Patient was initially seen in conjunction with cardiology due to her
recent bioprosthetic aortic valve leaflet electrosurgical modification on 07/23/2024. She had a chest/abdominal CTA that was negative. Cardiology states that her upper back pain is unrelated to her surgical procedure. Cardiology also states that
there is no evidence of ischemia or heart failure, or valve dysfunction. Cardiology feels that the pain is musculoskeletal in nature.
Patient had a cervical spine and thoracic spine MRI, which shows multilevel degenerative disc disease. She was treated with scheduled Tylenol, Bengay, lidocaine patches, and tramadol as needed. She was seen in conjunction with PT, who recommended
home PT.
Patient's hospital course was complicated by acute hypoxic respiratory insufficiency. She was seen in conjunction with pulmonology. Her chest/abdominal CTA shows bilateral diffuse hazy groundglass opacities which is suspicious for pulmonary edema.
Chest x-ray also showed atelectasis.. She was diuresed with IV Lasix. After several days, her back pain was controlled, and her hypoxia resolved. She was transitioned back to her home Lasix dose of 40 mg p.o. daily.
Patient is medically stable for discharge. She can continue scheduled lidocaine patches, Bengay as needed, Tylenol, and Motrin as needed. She needs to follow-up with her primary care doctor in 1 week, pulmonology in 2-4 weeks, and orthopedic
surgery as needed for her back pain.
Disposition: Home with home PT
Discharge planning: Required 39 minutes
Discharge Plan
-
Patient Disposition: Home with Home Care
Discharge Diagnosis/Procedures: Severe upper back pain, hypoxia, iron deficiency anemia
Condition: Good
Diet: Low Fat and Low Cholesterol
Activity: As tolerated
Driving Restrictions: As prior to admission
Activity Restrictions/Additional Instructions:
Please follow-up with pulmonology in the office in 2-4 weeks.
Recommend full pulmonary function testing and repeating CT chest in about 6 to 8 weeks with pulmonology.
You have iron deficiency anemia, recommend you take iron supplements every other day.
You may continue using lidocaine patches, Tylenol, and ibuprofen as needed for your back pain.
You can also continue using Bengay as needed, may purchase [id number].
Follow-up with your primary care doctor in 1 week, and orthopedic surgery as needed for your back pain.
Referrals:
César Comer MD [Active, Pulmonary Medicine] - in two to four weeks
Referral Note: Full PFTs on day of office visit
Collin Mary DO [Family Provider, Family Practice] - in one week
Darrell Collazo MD [Active, Orthopedics] - in two to four weeks
Prescriptions:
New
ferrous sulfate [FeroSul] 325 mg (65 mg iron) Tablet
325 mg PO Q OTHER DAY Qty: 30 0RF
lidocaine 4 % Adhesive Patch,Medicated
2 patch topical DAILY Qty: 30 0RF
gabapentin 100 mg Capsule
100 mg PO TID Qty: 90 0RF
Continued
levothyroxine 100 MCG tablet
100 mcg PO DAILY
cyanocobalamin (vitamin B-12) 1,000 MCG tablet
1,000 mcg PO DAILY
cholecalciferol (vitamin D3) 1,000 UNITS tablet
1,000 units PO DAILY
ascorbate calcium (vitamin C) 500 mg Tablet
500 mg PO DAILY
sertraline 50 mg Tablet
75 mg PO DAILY
PreserVision AREDS-2 250-90-40-1 mg Capsule
1 tab PO BID
furosemide 40 mg tablet
40 mg PO DAILY
lorazepam 0.5 mg Tablet
0.5 mg PO DAILY@1600
Eliquis 5 mg Tablet
5 mg PO BID 30 Days Qty: 60 0RF
potassium chloride 20 mEq Tablet,Er Particles/Crystals
20 meq PO DAILY
digoxin 125 mcg (0.125 mg) Tablet
125 mcg PO NOON 30 Days Qty: 30 1RF
polyethylene glycol 3350 [Miralax] 17 gram Powder In Packet
8.5 g PO DAILY
metoprolol succinate 50 mg tablet extended release 24 hr
100 mg PO BID
Changed
acetaminophen 650 mg Tablet Extended Release
1,300 mg PO TIDPRN PRN (Reason: mild pain) Qty: 0 0RF
ibuprofen [Advil] 200 mg Tablet
400 mg PO QIDPRN PRN (Reason: MILD PAIN) Qty: 0 0RF
Discharge Orders:
Discharge Patient (As Directed); Ordered 08/13/24
Ordered By: Srinivas Jin
Discharge Date and Time
Discharge Date/Time: 08/13/24 12:28
Print Language: SYRIAN
[2024-08-13] MEDS: LANOXIN 125 MCG PO (11:32)
--- NOTE | 2024-08-13 12:51 | CM ---
entered order for discharge.
[facility] is set up for patient .
Daughter drove her home.
IMM reviewed pt agrees with dc.
PLAN Home with [facility]
== END 2024-08-13 12:28 | disposition home health service (06) | DRG 551 ==
LOC: 4 EAST ACU 18:26
PROVIDERS: Internal Medicine; Nurse Practitioner Family; Student in an Organized Health Care Education/Training Program; ADMITTING PHYSICIAN Hospitalist; ATTENDING PHYSICIAN Family Medicine; CONSULT PHYSICIAN Internal Medicine Critical Care Medicine; EMERGENCY PHYSICIAN Emergency Medicine; FAMILY PHYSICIAN Family Medicine; OTHER PHYSICIAN Internal Medicine Cardiovascular Disease
DX: M54.6 Pain in thoracic spine (principal); I50.33 Acute on chronic diastolic (congestive) heart failure; I48.19 Other persistent atrial fibrillation; I48.3 Typical atrial flutter; J98.11 Atelectasis; M50.021 Cervical disc disorder at C4-C5 level with myelopathy; M50.022 Cervical disc disorder at C5-C6 level with myelopathy; M50.023 Cervical disc disorder at C6-C7 level with myelopathy; R09.02 Hypoxemia; I11.0 Hypertensive heart disease with heart failure; E03.9 Hypothyroidism, unspecified; M47.812 Spondylosis without myelopathy or radiculopathy, cervical region; M48.02 Spinal stenosis, cervical region; M43.12 Spondylolisthesis, cervical region; M40.202 Unspecified kyphosis, cervical region; Z95.3 Presence of xenogenic heart valve; Z79.890 Hormone replacement therapy; Z79.01 Long term (current) use of anticoagulants; E78.00 Pure hypercholesterolemia, unspecified; F32.A Depression, unspecified; F41.9 Anxiety disorder, unspecified; I25.10 Atherosclerotic heart disease of native coronary artery without angina pectoris; Z95.1 Presence of aortocoronary bypass graft; Z66 Do not resuscitate; D50.9 Iron deficiency anemia, unspecified; K59.00 Constipation, unspecified; Z80.42 Family history of malignant neoplasm of prostate; Z82.3 Family history of stroke; Z82.49 Family history of ischemic heart disease and other diseases of the circulatory system; Z83.3 Family history of diabetes mellitus; Z86.0100 Personal history of colon polyps, unspecified; Z86.16 Personal history of COVID-19; Z86.19 Personal history of other infectious and parasitic diseases; Z90.710 Acquired absence of both cervix and uterus; Z96.652 Presence of left artificial knee joint; Z98.41 Cataract extraction status, right eye
CPT/HCPCS: 93308; 71045; 71275; 72072; 72100; 72141; 72146; 74174; 80048; 80053; 82607; 82728; 82746; 83540; 83550; 83735; 83880; 84100; 84443; 84484; 85025; 85027; 93005; 93321; 93325; 94640; 96374; 96375; 97110; 97116; 97163; 97167; 99285; Q9967

== ENCOUNTER 2024-09-11 07:14 | Day surgery (SDC) | payer MEDICARE, BC, SELFPAY ==
[2024-09-11] MEDS: ELIQUIS 5 MG PO (10:13)
== END 2024-09-11 10:48 | disposition home or self-care (01) ==
LOC: CATH 07:14
PROVIDERS: ATTENDING PHYSICIAN Internal Medicine Cardiovascular Disease; FAMILY PHYSICIAN Family Medicine; OTHER PHYSICIAN Internal Medicine Cardiovascular Disease
DX: I48.19 Other persistent atrial fibrillation (principal); I34.0 Nonrheumatic mitral (valve) insufficiency; I25.10 Atherosclerotic heart disease of native coronary artery without angina pectoris; Z95.1 Presence of aortocoronary bypass graft; Z95.3 Presence of xenogenic heart valve; I44.0 Atrioventricular block, first degree; I10 Essential (primary) hypertension; E78.5 Hyperlipidemia, unspecified; E03.9 Hypothyroidism, unspecified; Z79.01 Long term (current) use of anticoagulants
CPT/HCPCS: 93312; 93320; 93325; 92960; 93005

== ENCOUNTER 2024-11-12 13:00 | Outpatient (RCR) | payer MEDICARE, BC, SELFPAY ==
[2024-11-07 10:59] LABS: Glucose - Point of Care 105 mg/dl (70-99)
== END 2024-11-12 23:59 | disposition home or self-care (01) ==
LOC: CRHB 13:00
PROVIDERS: ATTENDING PHYSICIAN Internal Medicine Cardiovascular Disease
DX: I50.32 Chronic diastolic (congestive) heart failure (principal); Z95.4 Presence of other heart-valve replacement
CPT/HCPCS: 82962; G0422; G0423

== ENCOUNTER 2024-12-04 13:21 | Outpatient (RCR) | payer MEDICARE, BC, SELFPAY | END 2024-12-04 23:59 | disposition home or self-care (01) | LOC: CRHB 13:21 | PROVIDERS: ATTENDING PHYSICIAN Internal Medicine Cardiovascular Disease; FAMILY PHYSICIAN Family Medicine | DX: Z95.4 Presence of other heart-valve replacement (principal) | CPT/HCPCS: G0422; G0423 ==

== ENCOUNTER 2024-12-10 12:35 | Inpatient (IN) | payer MEDICARE, BC, SELFPAY ==
[2024-12-10] VITALS (14 sets, daily range): BP systolic 113–173; BP diastolic 80–113; BMI 26.6; BMI 25.7
[2024-12-10 08:05] LABS: Hematocrit 32.5 % (37.0-47.0); Hemoglobin 10.9 g/dL (12.0-16.0); Mean Corp Hgb Conc. 33.5 g/dL (33.0-37.0); Mean Corpuscular Volume 97.6 fL (81.0-99.0); Nucleated Red Blood Cells % 0 %; Platelet Count 228 10^3/uL (130-400); Red Cell Dist. Width 16.5 % (11.5-14.5)
[2024-12-10 08:32] LABS: Troponin I 0.019 ng/ml
[2024-12-10 08:33] LABS: ALT (SGPT) 154 U/L (0-35); AST (SGOT) 240 U/L (14-36); Albumin 4.2 g/dl (3.5-5.0); Alkaline Phosphatase 253 U/L (38-126); Blood Urea Nitrogen 21 mg/dl (7-17); Calcium 8.9 mg/dl (8.4-10.2); Carbon Dioxide 25 mmol/L (22-30); Chloride 103 mmol/L (98-107); Estimated Creatinine Clearance 43 ml/min; Glucose 115 mg/dl (70-99); Magnesium 2.1 mg/dl (1.6-2.3); Potassium 4.0 mmol/L (3.5-5.1); Sodium 136 mmol/L (135-145); Total Protein 7.1 g/dl (6.3-8.2); eGFR > 60.00
--- NOTE | 2024-12-10 08:40 | ED.GENMED ---
History of Present Illness
General
Chief Complaint: Breathing Problem
Time Seen by Provider: 12/10/24 07:44
History of Present Illness
History of Present Illness:
84-year-old female with history of atrial fibrillation on Eliquis, recent TAVR in July 2024, CHF on furosemide, hypertension and hyperlipidemia presenting to the emergency department for shortness of breath. Patient reports symptoms started last
week, about 5 days ago. She initially went to her primary care doctor and was started on doxycycline for suspected sinus infection. Notes that her symptoms have not improved. Dyspnea is worse with exertion. Reports compliance with her
medications. Does note a sensation in her chest, denies significant pain. Patient noted to be in atrial fibrillation, which she reports is not abnormal for her, has been in and out of A-fib since her TAVR. Denies cough or fever. Does report some
mucus production. Denies any abdominal pain. Denies any known sick contacts. Denies additional acute medical
Past History
Past History
ED Past Medical History: Arrthythmia, HTN and Valvular disease
ED Past Surgical History: Cardiac (Aortic valve replacement), Cholecystectomy, Gynecological and Orthopedic (Knee replacement)
Social History
Tobacco: Non-smoker
Alcohol: Occasional
Drug: None
Personal:
Living: with family
Employment: Retired
Family History
Family History: Other (Noncontributory)
Phy Exam
Physical Exam
Physical Exam:
General: Well-appearing, no clinical signs of dehydration, nontoxic and in no acute distress
HEENT: protecting airway
Neck: appears supple
CV: Irregular irregular rhythm, normal rate, no evidence of cyanosis
Resp: No accessory muscle use, no increased work of breathing, lungs clear to auscultation bilaterally
Abd: No distention
Extremities: No deformities, no swelling
Neuro: alert, no focal neurologic deficit
: deferred
Rectal: deferred
Psych: Normal affect
Skin: Intact
Scores
Heart Failure Risk
Heart Failure Risk Score: Yes
History of Stroke or TIA: No
History of intubation for respiratory distress: No
Heart rate on ED arrival >/= 110: No
SaO2 <90% on arrival on room air: Yes
HR >/=110 during 3min walk test (or too ill to perform test): No
ECG has acute ischemic changes: No
Urea >/=12mmol/L (BUN 33.6mg/dL): No
Serum CO2>/=35mmol/L: No
Troponin I or T elevated to UT Level (0.4mg/dL): No
NT-proBNP >/=5,000ng/L (5,000pg/ml): No
HF Risk Score: 1
Admission Status: MEDIUM RISK 5.1% Consider observation or discharge to home with homecare & f/u visit to PCP/[facility], or SNF for treatment
Course
Orders/Labs/Results
Orders:
Orders
12/10/24 07:45
Electrocardiogram (*1) Urgent
Reason for Study: Shortness of Breath
CR Chest - 2 Views Urgent
Comment:
Reason For Exam: shortness of breath
12/10/24 07:46
EKG- Treatment ONCE
12/10/24 07:51
COVID-19 Antigen Urgent
Source: Nasal Swab
Complete Blood Count/With Diff Urgent
Comprehensive Metabolic Panel Urgent
Magnesium Urgent
NT-proBNP Urgent
Troponin I Urgent
Influenza A+B Rapid Molecular Urgent
TIGIST Source: Nasal Swab
Specimen Description:
12/10/24 Lunch
Cholesterol Lowering
At Your Request: Full Participation
Does patient need a safe tray?: No
Fluid Restriction: 1440 mL/day (48 oz)
Cholesterol Lowering: Sodium, 2 Gram
12/10/24 10:26
Furosemide [Lasix] 40 mg IV NOW STA
12/10/24 11:52
Admit/Transfer Patient As Directed
Co-Sign Provider:
Level of Care: Inpatient admission
Assign to:: Telemetry
Physician / Group: Srikanth Brandon
Diagnosis: HF exacerbation, aflutter/rvr
Reason for Telemetry: Arrhythmia
Date to Stop Telemetry: 12/13/24
Time to Stop Telemetry: 11:00
Reason for Hospitalization: HF exacerbation, aflutter/rvr
Expected length of stay greater than two midnights?: Yes
ELOS- Estimated Length of Stay in days: 3
I certify the patient meets the requirements for IP care: Yes
PRN Pain Medication Management As Directed
May give lesser potent ordered pain med per pt: Yes
preference::
Protocol:: Medication orders for pain may be administered in a
manner that supports deferring to patient preference
when the pt is:
- Requesting an ordered lesser potent pain medication.
Least to most potent pain medications are defined
as: acetaminophen < NSAID < tramadol < opioids
(morphine, oxycodone, hydromorphone).
- Requesting a lesser dose of the same medication IF
ORDERED.
- Requesting a less intrusive route of administration
if both routes are prescribed by the provider (PO <
IV).
12/10/24 11:53
Code Status As Directed
Resuscitation Status: Full Code
12/10/24 12:00
Metoprolol [Lopressor] 5 mg IV NOW STA
12/10/24 13:55
CARDIOLOGY CONSULT Routine
Consulting Provider: Chadwick Marroquin
Was physician already notified: Yes
Reason for consult: HF, afib
HF DIETARY CONSULT Routine
HF EDUCATOR CONSULT Routine
Comment:
Activity As Directed
Activity Level: With Assistance
Intake/ Output As Directed
Frequency: Per unit guidelines
Patient Education As Directed
Type: CHF folder
Comment: give on admission. Document in Interdisciplinary Education record
Sleep Apnea Assessment by RN As Directed
Comment:
Physician Instructions:
Vital Signs As Directed
Frequency: Other
Additional Instructions:: Q12 or per unit guidelines if more frequent.
Weight As Directed
Frequency: Daily
Type of Scale: Standing Scale
Comment: Daily morning weight. If unable to stand, use balanced bed scale.
Pulse Ox/cont/shift [RESP] Routine
Quantity: 1
Special Instructions: Daily pulse oximetry at rest. If greater than 92% at rest also obtain pulse oximetry
while ambulating as tolerated.
US Abdomen Complete/Upper Routine
Comment:
Reason For Exam: Liver and GB
12/10/24 20:00
Apixaban [Eliquis] 5 mg PO BID
12/10/24 22:00
Nadolol [Corgard] 80 mg PO HS
12/11/24 06:00
Levothyroxine [Synthroid] 100 mcg PO DAILY@0600
12/11/24 08:00
Cholecalciferol (Vitamin D3) [VITAMIN D3 (cholecalciferol)] 25 mcg PO DAILY
Cyanocobalamin [Vitamin B-12] 1,000 mcg PO DAILY
Furosemide [Lasix] 40 mg IV DAILY
Sertraline HCl [Zoloft] 100 mg PO DAILY
12/11/24 08:26
Complete Blood Count/No Diff IN AM
12/12/24 06:04
Complete Blood Count/No Diff IN AM
12/13/24 06:00
Basic Metabolic Panel IN AM
Complete Blood Count/No Diff IN AM
LFT [[id number]-Iqep-Wzmebzu] IN AM
12/13/24 11:00
DC Protocol for Telemetry ONCE
Abnormal Lab Results
12/10/24
07:51
RBC 3.33 L 10^6/uL
(4.20-5.40)
Hgb 10.9 L g/dL
(12.0-16.0)
Hct 32.5 L %
(37.0-47.0)
MCH 32.7 H pg
(27.0-31.0)
RDW 16.5 H %
(11.5-14.5)
Monocytes % 9.4 H %
(1.7-9.3)
BUN 21 H mg/dl
(7-17)
Glucose 115 H mg/dl
(70-99)
Total Bilirubin 1.6 H mg/dl
(0.2-1.3)
AST 240 H U/L
(14-36)
ALT 154 H U/L
(0-35)
Alkaline Phosphatase 253 H U/L
(38-126)
12/10/24 07:51
12/10/24 07:51
Vital Signs
Initial and Last Documented VS:
Initial Vital Signs
BP
152/111
12/10/24 07:46
Last Documented Vital Signs
Temp Pulse Resp BP Pulse Ox
97.9 F 91 16 110/66 98
12/12/24 15:37 12/12/24 15:37 12/12/24 15:37 12/12/24 15:37 12/12/24 15:37
MDM/Problems Addressed
MDM/Problems Addressed:
84-year-old female with history of atrial fibrillation on Eliquis, recent TAVR in July 2024, CHF on furosemide, hypertension and hyperlipidemia presenting for shortness of breath. Vital signs on arrival are significant for hypertension.
On exam patient is resting comfortably, no respiratory distress. Overall benign cardiac and pulmonary exam. Differential considerations include CHF exacerbation versus pneumonia versus viral infection. Patient does have some mild lower extremity
edema, reports increase shortness of breath with ambulation. Will obtain chest x-ray imaging and BNP. EKG obtained on arrival, A-flutter, without significant change from prior. Relatively rate controlled with heart rate fluctuating in the 80s to
low 100s. Do not suspect atrial flutter as etiology of symptoms. Lower suspicion for PE given anticoagulation status
10:20 - Patient's BNP is elevated and chest x-ray does show some small pleural effusions and cardiomegaly. Patient ambulated, desatted to the 80s with increased respiratory effort. At this time feel patient warrants admission. Suspected etiology
of symptoms is CHF. Will administer additional dose of diuretics and admit for continued respiratory monitoring cardiac consultation
*Pulse Oximetry
SaO2: 94
Oxygen Mode of Delivery: Room air
Patient hypoxic: no
*EKG
Interpreted by ED Provider?: Yes
EKG Intrepretation Date: 12/10/24
EKG Intrepretation Time: 08:43
Interpretation: abnormal
Comparison EKG: no changes (09/11/24)
Heart Rate: 102
Rate: tachycardiac
Rhythm: atrial flutter
Bud: normal axis
QRS Pattern: left vent hypertrophy
Ischemia: no ischemia
*Critical Care Note
Total Time (30-74mins, 75-104mins- exclusive of procedures): Not Applicable
ED Attending Note
-
Portions of this chart may have been created with voice recognition software.� Occasional wrong word or��sound alike� substitutions may have occurred due to the inherent limitations of voice recognition software.
Discharge Plan
Departure
Patient Disposition: Admit
Date of Disposition: 12/10/24
Time of Disposition: 10:27
Presentation/result/management discussed w/ accepting MD/DO: Hospitalist
Patient with high blood pressure during this ER visit?: No
Condition: Fair
Discharge Problem:
Acute on chronic congestive heart failure, Dyspnea on exertion
Interventions
Interventions:
*Risk Screen - Suicide Last Done: 12/10/24 07:56
*General Assessment Last Done: 12/10/24 07:56
*Neglect/Abuse Screening Last Done: 12/10/24 07:56
*ED- Fall Risk Assessment Last Done: 12/10/24 07:56
*ED COVID-19 Vaccine History Last Done: 12/10/24 07:56
*ED Influenza Vaccine History Last Done: 12/10/24 07:56
*Nursing Disposition Last Done: 12/10/24 13:08
ED- Cardiac Assessment Last Done: 12/10/24 07:56
ED- Pulmonary Assessment Last Done: 12/10/24 10:06
Discharge Date and Time
Discharge Date/Time: 12/10/24 13:51
[2024-12-10] MEDS: LASIX 40 MG IV (10:44)
--- NOTE | 2024-12-10 12:01 | HPS.HSE ---
Family Physician
-
Family Physician: Collin Mary
Chief Complaint
-
Shortness of breath, PND
History of Present Illness
Patient is a 84-year-old female with past medical history of chronic diastolic congestive heart failure, paroxysmal atrial fibrillation with rapid ventricular rate, history of aortic stenosis post TAVR august 04 , history of coronary disease status
post bypass in , essential hypertension, hypothyroidism, depression, hyperlipidemia, history of shingles, generalized anxiety, history of COVID-19 infection, history of cholecystectomy, history of BSO/hysterectomy, left TKR came to ER with new
onset of exertional dyspnea and nocturnal breathing issues. Patient started noticing symptoms starting on Monday last week and saw her primary care physician who prescribed doxycycline for possible sinusitis although patient did not have much
improvement in symptoms. Over the weekend patient continued worsening of symptoms up to point where patient not able to lie down flat and hardly getting any sleep. Shortness of breath mainly prominent when patient tried to do any activity or walk
around in the house. No associated chest pain/discomfort. Patient have a history of paroxysmal A-fib and was largely controlled although was noted to having reoccurred on last office visit with Dr. House. According to review of the records
Harsh have decided to hold on starting any further antiarrhythmic or opting for any cardioversion/ablation procedure. Patient metoprolol was switched to nadolol 20 mg twice daily on that visit which apparently has been titrated up to 80 mg every
night according to current home medication list. Patient continues to have palpitation on and off.
Medical History
Past Medical History
Past Medical History: Reports Other
Additional Past Medical History:
chronic diastolic congestive heart failure, paroxysmal atrial fibrillation with rapid ventricular rate, history of aortic stenosis post TAVR august 04 , history of coronary disease status post bypass in , essential hypertension, hypothyroidism,
depression, hyperlipidemia, history of shingles, generalized anxiety, history of COVID-19 infection, history of cholecystectomy, history of BSO/hysterectomy, left TKR
Past Surgical History: Reports Other
Social History
Tobacco: Non-smoker
Alcohol: None
Drug: None
Personal:
Living: Alone
Employment: Retired
Family History
Family History: Not pertinent
Allergies / Home Medications
Allergies reflects when Allergies were last updated in [employer].
Home Medications with original date entered in [employer]
Allergy/Medication List:
Allergies
Allergy/AdvReac Type Severity Reaction Status Date / Time
pollen extracts Allergy seasonal Verified 08/08/24 14:31
allergies
Home Medications
cholecalciferol (vitamin D3) 25 mcg (1,000 unit) tablet 1,000 units PO DAILY Supplement 07/15/21
cyanocobalamin (vitamin B-12) 1,000 mcg tablet 1,000 mcg PO DAILY Supplement 07/15/21
levothyroxine 100 mcg tablet 100 mcg PO DAILY Thyroid 07/15/21
ascorbate calcium (vitamin C) 500 mg tablet 500 mg PO DAILY Supplement 05/30/24
vit C 250 mg-vit E 90 mg-zinc 40 mg-copper 1 [id number]-[id number]-wtvyfw capsule (PreserVision AREDS-2) 2 tab PO DAILY Supplement 05/30/24
furosemide 40 mg tablet 40 mg PO DAILY@1600 Fluid Retention/Swelling 06/09/24
potassium chloride 20 mEq tablet,extended release(part/cryst) 20 meq PO DAILY Electrolyte Repletion 07/23/24
acetaminophen 650 mg tablet,extended release 1,300 mg (2 x 650 mg) PO TIDPRN PRN mild pain #0 tabs 08/13/24
amlodipine 2.5 mg tablet 2.5 mg PO DAILY 12/10/24
apixaban 5 mg tablet (Eliquis) 5 mg PO BID Blood clot prevention/tx 12/10/24
doxycycline hyclate 100 mg capsule 100 mg PO BID 12/10/24
lidocaine 4 % topical patch 1 patch topical DAILYPRN PRN RIGHT SHOULDER 12/10/24
nadolol 80 mg tablet 80 mg PO HS 12/10/24
sertraline 100 mg tablet 100 mg PO DAILY 12/10/24
Review of Systems
-
A 12 point ROS was completed and negative except as noted: Yes
Physical Exam
Vital Signs
Vital Signs
Temp Pulse Resp BP Pulse Ox
97.8 F 116 22 152/88 96
12/10/24 07:56 12/10/24 10:44 12/10/24 07:56 12/10/24 10:44 12/10/24 10:06
Physical Exam
General: No Apparent Distress
HEENT: NormoCephalic, Moist mucous membranes and Atraumatic; No Oxygen
Respiratory: Clear
Cardiac: S1/S2 and Irregular Rhythm; No Murmur or Rub
GI: Soft, Non Tender and Non Distended; No Organomegaly
Rectal: Deferred by Provider
Musculoskeletal: No Clubbing, No Cyanosis and No Edema
Skin: No Rash
Neuro: Nonfocal/grossly intact
Laboratory Results
-
12/10/24 07:51
12/10/24 07:51
Laboratory Results
Total Bilirubin 1.6 mg/dl (0.2-1.3) H 12/10/24 07:51
AST 240 U/L (14-36) H 12/10/24 07:51
ALT 154 U/L (0-35) H 12/10/24 07:51
Alkaline Phosphatase 253 U/L (38-126) H 12/10/24 07:51
Troponin I 0.019 ng/ml 12/10/24 07:51
Impression/Plan
-
1. Exertional dyspnea
- Possibly related to mild heart failure exacerbation versus A-flutter RVR related
- Not on oxygen, cardio monitoring
- Chest x-ray showing cardiomegaly with small pleural effusion. No obvious pulmonary edema. Changes of chronic scarring/atelectasis in right mid lower lung
2. Diastolic heart failure exacerbation
- Last echocardiogram with EF of 60 to 65% earlier this year
- Discharge weight of 65kg in September 04, in ER weight 68kg.
- Some lower extremity swelling.
- Patient got IV Lasix 40 mg in ER, maintain daily
- Cardiology evaluated for further help
3. Paroxysmal A-fib/flutter with RVR
- Primary retail brand ambassador office visit note reviewed, and patient Lopressor was switched to nadolol with dose uptitration for rate control
- Currently on nadolol 80 mg at bedtime, will continue
- Providing IV Lopressor 5 mg x1 to control HR
- Per office record patient heart rate runs around 110-120. Patient was planned to follow-up with Dr House again at 3months jef to discuss possible ablation/cardioversion need
- Cardiology consulted and will await further recommendation for any medication adjustment if needed
- Continue Eliquis 5 mg twice daily
4. Acute transaminitis
- Suspecting congestive hepatopathy
- Patient take high-dose of Tylenol, will need to be held
- Patient also has been started on doxycycline for last few days, in rare instance can give drug-induced liver injury
- Patient with history of cholecystectomy, will check liver and gallbladder ultrasound for any biliary issues
- Monitor LFTS
history of aortic stenosis post TAVR august 04
history of coronary disease status post bypass in
essential hypertension
hypothyroidism
depression
hyperlipidemia - not on statin
history of shingles
generalized anxiety
history of COVID-19 infection
history of cholecystectomy
history of BSO/hysterectomy
left TKR
DVT PPX - eliquis
Full code
Total time spent : 78 mins
I personally saw and examined the patient.
I have reviewed all diagnostic interpretations and treatment plans as written.
Time includes patient management by me, time spent at the patients bedside, time to review lab and imaging results, discussing patient care, documentation in the medical record, and time spent with the family or caregiver and discussing care plan
with RN/Consultants.
[2024-12-10] MEDS: LOPRESSOR 5 MG IV (12:15)
--- NOTE | 2024-12-10 12:47 | CON.CAR ---
Addendum entered and electronically signed by Chadwick Marroquin MD 12/10/24 16:52:
I saw and evaluated the patient, and I provided the substantive portion of the medical decision making.
I reviewed and agree with the note by Ms Ashby and it accurately reflects our care.
I personally performed the medical decision making of the this encounter and my assessment and plan is below:
SHe has gained some weight and we will cont IV diuresis.
Resume metop for AF RVR.
She is interested in ablation and would likely benefit from this..
Original Note:
Consultation
Consultation Request
Date/Time Consultation Requested: 12/10/2024 12:15
Date/Time Consultation Performed: 12/10/2024 12:50
Requesting Provider: Dr. Brandon
Performing Provider: LEROY Turner for Dr. Marroquin
Reason for Consultation: Acute on chronic heart failure, atrial flutter
Medical History
-
Chief Complaint: Shortness of breath
History of Present Illness:
Saundra Burton is an 84-year-old female (known to her primary construction person, Dr. House) with persistent atrial fibrillation/flutter, ALFREDO thrombus (resolved by JUAN 09/11/2024), HTN, CAD and severe s/p CABG + SAVR (2007) with severe bioprosthetic
valve stenosis/moderate insufficiency leading to recurrent exacerbations of HFpEF s/p bioprosthetic valve leaflet electrosurgical modification and John TAVR (#23 Medtronic CoreValve, 07/23/2024) presenting with shortness of breath. This has been
ongoing for about 5 days. She reports she has not been eating and drinking normally due to the loss of her . She was very surprised to find out she has gained about 5 pounds despite poor oral intake. She is not having any chest pain.
Past Medical History
Past Medical History: Arrhythmias (Atrial fibrillation, known ALFREDO thrombus), CAD (TOMLIN to LAD), CHF (HFpEF), HTN, Hypercholesterolemia and Valvular Disease (Severe )
Past Surgical History: Cardiac (CABG (TOMLIN to LAD); SAVR (#21 Riley MAGNA); BASILLICA assisted John TAVR (#23 Medtronic CoreValve Evolut FX+))
Social History
Tobacco: Non-Smoker
Alcohol: None
Drug: None
Personal:
Living: With Family
Employment: Retired
Family History
Family History: Reviewed & Not Pertinent
Allergies / Home Medications
Allergy/AdvReac Type Severity Reaction Status Date / Time
pollen extracts Allergy seasonal Verified 08/08/24 14:31
allergies
�Medication �Instructions �Recorded �Confirmed �Type
cholecalciferol (vitamin D3) 25 1,000 units PO DAILY Supplement 07/15/21 12/10/24 History
mcg (1,000 unit) tablet
cyanocobalamin (vitamin B-12) 1,000 mcg PO DAILY Supplement 07/15/21 12/10/24 History
1,000 mcg tablet
levothyroxine 100 mcg tablet 100 mcg PO DAILY Thyroid 07/15/21 12/10/24 History
ascorbate calcium (vitamin C) 500 500 mg PO DAILY Supplement 05/30/24 12/10/24 History
mg tablet
vit C 250 mg-vit E 90 mg-zinc 40 2 tab PO DAILY Supplement 05/30/24 12/10/24 History
mg-copper 1 [id number]
capsule (PreserVision AREDS-2)
furosemide 40 mg tablet 40 mg PO DAILY@1600 Fluid 06/09/24 12/10/24 History
Retention/Swelling
potassium chloride 20 mEq 20 meq PO DAILY Electrolyte 07/23/24 12/10/24 History
tablet,extended release(part/cryst) Repletion
acetaminophen 650 mg 1,300 mg (2 x 650 mg) PO TIDPRN 08/13/24 12/10/24 Rx
tablet,extended release PRN mild pain #0 tabs
amlodipine 2.5 mg tablet 2.5 mg PO DAILY 12/10/24 12/10/24 History
apixaban 5 mg tablet (Eliquis) 5 mg PO BID Blood clot 12/10/24 12/10/24 History
prevention/tx
doxycycline hyclate 100 mg capsule 100 mg PO BID 12/10/24 12/10/24 History
lidocaine 4 % topical patch 1 patch topical DAILYPRN PRN RIGHT 12/10/24 12/10/24 History
SHOULDER
nadolol 80 mg tablet 80 mg PO HS 12/10/24 12/10/24 History
sertraline 100 mg tablet 100 mg PO DAILY 12/10/24 12/10/24 History
Review of Systems
-
History Source: Patient
All other systems: Negative unless noted
Constitutional: Weight Gain and Fatigue
EENT: No Symptoms
Respiratory: Trouble Breathing
Cardiac: No Symptoms
Abdomen/GI: No Symptoms
: No Symptoms
Musculoskeletal: No Symptoms
Skin: No Symptoms
Neurological: No Symptoms
Endocrine: No Symptoms
Hematologic/Lymphatic: No Symptoms
Physical Exam
Vital Signs
Temp Pulse Resp BP Pulse Ox
97.8 F 115 24 155/94 98
12/10/24 07:56 12/10/24 12:38 12/10/24 12:38 12/10/24 12:38 12/10/24 12:38
Lab Results
12/10/24 07:51
12/10/24 07:51
Troponin I 0.019 ng/ml 12/10/24 07:51
Awg-P-Qmtwsgpzqzv Pept 9290 pg/ml 12/10/24 07:51
Physical Exam
General: Well Developed, Well Nourished, No Apparent Distress and Comfortable
HEENT: Normocephalic and Anicteric
Respiratory: Clear and Non Labored Respirations
Cardiac: S1/S2, Irregular Rhythm and Murmur
Breast: Deferred by me
GI: Soft, Non Tender, Non Distended and Normal Bowel Sounds
Rectal: Deferred by Provider
Genito-urinary: No Costovertebral Tender
Musculoskeletal: No Clubbing, No Cyanosis and No Edema
Skin: Warm and Dry
Neuro: AO x 3
Hematologic/Lymphatic: No Lymphadenopathy
Psych: Calm
Impression / Plan
-
I/P: 84F with persistent atrial fibrillation/flutter, ALFREDO thrombus (resolved by JUAN 09/11/2024), HTN, CAD and severe s/p CABG + SAVR (2007) with severe bioprosthetic valve stenosis/moderate insufficiency leading to recurrent exacerbations of HFpEF
s/p bioprosthetic valve leaflet electrosurgical modification and John TAVR (#23 Medtronic CoreValve, 07/23/2024) presenting with shortness of breath.
Primary construction person: Dr. House
HFpEF, acute on chronic - severe requiring hospitalization
- Diuresis with furosemide 40 mg IV twice daily
- Consider the addition of MRA, SGLT2i was cost prohibitive
- Trend daily weight, I's/O, and BMP with diuresis
- Heart failure education
Atrial flutter, type unknown
Paroxysmal atrial fibrillation
- Her primary construction person stopped her metoprolol succinate in favor of nadolol due to elevated HR
- Most recent JUAN guided DCCV 09/11/2024
- Has been off digoxin since 08/2024 as she ran out
- QTc may not favor antiarrhythmic therapy
- CHADS2-Vasc score 6 (CHF, HTN, Age x2, Vascular Disease, Female).
- Therapeutic anticoagulation with apixaban.
Severe bioprosthetic valve stenosis/moderate insufficiency
-Chronic, stable.
-S/P electrosurgical bioprosthetic valve leaflet modification (BASILICA) and John TAVR (#23 Medtronic Evolut TAVR), post dilated with a #20 TRUE balloon, 07/23/2024.
-JUAN 09/11/2024 with MG of 20 mmHg
-Antithrombotic therapy with apixaban (known AF).
CAD
-Chronic, stable.
-S/P CABG (TOMLIN to LAD).
-Evolocumab. Goal LDL < 55.
Data Reviewed
-
EKG: Report Reviewed by me (Atrial flutter, LVH, rate 102, prolonged QTc)
Radiology: Report Reviewed by me
Medical Tests (Nuc Med, Echo etc): Report Reviewed by me
Labs: Labs Reviewed by me
Old Records: Reviewed
--- NOTE | 2024-12-10 13:07 | EDRN ---
this RN called the receiving unit and notified them that paper report was going to be tubed up
--- NOTE | 2024-12-10 14:13 | EDCM ---
CM reviewed chart and met with pt bedside in ED. Pt lives alone in 2 story home, [address], has first floor half bath, has stairglide to second floor bedroom and full bath. Pr reports her in August.
Independent in ADLs, personal care and ambulation at baseline. No assistive devices, still driving. No other DME
One daughter lives in [place] and provides support, son lives in [place], other daughter in [place], [place].
Confirms prescription coverage.
Hx [facility], most recently after TAVR in July, hx Rehab at [facility]
PCP: Collin Mary
Pharmacy: [facility]
Anticipate discharge home, CM will continue to follow for all discharge planning needs.
[2024-12-10 15:13] LABS: COVID-19 Antigen Negative (Negative)
--- NOTE | 2024-12-10 15:13 | PTCARENOTE ---
Patient received to [address], awake alert and oriented. Denies any shortness of breath, no chest pain. Oriented to room. Call bel in reach.
[2024-12-10] MEDS: ELIQUIS 5 MG PO (20:09)
[2024-12-10] MEDS: TOPROL XL 50 MG PO (20:10)
[2024-12-10] MEDS: MELATONIN 5 MG PO (22:44)
[2024-12-11 03:18] VITALS: BP 119/78
[2024-12-11] MEDS: SYNTHROID 100 MCG PO (05:52)
[2024-12-11 06:00] VITALS: BMI 25.2
[2024-12-11 07:00] VITALS: BP 140/98
[2024-12-11 08:45] LABS: Hematocrit 31.3 % (37.0-47.0); Hemoglobin 10.6 g/dL (12.0-16.0); Mean Corp Hgb Conc. 33.9 g/dL (33.0-37.0); Mean Corpuscular Volume 98.7 fL (81.0-99.0); Platelet Count 215 10^3/uL (130-400); Red Cell Dist. Width 16.4 % (11.5-14.5)
[2024-12-11 08:55] VITALS: BMI 25.2
[2024-12-11] MEDS: VITAMIN D3 (cholecalciferol) 25 MCG PO (08:57)
[2024-12-11] MEDS: ZOLOFT 100 MG PO (08:57)
[2024-12-11] MEDS: TOPROL XL 50 MG PO ×2 (08:57→20:01)
[2024-12-11] MEDS: LASIX 40 MG IV (08:58)
[2024-12-11] MEDS: ELIQUIS 5 MG PO ×2 (08:58→20:00)
[2024-12-11] MEDS: VITAMIN B-12 1000 MCG PO (08:58)
[2024-12-11 09:13] LABS: ALT (SGPT) 105 U/L (0-35); AST (SGOT) 82 U/L (14-36); Albumin 3.7 g/dl (3.5-5.0); Alkaline Phosphatase 224 U/L (38-126); Blood Urea Nitrogen 22 mg/dl (7-17); Calcium 8.7 mg/dl (8.4-10.2); Carbon Dioxide 28 mmol/L (22-30); Chloride 102 mmol/L (98-107); Estimated Creatinine Clearance 43 ml/min; Glucose 100 mg/dl (70-99); Potassium 3.4 mmol/L (3.5-5.1); Sodium 136 mmol/L (135-145); Total Protein 6.5 g/dl (6.3-8.2); eGFR > 60.00
--- NOTE | 2024-12-11 10:01 | W.PN.HOSP.TC ---
Today's Communication/Plan
-
Maintained on IV diuretics
Rate/rhythm control medication per cardiology
PT/OT evaluation
Assessment / Plan
Assessment / Plan
1. Exertional dyspnea
- Possibly related to mild heart failure exacerbation versus A-flutter RVR related
- Not on oxygen, cardio monitoring
- Chest x-ray showing cardiomegaly with small pleural effusion. No obvious pulmonary edema. Changes of chronic scarring/atelectasis in right mid lower lung
2. Diastolic heart failure exacerbation
- Last echocardiogram with EF of 60 to 65% earlier this year
- Discharge weight of 65kg in September 04, in ER weight 68kg.
- Some lower extremity swelling.
- Patient is maintained on IV Lasix 40 mg twice daily, appropriate response to diuretic therapy.
- Cardiology input noted.
3. Paroxysmal A-fib/flutter with RVR
- Primary customer experience professional office visit note reviewed, and patient Lopressor was switched to nadolol with dose uptitration for rate control
- Patient takes nadolol 80 mg at nighttime. Has been switched to amiodarone after discussion with patient.
- Per office record patient heart rate runs around 110-120. Patient was planned to follow-up with Dr House again at 3months jef to discuss possible ablation/cardioversion need
- Cardiology consulted and will await further recommendation for any medication adjustment if needed
- Continue Eliquis 5 mg twice daily
- Cardiac planning to do JUAN cardioversion in 4 weeks.
4. Acute transaminitis - Improving
- Suspecting congestive hepatopathy
- Patient take high-dose of Tylenol, will need to be held
- Patient also has been started on doxycycline for last few days, in rare instance can give drug-induced liver injury
- Patient with history of cholecystectomy, Liver-GB US is normal.
- Monitor LFTS
5. Right pleural effusion
- on US abd, asymptomatic and small
Nephrolithiasis - 9mm stone in Right kidney
history of aortic stenosis post TAVR august 04
history of coronary disease status post bypass in
essential hypertension
hypothyroidism
depression
hyperlipidemia - not on statin
history of shingles
generalized anxiety
history of COVID-19 infection
history of cholecystectomy
history of BSO/hysterectomy
left TKR
DVT PPX - eliquis
Full code
Anticipated Discharge: 24 - 48 hours
Subjective/Interval History
-
Date of Service: December 11, 2024
feeling better
not on o2
Able to use go to bathroom without any problem
Objective Data
-
Labs:
Laboratory Results
12/11/24
08:26
WBC 5.5
Hgb 10.6 L
Hct 31.3 L
Plt Count 215
Sodium 136
Potassium 3.4 L
Chloride 102
Carbon Dioxide 28
BUN 22 H
Creatinine 0.8
Glucose 100 H
Calcium 8.7
Total Bilirubin 1.7 H
AST 82 H
ALT 105 H
Alkaline Phosphatase 224 H
Vital Signs:
Vital Signs
Temp Pulse Resp BP Pulse Ox
97.7 F 81 18 140/98 94
12/11/24 07:00 12/11/24 07:00 12/11/24 07:00 12/11/24 07:00 12/11/24 09:35
I&O
12/10/24 12/11/24 12/12/24
06:59 06:59 06:59
Intake Total 480 / 480
Output Total 1050 / 1050
Balance -570 / -570
Review of Systems
-
Respiratory: Reports No Symptoms
Cardiac: Reports No Symptoms
Abdomen/GI: Reports No Symptoms
Physical Exam
-
HEENT: Atraumatic; Negative Oxygen
Respiratory: Clear to Auscultation and Rales; Negative Wheezes
Cardiac: S1/S2, Irregular Rhythm and Murmur (3/6 m)
GI: Soft, Nontender and Nondistended
Musculoskeletal: No Edema
Neuro: Awake, Alert and Oriented
Psych: Calm
[2024-12-11 11:57] VITALS: BP 104/58
--- NOTE | 2024-12-11 12:19 | W.PN.UPDATE ---
Update Note
Progress Note Update
EP Consult
Recurrent persistent atrial fibrillation RVR
HFpEF exacerbated by rapid AFib
John TAVR 07/2024
CAD
SAVR/CABG 2007
Basline QTc over 450
Missed Eliquis dose
Suggest
Start Amio, gentle load 200 bid
JUAN/ Cardioversion in 4 weeks, (prior ALFREDO thrombus)
Will ask her to see Dr. Tapia to consider ablation and then later stopping AMIO vs cardioversion w/o ablation and that would lead to watermaster amio with need to monitor for amio toxicities
[2024-12-11] MEDS: PACERONE 200 MG PO ×2 (13:25→20:01)
--- NOTE | 2024-12-11 15:27 | CM ---
Patient to return to home with [facility] when stable.
Plan; Home with [facility]
--- NOTE | 2024-12-11 15:55 | VNURNOTE ---
Home Health Liaison met with patient at bedside to discuss [facility] nurse/therapy, visits, schedule and homebound status. Patient is agreeable and understands that visits at home will be 2-3 x per week to assess and teach medical management. Patient
confirms that she has a scale at home. She is familiar w/ [facility], has had our services in the past. Patient is aware that [facility] will contact them for start of care in 1-2 days after discharge from . Provided contact number for [facility].
[facility] referral completed in [facility].
[2024-12-11 16:10] VITALS: BP 94/60
[2024-12-11 19:45] VITALS: BP 101/64
[2024-12-11] MEDS: MELATONIN 5 MG PO (21:20)
[2024-12-11 23:57] VITALS: BP 108/75
[2024-12-12 03:06] VITALS: BP 126/91
[2024-12-12 06:00] VITALS: BMI 25.4
[2024-12-12] MEDS: SYNTHROID 100 MCG PO (06:03)
[2024-12-12 07:00] VITALS: BP 126/93
[2024-12-12 07:12] LABS: Hematocrit 34.3 % (37.0-47.0); Hemoglobin 11.5 g/dL (12.0-16.0); Mean Corp Hgb Conc. 33.5 g/dL (33.0-37.0); Mean Corpuscular Volume 102.7 fL (81.0-99.0); Platelet Count 236 10^3/uL (130-400); Red Cell Dist. Width 16.5 % (11.5-14.5)
[2024-12-12 07:25] LABS: ALT (SGPT) 86 U/L (0-35); AST (SGOT) 55 U/L (14-36); Albumin 3.7 g/dl (3.5-5.0); Alkaline Phosphatase 201 U/L (38-126); Blood Urea Nitrogen 27 mg/dl (7-17); Calcium 9.1 mg/dl (8.4-10.2); Carbon Dioxide 32 mmol/L (22-30); Chloride 101 mmol/L (98-107); Estimated Creatinine Clearance 43 ml/min; Glucose 106 mg/dl (70-99); Potassium 3.8 mmol/L (3.5-5.1); Sodium 139 mmol/L (135-145); Total Protein 6.5 g/dl (6.3-8.2); eGFR > 60.00
--- NOTE | 2024-12-12 08:50 | W.PN.CD ---
Today's Communication / Plan
-
PO lasix
metop to 100 bid --> as amio becomes therapeutic may need to titrate back down
Impression / Plan
-
I/P: 84F with persistent atrial fibrillation/flutter, ALFREDO thrombus (resolved by JUAN 09/11/2024), HTN, CAD and severe s/p CABG + SAVR (2007) with severe bioprosthetic valve stenosis/moderate insufficiency leading to recurrent exacerbations of HFpEF
s/p bioprosthetic valve leaflet electrosurgical modification and John TAVR (#23 Medtronic CoreValve, 07/23/2024) presenting with shortness of breath.
Primary coat operator: Dr. House
HFpEF, acute on chronic - severe requiring hospitalization
- switch to PO lasix 40 mg; HF improved
- Consider the addition of MRA, SGLT2i was cost prohibitive
- Trend daily weight, I's/O, and BMP with diuresis
- Heart failure education
Atrial flutter, type unknown
Paroxysmal atrial fibrillation
- Her primary coat operator stopped her metoprolol succinate in favor of nadolol due to elevated HR
- Increase metop for now given HRs are 130s
- cont amio
- outpatient AF ablation eval
- QTc may not favor antiarrhythmic therapy
- CHADS2-Vasc score 6 (CHF, HTN, Age x2, Vascular Disease, Female).
- Therapeutic anticoagulation with apixaban.
Severe bioprosthetic valve stenosis/moderate insufficiency
-Chronic, stable.
-S/P electrosurgical bioprosthetic valve leaflet modification (BASILICA) and John TAVR (#23 Medtronic Evolut TAVR), post dilated with a #20 TRUE balloon, 07/23/2024.
-JUAN 09/11/2024 with MG of 20 mmHg
-Antithrombotic therapy with apixaban (known AF).
CAD
-Chronic, stable.
-S/P CABG (TOMLIN to LAD).
-Evolocumab. Goal LDL < 55.
Physical Exam
Vital Signs/Labs
Vital Signs
Temp Pulse Resp BP Pulse Ox
98.1 F 132 18 126/91 96
12/12/24 03:06 12/12/24 03:06 12/12/24 03:06 12/12/24 03:06 12/12/24 03:06
12/11/24 12/12/24 12/13/24
06:59 06:59 06:59
Actual Weight 142 lb 7 oz 143 lb 6 oz
12/12/24 06:04
12/12/24 06:04
Magnesium 2.1 mg/dl (1.6-2.3) 12/10/24 07:51
12/10/24
07:51
Arq-Z-Mguxzzplbeo Pept 9290
LAB Results
12/10/24
07:51
Troponin I 0.019
Physical Exam
Constitutional: No acute distress and Comfortable
EENT: Anicteric
Cardiovascular: Rhythm/rate is irregular
Respiratory: Respiratory effort normal and Lungs clear to auscul.
GI: Soft
Neuro/Psych: AO x 3
Data Reviewed
-
Date of Service: December 12, 2024
Medical Decision Making: Reviewed Test Results
EKG: Tracing Personally Visualized and interpreted (af)
Echo: Report Reviewed by me
Labs: Labs Reviewed by me
[2024-12-12] MEDS: TOPROL XL 100 MG PO ×2 (08:55→20:12)
[2024-12-12] MEDS: VITAMIN B-12 1000 MCG PO (08:56)
[2024-12-12] MEDS: VITAMIN D3 (cholecalciferol) 25 MCG PO (08:56)
[2024-12-12] MEDS: ZOLOFT 100 MG PO (08:57)
[2024-12-12] MEDS: ELIQUIS 5 MG PO ×2 (08:57→20:12)
[2024-12-12] MEDS: PACERONE 200 MG PO ×2 (08:57→20:13)
[2024-12-12] MEDS: LASIX 40 MG PO (10:08)
[2024-12-12 11:00] VITALS: BP 137/87
[2024-12-12] MEDS: LASIX IV (12:15)
[2024-12-12] MEDS: TOPROL XL PO (12:17)
--- NOTE | 2024-12-12 13:50 | W.PN.HOSP.TC ---
Today's Communication/Plan
-
Rate control per cardiology
Switch to oral Lasix
Follow-up weight/creatinine
Continue other therapy
Assessment / Plan
Assessment / Plan
1. Exertional dyspnea - Improved
- Possibly related to mild heart failure exacerbation versus A-flutter RVR related
- Not on oxygen, cardio monitoring
- Chest x-ray showing cardiomegaly with small pleural effusion. No obvious pulmonary edema. Changes of chronic scarring/atelectasis in right mid lower lung
2. Diastolic heart failure exacerbation
- Last echocardiogram with EF of 60 to 65% earlier this year
- Discharge weight of 65kg in September 04, in ER weight 68kg.
- Some lower extremity swelling at admission
- Cardiology input noted.
- Patient has been transition to oral Lasix
3. Paroxysmal A-fib/flutter with RVR - remains uncontrolled
- Primary sales and marketing agent office visit note reviewed, and patient Lopressor was switched to nadolol with dose uptitration for rate control
- Patient takes nadolol 80 mg at nighttime. Has been switched to amiodarone after discussion with patient.
- Per office record patient heart rate runs around 110-120. Patient was planned to follow-up with Dr House again at 3months jef to discuss possible ablation/cardioversion need
- Cardiology consulted and will await further recommendation for any medication adjustment if needed
- Continue Eliquis 5 mg twice daily
- Cardiac planning to do JUAN cardioversion in 4 weeks.
4. Acute transaminitis - Improving
- Suspecting congestive hepatopathy
- Patient take high-dose of Tylenol, will need to be held
- Patient also has been started on doxycycline for last few days, in rare instance can give drug-induced liver injury
- Patient with history of cholecystectomy, Liver-GB US is normal.
- Monitor LFTS
5. Right pleural effusion
- on US abd, asymptomatic and small
Nephrolithiasis - 9mm stone in Right kidney
history of aortic stenosis post TAVR august 04
history of coronary disease status post bypass in
essential hypertension
hypothyroidism
depression
hyperlipidemia - not on statin
history of shingles
generalized anxiety
history of COVID-19 infection
history of cholecystectomy
history of BSO/hysterectomy
left TKR
DVT PPX - eliquis
Full code
Anticipated Discharge: Within 24 hours
Subjective/Interval History
-
Date of Service: December 12, 2024
Subjective feeling better
Continues to remain tachycardic
No reported palpitations/chest discomfort
Objective Data
-
Labs:
Laboratory Results
12/12/24
06:04
WBC 5.6
Hgb 11.5 L
Hct 34.3 L
Plt Count 236
Sodium 139
Potassium 3.8
Chloride 101
Carbon Dioxide 32 H
BUN 27 H
Creatinine 0.8
Glucose 106 H
Calcium 9.1
Total Bilirubin 1.0
AST 55 H
ALT 86 H
Alkaline Phosphatase 201 H
Vital Signs:
Vital Signs
Temp Pulse Resp BP Pulse Ox
98.0 F 116 18 137/87 99
12/12/24 11:00 12/12/24 11:00 12/12/24 11:00 12/12/24 11:00 12/12/24 11:00
I&O
12/11/24 12/12/24 12/13/24
06:59 06:59 06:59
Intake Total 480 / 480 720 / 720
Output Total 1050 / 1050 600 / 600
Balance -570 / -570 120 / 120
Review of Systems
-
Respiratory: Reports No Symptoms
Cardiac: Reports No Symptoms
Abdomen/GI: Reports No Symptoms
Physical Exam
-
HEENT: Atraumatic; Negative Oxygen
Respiratory: Clear to Auscultation and Rales; Negative Wheezes
Cardiac: S1/S2, Irregular Rhythm and Murmur (05/16 m)
GI: Soft, Nontender and Nondistended
Musculoskeletal: No Edema
Neuro: Awake, Alert and Oriented
Psych: Calm
--- NOTE | 2024-12-12 14:24 | CM ---
Chart reviewed and patient to return to home with [facility].
Plan; Home with [facility]
[2024-12-12 15:37] VITALS: BP 110/66
[2024-12-12 20:04] VITALS: BP 127/70
[2024-12-12] MEDS: MELATONIN 5 MG PO (20:13)
[2024-12-12 23:15] VITALS: BP 118/85
[2024-12-13] MEDS: SYNTHROID 100 MCG PO (03:40)
[2024-12-13 04:04] VITALS: BP 134/98
[2024-12-13 06:00] VITALS: BMI 25.4
[2024-12-13 08:00] VITALS: BP 143/95
[2024-12-13] MEDS: VITAMIN D3 (cholecalciferol) 25 MCG PO (08:17)
[2024-12-13] MEDS: TOPROL XL 100 MG PO (08:17)
[2024-12-13] MEDS: VITAMIN B-12 1000 MCG PO (08:17)
[2024-12-13] MEDS: PACERONE 200 MG PO (08:17)
[2024-12-13] MEDS: ELIQUIS 5 MG PO (08:17)
[2024-12-13] MEDS: ZOLOFT 100 MG PO (08:17)
[2024-12-13] MEDS: LASIX 40 MG PO (08:17)
[2024-12-13 08:54] LABS: Hematocrit 32.1 % (37.0-47.0); Hemoglobin 10.9 g/dL (12.0-16.0); Mean Corp Hgb Conc. 34.0 g/dL (33.0-37.0); Mean Corpuscular Volume 101.3 fL (81.0-99.0); Platelet Count 227 10^3/uL (130-400); Red Cell Dist. Width 16.2 % (11.5-14.5)
[2024-12-13 09:38] LABS: ALT (SGPT) 66 U/L (0-35); AST (SGOT) 39 U/L (14-36); Albumin 3.7 g/dl (3.5-5.0); Alkaline Phosphatase 176 U/L (38-126); Blood Urea Nitrogen 25 mg/dl (7-17); Calcium 9.0 mg/dl (8.4-10.2); Carbon Dioxide 30 mmol/L (22-30); Chloride 102 mmol/L (98-107); Estimated Creatinine Clearance 43 ml/min; Glucose 89 mg/dl (70-99); Potassium 4.0 mmol/L (3.5-5.1); Sodium 138 mmol/L (135-145); Total Protein 6.5 g/dl (6.3-8.2); eGFR > 60.00
--- NOTE | 2024-12-13 09:40 | W.PN.CD ---
Today's Communication / Plan
-
OK for home
Appt with Dr. Tapia arranged
Dr. House updated by [employer] message
Impression / Plan
-
I/P: 84F with persistent atrial fibrillation/flutter, ALFREDO thrombus (resolved by JUAN 09/11/2024), HTN, CAD and severe s/p CABG + SAVR (2007) with severe bioprosthetic valve stenosis/moderate insufficiency leading to recurrent exacerbations of HFpEF
s/p bioprosthetic valve leaflet electrosurgical modification and John TAVR (#23 Medtronic CoreValve, 07/23/2024) presenting with shortness of breath.
Primary sheet sorter: Dr. House
HFpEF, acute on chronic - severe requiring hospitalization
- switch to PO lasix 40 mg; HF improved
- Consider the addition of MRA, SGLT2i was cost prohibitive
- Trend daily weight, I's/O, and BMP with diuresis
- Heart failure education
Atrial flutter, type unknown
Paroxysmal atrial fibrillation
- Tolerating amio, on BB and Eliquis
- Likely ablation (UJAN needed given prior ALFREDO thrombus)
Valve in Vavle TAVR for severe bioprosthetic valve stenosis/moderate insufficiency
-Chronic, stable.
-S/P electrosurgical bioprosthetic valve leaflet modification (BASILICA) and John TAVR (#23 Medtronic Evolut TAVR), post dilated with a #20 TRUE balloon, 07/23/2024.
-JUAN 09/11/2024 with MG of 20 mmHg
-Antithrombotic therapy with apixaban (known AF).
CAD
-Chronic, stable.
-S/P CABG (TOMLIN to LAD).
-Evolocumab. Goal LDL < 55.
Subjective: AFib now low 100s. Clinically improve. Ok for home
Physical Exam
Vital Signs/Labs
Vital Signs
Temp Pulse Resp BP Pulse Ox
97.8 F 81 16 143/95 95
12/13/24 08:00 12/13/24 08:00 12/13/24 08:00 12/13/24 08:17 12/13/24 08:00
12/12/24 12/13/24 12/14/24
06:59 06:59 06:59
Actual Weight 65.034 kg 65.034 kg
12/13/24 06:55
12/13/24 06:55
Magnesium 2.1 mg/dl (1.6-2.3) 12/10/24 07:51
12/10/24
07:51
Bhm-[id number] Pept 9290
Physical Exam
Constitutional: No acute distress
EENT: Anicteric
Cardiovascular: Rhythm/rate is irregular and S1S2 is normal
Respiratory: Respiratory effort normal and Lungs clear to auscul.
GI: Soft and Distention absent
Neuro/Psych: AO x 3
Data Reviewed
-
Date of Service: December 13, 2024
--- NOTE | 2024-12-13 10:42 | CM ---
Patient seen at bedside on . Patient states she is going home with [employer]. Patient completed IMM and signed form placed on chart. Patient to go home with [facility] for follow up. CM will continue to follow for discharge planning needs.
Plan; home with [facility]
[2024-12-13 12:00] VITALS: BP 138/59
--- NOTE | 2024-12-13 16:16 | W.DCSUMMARY ---
Discharge Summary
Discharge Data
Date of Admission: 12/10/24
Date of Discharge: 12/13/24
-
Pending Results: No
Hospital Course
Discharging Physician : Dr Srikanth Brandon
Disposition : Home
Primary care physician : Dr Collin Mary
Principal Discharge diagnosis :
Exertional dyspnea
Acute on chronic diastolic congestive heart failure
Paroxysmal atrial fibrillation with rapid ventricular rate
Acute transaminitis from congestive hepatopathy
Chronic Discharge diagnosis :
Valve in valve TAVR for severe bioprosthetic valve stenosis/moderate insufficiency
History of coronary disease and bypass
History of nephrolithiasis
Essential hypertension
Hypothyroidism
Depression/anxiety
Hyperlipidemia
History of shingles
History of COVID-19 viral infection
History of cholecystectomy
History of bilateral salpingo-oophorectomy/hysterectomy
Left total knee replacement
Physical examination:
HEENT: moist mucus membrane
Chest: Clear to auscultation
Heart: N s1/s2, RRR, no rub/mrumur/gallops
Abd: N BS, soft, nontender, nondistended, no organomegaly
Neuro: No motor or sensory deficits,
Ext: No cyanosis, Clubbing, edema
Hospital Course :
Patient is 84-year-old female with mentioned past medical history came to ER with new onset of exertional shortness of breath which has started a week before the ER presentation. Patient was in primary care physician office and was provided
doxycycline for possible sinusitis although did not have improvement. Patient was having nocturnal dyspnea and had difficulty with sleeping. In ER on evaluation patient was noted to having possible mild heart failure exacerbation with some weight
gain and lower extremity swelling. Patient was also noted to having uncontrolled heart rate which has been tried to be controlled by primary pharmacy assistant on outpatient basis. Patient was admitted for further treatment and cardiology was involved
in care. Patient was maintained on IV diuretic therapy with which patient improvement in dyspnea symptoms. Patient rate controlled medication was adjusted from nadolol to Toprol-XL. Patient was also started on oral amiodarone. Cardiology
evaluated and recommended for patient to follow-up with EP cardiology for evaluation of ablation. Patient also had mild transaminitis likely from congestive hepatopathy which has normalized. Liver and gallbladder ultrasound was done which ruled
out any acute structural issues. Post medical stabilization patient was discharged home with plan for follow-up with cardiology in office.
Important imaging findings :
None
Procedure findings :
None
Discharge Plan
-
Patient Disposition: Home (Routine Discharge)
Discharge Diagnosis/Procedures: HF exacerbation, Afib w RVR
Condition: Fair
Diet: Low Sodium and Restrict fluids to 48 oz
Activity: As tolerated
Driving Restrictions: As prior to admission
Bathing Restrictions: OK to Shower
Instructions: *[facility] Heart Failure Instructions
Referrals:
Collin Mary DO [Family Provider, Family Practice] - in one week
Maurisio Tapia MD [Active, Cardiology]
Referral Note: Office will call to arrange EP consultation to discuss possible ablation
César House MD [Active, Cardiology]
Prescriptions:
New
metoprolol succinate 100 mg Tablet Extended Release 24 Hr
100 mg PO BID Qty: 60 2RF
amiodarone 200 mg tablet
See Rx Instructions .ROUTE .COMPLEX Qty: 60 1RF
Rx Instructions:
Take 1 Tablet twice daily for 30 days THEN
Take 1 tablet once daily for maintenance
Continued
levothyroxine 100 MCG tablet
100 mcg PO DAILY
cyanocobalamin (vitamin B-12) 1,000 MCG tablet
1,000 mcg PO DAILY
cholecalciferol (vitamin D3) 1,000 UNITS tablet
1,000 units PO DAILY
ascorbate calcium (vitamin C) 500 mg Tablet
500 mg PO DAILY
PreserVision AREDS-2 250-90-40-1 mg Capsule
2 tab PO DAILY
furosemide 40 mg tablet
40 mg PO DAILY@1600
potassium chloride 20 mEq Tablet,Er Particles/Crystals
20 meq PO DAILY
acetaminophen 650 mg Tablet Extended Release
1,300 mg PO TIDPRN PRN (Reason: mild pain) Qty: 0 0RF
amlodipine 2.5 mg Tablet
2.5 mg PO DAILY
Eliquis 5 mg tablet
5 mg PO BID
sertraline 100 mg Tablet
100 mg PO DAILY
lidocaine 4 % adhesive patch,medicated
1 patch topical DAILYPRN PRN (Reason: RIGHT SHOULDER)
Discontinued
nadolol 80 mg Tablet
80 mg PO HS
doxycycline hyclate 100 mg Capsule
100 mg PO BID
Rx Instructions:
FOR 14 DAYS STARTING 12/06/24
Discharge Orders:
Discharge Patient (As Directed); Ordered 12/13/24
Ordered By: Srikanth Brandon
Discharge Date and Time
Discharge Date/Time: 12/13/24 12:17
Print Language: FAROESE
--- NOTE | 2024-12-16 15:06 | W.HF.CON ---
Heart Failure
- LV Function
Left ventricular function study result: LV Ejection fraction >/= 50% (ECHO 08/27/24)
Ejection Fraction Percentage: 65-70
- ARNI
Patient already on ARNI: No
Heart Failure ARNI Not Indicated: LV Ejection Fraction >/= 40%
- ACEI/ARB
Patient already on ACEI/ARB: No
Heart Failure ACEI/ARB Not Indicated: LV Ejection Fraction > 40%
- Beta Alex
Patient already on Evidence Based Beta Alex: Yes
- Mineralocorticord Receptor Antagonist
Patient already on MRA: No
Heart Failure MRA Not Indicated: LV Ejection Fraction > 40%
- SGLT-2 Inhibitor
Patient already on SGLT-2 Inhibitor: No
Heart Failure SGLT-2 Inhibitor Contraindication: Patient Refusal
- Afib Anticoagulation
Patient already on Anticoagulation for Afib: Yes
- NYHA CHF Classification
NYHA CHF Classification Level: Class III - Symptoms w/ min exertion, interferes w/ nml daily activity
- ACC/AHA Stage
ACC/AHA Stage: Stage C: Symptomatic Heart Failure
== END 2024-12-13 12:17 | disposition home health service (06) | DRG 291 ==
LOC: 4 WEST ACU 12:35
PROVIDERS: ADMITTING PHYSICIAN Hospitalist; CONSULT PHYSICIAN Internal Medicine Cardiovascular Disease; EMERGENCY PHYSICIAN Student in an Organized Health Care Education/Training Program; FAMILY PHYSICIAN Family Medicine
DX: I11.0 Hypertensive heart disease with heart failure (principal); I50.33 Acute on chronic diastolic (congestive) heart failure; J98.11 Atelectasis; I48.0 Paroxysmal atrial fibrillation; K76.1 Chronic passive congestion of liver; E03.9 Hypothyroidism, unspecified; F32.A Depression, unspecified; Z86.19 Personal history of other infectious and parasitic diseases; Z86.16 Personal history of COVID-19; Z90.49 Acquired absence of other specified parts of digestive tract; Z90.710 Acquired absence of both cervix and uterus; F41.1 Generalized anxiety disorder; Z79.890 Hormone replacement therapy; Z79.01 Long term (current) use of anticoagulants; Z79.899 Other long term (current) drug therapy; Z95.1 Presence of aortocoronary bypass graft; Z95.2 Presence of prosthetic heart valve; I25.10 Atherosclerotic heart disease of native coronary artery without angina pectoris; Z96.652 Presence of left artificial knee joint; E78.00 Pure hypercholesterolemia, unspecified; G89.29 Other chronic pain
CPT/HCPCS: 71046; 76700; 80053; 82248; 83735; 83880; 84484; 85025; 85027; 87502; 87811; 93005; 96374; 99285

== ENCOUNTER → 2025-01-23 10:30 | Outpatient (REF) | payer MEDICARE, BC, SELFPAY ==
[2025-01-23 10:59] LABS: Hematocrit 36.0 % (37.0-47.0); Hemoglobin 12.2 g/dL (12.0-16.0); Mean Corp Hgb Conc. 33.9 g/dL (33.0-37.0); Mean Corpuscular Volume 102.3 fL (81.0-99.0); Nucleated Red Blood Cells % 0 %; Platelet Count 179 10^3/uL (130-400); Red Cell Dist. Width 13.6 % (11.5-14.5)
== END ==
LOC: SDSPAT 10:30
PROVIDERS: ATTENDING PHYSICIAN Internal Medicine Cardiovascular Disease; FAMILY PHYSICIAN Family Medicine; OTHER PHYSICIAN Internal Medicine Cardiovascular Disease
DX: I48.91 Unspecified atrial fibrillation (principal)
CPT/HCPCS: 36415; 85025; 86850; 86900; 86901

== ENCOUNTER 2025-01-30 05:58 | Day surgery (SDC) | payer MEDICARE, BC, SELFPAY ==
[2025-01-23 10:36] VITALS: BMI 25.5
[2025-01-30] VITALS (11 sets, daily range): BP systolic 91–157; BP diastolic 39–93; BMI 24.8
[2025-01-30 09:51] LABS: ACT-LR - POC 339 Seconds (116-155)
--- NOTE | 2025-01-30 10:32 | ITS.CL.ABL ---
[facility] - Ablation
Ablation
Procedure Report:
AFIB / Flutter ablation:
Ms. Burton is a very pleasant 84 yr old woman with symptomatic persistent AF, and atrial flutter, is recommended a redo AF ablation.
Date of the Procedure:
01/30/25
Indications:
Persistent with recurrent atrial fibrillation / Flutter
Pre-Operative Diagnosis:
Persistent with recurrent atrial fibrillation / Flutter
Post-Operative Diagnosis:
Persistent with recurrent atrial fibrillation / Flutter
Procedure Performed:
Atrial fibrillation ablation with Pulsed-Field approach for pulmonary vein isolation
Posterior wall isolation
Mitral flutter ablation
Left atrial anterior wall focal tachycardia ablation
Biatrial flutter ablation
Cavotricuspid isthmus based flutter ablation
Performing Physician:
Maurisio Tapia MD
Assistants:
EP staff
Anesthesia:
See anesthesia records
Detailed Description of the Procedure:
Written informed consent was obtained from the patient after a full explanation of the risks and benefits of the procedure including the risks of sedation and anesthesia.
The patient was brought to the electrophysiology laboratory in stable condition in fasting state. Continuous electrocardiographic and hemodynamic monitoring was initiated.
The initial rhythm was atrial fibrillation.
The procedure site was meticulously prepared with surgical scrub and allowed to dry with no pooling. Sterile draping was applied to cover the procedure site. The image intensifier was draped with sterile bag and positioned over the patient. After
infusion of local anesthetic, vascular access was obtained under ultrasound guidance and sheaths were placed over guide wire as detailed below.
Sheath and Catheter Placement:
The following catheters / sheaths were placed
Sheaths:
17Fr steerable sheath (Rabixoadrive�, [employer]) in right femoral
9Fr in right femoral vein
7Fr in right femoral vein
Catheters:
JOSE HD Grid mapping catheter � at locations of RA, LA
Farawave� PFA catheter
ICE catheter -AcuNav - at locations of RA, SVC, and RV.
Decapolar Bard catheter in RA and CS
Intracardiac ECHO:
An 8-Sammarinese AcuNav intracardiac ECHO (ICE) probe was advanced through the 9-Sammarinese sheath in the right femoral vein into the right atrium under fluoroscopic and ICE ultrasound image guidance and a baseline ECHO study was performed. The left atrial
size was dilated. There was moderate tricuspid regurgitation. The aortic valve was grossly normal. There was normal left ventricular systolic functions. There is small pericardial effusion. All the four veins were identified and has flow identified.
There was sluggish flow noted in the ALFREDO with decreased velocities noted on Doppler.
During the procedure, ICE was used for monitoring of complications, guidance of trans-septal puncture, monitor the catheter position and tracking ablation lesions. No change in the pericardial space noted throughout the procedure.
Trans-septal Puncture:
Heparin was initiated and infused to maintain appropriate ACT. A pigtail guidewire was advanced through the 8-Sammarinese sheath in the right femoral vein into the superior vena cava under fluoroscopic and ICE guidance. The 9-Sammarinese sheath was exchanged
for a Faradrive sheath which was advanced into the superior vena cava. A transseptal RF pigtail via Faradrive connect system was utilized to perform the trans-septal puncture. The apparatus was withdrawn until it was in contact with the fossa
ovalis. The position was adjusted based on fluoroscopy and ultrasound images from ICE. Under fluoroscopic, hemodynamic and ICE ultrasound guidance, left atrium was cannulated by applying RF energy. Once atrial septum was cannulated, the pigtail wire
was advanced into the left atrium. The guide wire was advanced into the left superior pulmonary vein. Both the sheath and the dilator was advanced into the left atrium. The dilator with the needle was withdrawn. Blood was aspirated from the
Faradrive sheath and arterial blood confirmed. The sheath was flushed. Saline injection noted into the left atrium on ICE. The mapping catheter was advanced in the sheath into the left pulmonary vein. Left atrial pressure was measured.
3D Electroanatomic Mapping:
Using the HD Grid catheter advanced through sheath into the left atrium, an electroanatomic map (EAM) of the left atrium was created using [employer] JOSE mapping system. The map was used for localization of catheter position and tacking of ablation
lesions.
The EAM of the left atrium showed 4 pulmonary veins with all 4 veins electrically connected to the body the LA. It showed extensive areas of scar on the posterior and anterior wall of the LA. The LA was dilated in size.
Cardioversion:
With severely deranged electric signals noted in the LA, it was decided to cardiovert and map in sinus rhythm.
A 200 J shock was delivered and sinus rhythm achieved with severe brdycardia to 30s bpm. A glycopyrrolate 0.2 mg was given.
The LA was mapped in sinus rhythm again in detail. The EAM showed extesnive scarring in both posterior and anterior wall. The ALFREDO had signals but had sluggish conductionnoted.
Following the EAM, preparation were made for ablation.
Ablation:
Ablation # 1: Pulmonary vein Isolation:
Glycopyrrolate 0.2 mg was given prior to the placement of ablation. Using StrongSteam pulsed field ablation system, pulmonary vein isolation was achieved. First the ablation catheter was placed in the LSPV and ostial ablation lesions were performed in
an �[place]� formation of the Farawave configuration and a counter clock pedroza rotation was done and ablated to cover the area between the electrodes. Then the catheter was placed on the antral location in �Flower� configuration and multiple ablation
lesions were placed circumferentially on the antrum of the vein.
In the similar fashion, the LIPV were isolated.
Then the catheter was moved to right sided veins. The ostial and antral ablations were placed as noted above.
Ablation # 2: Posterior wall isolation:
Using the pulsed field ablation catheter, the catheter was placed on the posterior wall and moved around the posterior wall to have adequate contact and ablations were placed isolating the posterior wall.
EPS and Confirmation of the PVI and bidirectional block:
Following achievement of entrance block at the pulmonary veins, pacing from the HD catheter in each of the four veins at 10 milliamps for 2 milliseconds showed entrance and exit block. All PVI were rechecked at the end of the case and remained
isolated. Entrance and exit block were demonstrated in all veins.
While mapping, patient went back into atrial flutter.
Ablation # 3: Mitral Flutter ablation:
Using the Farapulse ablation catheter, the ablation cathere was placed on the anterior wall at the area of scar and series of ablation were placed from the RSPV to the anterior wall and to mitral annulus in �Flower� shape. Ablations were placed and
block was achieved.
The flutter terminated with catheter bumping at the roof area.
Ablation # 4: Bi-Atrial Flutter Ablation:
The new tachycardia was much slower and was again earliest at the atrial septum consistent with biatrial flutter. Using the Farapulse ablation catheter, the flower was placed on the atrial septum and ablation was placed.
An other flutter was noted at 280 ms CL. The flutter was mapped and was noted to be coming from th septum with LA being activated passively.
Post ablation Electroanatomic mapping:
Once ablation was completed, the EAM of the LA was done again in sinus rhythm with excellent demarcation of LA myocardium and isolated antral tissue. There was extensive scarring of the LA noted consistent with pre-ablation scar.
The ALFREDO had healthy signals and was not isolated.
Electroanatomic mapping of the right atrium:
The HD grid was pulled out of the LA into the RA. Using the HD Grid catheter advanced through Faradrive sheath into the right atrium, an electroanatomic map (EAM) of the right atrium was created using JOSE mapping system with HD Grid.
Ablation # 5: Typical Atrial Flutter Ablation:
Patient was noted to be in atrial flutter 280 ms CL. The CS was showing concentric activation. The Entrainment showed the proximal CS was close to the circuit but the distal CS was out. The EAM of the tachycardia was created that showed typical
counter clockwise flutter.
With anticipation of pulsed field energy deliver at the CTI, a 50 mcg of Nitroglycerin was injected into the RA.
The ablation was performed using Farawave� PFA catheter from the tricuspid annulus to the IVC ridge. The first application was done in [place] formation placing the ablation catheter on the tricuspid isthmus to with ICE visualization. With first
ablation, the flutter terminated into sinus rhythm. Further ablation lesions were placed with the �Flower� shape on the CTI to the Eustachian ridge.
The flutter terminated into sinus rhythm.
-Bidirectional block was confirmed across the CTI line with differential pacing.
-Double potentials were spaced greater than 112 msec apart.
-The conduction time across the CTI line from proximal CS pacing was 182 msec.
-EAM of the right atrium was obtained with coronary sinus pacing and showed a line of block at the CTI.
-The time interval just lateral to the ablation lesions was 182 msec and the lateral wall was 112 msec
- All these maneuvers confirmed the block at the CTI line.
- Post ablation HV interval was unchanged at 55msec
With mapping the LA, the catheter induced ectopy pushed patient into AF again but was short lived and spontaneously converted to sinus once the catheter was removed. There was sinus node dysfunction and had junctional escape rhythm faster than the
sinus rhythm.
Procedure End
ICE study was done again that showed no epicardial accumulation. No complications noted.
Following the completion of the EP study, catheters were removed. Protamine 30 mg was given at the end of the procedure and ACT was checked repeatedly. The sheaths were removed and hemostasis achieved with Figure of 8 and manual compression after
acceptable ACT is achieved.
Total Number PFA ablation lesiosn
72
Left atrial Pressure:
Pre-ablation: Mean LA pressure was 17mmHg (AF)
Post-ablation: Mean LA pressure was 11mmHg (sinus)
Post-ablation: Mean RA pressure was 6mmHg (sinus)
Estimated Blood loss:
<10 cc
Specimens Removed:
None.
Implants / Devices:
None
Urine output:
None
Packs / Drains/ Tubes:
None
Instrument / Sponge Count Correct:
Yes
Complications of the Procedure:
None
Condition of Patient at Time of Transfer:
Hemodynamically stable with no neurological or vascular compromise.
Summary:
Successful atrial fibrillation ablation with Pulsed Field approach for pulmonary vein isolation, posterior wall isolation, Mitral flutter ablation, Biatrial flutter ablation, typical atrial flutter abaltion
Figures from the Procedure:
Typical atrial flutter
[2025-01-30 10:41] LABS: ACT-LR - POC > 397 Seconds (116-155)
[2025-01-30 10:41] LABS: ACT-LR - POC > 397 Seconds (116-155)
[2025-01-30] MEDS: ANESTHETIC LOZENGE 1 LOZENGE PO (11:09)
--- NOTE | 2025-01-30 15:23 | ITS.CL.ICD ---
Skilled Laborer - ICD
Implantable Cardioverter Defibrillator
Procedure Report:
Dual Chamber Implantable Cardioverter Defibrillator Placement:
Ms. Yuan is an 79-year-old woman with with ischemic cardiomyopathy, LVEF 25%, h/progressive obstructive coronary artery disease requiring PCI to [place] and bypass vessels, severe status post TAVR, MDS, HTN, HPL, insulin-dependent ICD, CKD 3,
and history of subarachnoid hemorrhage and gout with persistent low EF 20% with NYHA class III heart failure symptoms and h/o dual-chamber ICD that got infected ad underwent whole system extraction and now is here for reimplant of her dual chamber
ICD onthe right shouldr.
He has a class II indication for pacemaker for bradycardia and intermittent need for atrial pacing and was atrial paced at 23% prior to extraction.
Indications: Bradycardia and NYHA class III CHF with HFrEF (20%) despite on maximally GDMT - primary prevention.
Date of the Procedure:
01/30/2025
Pre-Operative Diagnosis: Bradycardia and NYHA class III CHF with HFrEF (20%) despite on maximally GDMT - primary prevention for SCD.
Post-Operative Diagnosis: Bradycardia and NYHA class III CHF with HFrEF (20%) despite on maximally GDMT - primary prevention for SCD.
Procedure Performed: DUAL CHAMBER IMPLANTABLE CARDIOVERTER DEFIBRILLATOR IMPLANTATION
Surgeon:
Maurisio Tapia MD
Anesthesia:
See anesthesia report
Detailed Description of the Procedure:
The patient was identified using hospital identification and informed consent obtained for the procedure. The risks were explained including, but not limited to: Bleeding, infection, arrhythmia, stroke, vascular/cardiac/lung puncture, surgery,
pacemaker dependency/device malfunction. All questions were answered.
The patient was brought to the electrophysiology laboratory in stable condition in fasting state. Continuous electrocardiographic and hemodynamic monitoring was initiated. The initial rhythm was sinus.
The procedure site was meticulously prepared with surgical scrub and allowed to dry with no pooling. Sterile draping was applied to cover the procedure site. The image intensifier was draped with sterile bag and positioned over the patient.
The right infra-clavicular region was prepped and draped in the usual sterile fashion. Local anesthesia was administered subcutaneously using 1% lidocaine / Bupivacaine. The right axillary vein was accessed using micropuncture apparatus, and
vascular sheaths were introduced for lead access. The guide wires were advanced into the right ventricle and the right atrium.
The right ventricular lead was secured in position with an active fixation technique at the apical septal location.
The RA lead was attached in the right atrial appendage with active fixation.
There was excellent sensing, pacing, and impedance from the leads, with no diaphragmatic stimulation at 10 V output.�Bovie cautery, antibiotics, and fluoroscopy were used.
The sheath was withdrawn, and the thresholds remained acceptable.
Using 2-0 Vicryl suture, a pursestring suture was applied at the insertion site.
The lead was secured in position at the venous entry site with 2-0 Ethibond. A pocket was fashioned contiguous to the incision. The electrode terminals were connected to the pulse generator, which was placed into the pocket. The wound was irrigated
thoroughly with antibiotic solution,
A TYRX pouch was installed in the pocket around the generator and the leads.
The wounds was closed in 3 layers using 2-0 VLoc sutures followed by 2 layers of 4-0 Biosyn sutures. Steri-Strips and a bandage were applied externally.�
Procedure End:
The procedure was tolerated well. A bandage was applied to the incision area.
Estimated Blood loss:
5 cc
Fluoro time:
6.9min / 2.42 Gycm2
Specimens Removed:
No cultures and no specimens were obtained. No intraoperative pathology was identified.
Urine output:
None
Packs / Drains/ Tubes:
None
Instrument / Sponge Count Correct:
Yes
Complications of the Procedure:
None
Condition of Patient at Time of Transfer:
Hemodynamically stable with no neurological or vascular compromise.
Device information:�
Generator: [employer]; Model: [id number]; Serial # [id number]�
Atrial Lead: [employer]; Model: 5076-45; Serial # [id number]�
Measured data in the right atrium was sensing of 1.5 mV, impedance of 420ohms and threshold of 0.75 V at 0.4ms�
RV Lead: [employer]; Model: 6935M-55; Serial # [id number]
Measured data in the RV lead was sensing of 20 mV, impedance of 670 ohms and threshold of 0.5 V at 0.4ms�
PROGRAMMING PARAMETERS:�
Markell parameter settings were AAIR <=>DDDR 60-130 bpm. �
Mode switch: On
Paced AV delay: 130 ms
Sensed AV delay: 1200 ms
Rate Adaptive A-V Interval: Off
Output parameters:
Amplitude (V) Pulse Width (ms) Sensitivity (mV)
RA: 3.5 0.4 0.3
RV: 3.5 0.4 0.3
Tachy parameter settings:
SVT discrimination: On
AF/AFl: On
SVT limit: 260 msec
VT zone:
Slow VT: 150 - 188 bpm --> Monitor
Fast VT/VF: > 188 bpm --> Shock x6 (ATP before and during)
Summary:
Successful implantation of MRI compatible dual chamber Med[employer]onic implantable Cardioverter Defibrillator.
Results/Recommendations:
-Please follow up CXR�
1. Please provide patient with adequate pain control�
Instructions to be given to patient:�
- Please follow up with [facility] at [address] [place] [address] ([phone]) to get your wound checked within 14 days of your discharge.
- Do not soak incision site until after it is evaluated at cardiology clinic. OK to showers followed by dab dry the area. No baths or swimming until then. Sponge baths are OK.�
- Allow 'steri strips' to fall off on their own�
- Do not lift right elbow above shoulder, particularly with sudden jerking movements, for 1 month�
- Do not lift anything weighing more than 5 pounds with the right arm for 1 month�
- If you notice any fevers, shortness of breath, lightheadedness, chest pain, or worsening swelling in the wound site, please contact the arrhythmia clinic, contact your bilingual case manager, or present to the hospital for evaluation.�
Maurisio Tapia MD
Electrophysiology
--- NOTE | 2025-01-30 15:30 | W.PN.UPDATE ---
Update Note
Progress Note Update
84 yo WF s/p PVI (same day). She denies cp,sob, karsten diet, voiding, EKG SR 1 deg AVB HR 40's, denies dizziness, R fem site c/d/i. She will resume Eliquis tonight. We will stop amiodarone and decrease metoprolol to 50mg daily. Activity restrictions
reviewed. She will f/u [facility] in 2 weeks. She is for d/c home after 315pm
== END 2025-01-30 15:21 | disposition home or self-care (01) ==
LOC: CATH 05:58
PROVIDERS: ATTENDING PHYSICIAN Internal Medicine Cardiovascular Disease; FAMILY PHYSICIAN Family Medicine; OTHER PHYSICIAN Internal Medicine Cardiovascular Disease
DX: I48.19 Other persistent atrial fibrillation (principal); I48.92 Unspecified atrial flutter; Z79.899 Other long term (current) drug therapy; Z79.01 Long term (current) use of anticoagulants; Z79.890 Hormone replacement therapy
CPT/HCPCS: C1732; C1894; C1730; C1892; C1769; C1759; 85347; 93005; 93655; 93656; 93657; C1733; C1766